=== PATIENT | female | born 1940 | race Caucasian/White ===

== ENCOUNTER 2017-06-18 03:15 | Inpatient (IN) | payer BC, MEDICARE ==
[~2017-06-18] VITALS: Ht 152.4 cm; Wt 51.5 kg
[~2017-06-18 03:15] MED LIST: BETA1TAB10 PO; CALC-77 PO; CITA20TA5 PO; CRAN1TAB6 PO; DILT180C2 PO; HYDR-2762 PO; Hydrocodone/Acetaminophen PO; LEVO50TA PO; MULT-208 PO; OMEP40CA5 PO; POTASSIUM CHLO10 MEQ PO; TRIA1TAB3 PO
[2017-06-18] MEDS ORDERED: IV NORMAL SALINE 1000ML BAG 1,000 ML IV SCH (03:30)
--- NOTE | 2017-06-18 03:30 | PHYS DOC ---
Past Medical History Past Medical History: A-Fib, Asthma, CAD, Gallstones Additional Past Medical Histor: rheumatic heart disease, benign aortic tumor, graves disease Past Surgical History: Cholecystectomy, Hysterectomy, Tonsillectomy Additional Past Surgical Histo: rt & lt lumpectomy, rt bunyon, rt knee surgery Past Surgical History Jared Alcohol Use: None Drug Use: None Social History She is on hospice for heart disease. Adult General Chief Complaint Chief Complaint: MECHANICAL FALL HPI HPI Patient is a 76 year old female who presents with fall. She states she has fallen with her walker now twice. Her left knee "gave out." She does feel a little lightheaded and she did hit her head. She is not on a blood thinner. She lives at assisted living. She does feel slightly dizzy she states. She is on hospice for her heart. 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 She did not contact her hospice nurse however. Review of Systems Review of Systems Constitutional: Denies fever or chills Eyes: Denies change in visual acuity, redness, or eye pain HENT: Denies nasal congestion or sore throat Respiratory: Denies cough or shortness of breath Cardiovascular: No chest pain GI: Denies abdominal pain, nausea, vomiting, bloody stools or diarrhea : Denies dysuria or hematuria Musculoskeletal: Denies back pain or joint pain Integument: Denies rash or skin lesions Neurologic: Denies headache, focal weakness or sensory changes; no LOC; no syncope Current Medications Current Medications Current Medications Medications (Trade) Dose Ordered Sig/Luann Start Time Stop Time Status Last Admin Dose Admin Ceftriaxone Sodium 1 gm/ Sodium Chloride 50 ml @ 100 mls/hr Q24H 06/18/17 05:00 UNV Sodium Chloride 1,000 ml @ 100 mls/hr Q10H 06/18/17 03:30 06/18/17 13:29 06/18/17 04:11 100 MLS/HR Allergies Allergies Allergies Coded Allergies Type Severity Reaction Last Updated Verified Penicillins Allergy Intermediate HIVES 02/17/15 Yes tetracycline Allergy Unknown 06/18/17 Yes Physical Exam Physical Exam Constitutional: Well developed, well nourished, no acute distress, non-toxic appearance. HENT: Normocephalic, bilateral external ears normal, oropharynx moist, no oral exudates, nose normal. Right parietal swelling and contusion. Eyes: PERRLA, EOMI, conjunctiva normal, no discharge. TM clear bilaterally Neck: Normal range of motion, no tenderness, supple, no stridor. Non tender to palpation Cardiovascular:Heart rate regular rhythm, murmur noted Lungs & Thorax: Bilateral breath sounds clear to auscultation Abdomen: Bowel sounds normal, soft, no tenderness, no masses, no pulsatile masses. Skin: Warm, dry, no erythema, no rash. Back: No tenderness, no CVA tenderness. Extremities: No tenderness, no cyanosis, no clubbing, ROM intact, no edema. Full ROM of bilateral knees. Neurologic: Alert and oriented X 3, normal motor function, normal sensory function, no focal deficits noted. Current Patient Data Vital Signs Vital Signs Date Time Temp Pulse Resp B/P (MAP) Pulse Ox O2 Delivery O2 Flow Rate FiO2 06/18/17 03:21 98.5 78 16 97/50 (66) 95 Room Air 98.5 Lab Values Laboratory Tests Test 06/18/17 04:00 06/18/17 04:10 White Blood Count 8.2 x10^3/uL (4.0-11.0) Red Blood Count 3.47 x10^6/uL (3.50-5.40) L Hemoglobin 11.8 g/dL (12.0-15.5) L Hematocrit 34.2 % (36.0-47.0) L Mean Corpuscular Volume 99 fL (79-100) Mean Corpuscular Hemoglobin 34 pg (25-35) Mean Corpuscular Hemoglobin Concent 34 g/dL (31-37) Red Cell Distribution Width 12.3 % (11.5-14.5) Platelet Count 221 x10^3/uL (140-400) Neutrophils (%) (Auto) 75 % (31-73) H Lymphocytes (%) (Auto) 14 % (24-48) L Monocytes (%) (Auto) 7 % (0-9) Eosinophils (%) (Auto) 2 % (0-3) Basophils (%) (Auto) 1 % (0-3) Neutrophils # (Auto) 6.2 x10^3uL (1.8-7.7) Lymphocytes # (Auto) 1.2 x10^3/uL (1.0-4.8) Monocytes # (Auto) 0.6 x10^3/uL (0.0-1.1) Eosinophils # (Auto) 0.2 x10^3/uL (0.0-0.7) Basophils # (Auto) 0.1 x10^3/uL (0.0-0.2) Sodium Level 142 mmol/L (136-145) Potassium Level 2.7 mmol/L (3.5-5.1) *L Chloride Level 100 mmol/L (98-107) Carbon Dioxide Level 28 mmol/L (21-32) Anion Gap 14 (6-14) Blood Urea Nitrogen 52 mg/dL (7-20) H Creatinine 2.6 mg/dL (0.6-1.0) H Estimated GFR (Cockcroft-Gault) 17.9 Glucose Level 113 mg/dL (70-99) H Calcium Level 11.4 mg/dL (8.5-10.1) H Total Bilirubin 0.5 mg/dL (0.2-1.0) Direct Bilirubin 0.1 mg/dL (0.0-0.2) Aspartate Amino Transferase (AST) 27 U/L (15-37) Alanine Aminotransferase (ALT) 15 U/L (14-59) Alkaline Phosphatase 125 U/L (46-116) H Creatine Kinase 153 U/L (26-192) Troponin I Quantitative < 0.017 ng/mL (0.000-0.055) Total Protein 6.4 g/dL (6.4-8.2) Albumin 4.0 g/dL (3.4-5.0) Urine Collection Type U cath Urine Color Yellow Urine Clarity Clear Urine pH 5.5 Urine Specific [place] 1.010 Urine Protein Negative mg/dL (NEG-TRACE) Urine Glucose (UA) Negative mg/dL (NEG) Urine Ketones (Stick) Negative mg/dL (NEG) Urine Blood Negative (NEG) Urine Nitrite Negative (NEG) Urine Bilirubin Negative (NEG) Urine Urobilinogen Dipstick 0.2 mg/dL (0.2 mg/dL) Urine Leukocyte Esterase Small (NEG) Urine RBC 0 /HPF (0-2) Urine WBC 5-10 /HPF (0-4) Urine Squamous Epithelial Cells None /LPF Urine Bacteria Many /HPF (0-FEW) Urine Hyaline Casts Few /HPF Urine Mucus Slight /LPF Laboratory Tests 06/18/17 04:00 Laboratory Tests 06/18/17 04:00 EKG EKG EKG interpreted by myself at pr 3:19 AM. Sinus rhythm rate 75. Left thompson axis. No STEMI; nonspecific ST changes. Radiology/Procedures Radiology/Procedures Chest x-ray interpreted by myself at 0410 AM. No pleural effusions, no infiltrates, no pneumothorax, no obvious bony thorax injury. Impressions: [facility] [address] [place] [address] IMAGING REPORT Signed PATIENT: ATTILA MAY ACCOUNT: [id number] : 1940 LOCATION: ER AGE: 76 SEX: F EXAM STATUS: REG ER ORD. PHYSICIAN: LILIAM VU MD REASON: fall; rt parietal hematoma PROCEDURE: CT HEAD WO CONTRAST CT HEAD INDICATION: pt.fell; right parital hematoma COMPARISON: None Available. TECHNIQUE: 5 mm contiguous axial images were obtained from the skull base to the vertex. Exposure: One or more of the following individualized dose reduction techniques were utilized for this examination: 1. Automated exposure control 2. Adjustment of the mA and/or kV according to patient size 3. Use of iterative reconstruction technique FINDINGS: Mild soft tissue swelling identified in the right parietal scalp region likely scalp hematoma. Mild bilateral periventricular white matter hypodensities likely chronic small vessel ischemic disease. No evidence of acute intracranial hemorrhage. No extra-axial fluid collections. No mass effect or midline shift. Ventricular size is appropriate. Basal cisterns are patent. No fractures identified.Mccormick-white differentiation is preserved.Globes and orbits are within normal limits. Paranasal sinuses and mastoid air cells are clear. IMPRESSION: 1. No acute intracranial findings. 2. Mild soft tissue swelling identified in the right parietal scalp region likely scalp hematoma. Electronically signed by: Ciaran Bazzi MD (06/18/2017 4:25 AM) [facility] DICTATED and SIGNED BY: CIARAN BAZZI MD DATE: 06/18/17421 CC: LILIAM VU MD; MERRY MOSS MD ~ Course & Med Decision Making Course & Med Decision Making Pertinent Labs and Imaging studies reviewed. (See chart for details) Evaluated patient upon arrival. She is alert. She denies any true syncope or loss of consciousness. At 0445 AM: Urine is positive; Rocephin IV started. At 0500 AM: K 2.7; will replace. Spoke with Dr Merry Moss; accepted admission at 0500 am. Obsv to med/surg. I have spoken with the patient and/or caregivers. I have explained the patient' s condition, diagnosis and treatment plan based on the information available to me at this time. I have answered the patient's and/or caregiver's questions and addressed any concerns. The patient and/or caregivers have as good an understanding of the patient's diagnosis, condition and treatment plan as can be expected at this point. The patient has been stabilized within the capability of the emergency department. The patient will be transported for further care and management or will be moved to an observation or inpatient service. I have communicated with the staff or medical practitioner taking over this patient's care. Dragon Disclaimer Dragon Disclaimer This electronic medical record was generated, in whole or in part, using a voice recognition dictation system. Departure Departure Impression: Primary Impression: Fall Additional Impressions: Urinary tract infection Hypokalemia Disposition: ADMITTED INPATIENT Admitting Physician: Merry Moss Condition: STABLE Referrals: MERYR MOSS MD (PCP) Problem Qualifiers Primary Impression: Fall Encounter type: initial encounter Qualified Codes: W19.XXXA - Unspecified fall, initial encounter Additional Impressions: Urinary tract infection Urinary tract infection type: acute cystitis Hematuria presence: without hematuria Qualified Codes: N30.00 - Acute cystitis without hematuria LILIAM VU MD Jun 18, 2017 03:30
[2017-06-18 04:18] LABS: BASO # 0.1 x10^3/uL (0.0-0.2); BASO % 1 % (0-3); EOS % 2 % (0-3); HEMATOCRIT 34.2 % (36.0-47.0); HEMOGLOBIN 11.8 g/dL (12.0-15.5); LYMPH # 1.2 x10^3/uL (1.0-4.8); LYMPH % 14 % (24-48); MEAN CORPUSCULAR HEMOGLOBIN 34 pg (25-35); MEAN CORPUSCULAR HGB CONC 34 g/dL (31-37); MEAN CORPUSCULAR VOLUME 99 fL (79-100); MONO % 7 % (0-9); NEUT % 75 % (31-73); PLATELET COUNT 221 x10^3/uL (140-400); RED BLOOD COUNT 3.47 x10^6/uL (3.50-5.40); RED CELL DISTRIBUTION WIDTH 12.3 % (11.5-14.5); WHITE BLOOD COUNT 8.2 x10^3/uL (4.0-11.0)
[2017-06-18 04:20] LABS: BILIRUBIN,URINE NEGATIVE (NEG); GLUCOSE,URINE NEGATIVE (NEG); NITRITE,URINE NEGATIVE (NEG); PH,URINE 5.5; PROTEIN,URINE NEGATIVE (NEG-TRACE); UROBILINOGEN,URINE 0.2 mg/dL (0.2 mg/dL)
--- NOTE | 2017-06-18 04:28 | RAD ---
CT HEAD INDICATION: pt.fell; right parital hematoma COMPARISON: None Available. TECHNIQUE: 5 mm contiguous axial images were obtained from the skull base to the vertex. Exposure: One or more of the following individualized dose reduction techniques were utilized for this examination: 1. Automated exposure control 2. Adjustment of the mA and/or kV according to patient size 3. Use of iterative reconstruction technique FINDINGS: Mild soft tissue swelling identified in the right parietal scalp region likely scalp hematoma. Mild bilateral periventricular white matter hypodensities likely chronic small vessel ischemic disease. No evidence of acute intracranial hemorrhage. No extra-axial fluid collections. No mass effect or midline shift. Ventricular size is appropriate. Basal cisterns are patent. No fractures identified.Mccormick-white differentiation is preserved.Globes and orbits are within normal limits. Paranasal sinuses and mastoid air cells are clear. IMPRESSION: 1. No acute intracranial findings. 2. Mild soft tissue swelling identified in the right parietal scalp region likely scalp hematoma. Electronically signed by: Ciaran Bazzi MD (06/18/2017 4:25 AM) [place] [id number]
[2017-06-18 04:30] LABS: BACTERIA,URINE MANY /HPF (0-FEW); RBC,URINE 0 /HPF (0-2)
[2017-06-18 04:47] LABS: CALCIUM 11.4 mg/dL (8.5-10.1); CREATININE 2.6 mg/dL (0.6-1.0); DIRECT BILIRUBIN 0.1 mg/dL (0.0-0.2); GFR 17.9; TOTAL BILIRUBIN 0.5 mg/dL (0.2-1.0); TOTAL PROTEIN 6.4 g/dL (6.4-8.2)
[2017-06-18 04:53] LABS: POTASSIUM 2.7 mmol/L (3.5-5.1)
[2017-06-18 04:56] LABS: CKMB MASS 2.8 ng/mL (0.0-3.6)
[2017-06-18] MEDS ORDERED: POTASSIUM CL 40MEQ D5-0.45NACL 1,000 ML IV ONE (05:30)
[2017-06-18 06:40] VITALS: BP 147/75
[2017-06-18 06:41] VITALS: BP 147/75
--- NOTE | 2017-06-18 07:04 | EKG ---
[facility] [address] [place] [address] Test Date: 2017-06-18 Test Time: 03:19:35 Pat Name: ATTILA MAY Department: Room: 4 Gender: F Talent Development Director: : 1940 Requested By: LILIAM VU Order Number: [id number] Reading MD: Seema Givens Measurements Intervals [place] Rate: 75 P: 46 NM: 180 QRS: -15 QRSD: 100 T: 29 QT: 382 QTc: 429 Interpretive Statements SINUS RHYTHM LEFTWARD AXIS NON SPECIFIC T ABNORMALITY Electronically Signed On 06-19-2017 20:30:29 CDT by Seema Givens
--- NOTE | 2017-06-18 07:11 | RAD ---
Portable chest, 06/18/2017: History: Dizziness Comparison is made to a study from 02/14/2015. The heart is within normal limits in size. There is a moderate sized hiatal hernia. There is calcific plaquing and tortuosity of the thoracic aorta. The pulmonary vascularity is normal. No pulmonary infiltrates are seen. There is no evidence of pleural fluid. There is a moderate thoracolumbar scoliosis with associated degenerative change. 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 IMPRESSION: 1. Moderate size hiatal hernia. 2. Aortic atherosclerosis and ectasia. 3. No acute cardiopulmonary abnormality is detected.
--- NOTE | 2017-06-18 08:48 | PDOC ---
Provider Note Provider Note [id number] MERRY MOSS MD Jun 18, 2017 08:48
[2017-06-18] MEDS: LEVOTHYROXINE 50 MCG TABLET PO SCH (09:12)
[2017-06-18] MEDS: CITALOPRAM 20 MG TABLET. PO SCH (09:12)
[2017-06-18] MEDS: PANTOPRAZOLE 40 MG TABLET.DR. PO SCH (09:12)
[2017-06-18] MEDS: HYDROcodon/APAP 7.5/325MG ORAL 15 ML SOLUTION PO PRN ×2 (09:20→18:37)
[2017-06-18] MEDS: POTASSIUM CHLORIDE 30 MEQ in IV DEXTROSE 5 %-0.45 % NACL 1,000 ML IV SCH ×3 (09:30→22:28)
[2017-06-18] MEDS: ONDANSETRON PF 4 MG/2 ML VIAL. IV PRN (09:45)
[2017-06-18 11:00] VITALS: BP 102/63
--- NOTE | 2017-06-18 12:20 | HP ---
ADMIT DATE: 06/18/2017 CHIEF COMPLAINT: Weakness and dehydration. HISTORY OF PRESENT ILLNESS: A 76-year-old white female with chronic medical problems, came in with increasing fatigue, weakness and lethargy. She was found to have a urinary tract infection and also mild hypotension, some prerenal azotemia and hypokalemia, potassium of 2.7. Creatinine was 2.6 and the last creatinine in the record 2 years ago was 1.2. She was given Rocephin and IV fluids and feeling a little better at this time. PAST HISTORY: MEDICATIONS: Listed per the chart. MEDICATIONS: She takes no blood pressure medicines. ALLERGIES: LISTED TO PENICILLIN AND TETRACYCLINE. SOCIAL HISTORY: Lives in assisted living facility, has a daughter who helps to take care of her, nonsmoker, nondrinker. FAMILY HISTORY: Unremarkable. REVIEW OF SYSTEMS: No other known problems. OBJECTIVE: ENT: All within normal limits except mildly dry mucosa. NECK: No carotid bruits, nodes, thyroid enlargement. LUNGS: Clear without tachypnea. CARDIOVASCULAR: Regular rate. Grade 2 systolic murmur across the precordium. ABDOMEN: Soft, benign and nontender. EXTREMITIES: Skin turgor decreased pedal pulses diminished, 2+ clubbing. No joint or skin lesions are noted. NEUROLOGIC: Physiologic and normal for her. Gait not tested. No focal findings. ASSESSMENT: Dehydration, acute renal failure from same and hypokalemia. Urinary tract infection as well. PLAN: Fluids, potassium replacement and Rocephin. MERRY MOSS MD DR: HARLAN/geo JOB#: [id number] / [id number]
[2017-06-18] MEDS ORDERED: PROCHLORPERAZINE 5 MG TABLET. PO PRN (12:45)
[2017-06-18] MEDS: PROCHLORPERAZINE 10 MG/2 ML VIAL. IV PRN ×2 (13:10→18:37)
[2017-06-18 15:00] VITALS: BP 99/61
[2017-06-18 19:00] VITALS: BP 111/72
[2017-06-18 23:00] VITALS: BP 159/72
--- NOTE | 2017-06-18 23:43 | ACF ---
Admission Forms Criteria URINARY COMPLICATIONS (Place 'X' for any and all applicable criteria): Ongoing inpatient care may be needed for Urinary complications with 1 or more of the following: [ ]I. Reduced urine output (eg, despite adequate hydration) [ ]II. Renal failure. (Also use Renal Failure: Common Complications and Conditions as appropriate) [ ]III. Urinary retention requiring drainage or surgery(19)(20)(21)(33)(34) [ ]IV. Postobstructive diuresis requiring close monitoring of urine output and intravenous compensation for excessive fluid losses(35) [X]V. Urinary tract infection requiring inpatient care as indicated by ANY ONE of the following(8)(19)(20): [ ]a) Hemodynamic instability [ ]b) Severe symptoms (eg, high fever, severe pain) [ ]c) Vomiting or dehydration requiring ongoing inpatient care [X]d) IV antibiotic needs that cannot be managed at lower level of care [ ]e) Obstruction of collecting system by stone or tumor Extended stay beyond goal length of stay for primary condition may be needed until ALL of the following are present(3)(4)(5)(8): [ ]a) Renal function (creatinine) at baseline, or daily decreases in creatinine consistent with renal function return [ ]b) Voiding adequately or with urinary catheter or percutaneous suprapubic tube and management regimen in place that is performable at lower level of care. [ ]c) Urine output adequate [ ]d) Fever absent or resolving [ ]e) Infection absent or treatable at next level of care The original [employer] content created by [employer] has been revised. The portions of the content which have been revised are identified through the use of italic text, and [facility] has neither reviewed nor approved the modified material. All other unmodified content is copyright [employer] Please see references footnoted in the original [employer] edition 2015 Admission Criteria Met?: Yes CONSUELO HOLCOMB Jun 18, 2017 23:43
[2017-06-19] MEDS: ONDANSETRON PF 4 MG/2 ML VIAL. IV PRN (00:25)
[2017-06-19] MEDS: PROCHLORPERAZINE 10 MG/2 ML VIAL. IV PRN ×5 (02:56→22:19)
[2017-06-19 03:00] VITALS: BP 141/79
[2017-06-19 07:00] VITALS: BP 154/77
[2017-06-19] MEDS: LEVOTHYROXINE 50 MCG TABLET PO SCH (07:30)
[2017-06-19] MEDS: PANTOPRAZOLE 40 MG TABLET.DR. PO SCH (07:30)
--- NOTE | 2017-06-19 08:40 | PDOC ---
Provider Note Provider Note VSS, NO TEMP, LAB PENDING RE LOW k+- URINE CULT PENDING ALSO- will use perc same as at home for pain MERRY MOSS MD Jun 19, 2017 08:40
[2017-06-19 08:52] LABS: CALCIUM 11.7 mg/dL (8.5-10.1); CREATININE 1.5 mg/dL (0.6-1.0); GFR 33.8
[2017-06-19 08:54] LABS: POTASSIUM 2.7 mmol/L (3.5-5.1)
[2017-06-19] MEDS: CITALOPRAM 20 MG TABLET. PO SCH (09:00)
[2017-06-19] MEDS: POTASSIUM CHLORIDE 30 MEQ in IV DEXTROSE 5 %-0.45 % NACL 1,000 ML IV SCH ×2 (09:08→18:08)
[2017-06-19 10:36] VITALS: BP 121/61
[2017-06-19] MEDS: oxyCODONE/APAP 7.5/325 1 TAB TABLET PO SCH ×2 (13:27→18:09)
[2017-06-19 14:51] VITALS: BP 134/84
[2017-06-19] MEDS: POTASSIUM CHLORIDE 10 MEQ TABLET.ER. PO SCH (18:09)
[2017-06-19 19:00] VITALS: BP 102/76
--- NOTE | 2017-06-19 20:03 | EKG ---
[facility] [address] [place] [address] Test Date: 2017-06-19 Test Time: 20:01:30 Pat Name: ATTILA MAY Department: Room: 4 1 Gender: F Promotions Associate: URIEL : 1940 Requested By: MERRY MOSS Order Number: [id number] Reading MD: Seema Givens Measurements Intervals [place] Rate: 135 P: [place]: QRS: -30 QRSD: 82 T: -34 QT: 308 QTc: 467 Interpretive Statements ATRIAL FIBRILLATION ABNORMAL LEFT AXIS DEVIATION LEFT ANTERIOR FASCICULAR BLOCK ST & T ABNORMALITY, CONSIDER HIGH LATERAL ISCHEMIA INFERIOR ISCHEMIA ABNORMAL ECG Electronically Signed On 06-22-2017 14:56:08 CDT by Seema Givens
[2017-06-19 23:00] VITALS: BP 105/59
[2017-06-20] VITALS (17 sets, daily range): BP systolic 125–171; BP diastolic 60–107
[2017-06-20] MEDS: oxyCODONE/APAP 7.5/325 1 TAB TABLET PO SCH ×4 (00:19→18:00)
[2017-06-20] MEDS: POTASSIUM CHLORIDE 30 MEQ in IV DEXTROSE 5 %-0.45 % NACL 1,000 ML IV SCH ×3 (01:14→23:14)
[2017-06-20] MEDS ORDERED: dilTIAZem IV PUSH 25 MG/5 ML VIAL IVP ONE (04:00)
[2017-06-20] MEDS: LEVOTHYROXINE 50 MCG TABLET PO SCH (08:48)
[2017-06-20] MEDS: CITALOPRAM 20 MG TABLET. PO SCH (08:48)
[2017-06-20] MEDS: POTASSIUM CHLORIDE 10 MEQ TABLET.ER. PO SCH ×3 (08:49→18:38)
[2017-06-20] MEDS: PANTOPRAZOLE 40 MG TABLET.DR. PO SCH (08:49)
--- NOTE | 2017-06-20 09:20 | PDOC ---
Provider Note Provider Note still nausea and devleoped af/rvr as she could not hold dilt down- now better on dilt drip 15mg/hr- renal lab better 06/19, today pending- cont same for now MERRY MOSS MD Jun 20, 2017 09:20
[2017-06-20 11:27] LABS: CALCIUM 10.3 mg/dL (8.5-10.1); CREATININE 1.1 mg/dL (0.6-1.0); GFR 48.2; POTASSIUM 3.2 mmol/L (3.5-5.1)
[2017-06-20] MEDS: PROCHLORPERAZINE 10 MG/2 ML VIAL. IV PRN (22:19)
[2017-06-21] VITALS (11 sets, daily range): BP systolic 134–159; BP diastolic 70–90
[2017-06-21] MEDS: oxyCODONE/APAP 7.5/325 1 TAB TABLET PO SCH ×5 (04:49→23:47)
--- NOTE | 2017-06-21 09:17 | PDOC ---
Provider Note Provider Note af and nausea persists, etiology ?- exam same- K+ better 3.2- will add carafate trial, more lab, cont iv dilt re nausea- MERRY MOSS MD Jun 21, 2017 09:17
[2017-06-21] MEDS: PANTOPRAZOLE 40 MG TABLET.DR. PO SCH (09:19)
[2017-06-21] MEDS: POTASSIUM CHLORIDE 10 MEQ TABLET.ER. PO SCH ×3 (09:19→16:44)
[2017-06-21] MEDS: LEVOTHYROXINE 50 MCG TABLET PO SCH (09:19)
[2017-06-21] MEDS: CITALOPRAM 20 MG TABLET. PO SCH (09:19)
[2017-06-21] MEDS: PROCHLORPERAZINE 10 MG/2 ML VIAL. IV PRN ×2 (09:20→16:53)
[2017-06-21 10:03] LABS: ALBUMIN 3.3 g/dL (3.4-5.0); ALBUMIN/GLOBULIN RATIO 1.1 (1.0-1.7); CALCIUM 9.8 mg/dL (8.5-10.1); GFR 53.8; POTASSIUM 3.7 mmol/L (3.5-5.1); TOTAL BILIRUBIN 0.5 mg/dL (0.2-1.0); TOTAL PROTEIN 6.3 g/dL (6.4-8.2)
[2017-06-21 10:06] LABS: BASO # 0.1 x10^3/uL (0.0-0.2); BASO % 1 % (0-3); EOS % 0 % (0-3); HEMATOCRIT 39.1 % (36.0-47.0); HEMOGLOBIN 13.4 g/dL (12.0-15.5); LYMPH # 2.3 x10^3/uL (1.0-4.8); LYMPH % 14 % (24-48); MEAN CORPUSCULAR HEMOGLOBIN 34 pg (25-35); MEAN CORPUSCULAR HGB CONC 34 g/dL (31-37); MEAN CORPUSCULAR VOLUME 98 fL (79-100); MONO % 8 % (0-9); NEUT % 78 % (31-73); PLATELET COUNT 240 x10^3/uL (140-400); RED BLOOD COUNT 3.97 x10^6/uL (3.50-5.40); RED CELL DISTRIBUTION WIDTH 12.8 % (11.5-14.5); WHITE BLOOD COUNT 16.7 x10^3/uL (4.0-11.0)
[2017-06-21] MEDS: SUCRALFATE 1 GM/10 ML ORAL.SUSP. PEG SCH ×3 (12:21→20:24)
[2017-06-21] MEDS: POTASSIUM CHLORIDE 30 MEQ in IV DEXTROSE 5 %-0.45 % NACL 1,000 ML IV SCH (14:01)
[2017-06-22 03:00] VITALS: BP 97/61
[2017-06-22] MEDS: POTASSIUM CHLORIDE 30 MEQ in IV DEXTROSE 5 %-0.45 % NACL 1,000 ML IV SCH ×2 (03:07→18:07)
[2017-06-22] MEDS: oxyCODONE/APAP 7.5/325 1 TAB TABLET PO SCH ×4 (05:41→23:48)
[2017-06-22] MEDS: PROCHLORPERAZINE 10 MG/2 ML VIAL. IV PRN ×4 (05:41→23:48)
[2017-06-22 07:27] VITALS: BP 123/70
[2017-06-22] MEDS: PANTOPRAZOLE 40 MG TABLET.DR. PO SCH (07:47)
[2017-06-22] MEDS: LEVOTHYROXINE 50 MCG TABLET PO SCH (07:47)
[2017-06-22] MEDS: SUCRALFATE 1 GM/10 ML ORAL.SUSP. PEG SCH ×4 (07:47→20:44)
[2017-06-22] MEDS: CITALOPRAM 20 MG TABLET. PO SCH (10:29)
[2017-06-22] MEDS: POTASSIUM CHLORIDE 10 MEQ TABLET.ER. PO SCH ×3 (10:29→18:10)
[2017-06-22 10:50] VITALS: BP 166/80
--- NOTE | 2017-06-22 14:12 | PDOC ---
SUBJECTIVE Subjective nausea better, appetite slightly better, OBJECTIVE Vital Signs Vital Signs Date Time Temp Pulse Resp B/P (MAP) Pulse Ox O2 Delivery O2 Flow Rate FiO2 06/22/17 13:15 18 96 Nasal Cannula 1.5 06/22/17 12:15 20 96 Nasal Cannula 1.5 06/22/17 10:50 98.8 82 19 166/80 (108) 96 Nasal Cannula 1.5 98.8 06/22/17 07:27 98.6 96 18 123/70 (87) 95 Nasal Cannula 1.5 98.6 06/22/17 05:41 20 06/22/17 03:00 98.1 93 17 97/61 (73) 94 Nasal Cannula 1.5 98.1 06/21/17 23:47 20 Nasal Cannula 2.0 06/21/17 23:18 98.7 95 19 151/74 (99) 96 Nasal Cannula 1.5 98.7 06/21/17 19:45 98.9 95 21 134/81 (98) 96 Nasal Cannula 1.5 98.9 06/21/17 19:30 Nasal Cannula 2.0 06/21/17 16:44 Nasal Cannula 2.0 06/21/17 15:00 98.7 95 19 152/88 (109) 96 Nasal Cannula 2.0 98.7 I & O Intake and Output 06/22/17 06:59 Intake Total 200 ml Output Total 2825 ml Balance -2625 ml Intake Oral 200 ml Output Urine Total 2825 ml # Voids 2 PHYSICAL EXAM Physical Exam lungs fairly clear heart RRR abd soft ext no edema ASSESSMENT/PLAN Assessment/Plan 1- fall with scalp hematoma 2.Dehydration 3-acute renal failure 4. hypokalemia. 5.Urinary tract infection 6. leukocytosis recheck 7. high LFT"s check hep profile and abd US 8. hital hernia 9. cardiomegaly check echo Problems: GEO GARCIA MD Jun 22, 2017 14:12
[2017-06-22 14:31] VITALS: BP 97/61
[2017-06-22 19:39] VITALS: BP 139/84
[2017-06-22 23:07] VITALS: BP 140/87
[2017-06-23 02:56] VITALS: BP 150/84
[2017-06-23 05:51] LABS: CALCIUM 10.6 mg/dL (8.5-10.1); CREATININE 0.9 mg/dL (0.6-1.0); GFR 60.7; POTASSIUM 4.8 mmol/L (3.5-5.1); TOTAL BILIRUBIN 0.6 mg/dL (0.2-1.0)
[2017-06-23] MEDS: PROCHLORPERAZINE 10 MG/2 ML VIAL. IV PRN ×4 (05:58→23:49)
[2017-06-23] MEDS: oxyCODONE/APAP 7.5/325 1 TAB TABLET PO SCH ×4 (06:00→23:49)
[2017-06-23 07:09] LABS: HEMATOCRIT 39.7 % (36.0-47.0); HEMOGLOBIN 13.2 g/dL (12.0-15.5); WHITE BLOOD COUNT 12.5 x10^3/uL (4.0-11.0)
[2017-06-23] MEDS: SUCRALFATE 1 GM/10 ML ORAL.SUSP. PEG SCH ×4 (07:30→21:07)
[2017-06-23 07:51] VITALS: BP 140/65
[2017-06-23] MEDS: POTASSIUM CHLORIDE 10 MEQ TABLET.ER. PO SCH ×3 (08:00→17:34)
[2017-06-23 10:21] VITALS: BP 109/61
[2017-06-23] MEDS: POTASSIUM CHLORIDE 30 MEQ in IV DEXTROSE 5 %-0.45 % NACL 1,000 ML IV SCH ×2 (11:37→21:07)
[2017-06-23] MEDS: CITALOPRAM 20 MG TABLET. PO SCH (11:38)
[2017-06-23] MEDS: PANTOPRAZOLE 40 MG TABLET.DR. PO SCH (11:38)
[2017-06-23] MEDS: LEVOTHYROXINE 50 MCG TABLET PO SCH (11:38)
--- NOTE | 2017-06-23 13:14 | RAD ---
Indication: Elevated LFTs. Technique: Ultrasound of the abdomen was performed. No comparison is available. Findings: Visualized pancreas is unremarkable. Aorta is normal caliber. IVC is patent. Liver is normal in size and echogenicity. Gallbladder is surgically absent. Common bile duct measures 8 mm, can be within normal limits in a patient of this age post cholecystectomy. Kidneys are without hydronephrosis or mass. Spleen is not enlarged. Impression: Normal abdominal ultrasound.
--- NOTE | 2017-06-23 14:00 | PDOC ---
SUBJECTIVE Subjective feels better, eating better OBJECTIVE Vital Signs Vital Signs Date Time Temp Pulse Resp B/P (MAP) Pulse Ox O2 Delivery O2 Flow Rate FiO2 06/23/17 13:36 16 96 Nasal Cannula 1.5 06/23/17 11:38 18 96 Nasal Cannula 1.5 06/23/17 10:21 98.0 94 19 109/61 (77) 96 Nasal Cannula 1.5 98.0 06/23/17 08:00 Nasal Cannula 1.5 06/23/17 07:51 98.6 111 18 140/65 (90) 95 Nasal Cannula 1.5 98.6 06/23/17 02:56 98.2 98 17 150/84 (106) 94 Nasal Cannula 1.5 98.2 06/22/17 23:48 20 Nasal Cannula 2.0 06/22/17 23:07 98.5 103 18 140/87 (104) Nasal Cannula 1.5 98.5 06/22/17 19:45 Nasal Cannula 2.0 06/22/17 19:39 98.5 91 18 139/84 (102) 94 Nasal Cannula 1.5 98.5 06/22/17 18:09 18 94 Nasal Cannula 1.5 06/22/17 14:31 98.4 99 18 97/61 (73) 94 Nasal Cannula 1.5 98.4 I & O Intake and Output 06/23/17 07:00 Intake Total 700 ml Output Total 1875 ml Balance -1175 ml Intake Oral 700 ml Output Urine Total 1875 ml PHYSICAL EXAM Physical Exam no change ASSESSMENT/PLAN Assessment/Plan 1- fall with scalp hematoma 2.Dehydration 3-acute renal failure resolved 4. hypokalemia resolved 5.Urinary tract infection 6. leukocytosis improved 7. high LFT"s , abd US ok, AST/ALT normal now 8. hital hernia 9. cardiomegaly check echo pending 10 . hypercalcemia not sure of cause could be cause of nausea, check PTH and SPE Dr. Ching will resume care in AM Problems: COMMENT Lab Laboratory Tests Test 06/23/17 04:00 White Blood Count 12.5 x10^3/uL (4.0-11.0) Red Blood Count 4.00 x10^6/uL (3.50-5.40) Hemoglobin 13.2 g/dL (12.0-15.5) Hematocrit 39.7 % (36.0-47.0) Mean Corpuscular Volume 99 fL (79-100) Mean Corpuscular Hemoglobin 33 pg (25-35) Mean Corpuscular Hemoglobin Concent 33 g/dL (31-37) Red Cell Distribution Width 13.0 % (11.5-14.5) Platelet Count 197 x10^3/uL (140-400) Sodium Level 139 mmol/L (136-145) Potassium Level 4.8 mmol/L (3.5-5.1) Chloride Level 105 mmol/L (98-107) Carbon Dioxide Level 27 mmol/L (21-32) Anion Gap 7 (6-14) Blood Urea Nitrogen 15 mg/dL (7-20) Creatinine 0.9 mg/dL (0.6-1.0) Estimated GFR (Cockcroft-Gault) 60.7 BUN/Creatinine Ratio 17 (6-20) Glucose Level 111 mg/dL (70-99) Calcium Level 10.6 mg/dL (8.5-10.1) Total Bilirubin 0.6 mg/dL (0.2-1.0) Aspartate Amino Transf (AST/SGOT) 28 U/L (15-37) Alanine Aminotransferase (ALT/SGPT) 45 U/L (14-59) Alkaline Phosphatase 100 U/L (46-116) Total Protein 6.0 g/dL (6.4-8.2) Albumin 3.0 g/dL (3.4-5.0) Albumin/Globulin Ratio 1.0 (1.0-1.7) Amylase Level 53 U/L (25-115) Lipase 72 U/L (73-393) GEO GARCIA MD Jun 23, 2017 14:00
[2017-06-23 14:19] VITALS: BP 115/62
[2017-06-23 14:55] LABS: ALBUMIN 2.9 g/dL (3.4-5.0); CALCIUM 10.1 mg/dL (8.5-10.1); GFR 53.8; POTASSIUM 4.9 mmol/L (3.5-5.1); TOTAL BILIRUBIN 0.6 mg/dL (0.2-1.0); TOTAL PROTEIN 5.9 g/dL (6.4-8.2)
[2017-06-23 19:55] VITALS: BP 117/64
[2017-06-23 22:53] VITALS: BP 145/69
[2017-06-24 02:04] VITALS: BP 105/55
[2017-06-24] MEDS: PROCHLORPERAZINE 10 MG/2 ML VIAL. IV PRN ×3 (05:41→16:59)
[2017-06-24] MEDS: oxyCODONE/APAP 7.5/325 1 TAB TABLET PO SCH ×3 (05:42→18:27)
[2017-06-24 07:00] VITALS: BP 135/68
[2017-06-24] MEDS: CITALOPRAM 20 MG TABLET. PO SCH (08:27)
[2017-06-24] MEDS: LEVOTHYROXINE 50 MCG TABLET PO SCH (08:27)
[2017-06-24] MEDS: POTASSIUM CHLORIDE 10 MEQ TABLET.ER. PO SCH (08:28)
[2017-06-24] MEDS: SUCRALFATE 1 GM/10 ML ORAL.SUSP. PEG SCH ×4 (08:28→20:59)
[2017-06-24] MEDS: PANTOPRAZOLE 40 MG TABLET.DR. PO SCH (08:28)
--- NOTE | 2017-06-24 08:46 | PDOC ---
Provider Note Provider Note LESS NAUSEAA, NO NEW SXS- labs ok, K+ 4.9, Ca++ ok- dc iv meds, po diltiazem now , will need snf MERRY MOSS MD Jun 24, 2017 08:46
[2017-06-24 11:00] VITALS: BP 113/69
[2017-06-24 15:00] VITALS: BP 115/65
--- NOTE | 2017-06-24 16:37 | CARD ---
APPROVED REPORT EXAM: Two-dimensional and M-mode echocardiogram with Doppler and color Doppler. Other Information Quality : Good INDICATION Cardiomegaly 2D DIMENSIONS RVDd2.4 (2.9-3.5cm)Left Atrium(2D)2.5 (1.6-4.0cm) IVSd1.1 (0.7-1.1cm)Aortic Root(2D)3.0 (2.0-3.7cm) LVDd2.9 (3.9-5.9cm)LVOT Diameter1.7 (1.8-2.4cm) PWd1.1 (0.7-1.1cm)LVDs1.6 (2.5-4.0cm) FS (%) 30.0 %SV25.3 ml LVEF(%)60.0 (>50%) Aortic Valve AoV Peak Ashok.197.4cm/sAoV VTI24.2cm AO Peak GR.15.6mmHgLVOT VTI 18.05cm AO Mean GR.8mmHgAVA (VTI)1.80cm2 AI P 1/2 Rudu233ou Mitral Valve MV E Ddbfnkfy05.8cm/sMV DECEL KNNF722in MV A Xoivqorg360.2cm/sE/A Ratio0.6 TDI Lateral E' P. V4.63cm/sMedial E' P. V3.77cm/s E/Lateral E'14.6E/Medial E'18.0 Pulmonary Vein S1 Fkalqqrm18.9cm/sS2 Hilknjaw82.14cm/s D2 Inhnkrhd22.1cm/sPVa [id number] LEFT VENTRICLE The left ventricle is normal size. There is normal left ventricular wall thickness. The left ventricu lar systolic function is normal and the ejection fraction is within normal range. The Ejection Fracti on is 60-65%. There is normal LV segmental wall motion. Transmitral Doppler flow pattern is Grade I-a bnormal relaxation pattern. RIGHT VENTRICLE The right ventricle is normal size. The right ventricular systolic function is normal. ATRIA The left atrium size is normal. The right atrium size is normal. The interatrial septum is intact wit h no evidence for an atrial septal defect or patent foramen ovale as noted on 2-D or Doppler imaging. AORTIC VALVE The aortic valve is calcified with restricted leaflet motion. It is grossly trileaflet. Doppler and C olor Flow revealed mild aortic regurgitation. There is no significant aortic valvular stenosis. MITRAL VALVE The mitral valve is calcified but opens well. There is no evidence of mitral valve prolapse. There is no mitral valve stenosis. Doppler and Color-flow revealed trace mitral regurgitation. TRICUSPID VALVE The tricuspid valve is normal in structure and function. Doppler and Color Flow revealed trace tricus pid regurgitation. There is no tricuspid valve stenosis. PULMONIC VALVE Doppler and Color Flow revealed no pulmonic valvular regurgitation. There is no pulmonic valvular kane nosis. GREAT VESSELS The aortic root is normal in size. The ascending aorta is normal in size. The IVC is normal in size a nd collapses >50% with inspiration. PERICARDIAL EFFUSION There is no evidence of significant pericardial effusion. Critical Notification Critical Value: No <Conclusion> The left ventricular systolic function is normal and the ejection fraction is within normal range. Th e Ejection Fraction is 60-65%. There is normal LV segmental wall motion. Doppler and Color Flow revealed mild aortic regurgitation.
[2017-06-24 17:13] LABS: PTH INTACT 314 pg/mL (15-65)
[2017-06-24 18:10] LABS: HEP A IGM ABDY Negative (Negative)
[2017-06-24 19:45] VITALS: BP 100/59
[2017-06-24 22:51] VITALS: BP 135/69
[2017-06-25] MEDS: oxyCODONE/APAP 7.5/325 1 TAB TABLET PO SCH ×3 (01:28→13:13)
[2017-06-25] MEDS: PROCHLORPERAZINE 10 MG/2 ML VIAL. IV PRN ×2 (01:28→08:16)
[2017-06-25 03:01] VITALS: BP 105/64
[2017-06-25 07:00] VITALS: BP 156/74
[2017-06-25] MEDS: LEVOTHYROXINE 50 MCG TABLET PO SCH (08:10)
[2017-06-25] MEDS: CITALOPRAM 20 MG TABLET. PO SCH (08:10)
[2017-06-25] MEDS: SUCRALFATE 1 GM/10 ML ORAL.SUSP. PEG SCH ×2 (08:15→11:30)
[2017-06-25] MEDS: PANTOPRAZOLE 40 MG TABLET.DR. PO SCH (08:15)
--- NOTE | 2017-06-25 08:54 | DISCH ---
DISCHARGE FINAL DIAGNOSIS Problems Medical Problems: (1) Fall Status: Acute (2) Hypokalemia Status: Acute (3) Urinary tract infection Status: Acute CONDITION ON DISCHARGE: Stable SNF STAY <30 DAYS: Yes POST DISCHARGE ORDERS ACTIVITY ORDERS: Activity as tolerated DIET AFTER DISCHARGE: Regular FOLLOW-UP PHYSICIAN FOLLOW-UP: MERRY Frye MD Jun 25, 2017 08:54
--- NOTE | 2017-06-25 08:56 | PDOC ---
Provider Note Provider Note [id number] MERRY MOSS MD Jun 25, 2017 08:56
--- NOTE | 2017-06-25 09:22 | DS ---
DATE OF DISCHARGE: 06/25/2017 HOSPITAL SUMMARY: A 77-year-old white female admitted with episodic atrial fibrillation, weakness, fatigue. Her potassium was low at 2.7, came up to normal values and remaining laboratory studies were unremarkable. Calcium mildly elevated on admission at 11.4, came down to normal at 10.1. PTH mildly elevated at 314. TSH, lipase and liver function tests, hepatitis studies were all within normal limits. CT of the head was normal and gallbladder sonogram was normal as well. She was given IV fluids and potassium replacement and then had to have IV Cardizem, which she had persistent nausea. The atrial fibrillation resolved and nausea seemed to improve with the use of oral Carafate. She is back in sinus rhythm and able to be followed as an outpatient at this time and she remains a DNR patient. FINAL DIAGNOSES: 1. Recurrent atrial fibrillation and rapid ventricular response. 2. Hypokalemia secondary to vomiting. 3. Persistent nausea, likely secondary to gastritis. OPERATIONS, PROCEDURES, COMPLICATIONS AND CONSULTATIONS: None. DISPOSITION: Continue Carafate and current meds. She remains a DNR patient, comfort care, activity as tolerated. MERRY MOSS MD DR: HARLAN/geo JOB#: [id number] / [id number]
[2017-06-25 11:00] VITALS: BP 113/54
[2017-06-26 12:17] LABS: ALPHA 1 0.3 g/dL (0.0-0.4); ALPHA 2 0.9 g/dL (0.4-1.0); BETA 0.9 g/dL (0.7-1.3); GAMMA 0.3 g/dL (0.4-1.8); M-SPIKE Not Observed g/dL (Not Observed); PROTEIN TOTAL 5.4 g/dL (6.0-8.5)
== END 2017-06-25 13:35 | DRG 683 ==
LOC: ER 03:15 → 5 SOUTH 05:53 → OBSVTOIN 06-19 08:33 → 2 SOUTH 06-20 04:30
PROVIDERS: ADMIT Family Medicine; ATTEND Family Medicine
DX: N17.9 Acute kidney failure, unspecified (principal); N39.0 Urinary tract infection, site not specified; I95.9 Hypotension, unspecified; I48.91 Unspecified atrial fibrillation; E86.0 Dehydration; E83.52 Hypercalcemia; W19.XXXA Unspecified fall, initial encounter; E87.6 Hypokalemia; I09.9 Rheumatic heart disease, unspecified; I25.10 Atherosclerotic heart disease of native coronary artery without angina pectoris; J45.909 Unspecified asthma, uncomplicated; K29.70 Gastritis, unspecified, without bleeding; K44.9 Diaphragmatic hernia without obstruction or gangrene; Z66 Do not resuscitate; Z51.5 Encounter for palliative care; S00.03XA Contusion of scalp, initial encounter; Y93.89 Activity, other specified; Y92.89 Other specified places as the place of occurrence of the external cause; Y99.8 Other external cause status; Z90.49 Acquired absence of other specified parts of digestive tract; Z90.710 Acquired absence of both cervix and uterus; Z88.1 Allergy status to other antibiotic agents; Z88.0 Allergy status to penicillin; Z87.442 Personal history of urinary calculi
CPT/HCPCS: 36415; 70450; 71010; 76700; 80048; 80053; 80074; 80076; 81001; 82150; 82550; 82553; 83690; 83880; 83970; 84165; 84443; 84484; 85025; 85027; 93005; 93306; 96361; 96365; G0378; G0379; J0696; J0780; J2405; J3490; J7030; J7042; 97110; 97530; 97535; 99285-25

== ENCOUNTER 2017-07-31 16:04 | Inpatient (IN) | payer BC ==
[~2017-07-31] VITALS: Ht 152.4 cm; Wt 58.5 kg
[2017-07-31] MEDS ORDERED: IV NORMAL SALINE 1000ML BAG 1,000 ML IV ONE (16:45)
[2017-07-31] MEDS ORDERED: ONDANSETRON PF 4 MG/2 ML VIAL. IV ONE (16:45)
[2017-07-31 16:47] LABS: BASO # 0.1 x10^3/uL (0.0-0.2); BASO % 0 % (0-3); EOS % 0 % (0-3); HEMATOCRIT 44.2 % (36.0-47.0); HEMOGLOBIN 14.7 g/dL (12.0-15.5); LYMPH # 1.1 x10^3/uL (1.0-4.8); LYMPH % 4 % (24-48); MEAN CORPUSCULAR HEMOGLOBIN 32 pg (25-35); MEAN CORPUSCULAR HGB CONC 33 g/dL (31-37); MEAN CORPUSCULAR VOLUME 97 fL (79-100); MONO % 5 % (0-9); NEUT % 91 % (31-73); PLATELET COUNT 279 x10^3/uL (140-400); RED BLOOD COUNT 4.56 x10^6/uL (3.50-5.40); RED CELL DISTRIBUTION WIDTH 13.6 % (11.5-14.5); WHITE BLOOD COUNT 26.5 x10^3/uL (4.0-11.0)
--- NOTE | 2017-07-31 16:56 | RAD ---
EXAM: Chest, single view. HISTORY: Syncope. COMPARISON: 06/18/2017. FINDINGS: A frontal view of the chest is obtained. There is a right infrahilar atelectasis or interstitial infiltrate. There is blunting of the left costophrenic angle likely due to trace pleural fluid or basilar pleural-parenchymal scarring. There is nodular opacity overlying the left upper lobe secondary to overlying artifact. There are healed rib fractures. The heart is normal in size. There are advanced degenerative changes involving both shoulders and there is chronic deformity and dislocation of the left glenohumeral joint and superior subluxation of the right humeral head. IMPRESSION: 1. Suspected right infrahilar atelectasis or interstitial infiltrate. 2. Suspected trace left pleural effusion or basilar pleural parenchymal scarring.
[2017-07-31 17:04] LABS: BILIRUBIN,URINE SMALL (NEG); GLUCOSE,URINE NEGATIVE (NEG); NITRITE,URINE NEGATIVE (NEG); PH,URINE 5.5; PROTEIN,URINE 30 mg/dL (NEG-TRACE); UROBILINOGEN,URINE 0.2 mg/dL (0.2 mg/dL)
--- NOTE | 2017-07-31 17:08 | EKG ---
[facility] [address] [place] [address] Test Date: 2017-07-31 Test Time: 16:38:37 Pat Name: ATTILA MAY Department: Room: Gender: F Yard[place] Caller: : 1940 Requested By: ОЛЬГА JOVEL Order Number: [id number] Reading MD: Marcos Vo Measurements Intervals Parker Rate: 120 P: MD: QRS: -56 QRSD: 94 T: -63 QT: 302 QTc: 431 Interpretive Statements ATRIAL FIB/FLUTTER ABNORMAL LEFT AXIS DEVIATION R-S TRANSITION ZONE IN V LEADS DISPLACED TO THE LEFT CONSIDER LEFT VENTRICULAR HYPERTROPHY QRS(T) CONTOUR ABNORMALITY CANNOT RULE OUT ANTEROLATERAL MYOCARDIAL DAMAGE CONSISTENT WITH INFERIOR INFARCT AGE UNDETERMINED RI6.01 Unconfirmed report Compared to ECG 06/19/2017 20:01 Electronically Signed On 08-09-2017 12:55:13 CDT by Marcos Vo
[2017-07-31 17:18] LABS: BACTERIA,URINE FEW /HPF (0-FEW); SQUAMOUS EPITHELIAL CELL,UR FEW /LPF; WBC,URINE OCC /HPF (0-4)
[2017-07-31] MEDS ORDERED: MORPHINE SULFATE 2 MG/ML DISP.SYRIN. IV ONE (17:30)
[2017-07-31 17:31] LABS: ANISOCYTOSIS SLIGHT; PLT ESTIMATE ADEQUATE (ADEQUATE); TOXIC GRANULATION SLIGHT
[2017-07-31 17:32] LABS: ALBUMIN 3.8 g/dL (3.4-5.0); CALCIUM 11.9 mg/dL (8.5-10.1); CREATININE 3.8 mg/dL (0.6-1.0); GFR 11.5; TOTAL BILIRUBIN 0.8 mg/dL (0.2-1.0); TOTAL PROTEIN 7.5 g/dL (6.4-8.2)
[2017-07-31 17:38] LABS: POTASSIUM 2.2 mmol/L (3.5-5.1)
[2017-07-31] MEDS ORDERED: dilTIAZem IV PUSH 25 MG/5 ML VIAL IVP ONE (18:00)
[2017-07-31] MEDS ORDERED: POTASSIUM CL 40MEQ IN 0.9%NACL 1,000 ML IV ONE (18:00)
[2017-07-31] MEDS ORDERED: POTASSIUM CL 20MEQ D5-0.9%NACL 1,000 ML IV ONE (18:00)
[2017-07-31] MEDS ORDERED: ASPIRIN CHEWABLE 81 MG TABLET. PO ONE (18:00)
[2017-07-31] MEDS ORDERED: VANCOMYCIN 1.25 GM in IV NORMAL SALINE 250ML 250 ML IV ONE (18:00)
[2017-07-31] MEDS: VANCOMYCIN PER PHARMACY MC PRN (19:23)
[2017-07-31 20:22] VITALS: BP 89/38
[2017-07-31 20:23] VITALS: BP 101/69
[2017-07-31] MEDS: ONDANSETRON PF 4 MG/2 ML VIAL. IV PRN (20:34)
[2017-07-31] MEDS ORDERED: ONDA4TAB7 PO (20:47)
[2017-07-31] MEDS ORDERED: LORA0.5T PO ×2 (20:47)
[2017-07-31] MEDS ORDERED: SUCR1TAB35 PO (20:47)
[2017-07-31] MEDS ORDERED: SERT25TA PO (20:47)
[2017-07-31] MEDS ORDERED: HYDR12.58 PO (20:47)
[2017-07-31] MEDS ORDERED: OXYC-327 PO (20:47)
[2017-07-31] MEDS ORDERED: SERT50TA PO (20:47)
[2017-07-31] MEDS ORDERED: TIZA4CAP3 PO (20:50)
[2017-07-31] MEDS ORDERED: FURO20TA3 PO (20:50)
[2017-07-31] MEDS ORDERED: POTASSIUM CHLORIDE 40 MEQ in IV DEXTROSE 5% - 0.9 % NACL 1,000 ML IV SCH (22:00)
[2017-07-31] MEDS ORDERED: fentaNYL PF VIAL 100 MCG/2 ML VIAL IV PRN (22:00)
--- NOTE | 2017-07-31 22:20 | PHYS DOC ---
Past Medical History Past Medical History: A-Fib, Asthma, CAD, Gallstones Additional Past Medical Histor: rheumatic heart disease, benign aortic tumor, graves disease Past Surgical History: Cholecystectomy, Hysterectomy, Tonsillectomy Additional Past Surgical Histo: rt & lt lumpectomy, rt bunyon, rt knee surgery Alcohol Use: None Drug Use: None Adult General Chief Complaint Chief Complaint: MECHANICAL FALL HPI HPI Patient is a 77 year old female with a history significant for hypertension, rheumatic heart disease, atrial fibrillation, stage III kidney disease, presents to the ER today after being on the ground for an unclear amount of time. Patient reports that she thinks she fell down approximately 6 hours ago after feeling dizzy. Patient does not recall the exact events of her falling down to the ground. Per the patient's daughter she thinks that she might of been on the ground since yesterday. But she is not clear exactly why she thinks it was yesterday rather than today. Patient without any other complaints. Patient reports that she has a history significant for rheumatoid arthritis and she has chronic pain. Patient denies any new pain in her joints back. patient denies any recent fevers shakes chills nausea vomiting or diarrhea. Patient denies any chest pain or shortness of breath. Patient denies any dysuria frequency or urgency. Patient denies any change in urinary frequency. Patient denies any cough cold or rhinorrhea. Patient essentially reports that she is her usual state of health. Patient denies any diabetes liver lung problems. Patient has a history significant for heart disease. Patient denies any history of CHF. Patient lives alone but have her daughter come visit her frequently and also has a nurse come and check up on her. Patient reports that she is currently on hospice care secondary to her heart disease. Review of systems Constitutional: Denies fever or chills Eyes: Denies change in visual acuity, redness, or eye pain All other review systems are negative except as documented in the history of present illness portion. Physical exam Constitutional: Cachectic appearing no acute distress, non-toxic appearance. HENT: Normocephalic, atraumatic, bilateral external ears normal, dry mucous membranes., no oral exudates, nose normal. Eyes: conjunctiva normal, no discharge. Neck: Normal range of motion, no tenderness, supple, no stridor. No C-spine T- spine or L-spine tenderness to palpation. Cardiovascular:Heart rate regular rhythm, tachycardic to 110. Lungs & Thorax: Bilateral breath sounds clear to auscultation Abdomen: Bowel sounds normal, soft, no tenderness, no masses, no pulsatile masses. Skin: Warm, dry, Back: No tenderness, Extremities: No tenderness, no cyanosis, Neurologic: Alert and oriented X 3, normal motor function, normal sensory function, no focal deficits noted. Psychologic: Affect normal, judgement normal, mood normal. Pertinent lab values include White count of 26.5. 91 segs 4 lymphs. Bun 112, creatinine 3.8. Anion gap of 16. Elevated ALT and AST. CPK of 1609. Troponin of 0.532. Chest x-ray with sequential right lower lobe infiltrate versus atelectasis. Hypokalemia potassium of 2.2. Assessment and plan This is a 77-year-old female who presents to the ER today secondary to being found on the ground for several hours. Is not clear whether not the patient was on the ground since yesterday evening or earlier today. 1. Rhabdomyolysis 2. Elevated CPK, elevated troponin, demand cardiac ischemia, pneumonia with sepsis. Acute renal failure. Dehydration, uremia, SVT with RVR, hypokalemia, hyponatremia Patient was admitted to the hospital for further evaluation of her conditions. Patient was started on Vanco and Levaquin(patient is allergic to penicillin) for treatment of her sepsis. Patient was given 30 mL/kg of normal saline. Patient be repleted for her potassium with 40 mEq of potassium chloride at 250 mg/h and will be switched over to 20 mEq potassium chloride and D5 normal saline. Patient was started on a Cardizem drip of 5 mg per hour was given a bolus of 5 mg in order to treat her tachycardia. Critical care time of 35 minutes were utilizing a treatment of this patient's SVT with RVR, elevated troponin, hypokalemia. Laboratory Tests Test 07/31/17 16:25 07/31/17 16:56 White Blood Count 26.5 x10^3/uL Red Blood Count 4.56 x10^6/uL Hemoglobin 14.7 g/dL Hematocrit 44.2 % Mean Corpuscular Volume 97 fL Mean Corpuscular Hemoglobin 32 pg Mean Corpuscular Hemoglobin Concent 33 g/dL Red Cell Distribution Width 13.6 % Platelet Count 279 x10^3/uL Neutrophils (%) (Auto) 91 % Lymphocytes (%) (Auto) 4 % Monocytes (%) (Auto) 5 % Eosinophils (%) (Auto) 0 % Basophils (%) (Auto) 0 % Neutrophils # (Auto) 24.0 x10^3uL Lymphocytes # (Auto) 1.1 x10^3/uL Monocytes # (Auto) 1.2 x10^3/uL Eosinophils # (Auto) 0.0 x10^3/uL Basophils # (Auto) 0.1 x10^3/uL Segmented Neutrophils % 89 % Lymphocytes % 2 % Monocytes % 9 % Toxic Granulation Slight Platelet Estimate Adequate Anisocytosis Slight Sodium Level 141 mmol/L Potassium Level 2.2 mmol/L Chloride Level 96 mmol/L Carbon Dioxide Level 29 mmol/L Anion Gap 16 Blood Urea Nitrogen 112 mg/dL Creatinine 3.8 mg/dL Estimated GFR (Cockcroft-Gault) 11.5 BUN/Creatinine Ratio 29 Glucose Level 100 mg/dL Calcium Level 11.9 mg/dL Total Bilirubin 0.8 mg/dL Aspartate Amino Transf (AST/SGOT) 88 U/L Alanine Aminotransferase (ALT/SGPT) 51 U/L Alkaline Phosphatase 169 U/L Creatine Kinase 1609 U/L Troponin I Quantitative 0.532 ng/mL Total Protein 7.5 g/dL Albumin 3.8 g/dL Albumin/Globulin Ratio 1.0 Urine Collection Type U cath Urine Color Maylin Urine Clarity Clear Urine pH 5.5 Urine Specific [place] 1.020 Urine Protein 30 mg/dL Urine Glucose (UA) Negative mg/dL Urine Ketones (Stick) Negative mg/dL Urine Blood Moderate Urine Nitrite Negative Urine Bilirubin Small Urine Urobilinogen Dipstick 0.2 mg/dL Urine Leukocyte Esterase Negative Urine RBC 3-5 /HPF Urine WBC Occ /HPF Urine Squamous Epithelial Cells Few /LPF Urine Amorphous Sediment Present /HPF Urine Bacteria Few /HPF Current Medications Medications (Trade) Dose Ordered Sig/Luann Route PRN Reason Start Time Stop Time Status Last Admin Dose Admin Ondansetron HCl (Zofran) 4 mg 1X ONCE IV 07/31/17 16:45 07/31/17 16:46 DC 07/31/17 16:44 4 MG Sodium Chloride 1,000 ml @ 1,000 mls/hr 1X ONCE IV 07/31/17 16:45 07/31/17 17:44 DC 07/31/17 17:04 1,000 MLS/HR Morphine Sulfate 2 mg 1X ONCE IV 07/31/17 17:30 07/31/17 17:31 DC 07/31/17 17:28 2 MG Potassium Chloride/Sodium Chloride 1,000 ml @ 250 mls/hr 1X ONCE IV 07/31/17 18:00 07/31/17 21:59 DC 07/31/17 18:34 250 MLS/HR Aspirin (Children'S Aspirin) 324 mg 1X ONCE PO 07/31/17 18:00 07/31/17 18:01 DC 07/31/17 18:01 324 MG Vancomycin HCl (Vanco Per Pharmacy) 1 each PRN DAILY PRN MC SEE COMMENTS 07/31/17 18:00 07/31/17 19:23 1 EACH Levofloxacin/ Dextrose 100 ml @ 100 mls/hr 1X ONCE IV 07/31/17 18:00 07/31/17 18:59 DC 07/31/17 18:34 100 MLS/HR Vancomycin HCl 1.25 gm/Sodium Chloride 250 ml @ 166.667 mls/hr 1X ONCE IV 07/31/17 18:00 07/31/17 19:29 DC 07/31/17 18:43 166.667 MLS/HR Potassium Chloride/Dextrose/ Sod Cl 1,000 ml @ 125 mls/hr 1X ONCE IV 07/31/17 18:00 08/01/17 01:59 Cancel Diltiazem HCl 125 mg/Dextrose 125 ml @ 0 mls/hr CONT PRN IV SEE I/O RECORD 07/31/17 18:00 07/31/17 18:29 5 MLS/HR Diltiazem HCl (Cardizem) 5 mg 1X ONCE IVP 07/31/17 18:00 07/31/17 18:05 DC 07/31/17 18:24 5 MG Ondansetron HCl (Zofran) 4 mg PRN Q8HRS PRN IV NAUSEA/VOMITING 07/31/17 18:00 08/01/17 17:59 07/31/17 20:34 4 MG Current Medications Current Medications Current Medications Medications (Trade) Dose Ordered Sig/Luann Start Time Stop Time Status Last Admin Dose Admin Aspirin (Children'S Aspirin) 324 mg 1X ONCE 07/31/17 18:00 07/31/17 18:01 DC 07/31/17 18:01 324 MG Diltiazem HCl (Cardizem) 5 mg 1X ONCE 07/31/17 18:00 07/31/17 18:05 DC 07/31/17 18:24 5 MG Diltiazem HCl 125 mg/Dextrose 125 ml @ 0 mls/hr CONT PRN 07/31/17 18:00 07/31/17 18:29 5 MLS/HR Levofloxacin/ Dextrose 100 ml @ 100 mls/hr 1X ONCE 07/31/17 18:00 07/31/17 18:59 DC 07/31/17 18:34 100 MLS/HR Morphine Sulfate 2 mg 1X ONCE 07/31/17 17:30 07/31/17 17:31 DC 07/31/17 17:28 2 MG Ondansetron HCl (Zofran) 4 mg PRN Q8HRS PRN 07/31/17 18:00 08/01/17 17:59 07/31/17 20:34 4 MG Potassium Chloride/Dextrose/ Sod Cl 1,000 ml @ 125 mls/hr 1X ONCE 07/31/17 18:00 08/01/17 01:59 Cancel Potassium Chloride/Sodium Chloride 1,000 ml @ 250 mls/hr 1X ONCE 07/31/17 18:00 07/31/17 21:59 DC 07/31/17 18:34 250 MLS/HR Sodium Chloride 1,000 ml @ 1,000 mls/hr 1X ONCE 07/31/17 16:45 07/31/17 17:44 DC 07/31/17 17:04 1,000 MLS/HR Vancomycin HCl (Vanco Per Pharmacy) 1 each PRN DAILY PRN 07/31/17 18:00 07/31/17 19:23 1 EACH Vancomycin HCl 1.25 gm/Sodium Chloride 250 ml @ 166.667 mls/hr 1X ONCE 07/31/17 18:00 07/31/17 19:29 DC 07/31/17 18:43 166.667 MLS/HR Allergies Allergies Allergies Coded Allergies Type Severity Reaction Last Updated Verified Penicillins Allergy Intermediate HIVES 02/17/15 Yes tetracycline Allergy Intermediate 06/20/17 Yes Current Patient Data Vital Signs Vital Signs Date Time Temp Pulse Resp B/P (MAP) Pulse Ox O2 Delivery O2 Flow Rate FiO2 07/31/17 18:03 84 122/72 (89) 98 07/31/17 17:28 18 Room Air 07/31/17 16:18 97.6 97.6 Lab Values Laboratory Tests Test 07/31/17 16:25 07/31/17 16:56 White Blood Count 26.5 x10^3/uL (4.0-11.0) H Red Blood Count 4.56 x10^6/uL (3.50-5.40) Hemoglobin 14.7 g/dL (12.0-15.5) Hematocrit 44.2 % (36.0-47.0) Mean Corpuscular Volume 97 fL (79-100) Mean Corpuscular Hemoglobin 32 pg (25-35) Mean Corpuscular Hemoglobin Concent 33 g/dL (31-37) Red Cell Distribution Width 13.6 % (11.5-14.5) Platelet Count 279 x10^3/uL (140-400) Neutrophils (%) (Auto) 91 % (31-73) H Lymphocytes (%) (Auto) 4 % (24-48) L Monocytes (%) (Auto) 5 % (0-9) Eosinophils (%) (Auto) 0 % (0-3) Basophils (%) (Auto) 0 % (0-3) Neutrophils # (Auto) 24.0 x10^3uL (1.8-7.7) H Lymphocytes # (Auto) 1.1 x10^3/uL (1.0-4.8) Monocytes # (Auto) 1.2 x10^3/uL (0.0-1.1) H Eosinophils # (Auto) 0.0 x10^3/uL (0.0-0.7) Basophils # (Auto) 0.1 x10^3/uL (0.0-0.2) Segmented Neutrophils % 89 % (35-66) H Lymphocytes % 2 % (24-48) L Monocytes % 9 % (0-10) Toxic Granulation Slight Platelet Estimate Adequate (ADEQUATE) Anisocytosis Slight Sodium Level 141 mmol/L (136-145) Potassium Level 2.2 mmol/L (3.5-5.1) *L Chloride Level 96 mmol/L (98-107) L Carbon Dioxide Level 29 mmol/L (21-32) Anion Gap 16 (6-14) H Blood Urea Nitrogen 112 mg/dL (7-20) H Creatinine 3.8 mg/dL (0.6-1.0) H Estimated GFR (Cockcroft-Gault) 11.5 BUN/Creatinine Ratio 29 (6-20) H Glucose Level 100 mg/dL (70-99) H Calcium Level 11.9 mg/dL (8.5-10.1) H Total Bilirubin 0.8 mg/dL (0.2-1.0) Aspartate Amino Transferase (AST) 88 U/L (15-37) H Alanine Aminotransferase (ALT) 51 U/L (14-59) Alkaline Phosphatase 169 U/L (46-116) H Creatine Kinase 1609 U/L (26-192) H Troponin I Quantitative 0.532 ng/mL (0.000-0.055) Total Protein 7.5 g/dL (6.4-8.2) Albumin 3.8 g/dL (3.4-5.0) Albumin/Globulin Ratio 1.0 (1.0-1.7) Urine Collection Type U cath Urine Color Maylin Urine Clarity Clear Urine pH 5.5 Urine Specific [place] 1.020 Urine Protein 30 mg/dL (NEG-TRACE) Urine Glucose (UA) Negative mg/dL (NEG) Urine Ketones (Stick) Negative mg/dL (NEG) Urine Blood Moderate (NEG) Urine Nitrite Negative (NEG) Urine Bilirubin Small (NEG) Urine Urobilinogen Dipstick 0.2 mg/dL (0.2 mg/dL) Urine Leukocyte Esterase Negative (NEG) Urine RBC 3-5 /HPF (0-2) Urine WBC Occ /HPF (0-4) Urine Squamous Epithelial Cells Few /LPF Urine Amorphous Sediment Present /HPF Urine Bacteria Few /HPF (0-FEW) Laboratory Tests 07/31/17 16:25 Laboratory Tests 07/31/17 16:25 EKG EKG [] Radiology/Procedures Radiology/Procedures [] Course & Med Decision Making Course & Med Decision Making Pertinent Labs and Imaging studies reviewed. (See chart for details) [] Dragon Disclaimer Dragon Disclaimer This electronic medical record was generated, in whole or in part, using a voice recognition dictation system. Departure Departure Impression: Primary Impression: Elevated troponin Additional Impressions: Dehydration Pneumonia Sepsis Rhabdomyolysis Hypokalemia Acute renal failure Uremia Disposition: ADMITTED INPATIENT Admitting Physician: Lore Reich Condition: GUARDED Referrals: MERRY MOSS MD (PCP) Problem Qualifiers ОЛЬГА JOVEL MD Jul 31, 2017 22:20
[2017-07-31 22:36] VITALS: BP 167/73
[2017-07-31 22:53] VITALS: BP 106/56
[2017-08-01 02:25] VITALS: BP 124/62
[2017-08-01] MEDS: oxyCODONE/APAP 7.5/325 1 TAB TABLET PO SCH ×5 (06:14→23:09)
[2017-08-01 07:00] VITALS: BP 110/55
[2017-08-01 07:37] LABS: CALCIUM 10.9 mg/dL (8.5-10.1); CREATININE 2.3 mg/dL (0.6-1.0); GFR 20.6
[2017-08-01 07:38] LABS: POTASSIUM 2.5 mmol/L (3.5-5.1)
--- NOTE | 2017-08-01 07:54 | EKG ---
[facility] [address] [place] [address] Test Date: 2017-07-31 Test Time: 18:05:29 Pat Name: ATTILA MAY Department: Room: 203 1 Gender: F [place] Drier Operator: : 1940 Requested By: MERRY MOSS Order Number: [id number] Reading MD: Marcos Vo Measurements Intervals Biggers Rate: 109 P: MT: QRS: -59 QRSD: 88 T: -109 QT: 334 QTc: 451 Interpretive Statements ATRIAL FIB/FLUTTER ABNORMAL LEFT AXIS DEVIATION R-S TRANSITION ZONE IN V LEADS DISPLACED TO THE LEFT CONSIDER LEFT VENTRICULAR HYPERTROPHY ST ABNORMALITY, POSSIBLE INFERIOR SUBENDOCARDIAL INJURY RI6.01 Unconfirmed report Electronically Signed On 08-09-2017 12:56:13 CDT by Marcos Vo
[2017-08-01] MEDS: VANCOMYCIN PER PHARMACY MC PRN (09:49)
--- NOTE | 2017-08-01 09:57 | PDOC ---
Provider Note Provider Note [id number] MERRY MOSS MD Aug 01, 2017 09:57
[2017-08-01] MEDS ORDERED: LORazepam 0.5 MG TABLET PO PRN (10:00)
[2017-08-01] MEDS: LORazepam 0.5 MG TABLET PO SCH ×2 (10:00→20:47)
[2017-08-01] MEDS ORDERED: POTASSIUM CL 40MEQ D5-0.45NACL 1,000 ML IV ONE (10:00)
--- NOTE | 2017-08-01 10:06 | HP ---
ADMIT DATE: 07/31/2017 CHIEF COMPLAINT: Fall. HISTORY OF PRESENT ILLNESS: A 77-year-old white female with chronic multiple medical problems and chronic pain, was down at home for an unknown period of time after a fall. No fractures were found, but she was in acute renal failure with severe hypokalemia and rhabdomyolysis. IV fluids and potassium replacement have allowed her laboratory studies to improve and she just has generalized pain at this point. PAST MEDICAL HISTORY: Well documented in the old records. MEDICATIONS: Multiple meds per the chart. ALLERGIES: LISTED TO PENICILLIN AND TETRACYCLINES. SOCIAL HISTORY: Lives alone. She is under hospice care, on chronic opioids. SOCIAL HISTORY: Nonsmoker, nondrinker. FAMILY HISTORY: Unremarkable. REVIEW OF SYSTEMS: Negative. OBJECTIVE: ENT: Dry mucosa, otherwise all unremarkable. NECK: No masses, nodes or bruits. LUNGS: Clear. CARDIOVASCULAR: Irregular rate, consistent with atrial fibrillation, rate is about 90-100. ABDOMEN: Soft, benign and nontender. EXTREMITIES: Skin turgor decreased. No active joint or skin lesions or areas of injury seen. Distal pulses are surprisingly good. NEUROLOGIC: Physiologic and nonfocal. ASSESSMENT: Acute renal failure, hypokalemia, rhabdomyolysis secondary to dehydration from a prolonged fall. PLAN: Continue hydration, potassium replacement, supportive care and she is a DNR. MERRY MOSS MD DR: HARLAN/geo JOB#: [id number] / [id number]
[2017-08-01] MEDS: LEVOTHYROXINE 50 MCG TABLET PO SCH (10:11)
[2017-08-01] MEDS: SERTRALINE 50 MG TABLET. PO SCH (10:12)
[2017-08-01] MEDS: PANTOPRAZOLE 40 MG TABLET.DR. PO SCH (10:12)
[2017-08-01] MEDS: ONDANSETRON ODT 4 MG TAB.RAPDIS. PO SCH ×3 (10:12→22:12)
[2017-08-01 11:00] VITALS: BP 98/54
[2017-08-01] MEDS: SUCRALFATE 1 GM TABLET. PO SCH ×2 (11:30→17:53)
[2017-08-01] MEDS: POTASSIUM CHLORIDE 10 MEQ TABLET.ER. PO SCH ×2 (14:23→17:53)
[2017-08-01] MEDS: ONDANSETRON PF 4 MG/2 ML VIAL. IV PRN (14:24)
[2017-08-01 15:00] VITALS: BP 108/76
--- NOTE | 2017-08-01 16:11 | PDOC2 ---
CONSULT Date of Consult Date of Consult DATE: 08/01/17 TIME: 15:54 Reason for Consult Reason for Consult: Possible syncope Referring Physician Referring Physician: Dr. Ching Identification/Chief Complaint Chief Complaint Syncope and dehydration Problems: History of Present Illness Reason for Visit: This patient is a very pleasant 77-year-old lady that I have known for some time. She has a very extensive medical history with multiple problems including coronary heart disease. She was at home and has been having problems with diarrhea. She went to the bathroom after taking her pills and after having some diarrhea she was feeling dizzy and got up and was able to walk out to the family room where she apparently collapsed. The patient was alone and was on the floor for at least 12 hours before her daughter came to visit her and found her on the floor. The patient was taken to the emergency room which she was seen and evaluated and he was decided to admit her for further care. At the time that I saw her she was alert and responsive but very weak. She does not know if she passed out or not, denies palpitations, denies chest pains, denies dyspnea. Complains of nausea with vomiting and diarrhea for several days. Past Medical History Cardiovascular: CAD, CHF, HTN, Mitral valve stenosis, Aortic stenosis, Valve insufficiency GI: GERD Hepatobiliary: Cholelithiasis Musculoskeletal: Osteoarthritis Endocrine: Hypothyroidism, Osteoporosis Past Surgical History Past Surgical History: Total knee replacement, Hysterectomy Family History Family History: Other Social History ALCOHOL: none Drugs: None Lives: Alone Current Problem List Problem List Problems Medical Problems: (1) Acute renal failure Status: Acute (2) Dehydration Status: Acute (3) Elevated troponin Status: Acute (4) Hypokalemia Status: Acute (5) Pneumonia Status: Acute (6) Rhabdomyolysis Status: Acute (7) Sepsis Status: Acute (8) Uremia Status: Acute Current Medications Current Medications Current Medications Ondansetron HCl (Zofran) 4 mg 1X ONCE IV Last administered on 07/31/17 16:44 ; Start 07/31/17 at 16:45; Stop 07/31/17 at 16:46; Status DC Sodium Chloride 1,000 ml @ 1,000 mls/hr 1X ONCE IV Last administered on 17:04; Start 07/31/17 at 16:45; Stop 07/31/17 at 17:44; Status DC Morphine Sulfate 2 mg 1X ONCE IV Last administered on 07/31/17 17:28; Start 07/31/17 at 17:30; Stop 07/31/17 at 17:31; Status DC Potassium Chloride/Sodium Chloride 1,000 ml @ 250 mls/hr 1X ONCE IV Last administered on 07/31/17 18:34; Start 07/31/17 at 18:00; Stop 07/31/17 at 21:59 ; Status DC Aspirin (Children'S Aspirin) 324 mg 1X ONCE PO Last administered on 07/31/17 18:01; Start 07/31/17 at 18:00; Stop 07/31/17 at 18:01; Status DC Vancomycin HCl (Vanco Per Pharmacy) 1 each PRN DAILY PRN MC SEE COMMENTS Last administered on 08/01/17 09:49; Start 07/31/17 at 18:00 Levofloxacin/ Dextrose 100 ml @ 100 mls/hr 1X ONCE IV Last administered on 18:34; Start 07/31/17 at 18:00; Stop 07/31/17 at 18:59; Status DC Vancomycin HCl 1.25 gm/Sodium Chloride 250 ml @ 166.667 mls/hr 1X ONCE IV Last administered on 07/31/17 18:43; Start 07/31/17 at 18:00; Stop 07/31/17 at 19:29; Status DC Potassium Chloride/Dextrose/ Sod Cl 1,000 ml @ 125 mls/hr 1X ONCE IV ; Start 07/31/17 at 18:00; Stop 08/01/17 at 01:59; Status Cancel Diltiazem HCl 125 mg/Dextrose 125 ml @ 0 mls/hr CONT PRN IV SEE I/O RECORD Last administered on 07/31/17 18:29; Start 07/31/17 at 18:00; Stop 08/01/17 at 09:49; Status DC Diltiazem HCl (Cardizem) 5 mg 1X ONCE IVP Last administered on 07/31/17 18:24 ; Start 07/31/17 at 18:00; Stop 07/31/17 at 18:05; Status DC Ondansetron HCl (Zofran) 4 mg PRN Q8HRS PRN IV NAUSEA/VOMITING Last administered on 08/01/17 14:24; Start 07/31/17 at 18:00; Stop 08/01/17 at 17:59 Potassium Chloride 40 meq/ Dextrose/Sodium Chloride 1,020 ml @ 125 mls/hr Q8H10M IV Last administered on 07/31/17 23:02; Start 07/31/17 at 22:00; Stop 08/01/17 at 06:09; Status DC Vancomycin HCl 1 each 1X ONCE MC ; Start 08/02/17 at 18:00; Stop 08/02/17 at 18 :01 Oxycodone/ Acetaminophen (Percocet 7.5/ 325) 2 tab [id number] PO Last administered on 08/01/17 14:23; Start 08/01/17 at 00:00 Fentanyl Citrate (Fentanyl 2ml Vial) 75 mcg PRN Q3HRS PRN IV SEVERE PAIN Last administered on 07/31/17 23:18; Start 07/31/17 at 22:00 Diltiazem HCl (Cardizem 24hr Cd) 180 mg DAILY PO Last administered on 10:12; Start 08/01/17 at 10:00 Levothyroxine Sodium (Synthroid) 50 mcg DAILYAC PO Last administered on 10:11; Start 08/01/17 at 10:00 Lorazepam (Ativan) 0.25 mg PRN QEVNG PRN PO ANXIETY / AGITATION; Start at 10:00 Lorazepam (Ativan) 0.5 mg BID PO ; Start 08/01/17 at 10:00 Sertraline HCl (Zoloft) 50 mg DAILY PO Last administered on 08/01/17 10:12; Start 08/01/17 at 10:00 Sucralfate (Carafate) 1 gm TIDAC PO ; Start 08/01/17 at 11:30 Pantoprazole Sodium (Protonix) 40 mg DAILYAC PO Last administered on 08/01/17 10:12; Start 08/01/17 at 10:00 Ondansetron HCl (Zofran Odt) 4 mg Q8HRS PO Last administered on 08/01/17 10:12 ; Start 08/01/17 at 10:00 Potassium Chloride (Klor-Con) 10 meq TIDAFTMEAL PO Last administered on 14:23; Start 08/01/17 at 13:00 Potassium Chloride/Dextrose/ Sod Cl 1,000 ml @ 100 mls/hr 1X ONCE IV Last administered on 08/01/17t 10:11; Start 08/01/17 at 10:00; Stop 08/01/17 at 19:59 Active Scripts Active Reported Zanaflex (Tizanidine Hcl) 4 Mg Capsule 1 Cap PO BID Furosemide 20 Mg Tablet 1 Tab PO DAILY Percocet 7.5-325 Mg Tablet (Oxycodone/Acetaminophen) 1 Each Tablet 2 Tab PO [id number] Zofran (Ondansetron Hcl) 4 Mg Tablet 1 Tab PO Q8HRS Carafate (Sucralfate) 1 Gm Tablet 1 Tab PO TIDAC Hydrochlorothiazide Tablet (Hydrochlorothiazide) 12.5 Mg Tablet 1 Tab PO DAILY Lorazepam 0.5 Mg Tablet 0.5 Tab PO PRN QEVNG Lorazepam 0.5 Mg Tablet 1 Tab PO BID Zoloft (Sertraline Hcl) 50 Mg Tablet 1 Tab PO DAILY Zoloft (Sertraline Hcl) 25 Mg Tablet 1 Tab PO DAILY Vision Vitamins (Beta-Carotene(A) W-C & E/Min) 1 Each Tablet 1 Each PO DAILY Calcium + D3 Er Tablet (Calcium Carb & Cit/Vitamin D3) 1 Each Tablet.er 1 Each PO Synthroid (Levothyroxine Sodium) 50 Mcg Tablet 50 Mcg PO DAILYAC Potassium Chloride 10 Meq Capsule.er 10 Meq PO DAILY Omeprazole 40 Mg Capsule.dr 1 Cap PO DAILY Cardizem Cd (Diltiazem Hcl) 180 Mg Cap.er.24h 180 Mg PO DAILY Allergies Allergies: Coded Allergies: Penicillins (Verified Allergy, Intermediate, HIVES, 02/17/15) tetracycline (Verified Allergy, Intermediate, 06/20/17) Physical Exam General: Alert, Oriented X3, Cooperative HEENT: PERRLA, Other (all mucosa dry, neck no JVD.) Lungs: Clear to auscultation Heart: Regular rate, Normal S1, Normal S2, Other (2/6 systolic murmur) Abdomen: Other (I'll sounds increase, mild tenderness.) Extremities: No edema Vitals VITALS Vital Signs Date Time Temp Pulse Resp B/P (MAP) Pulse Ox O2 Delivery O2 Flow Rate FiO2 08/01/17 15:23 16 94 Room Air 08/01/17 11:00 97.6 91 98/54 (69) 97.6 Labs Labs Laboratory Tests Test 07/31/17 16:25 07/31/17 16:56 07/31/17 18:30 07/31/17 20:00 White Blood Count 26.5 x10^3/uL (4.0-11.0) Red Blood Count 4.56 x10^6/uL (3.50-5.40) Hemoglobin 14.7 g/dL (12.0-15.5) Hematocrit 44.2 % (36.0-47.0) Mean Corpuscular Volume 97 fL (79-100) Mean Corpuscular Hemoglobin 32 pg (25-35) Mean Corpuscular Hemoglobin Concent 33 g/dL (31-37) Red Cell Distribution Width 13.6 % (11.5-14.5) Platelet Count 279 x10^3/uL (140-400) Neutrophils (%) (Auto) 91 % (31-73) Lymphocytes (%) (Auto) 4 % (24-48) Monocytes (%) (Auto) 5 % (0-9) Eosinophils (%) (Auto) 0 % (0-3) Basophils (%) (Auto) 0 % (0-3) Neutrophils # (Auto) 24.0 x10^3uL (1.8-7.7) Lymphocytes # (Auto) 1.1 x10^3/uL (1.0-4.8) Monocytes # (Auto) 1.2 x10^3/uL (0.0-1.1) Eosinophils # (Auto) 0.0 x10^3/uL (0.0-0.7) Basophils # (Auto) 0.1 x10^3/uL (0.0-0.2) Segmented Neutrophils % 89 % (35-66) Lymphocytes % 2 % (24-48) Monocytes % 9 % (0-10) Toxic Granulation Slight Platelet Estimate Adequate (ADEQUATE) Anisocytosis Slight Sodium Level 141 mmol/L (136-145) Potassium Level 2.2 mmol/L (3.5-5.1) Chloride Level 96 mmol/L (98-107) Carbon Dioxide Level 29 mmol/L (21-32) Anion Gap 16 (6-14) Blood Urea Nitrogen 112 mg/dL (7-20) Creatinine 3.8 mg/dL (0.6-1.0) Estimated GFR (Cockcroft-Gault) 11.5 BUN/Creatinine Ratio 29 (6-20) Glucose Level 100 mg/dL (70-99) Calcium Level 11.9 mg/dL (8.5-10.1) Total Bilirubin 0.8 mg/dL (0.2-1.0) Aspartate Amino Transf (AST/SGOT) 88 U/L (15-37) Alanine Aminotransferase (ALT/SGPT) 51 U/L (14-59) Alkaline Phosphatase 169 U/L (46-116) Creatine Kinase 1609 U/L (26-192) Troponin I Quantitative 0.532 ng/mL (0.000-0.055) Total Protein 7.5 g/dL (6.4-8.2) Albumin 3.8 g/dL (3.4-5.0) Albumin/Globulin Ratio 1.0 (1.0-1.7) Urine Collection Type U cath Urine Color [place] Urine Clarity Clear Urine pH 5.5 Urine Specific [place] 1.020 Urine Protein 30 mg/dL (NEG-TRACE) Urine Glucose (UA) Negative mg/dL (NEG) Urine Ketones (Stick) Negative mg/dL (NEG) Urine Blood Moderate (NEG) Urine Nitrite Negative (NEG) Urine Bilirubin Small (NEG) Urine Urobilinogen Dipstick 0.2 mg/dL (0.2 mg/dL) Urine Leukocyte Esterase Negative (NEG) Urine RBC 3-5 /HPF (0-2) Urine WBC Occ /HPF (0-4) Urine Squamous Epithelial Cells Few /LPF Urine Amorphous Sediment Present /HPF Urine Bacteria Few /HPF (0-FEW) Lactic Acid Level 1.4 mmol/L (0.4-2.0) 1.5 mmol/L (0.4-2.0) Test 08/01/17 00:15 08/01/17 06:15 Troponin I Quantitative 0.412 ng/mL (0.000-0.055) 0.259 ng/mL (0.000-0.055) Sodium Level 148 mmol/L (136-145) Potassium Level 2.5 mmol/L (3.5-5.1) Chloride Level 114 mmol/L (98-107) Carbon Dioxide Level 23 mmol/L (21-32) Anion Gap 11 (6-14) Blood Urea Nitrogen 88 mg/dL (7-20) Creatinine 2.3 mg/dL (0.6-1.0) Estimated GFR (Cockcroft-Gault) 20.6 Glucose Level 122 mg/dL (70-99) Calcium Level 10.9 mg/dL (8.5-10.1) Laboratory Tests Test 07/31/17 16:25 07/31/17 16:56 07/31/17 18:30 07/31/17 20:00 White Blood Count 26.5 x10^3/uL (4.0-11.0) Red Blood Count 4.56 x10^6/uL (3.50-5.40) Hemoglobin 14.7 g/dL (12.0-15.5) Hematocrit 44.2 % (36.0-47.0) Mean Corpuscular Volume 97 fL (79-100) Mean Corpuscular Hemoglobin 32 pg (25-35) Mean Corpuscular Hemoglobin Concent 33 g/dL (31-37) Red Cell Distribution Width 13.6 % (11.5-14.5) Platelet Count 279 x10^3/uL (140-400) Neutrophils (%) (Auto) 91 % (31-73) Lymphocytes (%) (Auto) 4 % (24-48) Monocytes (%) (Auto) 5 % (0-9) Eosinophils (%) (Auto) 0 % (0-3) Basophils (%) (Auto) 0 % (0-3) Neutrophils # (Auto) 24.0 x10^3uL (1.8-7.7) Lymphocytes # (Auto) 1.1 x10^3/uL (1.0-4.8) Monocytes # (Auto) 1.2 x10^3/uL (0.0-1.1) Eosinophils # (Auto) 0.0 x10^3/uL (0.0-0.7) Basophils # (Auto) 0.1 x10^3/uL (0.0-0.2) Segmented Neutrophils % 89 % (35-66) Lymphocytes % 2 % (24-48) Monocytes % 9 % (0-10) Toxic Granulation Slight Platelet Estimate Adequate (ADEQUATE) Anisocytosis Slight Sodium Level 141 mmol/L (136-145) Potassium Level 2.2 mmol/L (3.5-5.1) Chloride Level 96 mmol/L (98-107) Carbon Dioxide Level 29 mmol/L (21-32) Anion Gap 16 (6-14) Blood Urea Nitrogen 112 mg/dL (7-20) Creatinine 3.8 mg/dL (0.6-1.0) Estimated GFR (Cockcroft-Gault) 11.5 BUN/Creatinine Ratio 29 (6-20) Glucose Level 100 mg/dL (70-99) Calcium Level 11.9 mg/dL (8.5-10.1) Total Bilirubin 0.8 mg/dL (0.2-1.0) Aspartate Amino Transf (AST/SGOT) 88 U/L (15-37) Alanine Aminotransferase (ALT/SGPT) 51 U/L (14-59) Alkaline Phosphatase 169 U/L (46-116) Creatine Kinase 1609 U/L (26-192) Troponin I Quantitative 0.532 ng/mL (0.000-0.055) Total Protein 7.5 g/dL (6.4-8.2) Albumin 3.8 g/dL (3.4-5.0) Albumin/Globulin Ratio 1.0 (1.0-1.7) Urine Collection Type U cath Urine Color [place] Urine Clarity Clear Urine pH 5.5 Urine Specific [place] 1.020 Urine Protein 30 mg/dL (NEG-TRACE) Urine Glucose (UA) Negative mg/dL (NEG) Urine Ketones (Stick) Negative mg/dL (NEG) Urine Blood Moderate (NEG) Urine Nitrite Negative (NEG) Urine Bilirubin Small (NEG) Urine Urobilinogen Dipstick 0.2 mg/dL (0.2 mg/dL) Urine Leukocyte Esterase Negative (NEG) Urine RBC 3-5 /HPF (0-2) Urine WBC Occ /HPF (0-4) Urine Squamous Epithelial Cells Few /LPF Urine Amorphous Sediment Present /HPF Urine Bacteria Few /HPF (0-FEW) Lactic Acid Level 1.4 mmol/L (0.4-2.0) 1.5 mmol/L (0.4-2.0) Test 08/01/17 00:15 08/01/17 06:15 Troponin I Quantitative 0.412 ng/mL (0.000-0.055) 0.259 ng/mL (0.000-0.055) Sodium Level 148 mmol/L (136-145) Potassium Level 2.5 mmol/L (3.5-5.1) Chloride Level 114 mmol/L (98-107) Carbon Dioxide Level 23 mmol/L (21-32) Anion Gap 11 (6-14) Blood Urea Nitrogen 88 mg/dL (7-20) Creatinine 2.3 mg/dL (0.6-1.0) Estimated GFR (Cockcroft-Gault) 20.6 Glucose Level 122 mg/dL (70-99) Calcium Level 10.9 mg/dL (8.5-10.1) Assessment/Plan Assessment/Plan Patient comes in after a syncope and collapse probably secondary to dehydration with hypotension from the nausea, vomiting, diarrhea as well as pain medications and blood pressure medications. The patient was on the floor for an extended period of time and now appears to be in rhabdomyolysis. Rhythm is stable and this does not appear to be a cardiac syncope. I recommend to continue with the IV fluids monitor labs and hemodynamics. Thank you very much for asking me to participate in the care of this patient ALLYSON OROZCO MD Aug 01, 2017 16:11
[2017-08-01] MEDS ORDERED: POTASSIUM CHLORIDE 20 MEQ/15 ML ORAL LIQUID. PEG ONE (17:00)
[2017-08-01 19:10] VITALS: BP 112/57
[2017-08-01] MEDS: POTASSIUM CL 40MEQ D5-0.45NACL 1,000 ML IV SCH (19:28)
[2017-08-01 22:29] VITALS: BP 115/56
[2017-08-02 03:05] VITALS: BP 113/60
[2017-08-02] MEDS: oxyCODONE/APAP 7.5/325 1 TAB TABLET PO SCH ×4 (05:36→23:36)
[2017-08-02] MEDS: LEVOTHYROXINE 50 MCG TABLET PO SCH (05:36)
[2017-08-02] MEDS: ONDANSETRON ODT 4 MG TAB.RAPDIS. PO SCH ×3 (05:36→21:57)
[2017-08-02] MEDS: PANTOPRAZOLE 40 MG TABLET.DR. PO SCH (05:37)
[2017-08-02] MEDS: POTASSIUM CL 40MEQ D5-0.45NACL 1,000 ML IV SCH ×2 (05:42→18:14)
[2017-08-02 07:00] VITALS: BP 108/52
[2017-08-02] MEDS: POTASSIUM CHLORIDE 10 MEQ TABLET.ER. PO SCH ×3 (08:17→18:19)
[2017-08-02] MEDS: SUCRALFATE 1 GM/10 ML ORAL.SUSP. PEG SCH ×3 (08:17→16:43)
[2017-08-02] MEDS: SERTRALINE 50 MG TABLET. PO SCH (08:17)
--- NOTE | 2017-08-02 08:50 | PDOC ---
Provider Note Provider Note vss, better output , labs pending- no temp, rate good- will transfer, pt, reduce fluids , follow K+ MERRY MOSS MD Aug 02, 2017 08:50
[2017-08-02] MEDS: LORazepam 0.5 MG TABLET PO SCH (09:00)
[2017-08-02 10:29] LABS: CALCIUM 11.2 mg/dL (8.5-10.1); CREATININE 1.4 mg/dL (0.6-1.0); GFR 36.5; POTASSIUM 4.2 mmol/L (3.5-5.1)
[2017-08-02 11:00] VITALS: BP 90/39
[2017-08-02 15:00] VITALS: BP 98/46
--- NOTE | 2017-08-02 17:06 | PDOC ---
PROGRESS NOTES Subjective Subjective The patient is very weak. Unable to stand at the bedside Objective Objective Vital Signs Date Time Temp Pulse Resp B/P (MAP) Pulse Ox O2 Delivery O2 Flow Rate FiO2 08/02/17 15:00 97.8 73 16 98/46 (63) 94 Room Air 97.8 Physical Exam Physical Exam No significant changes cardiac exam Assessment Assessment Patient compensated cardiac-albert. Severely deconditioned. Needs PT OT. Problems Medical Problems: (1) Acute renal failure Status: Acute (2) Dehydration Status: Acute (3) Elevated troponin Status: Acute (4) Hypokalemia Status: Acute (5) Pneumonia Status: Acute (6) Rhabdomyolysis Status: Acute (7) Sepsis Status: Acute (8) Uremia Status: Acute Comment Review of Relevant I have reviewed the following items thomas (where applicable) has been applied. Labs Laboratory Tests Test 07/31/17 18:30 07/31/17 20:00 08/01/17 00:15 08/01/17 06:15 Lactic Acid Level 1.4 mmol/L (0.4-2.0) 1.5 mmol/L (0.4-2.0) Troponin I Quantitative 0.412 ng/mL (0.000-0.055) 0.259 ng/mL (0.000-0.055) Sodium Level 148 mmol/L (136-145) Potassium Level 2.5 mmol/L (3.5-5.1) Chloride Level 114 mmol/L (98-107) Carbon Dioxide Level 23 mmol/L (21-32) Anion Gap 11 (6-14) Blood Urea Nitrogen 88 mg/dL (7-20) Creatinine 2.3 mg/dL (0.6-1.0) Estimated GFR (Cockcroft-Gault) 20.6 Glucose Level 122 mg/dL (70-99) Calcium Level 10.9 mg/dL (8.5-10.1) Test 08/02/17 09:50 Sodium Level 147 mmol/L (136-145) Potassium Level 4.2 mmol/L (3.5-5.1) Chloride Level 115 mmol/L (98-107) Carbon Dioxide Level 23 mmol/L (21-32) Anion Gap 9 (6-14) Blood Urea Nitrogen 47 mg/dL (7-20) Creatinine 1.4 mg/dL (0.6-1.0) Estimated GFR (Cockcroft-Gault) 36.5 Glucose Level 145 mg/dL (70-99) Calcium Level 11.2 mg/dL (8.5-10.1) Laboratory Tests Test 08/02/17 09:50 Sodium Level 147 mmol/L (136-145) Potassium Level 4.2 mmol/L (3.5-5.1) Chloride Level 115 mmol/L (98-107) Carbon Dioxide Level 23 mmol/L (21-32) Anion Gap 9 (6-14) Blood Urea Nitrogen 47 mg/dL (7-20) Creatinine 1.4 mg/dL (0.6-1.0) Estimated GFR (Cockcroft-Gault) 36.5 Glucose Level 145 mg/dL (70-99) Calcium Level 11.2 mg/dL (8.5-10.1) Microbiology 07/31/17 Blood Culture - Preliminary, Resulted NO GROWTH AFTER 1 DAY Medications Current Medications Ondansetron HCl (Zofran) 4 mg 1X ONCE IV Last administered on 07/31/17 16:44 ; Start 07/31/17 at 16:45; Stop 07/31/17 at 16:46; Status DC Sodium Chloride 1,000 ml @ 1,000 mls/hr 1X ONCE IV Last administered on 17:04; Start 07/31/17 at 16:45; Stop 07/31/17 at 17:44; Status DC Morphine Sulfate 2 mg 1X ONCE IV Last administered on 07/31/17 17:28; Start 07/31/17 at 17:30; Stop 07/31/17 at 17:31; Status DC Potassium Chloride/Sodium Chloride 1,000 ml @ 250 mls/hr 1X ONCE IV Last administered on 07/31/17 18:34; Start 07/31/17 at 18:00; Stop 07/31/17 at 21:59 ; Status DC Aspirin (Children'S Aspirin) 324 mg 1X ONCE PO Last administered on 07/31/17 18:01; Start 07/31/17 at 18:00; Stop 07/31/17 at 18:01; Status DC Vancomycin HCl (Vanco Per Pharmacy) 1 each PRN DAILY PRN MC SEE COMMENTS Last administered on 08/01/17 09:49; Start 07/31/17 at 18:00; Stop 08/02/17 at 08:44 ; Status DC Levofloxacin/ Dextrose 100 ml @ 100 mls/hr 1X ONCE IV Last administered on 18:34; Start 07/31/17 at 18:00; Stop 07/31/17 at 18:59; Status DC Vancomycin HCl 1.25 gm/Sodium Chloride 250 ml @ 166.667 mls/hr 1X ONCE IV Last administered on 07/31/17 18:43; Start 07/31/17 at 18:00; Stop 07/31/17 at 19:29; Status DC Potassium Chloride/Dextrose/ Sod Cl 1,000 ml @ 125 mls/hr 1X ONCE IV ; Start 07/31/17 at 18:00; Stop 08/01/17 at 01:59; Status Cancel Diltiazem HCl 125 mg/Dextrose 125 ml @ 0 mls/hr CONT PRN IV SEE I/O RECORD Last administered on 07/31/17 18:29; Start 07/31/17 at 18:00; Stop 08/01/17 at 09:49; Status DC Diltiazem HCl (Cardizem) 5 mg 1X ONCE IVP Last administered on 07/31/17 18:24 ; Start 07/31/17 at 18:00; Stop 07/31/17 at 18:05; Status DC Ondansetron HCl (Zofran) 4 mg PRN Q8HRS PRN IV NAUSEA/VOMITING Last administered on 08/01/17 14:24; Start 07/31/17 at 18:00; Stop 08/01/17 at 17:59 ; Status DC Potassium Chloride 40 meq/ Dextrose/Sodium Chloride 1,020 ml @ 125 mls/hr Q8H10M IV Last administered on 07/31/17 23:02; Start 07/31/17 at 22:00; Stop 08/01/17 at 06:09; Status DC Vancomycin HCl 1 each 1X ONCE MC ; Start 08/02/17 at 18:00; Stop 08/02/17 at 18 :00; Status DC Oxycodone/ Acetaminophen (Percocet 7.5/ 325) 2 tab [id number] PO Last administered on 08/02/17 13:42; Start 08/01/17 at 00:00 Fentanyl Citrate (Fentanyl 2ml Vial) 75 mcg PRN Q3HRS PRN IV SEVERE PAIN Last administered on 07/31/17 23:18; Start 07/31/17 at 22:00; Stop 08/02/17 at 08:44 ; Status DC Diltiazem HCl (Cardizem 24hr Cd) 180 mg DAILY PO Last administered on 09:00; Start 08/01/17 at 10:00 Levothyroxine Sodium (Synthroid) 50 mcg DAILYAC PO Last administered on 05:36; Start 08/01/17 at 10:00 Lorazepam (Ativan) 0.25 mg PRN QEVNG PRN PO ANXIETY / AGITATION; Start at 10:00 Lorazepam (Ativan) 0.5 mg BID PO Last administered on 08/01/17 20:47; Start at 10:00 Sertraline HCl (Zoloft) 50 mg DAILY PO Last administered on 08/02/17 08:17; Start 08/01/17 at 10:00 Sucralfate (Carafate) 1 gm TIDAC PO Last administered on 08/01/17 17:53; Start 08/01/17 at 11:30; Stop 08/01/17 at 19:00; Status DC Pantoprazole Sodium (Protonix) 40 mg DAILYAC PO Last administered on 08/02/17 05:37; Start 08/01/17 at 10:00 Ondansetron HCl (Zofran Odt) 4 mg Q8HRS PO Last administered on 08/02/17 13:32 ; Start 08/01/17 at 10:00 Potassium Chloride (Klor-Con) 10 meq TIDAFTMEAL PO Last administered on 13:42; Start 08/01/17 at 13:00 Potassium Chloride/Dextrose/ Sod Cl 1,000 ml @ 100 mls/hr 1X ONCE IV Last administered on 08/01/17 10:11; Start 08/01/17 at 10:00; Stop 08/01/17 at 19:59 ; Status DC Potassium Chloride (KCl Oral Soln) 40 meq 1X ONCE PEG Last administered on 17:54; Start 08/01/17 at 17:00; Stop 08/01/17 at 17:01; Status DC Sucralfate (Carafate) 1 gm TIDAC PEG Last administered on 08/02/17 16:43; Start 08/02/17 at 07:30 Potassium Chloride/Dextrose/ Sod Cl 1,000 ml @ 100 mls/hr Q10H IV Last administered on 08/02/17 05:42; Start 08/01/17 at 19:30 Active Scripts Active Reported Zanaflex (Tizanidine Hcl) 4 Mg Capsule 1 Cap PO BID Furosemide 20 Mg Tablet 1 Tab PO DAILY Percocet 7.5-325 Mg Tablet (Oxycodone/Acetaminophen) 1 Each Tablet 2 Tab PO [id number] Zofran (Ondansetron Hcl) 4 Mg Tablet 1 Tab PO Q8HRS Carafate (Sucralfate) 1 Gm Tablet 1 Tab PO TIDAC Hydrochlorothiazide Tablet (Hydrochlorothiazide) 12.5 Mg Tablet 1 Tab PO DAILY Lorazepam 0.5 Mg Tablet 0.5 Tab PO PRN QEVNG Lorazepam 0.5 Mg Tablet 1 Tab PO BID Zoloft (Sertraline Hcl) 50 Mg Tablet 1 Tab PO DAILY Zoloft (Sertraline Hcl) 25 Mg Tablet 1 Tab PO DAILY Vision Vitamins (Beta-Carotene(A) W-C & E/Min) 1 Each Tablet 1 Each PO DAILY Calcium + D3 Er Tablet (Calcium Carb & Cit/Vitamin D3) 1 Each Tablet.er 1 Each PO Synthroid (Levothyroxine Sodium) 50 Mcg Tablet 50 Mcg PO DAILYAC Potassium Chloride 10 Meq Capsule.er 10 Meq PO DAILY Omeprazole 40 Mg Capsule.dr 1 Cap PO DAILY Cardizem Cd (Diltiazem Hcl) 180 Mg Cap.er.24h 180 Mg PO DAILY Vitals/I & O Vital Sign - Last 24 Hours 08/01/17 08/01/17 08/01/17 08/01/17 19:10 19:15 22:29 23:09 Temp 97.9 97.9 97.9 97.9 Pulse 81 72 Resp 18 16 16 B/P (MAP) 112/57 (75) 115/56 (75) Pulse Ox 97 97 96 O2 Delivery Room Air Room Air Room Air Room Air 08/02/17 08/02/17 08/02/17 08/02/17 03:05 05:36 07:00 08:00 Temp 98.2 98.0 98.2 98.0 Pulse 70 67 Resp 16 16 18 B/P (MAP) 113/60 (77) 108/52 (70) Pulse Ox 96 96 97 O2 Delivery Room Air Room Air Room Air 08/02/17 08/02/17 08/02/17 08/02/17 09:00 11:00 13:42 14:40 Temp 97.9 97.9 Pulse 67 70 Resp 16 20 20 B/P (MAP) 108/52 90/39 (56) Pulse Ox 94 94 94 O2 Delivery Room Air Room Air Room Air 08/02/17 15:00 Temp 97.8 97.8 Pulse 73 Resp 16 B/P (MAP) 98/46 (63) Pulse Ox 94 O2 Delivery Room Air ALLYSON OROZCO MD Aug 02, 2017 17:06
[2017-08-02] MEDS ORDERED: VANCOMYCIN RANDOM LEVEL. MC ONE (18:00)
[2017-08-02] MEDS ORDERED: LORazepam 0.5 MG TABLET PO PRN (18:15)
[2017-08-02 19:10] VITALS: BP 95/51
[2017-08-02 23:10] VITALS: BP 107/47
[2017-08-03 03:10] VITALS: BP 128/60
[2017-08-03] MEDS: POTASSIUM CL 40MEQ D5-0.45NACL 1,000 ML IV SCH (04:20)
[2017-08-03] MEDS: ONDANSETRON ODT 4 MG TAB.RAPDIS. PO SCH ×4 (05:48→22:16)
[2017-08-03] MEDS: oxyCODONE/APAP 7.5/325 1 TAB TABLET PO SCH ×5 (05:55→22:16)
[2017-08-03 07:00] VITALS: BP 124/67
[2017-08-03] MEDS: SUCRALFATE 1 GM/10 ML ORAL.SUSP. PEG SCH ×3 (08:21→18:03)
[2017-08-03] MEDS: LEVOTHYROXINE 50 MCG TABLET PO SCH (08:21)
[2017-08-03] MEDS: PANTOPRAZOLE 40 MG TABLET.DR. PO SCH (08:21)
[2017-08-03] MEDS: SERTRALINE 50 MG TABLET. PO SCH (09:13)
[2017-08-03] MEDS: POTASSIUM CHLORIDE 10 MEQ TABLET.ER. PO SCH ×3 (09:14→18:00)
[2017-08-03 11:00] VITALS: BP 123/72
--- NOTE | 2017-08-03 12:39 | PDOC ---
SUBJECTIVE Subjective not feeling good, nausea about to throw up not able to keep thing down OBJECTIVE Vital Signs Vital Signs Date Time Temp Pulse Resp B/P (MAP) Pulse Ox O2 Delivery O2 Flow Rate FiO2 08/03/17 11:00 98.1 79 18 123/72 (89) 94 Room Air 98.1 08/03/17 09:13 77 124/67 08/03/17 07:00 Room Air 08/03/17 07:00 98.1 77 18 124/67 (86) 95 Room Air 98.1 08/03/17 05:55 16 Room Air 08/03/17 03:10 98.2 69 18 128/60 (82) 98 Room Air 98.2 08/03/17 00:40 16 95 2.0 08/02/17 23:36 95 Room Air 2.0 08/02/17 23:10 97.6 66 15 107/47 (67) 98 Room Air 97.6 08/02/17 19:40 Room Air 08/02/17 19:10 97.6 74 16 95/51 (66) 95 Room Air 97.6 08/02/17 18:14 20 94 Room Air 08/02/17 15:00 97.8 73 16 98/46 (63) 94 Room Air 97.8 08/02/17 13:42 20 94 Room Air PHYSICAL EXAM Physical Exam lungs with ronchi R lung heart RRR abd soft mild diffuse tenderness ext no edema ASSESSMENT/PLAN Assessment/Plan 1- nausea ? hypercalcemia or gastritis, control symptom 2-acute renal failure improving 3- hypercalcemia check serum protein electrophoresis , could not order PTH in pt 4- leukocytosis , start levaquin recheck CXR and urine 5-hypokalemia resolved Problems: GEO GARCIA MD Aug 03, 2017 12:39
[2017-08-03] MEDS ORDERED: POTASSIUM CL 20MEQ D5-0.45NACL 1,000 ML IV ONE (13:00)
[2017-08-03] MEDS: ONDANSETRON PF 4 MG/2 ML VIAL. IV PRN (13:30)
[2017-08-03] MEDS: POTASSIUM CL 20MEQ D5-0.45NACL 1,000 ML IV SCH (14:30)
--- NOTE | 2017-08-03 14:37 | PDOC ---
PROGRESS NOTES Subjective Subjective Patient has been nauseous and throwing up since about 4:00 in the morning. She denies any chest pains. Patient is very weak and unable to stand. Objective Objective Vital Signs Date Time Temp Pulse Resp B/P (MAP) Pulse Ox O2 Delivery O2 Flow Rate FiO2 08/03/17 11:00 98.1 79 18 123/72 (89) 94 Room Air 98.1 08/03/17 00:40 2.0 Physical Exam Physical Exam No significant changes in cardiac exam Assessment Assessment The patient's current problems seem to be more GI in nature rather than cardiac. I agree with the present plan. Problems Medical Problems: (1) Acute renal failure Status: Acute (2) Dehydration Status: Acute (3) Elevated troponin Status: Acute (4) Hypokalemia Status: Acute (5) Pneumonia Status: Acute (6) Rhabdomyolysis Status: Acute (7) Sepsis Status: Acute (8) Uremia Status: Acute Comment Review of Relevant I have reviewed the following items thomas (where applicable) has been applied. Labs Laboratory Tests Test 08/02/17 09:50 Sodium Level 147 mmol/L (136-145) Potassium Level 4.2 mmol/L (3.5-5.1) Chloride Level 115 mmol/L (98-107) Carbon Dioxide Level 23 mmol/L (21-32) Anion Gap 9 (6-14) Blood Urea Nitrogen 47 mg/dL (7-20) Creatinine 1.4 mg/dL (0.6-1.0) Estimated GFR (Cockcroft-Gault) 36.5 Glucose Level 145 mg/dL (70-99) Calcium Level 11.2 mg/dL (8.5-10.1) Microbiology 07/31/17 Blood Culture - Preliminary, Resulted NO GROWTH AFTER 2 DAYS Medications Current Medications Ondansetron HCl (Zofran) 4 mg 1X ONCE IV Last administered on 07/31/17 16:44 ; Start 07/31/17 at 16:45; Stop 07/31/17 at 16:46; Status DC Sodium Chloride 1,000 ml @ 1,000 mls/hr 1X ONCE IV Last administered on 17:04; Start 07/31/17 at 16:45; Stop 07/31/17 at 17:44; Status DC Morphine Sulfate 2 mg 1X ONCE IV Last administered on 07/31/17 17:28; Start 07/31/17 at 17:30; Stop 07/31/17 at 17:31; Status DC Potassium Chloride/Sodium Chloride 1,000 ml @ 250 mls/hr 1X ONCE IV Last administered on 07/31/17 18:34; Start 07/31/17 at 18:00; Stop 07/31/17 at 21:59 ; Status DC Aspirin (Children'S Aspirin) 324 mg 1X ONCE PO Last administered on 07/31/17 18:01; Start 07/31/17 at 18:00; Stop 07/31/17 at 18:01; Status DC Vancomycin HCl (Vanco Per Pharmacy) 1 each PRN DAILY PRN MC SEE COMMENTS Last administered on 08/01/17 09:49; Start 07/31/17 at 18:00; Stop 08/02/17 at 08:44 ; Status DC Levofloxacin/ Dextrose 100 ml @ 100 mls/hr 1X ONCE IV Last administered on 18:34; Start 07/31/17 at 18:00; Stop 07/31/17 at 18:59; Status DC Vancomycin HCl 1.25 gm/Sodium Chloride 250 ml @ 166.667 mls/hr 1X ONCE IV Last administered on 07/31/17 18:43; Start 07/31/17 at 18:00; Stop 07/31/17 at 19:29; Status DC Potassium Chloride/Dextrose/ Sod Cl 1,000 ml @ 125 mls/hr 1X ONCE IV ; Start 07/31/17 at 18:00; Stop 08/01/17 at 01:59; Status Cancel Diltiazem HCl 125 mg/Dextrose 125 ml @ 0 mls/hr CONT PRN IV SEE I/O RECORD Last administered on 07/31/17 18:29; Start 07/31/17 at 18:00; Stop 08/01/17 at 09:49; Status DC Diltiazem HCl (Cardizem) 5 mg 1X ONCE IVP Last administered on 07/31/17 18:24 ; Start 07/31/17 at 18:00; Stop 07/31/17 at 18:05; Status DC Ondansetron HCl (Zofran) 4 mg PRN Q8HRS PRN IV NAUSEA/VOMITING Last administered on 08/01/17 14:24; Start 07/31/17 at 18:00; Stop 08/01/17 at 17:59 ; Status DC Potassium Chloride 40 meq/ Dextrose/Sodium Chloride 1,020 ml @ 125 mls/hr Q8H10M IV Last administered on 07/31/17 23:02; Start 07/31/17 at 22:00; Stop 08/01/17 at 06:09; Status DC Vancomycin HCl 1 each 1X ONCE MC ; Start 08/02/17 at 18:00; Stop 08/02/17 at 18 :00; Status DC Oxycodone/ Acetaminophen (Percocet 7.5/ 325) 2 tab [id number] PO Last administered on 08/03/17 05:55; Start 08/01/17 at 00:00 Fentanyl Citrate (Fentanyl 2ml Vial) 75 mcg PRN Q3HRS PRN IV SEVERE PAIN Last administered on 07/31/17 23:18; Start 07/31/17 at 22:00; Stop 08/02/17 at 08:44 ; Status DC Diltiazem HCl (Cardizem 24hr Cd) 180 mg DAILY PO Last administered on 09:13; Start 08/01/17 at 10:00 Levothyroxine Sodium (Synthroid) 50 mcg DAILYAC PO Last administered on 08:21; Start 08/01/17 at 10:00 Lorazepam (Ativan) 0.25 mg PRN QEVNG PRN PO ANXIETY / AGITATION; Start at 10:00 Lorazepam (Ativan) 0.5 mg BID PO Last administered on 08/01/17 20:47; Start at 10:00; Stop 08/02/17 at 18:12; Status DC Sertraline HCl (Zoloft) 50 mg DAILY PO Last administered on 08/03/17 09:13; Start 08/01/17 at 10:00 Sucralfate (Carafate) 1 gm TIDAC PO Last administered on 08/01/17 17:53; Start 08/01/17 at 11:30; Stop 08/01/17 at 19:00; Status DC Pantoprazole Sodium (Protonix) 40 mg DAILYAC PO Last administered on 08/03/17 08:21; Start 08/01/17 at 10:00 Ondansetron HCl (Zofran Odt) 4 mg Q8HRS PO Last administered on 08/03/17 05:48 ; Start 08/01/17 at 10:00 Potassium Chloride (Klor-Con) 10 meq TIDAFTMEAL PO Last administered on 09:14; Start 08/01/17 at 13:00 Potassium Chloride/Dextrose/ Sod Cl 1,000 ml @ 100 mls/hr 1X ONCE IV Last administered on 08/01/17 10:11; Start 08/01/17 at 10:00; Stop 08/01/17 at 19:59 ; Status DC Potassium Chloride (KCl Oral Soln) 40 meq 1X ONCE PEG Last administered on 17:54; Start 08/01/17 at 17:00; Stop 08/01/17 at 17:01; Status DC Sucralfate (Carafate) 1 gm TIDAC PEG Last administered on 08/03/17 11:10; Start 08/02/17 at 07:30 Potassium Chloride/Dextrose/ Sod Cl 1,000 ml @ 100 mls/hr Q10H IV Last administered on 08/03/17 04:20; Start 08/01/17 at 19:30 Lorazepam (Ativan) 0.5 mg PRN BID PRN PO ANXIETY / AGITATION; Start 08/02/17 at 18:15 Ondansetron HCl (Zofran) 4 mg PRN Q6HRS PRN IV NAUSEA/VOMITING Last administered on 08/03/17 13:30; Start 08/03/17 at 12:45 Potassium Chloride/Dextrose/ Sod Cl 1,000 ml @ 80 mls/hr 1X ONCE IV ; Start at 13:00; Stop 08/04/17 at 01:29 Levofloxacin/ Dextrose 50 ml @ 50 mls/hr Q24H IV Last administered on 13:30; Start 08/03/17 at 13:00 Active Scripts Active Reported Zanaflex (Tizanidine Hcl) 4 Mg Capsule 1 Cap PO BID Furosemide 20 Mg Tablet 1 Tab PO DAILY Percocet 7.5-325 Mg Tablet (Oxycodone/Acetaminophen) 1 Each Tablet 2 Tab PO [id number] Zofran (Ondansetron Hcl) 4 Mg Tablet 1 Tab PO Q8HRS Carafate (Sucralfate) 1 Gm Tablet 1 Tab PO TIDAC Hydrochlorothiazide Tablet (Hydrochlorothiazide) 12.5 Mg Tablet 1 Tab PO DAILY Lorazepam 0.5 Mg Tablet 0.5 Tab PO PRN QEVNG Lorazepam 0.5 Mg Tablet 1 Tab PO BID Zoloft (Sertraline Hcl) 50 Mg Tablet 1 Tab PO DAILY Zoloft (Sertraline Hcl) 25 Mg Tablet 1 Tab PO DAILY Vision Vitamins (Beta-Carotene(A) W-C & E/Min) 1 Each Tablet 1 Each PO DAILY Calcium + D3 Er Tablet (Calcium Carb & Cit/Vitamin D3) 1 Each Tablet.er 1 Each PO Synthroid (Levothyroxine Sodium) 50 Mcg Tablet 50 Mcg PO DAILYAC Potassium Chloride 10 Meq Capsule.er 10 Meq PO DAILY Omeprazole 40 Mg Capsule.dr 1 Cap PO DAILY Cardizem Cd (Diltiazem Hcl) 180 Mg Cap.er.24h 180 Mg PO DAILY Vitals/I & O Vital Sign - Last 24 Hours 08/02/17 08/02/17 08/02/17 08/02/17 15:00 18:14 19:10 19:40 Temp 97.8 97.6 97.8 97.6 Pulse 73 74 Resp 16 20 16 B/P (MAP) 98/46 (63) 95/51 (66) Pulse Ox 94 94 95 O2 Delivery Room Air Room Air Room Air Room Air 08/02/17 08/02/17 08/03/17 08/03/17 23:10 23:36 00:40 03:10 Temp 97.6 98.2 97.6 98.2 Pulse 66 69 Resp 15 16 18 B/P (MAP) 107/47 (67) 128/60 (82) Pulse Ox 98 95 95 98 O2 Delivery Room Air Room Air Room Air O2 Flow Rate 2.0 2.0 08/03/17 08/03/17 08/03/17 08/03/17 05:55 07:00 07:00 09:13 Temp 98.1 98.1 Pulse 77 77 Resp 16 18 B/P (MAP) 124/67 (86) 124/67 Pulse Ox 95 O2 Delivery Room Air Room Air Room Air 08/03/17 11:00 Temp 98.1 98.1 Pulse 79 Resp 18 B/P (MAP) 123/72 (89) Pulse Ox 94 O2 Delivery Room Air ALLYSON OROZCO MD Aug 03, 2017 14:37
[2017-08-03 14:58] VITALS: BP 136/71
[2017-08-03] MEDS: PROCHLORPERAZINE 10 MG/2 ML VIAL. IV PRN ×2 (15:02→19:38)
[2017-08-03] MEDS: HYDROmorphone 2 MG/ML VIAL IVP PRN ×2 (15:03→19:56)
[2017-08-03 19:28] VITALS: BP 122/62
[2017-08-03 19:28] LABS: BILIRUBIN,URINE NEGATIVE (NEG); GLUCOSE,URINE NEGATIVE (NEG); NITRITE,URINE NEGATIVE (NEG); PH,URINE 6.5; PROTEIN,URINE NEGATIVE (NEG-TRACE); UROBILINOGEN,URINE 0.2 mg/dL (0.2 mg/dL)
[2017-08-03 19:49] LABS: BACTERIA,URINE 0 /HPF (0-FEW); RBC,URINE OCC /HPF (0-2); SQUAMOUS EPITHELIAL CELL,UR OCC /LPF; WBC,URINE OCC /HPF (0-4)
[2017-08-03 22:11] VITALS: BP 137/69
[2017-08-04] MEDS: POTASSIUM CL 20MEQ D5-0.45NACL 1,000 ML IV SCH (03:00)
[2017-08-04 03:38] VITALS: BP 132/70
[2017-08-04 06:18] LABS: HEMATOCRIT 28.8 % (36.0-47.0); HEMOGLOBIN 9.9 g/dL (12.0-15.5); RED BLOOD COUNT 2.86 x10^6/uL (3.50-5.40); RED CELL DISTRIBUTION WIDTH 13.5 % (11.5-14.5); WHITE BLOOD COUNT 12.6 x10^3/uL (4.0-11.0)
[2017-08-04 06:47] LABS: ALBUMIN/GLOBULIN RATIO 0.6 (1.0-1.7); CALCIUM 10.8 mg/dL (8.5-10.1); CREATININE 0.9 mg/dL (0.6-1.0); GFR 60.7; POTASSIUM 5.3 mmol/L (3.5-5.1); TOTAL BILIRUBIN 0.4 mg/dL (0.2-1.0); TOTAL PROTEIN 5.1 g/dL (6.4-8.2)
[2017-08-04 07:00] VITALS: BP 139/65
[2017-08-04] MEDS: PANTOPRAZOLE 40 MG TABLET.DR. PO SCH (09:00)
[2017-08-04] MEDS: LEVOTHYROXINE 50 MCG TABLET PO SCH (09:01)
[2017-08-04] MEDS: SUCRALFATE 1 GM/10 ML ORAL.SUSP. PEG SCH ×3 (09:01→16:30)
[2017-08-04] MEDS: SERTRALINE 50 MG TABLET. PO SCH (09:01)
--- NOTE | 2017-08-04 09:04 | RAD ---
AP chest. History: Recent syncope, evaluating for pneumonia. AP view was taken of the chest. There is severe arthritis of the right shoulder was cephalad displacement of the humeral head. 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 Patient is rotated to the right. There is a hazy atelectasis or infiltrate in the left lung base. There is a hiatus hernia. Impression: 1. Hiatus hernia. 2. Hazy left base atelectasis or infiltrate.
[2017-08-04] MEDS: ONDANSETRON PF 4 MG/2 ML VIAL. IV PRN (09:31)
[2017-08-04] MEDS: PROCHLORPERAZINE 10 MG/2 ML VIAL. IV PRN (09:52)
[2017-08-04] MEDS: HYDROmorphone 2 MG/ML VIAL IVP PRN ×2 (09:54→21:29)
[2017-08-04 10:23] VITALS: BP 122/75
--- NOTE | 2017-08-04 10:24 | PDOC ---
SUBJECTIVE Subjective still with nausea, some better, has not noted color of stool OBJECTIVE Vital Signs Vital Signs Date Time Temp Pulse Resp B/P (MAP) Pulse Ox O2 Delivery O2 Flow Rate FiO2 08/04/17 09:54 20 Room Air 08/04/17 09:00 82 08/04/17 07:00 97.9 76 18 139/65 (89) 96 Room Air 97.9 08/04/17 03:38 98.7 80 20 132/70 (90) 95 Room Air 98.7 08/03/17 23:30 16 08/03/17 22:16 16 08/03/17 22:11 98.9 82 20 137/69 (91) 95 Room Air 98.9 08/03/17 20:29 18 Room Air 08/03/17 19:56 16 Room Air 08/03/17 19:28 98.9 88 20 122/62 (82) 95 Room Air 98.9 08/03/17 15:03 Room Air 08/03/17 14:58 98.8 87 18 136/71 (92) 94 Room Air 98.8 08/03/17 11:00 98.1 79 18 123/72 (89) 94 Room Air 98.1 I & O Intake and Output 08/05/17 07:00 Intake Total 50 ml Balance 50 ml Intake Oral 50 ml PHYSICAL EXAM Physical Exam exam not much change ASSESSMENT/PLAN Assessment/Plan 1- acute anemia and nausea , has not noticed color of stool , consult GI 2-acute renal failure improving 3- hypercalcemia check serum protein electrophoresis , could not order PTH in pt 4- leukocytosis , improved 5-K+ up will D/C K+ in IVF , dose of lasix to lower K+ and Ca++ 6-hypothyroid increased Synthroid dose 7- left basilar atelectasis or infiltrate on levaquin Dr Ching will resume care in AM Problems: COMMENT Lab Laboratory Tests Test 08/03/17 13:50 08/03/17 19:00 08/04/17 05:55 Thyroid Stimulating Hormone (TSH) 17.394 uIU/mL (0.358-3.74) Urine Collection Type Unknown Urine Color Yellow Urine Clarity Clear Urine pH 6.5 Urine Specific [place] 1.015 Urine Protein Negative mg/dL (NEG-TRACE) Urine Glucose (UA) Negative mg/dL (NEG) Urine Ketones (Stick) Negative mg/dL (NEG) Urine Blood Negative (NEG) Urine Nitrite Negative (NEG) Urine Bilirubin Negative (NEG) Urine Urobilinogen Dipstick 0.2 mg/dL (0.2 mg/dL) Urine Leukocyte Esterase Negative (NEG) Urine RBC Occ /HPF (0-2) Urine WBC Occ /HPF (0-4) Urine Squamous Epithelial Cells Occ /LPF Urine Bacteria 0 /HPF (0-FEW) Urine Mucus Mod /LPF White Blood Count 12.6 x10^3/uL (4.0-11.0) Red Blood Count 2.86 x10^6/uL (3.50-5.40) Hemoglobin 9.9 g/dL (12.0-15.5) Hematocrit 28.8 % (36.0-47.0) Mean Corpuscular Volume 101 fL (79-100) Mean Corpuscular Hemoglobin 35 pg (25-35) Mean Corpuscular Hemoglobin Concent 34 g/dL (31-37) Red Cell Distribution Width 13.5 % (11.5-14.5) Platelet Count 169 x10^3/uL (140-400) Erythrocyte Sedimentation Rate 88 (0-25) Sodium Level 140 mmol/L (136-145) Potassium Level 5.3 mmol/L (3.5-5.1) Chloride Level 110 mmol/L (98-107) Carbon Dioxide Level 24 mmol/L (21-32) Anion Gap 6 (6-14) Blood Urea Nitrogen 18 mg/dL (7-20) Creatinine 0.9 mg/dL (0.6-1.0) Estimated GFR (Cockcroft-Gault) 60.7 BUN/Creatinine Ratio 20 (6-20) Glucose Level 88 mg/dL (70-99) Calcium Level 10.8 mg/dL (8.5-10.1) Total Bilirubin 0.4 mg/dL (0.2-1.0) Aspartate Amino Transf (AST/SGOT) 20 U/L (15-37) Alanine Aminotransferase (ALT/SGPT) 19 U/L (14-59) Alkaline Phosphatase 91 U/L (46-116) Total Protein 5.1 g/dL (6.4-8.2) Albumin 2.0 g/dL (3.4-5.0) Albumin/Globulin Ratio 0.6 (1.0-1.7) Amylase Level 62 U/L (25-115) Lipase 142 U/L (73-393) GEO GARCIA MD Aug 04, 2017 10:24
[2017-08-04] MEDS ORDERED: FUROSEMIDE 20 MG/2 ML VIAL. IVP ONE (10:45)
--- NOTE | 2017-08-04 12:32 | PDOC2 ---
CONSULT Date of Consult Date of Consult DATE: 08/04/17 TIME: 12:30 Reason for Consult Reason for Consult: Persistent nausea/acute blood loss anemia/hypercalcemia Past Medical History Cardiovascular: CAD, CHF, HTN, Mitral valve stenosis, Aortic stenosis, Valve insufficiency GI: GERD Hepatobiliary: Cholelithiasis Musculoskeletal: Osteoarthritis Endocrine: Hypothyroidism, Osteoporosis Past Surgical History Past Surgical History: Total knee replacement, Hysterectomy Family History Family History: Other Social History ALCOHOL: none Drugs: None Lives: Alone Current Problem List Problem List Problems Medical Problems: (1) Acute renal failure Status: Acute (2) Dehydration Status: Acute (3) Elevated troponin Status: Acute (4) Hypokalemia Status: Acute (5) Pneumonia Status: Acute (6) Rhabdomyolysis Status: Acute (7) Sepsis Status: Acute (8) Uremia Status: Acute Current Medications Current Medications Current Medications Ondansetron HCl (Zofran) 4 mg 1X ONCE IV Last administered on 07/31/17 16:44 ; Start 07/31/17 at 16:45; Stop 07/31/17 at 16:46; Status DC Sodium Chloride 1,000 ml @ 1,000 mls/hr 1X ONCE IV Last administered on 17:04; Start 07/31/17 at 16:45; Stop 07/31/17 at 17:44; Status DC Morphine Sulfate 2 mg 1X ONCE IV Last administered on 07/31/17 17:28; Start 07/31/17 at 17:30; Stop 07/31/17 at 17:31; Status DC Potassium Chloride/Sodium Chloride 1,000 ml @ 250 mls/hr 1X ONCE IV Last administered on 07/31/17 18:34; Start 07/31/17 at 18:00; Stop 07/31/17 at 21:59 ; Status DC Aspirin (Children'S Aspirin) 324 mg 1X ONCE PO Last administered on 07/31/17 18:01; Start 07/31/17 at 18:00; Stop 07/31/17 at 18:01; Status DC Vancomycin HCl (Vanco Per Pharmacy) 1 each PRN DAILY PRN MC SEE COMMENTS Last administered on 08/01/17 09:49; Start 07/31/17 at 18:00; Stop 08/02/17 at 08:44 ; Status DC Levofloxacin/ Dextrose 100 ml @ 100 mls/hr 1X ONCE IV Last administered on 18:34; Start 07/31/17 at 18:00; Stop 07/31/17 at 18:59; Status DC Vancomycin HCl 1.25 gm/Sodium Chloride 250 ml @ 166.667 mls/hr 1X ONCE IV Last administered on 07/31/17 18:43; Start 07/31/17 at 18:00; Stop 07/31/17 at 19:29; Status DC Potassium Chloride/Dextrose/ Sod Cl 1,000 ml @ 125 mls/hr 1X ONCE IV ; Start 07/31/17 at 18:00; Stop 08/01/17 at 01:59; Status Cancel Diltiazem HCl 125 mg/Dextrose 125 ml @ 0 mls/hr CONT PRN IV SEE I/O RECORD Last administered on 07/31/17 18:29; Start 07/31/17 at 18:00; Stop 08/01/17 at 09:49; Status DC Diltiazem HCl (Cardizem) 5 mg 1X ONCE IVP Last administered on 07/31/17 18:24 ; Start 07/31/17 at 18:00; Stop 07/31/17 at 18:05; Status DC Ondansetron HCl (Zofran) 4 mg PRN Q8HRS PRN IV NAUSEA/VOMITING Last administered on 08/01/17 14:24; Start 07/31/17 at 18:00; Stop 08/01/17 at 17:59 ; Status DC Potassium Chloride 40 meq/ Dextrose/Sodium Chloride 1,020 ml @ 125 mls/hr Q8H10M IV Last administered on 07/31/17 23:02; Start 07/31/17 at 22:00; Stop 08/01/17 at 06:09; Status DC Vancomycin HCl 1 each 1X ONCE MC ; Start 08/02/17 at 18:00; Stop 08/02/17 at 18 :00; Status DC Oxycodone/ Acetaminophen (Percocet 7.5/ 325) 2 tab [id number] PO Last administered on 08/03/17 22:16; Start 08/01/17 at 00:00 Fentanyl Citrate (Fentanyl 2ml Vial) 75 mcg PRN Q3HRS PRN IV SEVERE PAIN Last administered on 07/31/17 23:18; Start 07/31/17 at 22:00; Stop 08/02/17 at 08:44 ; Status DC Diltiazem HCl (Cardizem 24hr Cd) 180 mg DAILY PO Last administered on 09:00; Start 08/01/17 at 10:00 Levothyroxine Sodium (Synthroid) 50 mcg DAILYAC PO Last administered on 09:01; Start 08/01/17 at 10:00; Stop 08/04/17 at 10:22; Status DC Lorazepam (Ativan) 0.25 mg PRN QEVNG PRN PO ANXIETY / AGITATION; Start at 10:00 Lorazepam (Ativan) 0.5 mg BID PO Last administered on 08/01/17 20:47; Start at 10:00; Stop 08/02/17 at 18:12; Status DC Sertraline HCl (Zoloft) 50 mg DAILY PO Last administered on 08/04/17 09:01; Start 08/01/17 at 10:00 Sucralfate (Carafate) 1 gm TIDAC PO Last administered on 08/01/17 17:53; Start 08/01/17 at 11:30; Stop 08/01/17 at 19:00; Status DC Pantoprazole Sodium (Protonix) 40 mg DAILYAC PO Last administered on 08/04/17 09:00; Start 08/01/17 at 10:00 Ondansetron HCl (Zofran Odt) 4 mg Q8HRS PO Last administered on 08/03/17 22:16 ; Start 08/01/17 at 10:00 Potassium Chloride (Klor-Con) 10 meq TIDAFTMEAL PO Last administered on 09:14; Start 08/01/17 at 13:00; Stop 08/03/17 at 18:08; Status DC Potassium Chloride/Dextrose/ Sod Cl 1,000 ml @ 100 mls/hr 1X ONCE IV Last administered on 08/01/17 10:11; Start 08/01/17 at 10:00; Stop 08/01/17 at 19:59 ; Status DC Potassium Chloride (KCl Oral Soln) 40 meq 1X ONCE PEG Last administered on 17:54; Start 08/01/17 at 17:00; Stop 08/01/17 at 17:01; Status DC Sucralfate (Carafate) 1 gm TIDAC PEG Last administered on 08/04/17 09:01; Start 08/02/17 at 07:30 Potassium Chloride/Dextrose/ Sod Cl 1,000 ml @ 100 mls/hr Q10H IV Last administered on 08/03/17 04:20; Start 08/01/17 at 19:30; Stop 08/03/17 at 14:41 ; Status DC Lorazepam (Ativan) 0.5 mg PRN BID PRN PO ANXIETY / AGITATION; Start 08/02/17 at 18:15 Ondansetron HCl (Zofran) 4 mg PRN Q6HRS PRN IV NAUSEA/VOMITING Last administered on 08/04/17 09:31; Start 08/03/17 at 12:45 Potassium Chloride/Dextrose/ Sod Cl 1,000 ml @ 80 mls/hr 1X ONCE IV ; Start at 13:00; Stop 08/03/17 at 14:41; Status DC Levofloxacin/ Dextrose 50 ml @ 50 mls/hr Q24H IV Last administered on 13:30; Start 08/03/17 at 13:00 Prochlorperazine Edisylate (Compazine) 5 mg PRN Q4HRS PRN IV NAUSEA/VOMITING Last administered on 08/04/17 09:52; Start 08/03/17 at 14:30 Hydromorphone HCl (Dilaudid) 0.6 mg PRN Q4HRS PRN IVP PAIN Last administered on 08/04/17 09:54; Start 08/03/17 at 14:30 Potassium Chloride/Dextrose/ Sod Cl 1,000 ml @ 80 mls/hr [id number] IV Last administered on 08/04/17 03:00; Start 08/03/17 at 14:30; Stop 08/04/17 at 10:22 ; Status DC Levothyroxine Sodium (Synthroid) 75 mcg DAILYAC PO ; Start 08/05/17 at 07:30 Dextrose/Sodium Chloride 1,000 ml @ 75 mls/hr [id number] IV ; Start 08/04/17 at 10 :30 Furosemide (Lasix) 20 mg 1X ONCE IVP ; Start 08/04/17 at 10:45; Stop 08/04/17 at 10:46; Status DC Active Scripts Active Reported Zanaflex (Tizanidine Hcl) 4 Mg Capsule 1 Cap PO BID Furosemide 20 Mg Tablet 1 Tab PO DAILY Percocet 7.5-325 Mg Tablet (Oxycodone/Acetaminophen) 1 Each Tablet 2 Tab PO [id number] Zofran (Ondansetron Hcl) 4 Mg Tablet 1 Tab PO Q8HRS Carafate (Sucralfate) 1 Gm Tablet 1 Tab PO TIDAC Hydrochlorothiazide Tablet (Hydrochlorothiazide) 12.5 Mg Tablet 1 Tab PO DAILY Lorazepam 0.5 Mg Tablet 0.5 Tab PO PRN QEVNG Lorazepam 0.5 Mg Tablet 1 Tab PO BID Zoloft (Sertraline Hcl) 50 Mg Tablet 1 Tab PO DAILY Zoloft (Sertraline Hcl) 25 Mg Tablet 1 Tab PO DAILY Vision Vitamins (Beta-Carotene(A) W-C & E/Min) 1 Each Tablet 1 Each PO DAILY Calcium + D3 Er Tablet (Calcium Carb & Cit/Vitamin D3) 1 Each Tablet.er 1 Each PO Synthroid (Levothyroxine Sodium) 50 Mcg Tablet 50 Mcg PO DAILYAC Potassium Chloride 10 Meq Capsule.er 10 Meq PO DAILY Omeprazole 40 Mg Capsule.dr 1 Cap PO DAILY Cardizem Cd (Diltiazem Hcl) 180 Mg Cap.er.24h 180 Mg PO DAILY Allergies Allergies: Coded Allergies: Penicillins (Verified Allergy, Intermediate, HIVES, 02/17/15) tetracycline (Verified Allergy, Intermediate, 06/20/17) Vitals VITALS Vital Signs Date Time Temp Pulse Resp B/P (MAP) Pulse Ox O2 Delivery O2 Flow Rate FiO2 08/04/17 10:23 98.4 87 18 122/75 (91) 91 Room Air 98.4 Labs Labs Laboratory Tests Test 08/03/17 13:50 08/03/17 19:00 08/04/17 05:55 Thyroid Stimulating Hormone (TSH) 17.394 uIU/mL (0.358-3.74) Urine Collection Type Unknown Urine Color Yellow Urine Clarity Clear Urine pH 6.5 Urine Specific [place] 1.015 Urine Protein Negative mg/dL (NEG-TRACE) Urine Glucose (UA) Negative mg/dL (NEG) Urine Ketones (Stick) Negative mg/dL (NEG) Urine Blood Negative (NEG) Urine Nitrite Negative (NEG) Urine Bilirubin Negative (NEG) Urine Urobilinogen Dipstick 0.2 mg/dL (0.2 mg/dL) Urine Leukocyte Esterase Negative (NEG) Urine RBC Occ /HPF (0-2) Urine WBC Occ /HPF (0-4) Urine Squamous Epithelial Cells Occ /LPF Urine Bacteria 0 /HPF (0-FEW) Urine Mucus Mod /LPF White Blood Count 12.6 x10^3/uL (4.0-11.0) Red Blood Count 2.86 x10^6/uL (3.50-5.40) Hemoglobin 9.9 g/dL (12.0-15.5) Hematocrit 28.8 % (36.0-47.0) Mean Corpuscular Volume 101 fL (79-100) Mean Corpuscular Hemoglobin 35 pg (25-35) Mean Corpuscular Hemoglobin Concent 34 g/dL (31-37) Red Cell Distribution Width 13.5 % (11.5-14.5) Platelet Count 169 x10^3/uL (140-400) Erythrocyte Sedimentation Rate 88 (0-25) Sodium Level 140 mmol/L (136-145) Potassium Level 5.3 mmol/L (3.5-5.1) Chloride Level 110 mmol/L (98-107) Carbon Dioxide Level 24 mmol/L (21-32) Anion Gap 6 (6-14) Blood Urea Nitrogen 18 mg/dL (7-20) Creatinine 0.9 mg/dL (0.6-1.0) Estimated GFR (Cockcroft-Gault) 60.7 BUN/Creatinine Ratio 20 (6-20) Glucose Level 88 mg/dL (70-99) Calcium Level 10.8 mg/dL (8.5-10.1) Total Bilirubin 0.4 mg/dL (0.2-1.0) Aspartate Amino Transf (AST/SGOT) 20 U/L (15-37) Alanine Aminotransferase (ALT/SGPT) 19 U/L (14-59) Alkaline Phosphatase 91 U/L (46-116) Total Protein 5.1 g/dL (6.4-8.2) Albumin 2.0 g/dL (3.4-5.0) Albumin/Globulin Ratio 0.6 (1.0-1.7) Amylase Level 62 U/L (25-115) Lipase 142 U/L (73-393) Laboratory Tests Test 08/03/17 13:50 08/03/17 19:00 08/04/17 05:55 Thyroid Stimulating Hormone (TSH) 17.394 uIU/mL (0.358-3.74) Urine Collection Type Unknown Urine Color Yellow Urine Clarity Clear Urine pH 6.5 Urine Specific [place] 1.015 Urine Protein Negative mg/dL (NEG-TRACE) Urine Glucose (UA) Negative mg/dL (NEG) Urine Ketones (Stick) Negative mg/dL (NEG) Urine Blood Negative (NEG) Urine Nitrite Negative (NEG) Urine Bilirubin Negative (NEG) Urine Urobilinogen Dipstick 0.2 mg/dL (0.2 mg/dL) Urine Leukocyte Esterase Negative (NEG) Urine RBC Occ /HPF (0-2) Urine WBC Occ /HPF (0-4) Urine Squamous Epithelial Cells Occ /LPF Urine Bacteria 0 /HPF (0-FEW) Urine Mucus Mod /LPF White Blood Count 12.6 x10^3/uL (4.0-11.0) Red Blood Count 2.86 x10^6/uL (3.50-5.40) Hemoglobin 9.9 g/dL (12.0-15.5) Hematocrit 28.8 % (36.0-47.0) Mean Corpuscular Volume 101 fL (79-100) Mean Corpuscular Hemoglobin 35 pg (25-35) Mean Corpuscular Hemoglobin Concent 34 g/dL (31-37) Red Cell Distribution Width 13.5 % (11.5-14.5) Platelet Count 169 x10^3/uL (140-400) Erythrocyte Sedimentation Rate 88 (0-25) Sodium Level 140 mmol/L (136-145) Potassium Level 5.3 mmol/L (3.5-5.1) Chloride Level 110 mmol/L (98-107) Carbon Dioxide Level 24 mmol/L (21-32) Anion Gap 6 (6-14) Blood Urea Nitrogen 18 mg/dL (7-20) Creatinine 0.9 mg/dL (0.6-1.0) Estimated GFR (Cockcroft-Gault) 60.7 BUN/Creatinine Ratio 20 (6-20) Glucose Level 88 mg/dL (70-99) Calcium Level 10.8 mg/dL (8.5-10.1) Total Bilirubin 0.4 mg/dL (0.2-1.0) Aspartate Amino Transf (AST/SGOT) 20 U/L (15-37) Alanine Aminotransferase (ALT/SGPT) 19 U/L (14-59) Alkaline Phosphatase 91 U/L (46-116) Total Protein 5.1 g/dL (6.4-8.2) Albumin 2.0 g/dL (3.4-5.0) Albumin/Globulin Ratio 0.6 (1.0-1.7) Amylase Level 62 U/L (25-115) Lipase 142 U/L (73-393) Assessment/Plan Assessment/Plan Acute blood loss anemia- with resolved ARF/rhabdomyolysis, hypercalcemia is associated with hyperparathyroidism and PUD Plan serial cbcs EGD in am to further assess pending hypercalcemia work-up Full note dictated NASH TEMPLE MD Aug 04, 2017 12:32
[2017-08-04] MEDS: ONDANSETRON ODT 4 MG TAB.RAPDIS. PO SCH ×2 (12:59→21:30)
[2017-08-04] MEDS: oxyCODONE/APAP 7.5/325 1 TAB TABLET PO SCH ×2 (13:00→13:19)
[2017-08-04] MEDS: IV DEXTROSE 5 %-0.45 % NACL 1,000 ML IV SCH (13:32)
[2017-08-04 14:55] VITALS: BP 114/71
--- NOTE | 2017-08-04 17:59 | CONS ---
DATE OF CONSULTATION: 08/04/2017 REASON FOR CONSULTATION: Anemia, persistent nausea and vomiting, hypercalcemia. HISTORY OF PRESENT ILLNESS: A 77-year-old female, whose past medical history is significant for osteoarthrosis, congestive heart failure, coronary artery disease, mitral valve stenosis, aortic stenosis, cholelithiasis, hypothyroidism, was admitted to [facility] after having a fall, being on the floor for over 12 hours with rhabdomyolysis, and acute renal failure, still continued drop in hemoglobin and hematocrit despite no visible bleeding. She has persistent nausea as well as an elevated calcium level, which workup is in progress. No history of peptic ulcer disease, although she has had a previous Jared fundoplication for chronic reflux with continued symptoms. Additional evaluation is requested. PAST MEDICAL HISTORY: Aortic and mitral valve stenosis, hypertension, hyperlipidemia, osteoporosis, anemia, acute renal failure with rhabdomyolysis, resolved. ALLERGIES: PENICILLINS AND TETRACYCLINE. MEDICATIONS: Presently include levothyroxine, lorazepam, Carafate, pantoprazole, diltiazem. SOCIAL HISTORY: She is retired. Does not drink or smoke. FAMILY HISTORY: Noncontributory. REVIEW OF SYSTEMS: Per records. PHYSICAL EXAMINATION: VITAL SIGNS: Temperature is 98.4, pulse 87, respiratory rate 18, blood pressure is 122/75. HEENT: Normocephalic and atraumatic. Pupils and extraocular muscles not tested. Sclerae anicteric. NECK: Supple. LUNGS: Clear. CARDIOVASCULAR: S1, S2 with a 2/6 systolic ejection murmur heard best at the level of the right upper sternal border consistent with . ABDOMEN: Reveals soft abdomen, normal bowel sounds, multiple surgical incisions. EXTREMITIES: Reveals no cyanosis, clubbing or edema. LABORATORY STUDIES: Hemoglobin is 9.9, hematocrit 28.8, white count 12.6, platelet count 169,000, sed rate is 88. Sodium 140, potassium 5.2, chloride 110, carbon dioxide is 24, BUN is 18, creatinine 0.9, glucose is 88, calcium is 10.8, total bilirubin is 0.4, AST of 20, ALT of 19, alkaline phosphatase of 91. Troponin of 0.259. Total protein 5.1, albumin 2.0, TSH is 17.394, lipase is 142, amylase is 62. IMPRESSION: Nausea and vomiting with acute renal failure, which is now resolved as well as hypercalcemia and a drop in hemoglobin and hematocrit, certainly is suggestive of hyperparathyroidism and possible peptic ulcer disease. We will therefore recommend the patient proceed with upper endoscopy ____ further assess. Risks and benefits have been discussed with the patient's family and are willing to proceed at this time. NASH TEMPLE MD DR: [email or web address]/geo JOB#: [id number] / [id number] Dr. Neto Rocha Dr.
[2017-08-04 19:48] VITALS: BP 103/68
[2017-08-04 23:49] VITALS: BP 116/67
[2017-08-05] MEDS: oxyCODONE/APAP 7.5/325 1 TAB TABLET PO SCH ×6 (00:07→23:48)
[2017-08-05] MEDS: IV DEXTROSE 5 %-0.45 % NACL 1,000 ML IV SCH ×2 (00:10→21:23)
[2017-08-05 03:10] VITALS: BP 110/74
[2017-08-05 06:20] LABS: HEMATOCRIT 31.1 % (36.0-47.0); RED BLOOD COUNT 3.09 x10^6/uL (3.50-5.40); RED CELL DISTRIBUTION WIDTH 13.5 % (11.5-14.5)
[2017-08-05 06:45] LABS: ALBUMIN/GLOBULIN RATIO 0.7 (1.0-1.7); CALCIUM 10.7 mg/dL (8.5-10.1); GFR 53.8; TOTAL BILIRUBIN 0.2 mg/dL (0.2-1.0)
[2017-08-05 07:00] VITALS: BP 127/67
[2017-08-05] MEDS: SUCRALFATE 1 GM/10 ML ORAL.SUSP. PEG SCH ×4 (07:30→16:59)
[2017-08-05] MEDS ORDERED: LEVOTHYROXINE 75 MCG TABLET PO SCH (07:30)
--- NOTE | 2017-08-05 08:49 | PDOC ---
Provider Note Provider Note vss, less nausea- egd today, CA++ still high re low alb- will do light chains MERRY Pelaez MD Aug 05, 2017 08:49
[2017-08-05] MEDS: HYDROmorphone 2 MG/ML VIAL IVP PRN (09:41)
[2017-08-05] MEDS: IV NORMAL SALINE 1000ML BAG 1,000 ML IV SCH ×2 (10:57→18:30)
[2017-08-05] MEDS ORDERED: MIDAZOLAM HCL/PF 2 MG/2 ML VIAL. IV PRN (11:00)
[2017-08-05] MEDS ORDERED: LIDOCAINE 1% PF 2 ML VIAL. ID PRN (11:00)
[2017-08-05] MEDS ORDERED: fentaNYL PF VIAL 100 MCG/2 ML VIAL IV PRN ×2 (11:00)
[2017-08-05] MEDS ORDERED: PROPOFOL 20 ML IV ONE (11:28)
[2017-08-05] MEDS ORDERED: LIDOCAINE 2% PF Vial for OR 5 ML VIAL. ONE (11:29)
--- NOTE | 2017-08-05 11:53 | PDOC4 ---
Operative Note Operative Note EGD Meds propofol per anesthesia Pre-op dx n/v/anemia post-op dx hiatal hernia r/o paraesophageal component non-erosive gastritis Plan advance diet UGi series in am to assess hernia NASH TEMPLE MD Aug 05, 2017 11:53
[2017-08-05 12:48] VITALS: BP 118/79
[2017-08-05] MEDS: ONDANSETRON ODT 4 MG TAB.RAPDIS. PO SCH ×3 (12:52→21:07)
[2017-08-05] MEDS: PANTOPRAZOLE 40 MG TABLET.DR. PO SCH (12:53)
[2017-08-05] MEDS: LEVOTHYROXINE 88 MCG TABLET PO SCH (12:53)
[2017-08-05] MEDS: SERTRALINE 50 MG TABLET. PO SCH (12:53)
--- NOTE | 2017-08-05 14:01 | PDOC2 ---
LAMONTE WILSON [employer] 08/05/17 1401: CONSULT Date of Consult Date of Consult DATE: 08/05/17 TIME: 13:41 Reason for Consult Reason for Consult: HH Referring Physician Referring Physician: Dr Jose Identification/Chief Complaint Chief Complaint fall Problems: Source Source: Chart review, Patient History of Present Illness Reason for Visit: Admitted after a fall, was down for an unknown amount of time. Admitted with ARF, rhabdo. She then developed significant n/v. Her daughter reports this has been ongoing for about 6 months, but became significantly worse after admission. She reports minimal po intake, although pt is taking some liquids today ok. She did undergo a repair of a very large HH and loli fundoplication with Dr Smith in 2014. Underwent an EGD that showed a recurrent HH Past Medical History Cardiovascular: CAD, CHF, HTN, Mitral valve stenosis, Aortic stenosis, Valve insufficiency GI: GERD Hepatobiliary: Cholelithiasis Musculoskeletal: Osteoarthritis Endocrine: Hypothyroidism, Osteoporosis Past Surgical History Past Surgical History: Total knee replacement, Hysterectomy Family History Family History: Other Social History ALCOHOL: none Drugs: None Lives: Alone Current Problem List Problem List Problems Medical Problems: (1) Acute renal failure Status: Acute (2) Dehydration Status: Acute (3) Elevated troponin Status: Acute (4) Hypokalemia Status: Acute (5) Pneumonia Status: Acute (6) Rhabdomyolysis Status: Acute (7) Sepsis Status: Acute (8) Uremia Status: Acute Current Medications Current Medications Current Medications Ondansetron HCl (Zofran) 4 mg 1X ONCE IV Last administered on 07/31/17 16:44 ; Start 07/31/17 at 16:45; Stop 07/31/17 at 16:46; Status DC Sodium Chloride 1,000 ml @ 1,000 mls/hr 1X ONCE IV Last administered on 17:04; Start 07/31/17 at 16:45; Stop 07/31/17 at 17:44; Status DC Morphine Sulfate 2 mg 1X ONCE IV Last administered on 07/31/17 17:28; Start 07/31/17 at 17:30; Stop 07/31/17 at 17:31; Status DC Potassium Chloride/Sodium Chloride 1,000 ml @ 250 mls/hr 1X ONCE IV Last administered on 07/31/17 18:34; Start 07/31/17 at 18:00; Stop 07/31/17 at 21:59 ; Status DC Aspirin (Children'S Aspirin) 324 mg 1X ONCE PO Last administered on 07/31/17 18:01; Start 07/31/17 at 18:00; Stop 07/31/17 at 18:01; Status DC Vancomycin HCl (Vanco Per Pharmacy) 1 each PRN DAILY PRN MC SEE COMMENTS Last administered on 08/01/17 09:49; Start 07/31/17 at 18:00; Stop 08/02/17 at 08:44 ; Status DC Levofloxacin/ Dextrose 100 ml @ 100 mls/hr 1X ONCE IV Last administered on 18:34; Start 07/31/17 at 18:00; Stop 07/31/17 at 18:59; Status DC Vancomycin HCl 1.25 gm/Sodium Chloride 250 ml @ 166.667 mls/hr 1X ONCE IV Last administered on 07/31/17 18:43; Start 07/31/17 at 18:00; Stop 07/31/17 at 19:29; Status DC Potassium Chloride/Dextrose/ Sod Cl 1,000 ml @ 125 mls/hr 1X ONCE IV ; Start 07/31/17 at 18:00; Stop 08/01/17 at 01:59; Status Cancel Diltiazem HCl 125 mg/Dextrose 125 ml @ 0 mls/hr CONT PRN IV SEE I/O RECORD Last administered on 07/31/17 18:29; Start 07/31/17 at 18:00; Stop 08/01/17 at 09:49; Status DC Diltiazem HCl (Cardizem) 5 mg 1X ONCE IVP Last administered on 07/31/17 18:24 ; Start 07/31/17 at 18:00; Stop 07/31/17 at 18:05; Status DC Ondansetron HCl (Zofran) 4 mg PRN Q8HRS PRN IV NAUSEA/VOMITING Last administered on 08/01/17 14:24; Start 07/31/17 at 18:00; Stop 08/01/17 at 17:59 ; Status DC Potassium Chloride 40 meq/ Dextrose/Sodium Chloride 1,020 ml @ 125 mls/hr Q8H10M IV Last administered on 07/31/17 23:02; Start 07/31/17 at 22:00; Stop 08/01/17 at 06:09; Status DC Vancomycin HCl 1 each 1X ONCE MC ; Start 08/02/17 at 18:00; Stop 08/02/17 at 18 :00; Status DC Oxycodone/ Acetaminophen (Percocet 7.5/ 325) 2 tab [id number] PO Last administered on 08/05/17 12:00; Start 08/01/17 at 00:00 Fentanyl Citrate (Fentanyl 2ml Vial) 75 mcg PRN Q3HRS PRN IV SEVERE PAIN Last administered on 07/31/17 23:18; Start 07/31/17 at 22:00; Stop 08/02/17 at 08:44 ; Status DC Diltiazem HCl (Cardizem 24hr Cd) 180 mg DAILY PO Last administered on 12:53; Start 08/01/17 at 10:00 Levothyroxine Sodium (Synthroid) 50 mcg DAILYAC PO Last administered on 09:01; Start 08/01/17 at 10:00; Stop 08/04/17 at 10:22; Status DC Lorazepam (Ativan) 0.25 mg PRN QEVNG PRN PO ANXIETY / AGITATION Last administered on 08/04/17 21:30; Start 08/01/17 at 10:00 Lorazepam (Ativan) 0.5 mg BID PO Last administered on 08/01/17 20:47; Start at 10:00; Stop 08/02/17 at 18:12; Status DC Sertraline HCl (Zoloft) 50 mg DAILY PO Last administered on 08/05/17 12:53; Start 08/01/17 at 10:00 Sucralfate (Carafate) 1 gm TIDAC PO Last administered on 08/01/17 17:53; Start 08/01/17 at 11:30; Stop 08/01/17 at 19:00; Status DC Pantoprazole Sodium (Protonix) 40 mg DAILYAC PO Last administered on 08/05/17 12:53; Start 08/01/17 at 10:00 Ondansetron HCl (Zofran Odt) 4 mg Q8HRS PO Last administered on 08/05/17 12:52 ; Start 08/01/17 at 10:00 Potassium Chloride (Klor-Con) 10 meq TIDAFTMEAL PO Last administered on 09:14; Start 08/01/17 at 13:00; Stop 08/03/17 at 18:08; Status DC Potassium Chloride/Dextrose/ Sod Cl 1,000 ml @ 100 mls/hr 1X ONCE IV Last administered on 08/01/17 10:11; Start 08/01/17 at 10:00; Stop 08/01/17 at 19:59 ; Status DC Potassium Chloride (KCl Oral Soln) 40 meq 1X ONCE PEG Last administered on 17:54; Start 08/01/17 at 17:00; Stop 08/01/17 at 17:01; Status DC Sucralfate (Carafate) 1 gm TIDAC PEG Last administered on 08/05/17 11:30; Start 08/02/17 at 07:30 Potassium Chloride/Dextrose/ Sod Cl 1,000 ml @ 100 mls/hr Q10H IV Last administered on 08/03/17 04:20; Start 08/01/17 at 19:30; Stop 08/03/17 at 14:41 ; Status DC Lorazepam (Ativan) 0.5 mg PRN BID PRN PO ANXIETY / AGITATION; Start 08/02/17 at 18:15 Ondansetron HCl (Zofran) 4 mg PRN Q6HRS PRN IV NAUSEA/VOMITING Last administered on 08/04/17 09:31; Start 08/03/17 at 12:45 Potassium Chloride/Dextrose/ Sod Cl 1,000 ml @ 80 mls/hr 1X ONCE IV ; Start at 13:00; Stop 08/03/17 at 14:41; Status DC Levofloxacin/ Dextrose 50 ml @ 50 mls/hr Q24H IV Last administered on 13:20; Start 08/03/17 at 13:00; Stop 08/05/17 at 08:48; Status DC Prochlorperazine Edisylate (Compazine) 5 mg PRN Q4HRS PRN IV NAUSEA/VOMITING Last administered on 08/04/17 09:52; Start 08/03/17 at 14:30 Hydromorphone HCl (Dilaudid) 0.6 mg PRN Q4HRS PRN IVP PAIN Last administered on 08/05/17 09:41; Start 08/03/17 at 14:30 Potassium Chloride/Dextrose/ Sod Cl 1,000 ml @ 80 mls/hr [id number] IV Last administered on 08/04/17 03:00; Start 08/03/17 at 14:30; Stop 08/04/17 at 10:22 ; Status DC Levothyroxine Sodium (Synthroid) 75 mcg DAILYAC PO ; Start 08/05/17 at 07:30; Stop 08/05/17 at 08:48; Status DC Dextrose/Sodium Chloride 1,000 ml @ 75 mls/hr [id number] IV Last administered on 08/05/17 00:10; Start 08/04/17 at 10:30 Furosemide (Lasix) 20 mg 1X ONCE IVP Last administered on 08/04/17 13:32; Start 08/04/17 at 10:45; Stop 08/04/17 at 10:46; Status DC Levothyroxine Sodium (Synthroid) 88 mcg DAILY07 PO Last administered on 12:53; Start 08/05/17 at 09:00 Midazolam HCl (Versed) 2 mg PRN 1X PRN IV PRIOR TO PROCEDURE; Start 08/05/17 at 11:00; Stop 08/06/17 at 10:59 Fentanyl Citrate (Fentanyl 2ml Vial) 25 mcg PRN Q5MIN PRN IV X 2 DOSES FOR PAIN ; Start 08/05/17 at 11:00; Stop 08/06/17 at 10:59 Fentanyl Citrate (Fentanyl 2ml Vial) 50 mcg PRN Q5MIN PRN IV X 2 DOSES FOR PAIN ; Start 08/05/17 at 11:00; Stop 08/06/17 at 10:59 Sodium Chloride 1,000 ml @ 125 mls/hr Q8H IV ; Start 08/05/17 at 10:57; Stop 08/05/17 at 22:56 Lidocaine HCl (Xylocaine-Mpf 1% Vial) 2 ml 1X PRN PRN ID IV START; Start at 11:00; Stop 08/06/17 at 10:59 Propofol 20 ml @ As Directed STK-MED ONCE IV ; Start 08/05/17 at 11:28; Stop at 11:29; Status DC Lidocaine HCl (Lidocaine Pf 2% Vial) 5 ml STK-MED ONCE .ROUTE ; Start 08/05/17 at 11:29; Stop 08/05/17 at 11:30; Status DC Active Scripts Active Reported Zanaflex (Tizanidine Hcl) 4 Mg Capsule 1 Cap PO BID Furosemide 20 Mg Tablet 1 Tab PO DAILY Percocet 7.5-325 Mg Tablet (Oxycodone/Acetaminophen) 1 Each Tablet 2 Tab PO [id number] Zofran (Ondansetron Hcl) 4 Mg Tablet 1 Tab PO Q8HRS Carafate (Sucralfate) 1 Gm Tablet 1 Tab PO TIDAC Hydrochlorothiazide Tablet (Hydrochlorothiazide) 12.5 Mg Tablet 1 Tab PO DAILY Lorazepam 0.5 Mg Tablet 0.5 Tab PO PRN QEVNG Lorazepam 0.5 Mg Tablet 1 Tab PO BID Zoloft (Sertraline Hcl) 50 Mg Tablet 1 Tab PO DAILY Zoloft (Sertraline Hcl) 25 Mg Tablet 1 Tab PO DAILY Vision Vitamins (Beta-Carotene(A) W-C & E/Min) 1 Each Tablet 1 Each PO DAILY Calcium + D3 Er Tablet (Calcium Carb & Cit/Vitamin D3) 1 Each Tablet.er 1 Each PO Synthroid (Levothyroxine Sodium) 50 Mcg Tablet 50 Mcg PO DAILYAC Potassium Chloride 10 Meq Capsule.er 10 Meq PO DAILY Omeprazole 40 Mg Capsule.dr 1 Cap PO DAILY Cardizem Cd (Diltiazem Hcl) 180 Mg Cap.er.24h 180 Mg PO DAILY Allergies Allergies: Coded Allergies: Penicillins (Verified Allergy, Intermediate, HIVES, 08/05/17) tetracycline (Verified Allergy, Intermediate, 08/05/17) ROS General: No: Chills, Other (fevers) PSYCHOLOGICAL ROS: No: Anxiety, Depression Eyes: No Blurry vision, No Double vision HEENT: No: Sore Throat Hematological and Lymphatic: No: Bleeding Problems, Blood Clots Respiratory: No: Cough, Shortness of breath Cardiovascular: No Chest Pain, No Palpitations Gastrointestinal: Yes Other (see hpi) Genitourinary: No Dysuria, No Hematuria Musculoskeletal: Yes Muscular Weakness, No Joint Pain Neurological: No Impaired Coord/balance, No Numbness/Tingling Skin: No Pruritus, No Rash Physical Exam General: Alert, Oriented X3, Cooperative, No acute distress HEENT: PERRLA, Mucous membr. moist/pink Lungs: Clear to auscultation, Normal air movement Heart: Regular rate, Normal S1, Normal S2, No murmurs Abdomen: Soft, Other (mildly tender epigastric) Extremities: No clubbing, No cyanosis Skin: No rashes, No breakdown Neuro: Normal gait, Normal speech Psych/Mental Status: Mental status NL, Mood NL MUSCULOSKELETAL: No deformity, No swelling Vitals VITALS Vital Signs Date Time Temp Pulse Resp B/P (MAP) Pulse Ox O2 Delivery O2 Flow Rate FiO2 08/05/17 13:33 Room Air 08/05/17 12:53 71 118/79 08/05/17 12:48 98.4 18 90 98.4 08/05/17 11:55 2.0 Labs Labs Laboratory Tests Test 08/03/17 13:50 08/03/17 19:00 08/04/17 05:55 08/05/17 05:20 Thyroid Stimulating Hormone (TSH) 17.394 uIU/mL (0.358-3.74) Urine Collection Type Unknown Urine Color Yellow Urine Clarity Clear Urine pH 6.5 Urine Specific [place] 1.015 Urine Protein Negative mg/dL (NEG-TRACE) Urine Glucose (UA) Negative mg/dL (NEG) Urine Ketones (Stick) Negative mg/dL (NEG) Urine Blood Negative (NEG) Urine Nitrite Negative (NEG) Urine Bilirubin Negative (NEG) Urine Urobilinogen Dipstick 0.2 mg/dL (0.2 mg/dL) Urine Leukocyte Esterase Negative (NEG) Urine RBC Occ /HPF (0-2) Urine WBC Occ /HPF (0-4) Urine Squamous Epithelial Cells Occ /LPF Urine Bacteria 0 /HPF (0-FEW) Urine Mucus Mod /LPF White Blood Count 12.6 x10^3/uL (4.0-11.0) 13.0 x10^3/uL (4.0-11.0) Red Blood Count 2.86 x10^6/uL (3.50-5.40) 3.09 x10^6/uL (3.50-5.40) Hemoglobin 9.9 g/dL (12.0-15.5) 10.0 g/dL (12.0-15.5) Hematocrit 28.8 % (36.0-47.0) 31.1 % (36.0-47.0) Mean Corpuscular Volume 101 fL (79-100) 101 fL (79-100) Mean Corpuscular Hemoglobin 35 pg (25-35) 33 pg (25-35) Mean Corpuscular Hemoglobin Concent 34 g/dL (31-37) 32 g/dL (31-37) Red Cell Distribution Width 13.5 % (11.5-14.5) 13.5 % (11.5-14.5) Platelet Count 169 x10^3/uL (140-400) 185 x10^3/uL (140-400) Erythrocyte Sedimentation Rate 88 (0-25) Sodium Level 140 mmol/L (136-145) 138 mmol/L (136-145) Potassium Level 5.3 mmol/L (3.5-5.1) 4.0 mmol/L (3.5-5.1) Chloride Level 110 mmol/L (98-107) 106 mmol/L (98-107) Carbon Dioxide Level 24 mmol/L (21-32) 26 mmol/L (21-32) Anion Gap 6 (6-14) 6 (6-14) Blood Urea Nitrogen 18 mg/dL (7-20) 14 mg/dL (7-20) Creatinine 0.9 mg/dL (0.6-1.0) 1.0 mg/dL (0.6-1.0) Estimated GFR (Cockcroft-Gault) 60.7 53.8 BUN/Creatinine Ratio 20 (6-20) 14 (6-20) Glucose Level 88 mg/dL (70-99) 95 mg/dL (70-99) Calcium Level 10.8 mg/dL (8.5-10.1) 10.7 mg/dL (8.5-10.1) Total Bilirubin 0.4 mg/dL (0.2-1.0) 0.2 mg/dL (0.2-1.0) Aspartate Amino Transf (AST/SGOT) 20 U/L (15-37) 18 U/L (15-37) Alanine Aminotransferase (ALT/SGPT) 19 U/L (14-59) 17 U/L (14-59) Alkaline Phosphatase 91 U/L (46-116) 95 U/L (46-116) Total Protein 5.1 g/dL (6.4-8.2) 5.0 g/dL (6.4-8.2) Albumin 2.0 g/dL (3.4-5.0) 2.0 g/dL (3.4-5.0) Albumin/Globulin Ratio 0.6 (1.0-1.7) 0.7 (1.0-1.7) Amylase Level 62 U/L (25-115) Lipase 142 U/L (73-393) Test 08/05/17 12:45 Glucose (Fingerstick) 81 mg/dL (70-99) Laboratory Tests Test 08/05/17 05:20 08/05/17 12:45 White Blood Count 13.0 x10^3/uL (4.0-11.0) Red Blood Count 3.09 x10^6/uL (3.50-5.40) Hemoglobin 10.0 g/dL (12.0-15.5) Hematocrit 31.1 % (36.0-47.0) Mean Corpuscular Volume 101 fL (79-100) Mean Corpuscular Hemoglobin 33 pg (25-35) Mean Corpuscular Hemoglobin Concent 32 g/dL (31-37) Red Cell Distribution Width 13.5 % (11.5-14.5) Platelet Count 185 x10^3/uL (140-400) Sodium Level 138 mmol/L (136-145) Potassium Level 4.0 mmol/L (3.5-5.1) Chloride Level 106 mmol/L (98-107) Carbon Dioxide Level 26 mmol/L (21-32) Anion Gap 6 (6-14) Blood Urea Nitrogen 14 mg/dL (7-20) Creatinine 1.0 mg/dL (0.6-1.0) Estimated GFR (Cockcroft-Gault) 53.8 BUN/Creatinine Ratio 14 (6-20) Glucose Level 95 mg/dL (70-99) Calcium Level 10.7 mg/dL (8.5-10.1) Total Bilirubin 0.2 mg/dL (0.2-1.0) Aspartate Amino Transf (AST/SGOT) 18 U/L (15-37) Alanine Aminotransferase (ALT/SGPT) 17 U/L (14-59) Alkaline Phosphatase 95 U/L (46-116) Total Protein 5.0 g/dL (6.4-8.2) Albumin 2.0 g/dL (3.4-5.0) Albumin/Globulin Ratio 0.7 (1.0-1.7) Glucose (Fingerstick) 81 mg/dL (70-99) Assessment/Plan Assessment/Plan fall, AFR, rhabdo Recurrent HH with n/v Upper GI in AM may need [facility] eval if requiring revision NASH SMITH MD 08/05/17 1942: CONSULT Allergies Allergies: Coded Allergies: Penicillins (Verified Allergy, Intermediate, HIVES, 08/05/17) tetracycline (Verified Allergy, Intermediate, 08/05/17) Assessment/Plan Assessment/Plan Reviewed with Ms Wilson, upper GI ordered; pt had prior repair of large paraesophageal hernia, if large recurrence needing surgery would likely need to go to [facility], revision may require chest approach, and would need to be prepared for possibility. LAMONTE WILSON APRN Aug 05, 2017 14:01 NASH SMITH MD Aug 05, 2017 19:42
[2017-08-05 15:00] VITALS: BP 106/62
--- NOTE | 2017-08-05 16:55 | PDOC ---
PROGRESS NOTES Subjective Subjective Patient had GI evaluation today with endoscopy. Found to have the high lateral hernia and an erosive gastritis. Objective Objective Vital Signs Date Time Temp Pulse Resp B/P (MAP) Pulse Ox O2 Delivery O2 Flow Rate FiO2 08/05/17 15:00 97.7 84 17 106/62 (77) 90 Room Air 97.7 08/05/17 11:55 2.0 Intake and Output 08/06/17 07:00 Intake Total 400 ml Output Total 400 ml Balance 0 ml IV Total 400 ml Output Urine Total 400 ml Physical Exam Physical Exam No changes in cardiac exam Assessment Assessment The patient tolerated the GI procedure well. The patient and the daughter are in the room now we discussed the situation and the daughter wanted the patient to be evaluated by the surgeons. The patient had previous surgery by Dr. Beasley therefore we will ask him to see the patient. I agree with the upper GI tomorrow. Problems Medical Problems: (1) Acute renal failure Status: Acute (2) Dehydration Status: Acute (3) Elevated troponin Status: Acute (4) Hypokalemia Status: Acute (5) Pneumonia Status: Acute (6) Rhabdomyolysis Status: Acute (7) Sepsis Status: Acute (8) Uremia Status: Acute Comment Review of Relevant I have reviewed the following items thomas (where applicable) has been applied. Labs Laboratory Tests Test 08/03/17 19:00 08/04/17 05:55 08/05/17 05:20 08/05/17 12:45 Urine Collection Type Unknown Urine Color Yellow Urine Clarity Clear Urine pH 6.5 Urine Specific [place] 1.015 Urine Protein Negative mg/dL (NEG-TRACE) Urine Glucose (UA) Negative mg/dL (NEG) Urine Ketones (Stick) Negative mg/dL (NEG) Urine Blood Negative (NEG) Urine Nitrite Negative (NEG) Urine Bilirubin Negative (NEG) Urine Urobilinogen Dipstick 0.2 mg/dL (0.2 mg/dL) Urine Leukocyte Esterase Negative (NEG) Urine RBC Occ /HPF (0-2) Urine WBC Occ /HPF (0-4) Urine Squamous Epithelial Cells Occ /LPF Urine Bacteria 0 /HPF (0-FEW) Urine Mucus Mod /LPF White Blood Count 12.6 x10^3/uL (4.0-11.0) 13.0 x10^3/uL (4.0-11.0) Red Blood Count 2.86 x10^6/uL (3.50-5.40) 3.09 x10^6/uL (3.50-5.40) Hemoglobin 9.9 g/dL (12.0-15.5) 10.0 g/dL (12.0-15.5) Hematocrit 28.8 % (36.0-47.0) 31.1 % (36.0-47.0) Mean Corpuscular Volume 101 fL (79-100) 101 fL (79-100) Mean Corpuscular Hemoglobin 35 pg (25-35) 33 pg (25-35) Mean Corpuscular Hemoglobin Concent 34 g/dL (31-37) 32 g/dL (31-37) Red Cell Distribution Width 13.5 % (11.5-14.5) 13.5 % (11.5-14.5) Platelet Count 169 x10^3/uL (140-400) 185 x10^3/uL (140-400) Erythrocyte Sedimentation Rate 88 (0-25) Sodium Level 140 mmol/L (136-145) 138 mmol/L (136-145) Potassium Level 5.3 mmol/L (3.5-5.1) 4.0 mmol/L (3.5-5.1) Chloride Level 110 mmol/L (98-107) 106 mmol/L (98-107) Carbon Dioxide Level 24 mmol/L (21-32) 26 mmol/L (21-32) Anion Gap 6 (6-14) 6 (6-14) Blood Urea Nitrogen 18 mg/dL (7-20) 14 mg/dL (7-20) Creatinine 0.9 mg/dL (0.6-1.0) 1.0 mg/dL (0.6-1.0) Estimated GFR (Cockcroft-Gault) 60.7 53.8 BUN/Creatinine Ratio 20 (6-20) 14 (6-20) Glucose Level 88 mg/dL (70-99) 95 mg/dL (70-99) Calcium Level 10.8 mg/dL (8.5-10.1) 10.7 mg/dL (8.5-10.1) Total Bilirubin 0.4 mg/dL (0.2-1.0) 0.2 mg/dL (0.2-1.0) Aspartate Amino Transf (AST/SGOT) 20 U/L (15-37) 18 U/L (15-37) Alanine Aminotransferase (ALT/SGPT) 19 U/L (14-59) 17 U/L (14-59) Alkaline Phosphatase 91 U/L (46-116) 95 U/L (46-116) Total Protein 5.1 g/dL (6.4-8.2) 5.0 g/dL (6.4-8.2) Albumin 2.0 g/dL (3.4-5.0) 2.0 g/dL (3.4-5.0) Albumin/Globulin Ratio 0.6 (1.0-1.7) 0.7 (1.0-1.7) Amylase Level 62 U/L (25-115) Lipase 142 U/L (73-393) Glucose (Fingerstick) 81 mg/dL (70-99) Laboratory Tests Test 08/05/17 05:20 08/05/17 12:45 White Blood Count 13.0 x10^3/uL (4.0-11.0) Red Blood Count 3.09 x10^6/uL (3.50-5.40) Hemoglobin 10.0 g/dL (12.0-15.5) Hematocrit 31.1 % (36.0-47.0) Mean Corpuscular Volume 101 fL (79-100) Mean Corpuscular Hemoglobin 33 pg (25-35) Mean Corpuscular Hemoglobin Concent 32 g/dL (31-37) Red Cell Distribution Width 13.5 % (11.5-14.5) Platelet Count 185 x10^3/uL (140-400) Sodium Level 138 mmol/L (136-145) Potassium Level 4.0 mmol/L (3.5-5.1) Chloride Level 106 mmol/L (98-107) Carbon Dioxide Level 26 mmol/L (21-32) Anion Gap 6 (6-14) Blood Urea Nitrogen 14 mg/dL (7-20) Creatinine 1.0 mg/dL (0.6-1.0) Estimated GFR (Cockcroft-Gault) 53.8 BUN/Creatinine Ratio 14 (6-20) Glucose Level 95 mg/dL (70-99) Calcium Level 10.7 mg/dL (8.5-10.1) Total Bilirubin 0.2 mg/dL (0.2-1.0) Aspartate Amino Transf (AST/SGOT) 18 U/L (15-37) Alanine Aminotransferase (ALT/SGPT) 17 U/L (14-59) Alkaline Phosphatase 95 U/L (46-116) Total Protein 5.0 g/dL (6.4-8.2) Albumin 2.0 g/dL (3.4-5.0) Albumin/Globulin Ratio 0.7 (1.0-1.7) Glucose (Fingerstick) 81 mg/dL (70-99) Microbiology 07/31/17 Blood Culture - Preliminary, Resulted NO GROWTH AFTER 4 DAYS Medications Current Medications Ondansetron HCl (Zofran) 4 mg 1X ONCE IV Last administered on 07/31/17 16:44 ; Start 07/31/17 at 16:45; Stop 07/31/17 at 16:46; Status DC Sodium Chloride 1,000 ml @ 1,000 mls/hr 1X ONCE IV Last administered on 17:04; Start 07/31/17 at 16:45; Stop 07/31/17 at 17:44; Status DC Morphine Sulfate 2 mg 1X ONCE IV Last administered on 07/31/17 17:28; Start 07/31/17 at 17:30; Stop 07/31/17 at 17:31; Status DC Potassium Chloride/Sodium Chloride 1,000 ml @ 250 mls/hr 1X ONCE IV Last administered on 07/31/17 18:34; Start 07/31/17 at 18:00; Stop 07/31/17 at 21:59 ; Status DC Aspirin (Children'S Aspirin) 324 mg 1X ONCE PO Last administered on 07/31/17 18:01; Start 07/31/17 at 18:00; Stop 07/31/17 at 18:01; Status DC Vancomycin HCl (Vanco Per Pharmacy) 1 each PRN DAILY PRN MC SEE COMMENTS Last administered on 08/01/17 09:49; Start 07/31/17 at 18:00; Stop 08/02/17 at 08:44 ; Status DC Levofloxacin/ Dextrose 100 ml @ 100 mls/hr 1X ONCE IV Last administered on 18:34; Start 07/31/17 at 18:00; Stop 07/31/17 at 18:59; Status DC Vancomycin HCl 1.25 gm/Sodium Chloride 250 ml @ 166.667 mls/hr 1X ONCE IV Last administered on 07/31/17 18:43; Start 07/31/17 at 18:00; Stop 07/31/17 at 19:29; Status DC Potassium Chloride/Dextrose/ Sod Cl 1,000 ml @ 125 mls/hr 1X ONCE IV ; Start 07/31/17 at 18:00; Stop 08/01/17 at 01:59; Status Cancel Diltiazem HCl 125 mg/Dextrose 125 ml @ 0 mls/hr CONT PRN IV SEE I/O RECORD Last administered on 07/31/17 18:29; Start 07/31/17 at 18:00; Stop 08/01/17 at 09:49; Status DC Diltiazem HCl (Cardizem) 5 mg 1X ONCE IVP Last administered on 07/31/17 18:24 ; Start 07/31/17 at 18:00; Stop 07/31/17 at 18:05; Status DC Ondansetron HCl (Zofran) 4 mg PRN Q8HRS PRN IV NAUSEA/VOMITING Last administered on 08/01/17 14:24; Start 07/31/17 at 18:00; Stop 08/01/17 at 17:59 ; Status DC Potassium Chloride 40 meq/ Dextrose/Sodium Chloride 1,020 ml @ 125 mls/hr Q8H10M IV Last administered on 07/31/17 23:02; Start 07/31/17 at 22:00; Stop 08/01/17 at 06:09; Status DC Vancomycin HCl 1 each 1X ONCE MC ; Start 08/02/17 at 18:00; Stop 08/02/17 at 18 :00; Status DC Oxycodone/ Acetaminophen (Percocet 7.5/ 325) 2 tab [id number] PO Last administered on 08/05/17 12:00; Start 08/01/17 at 00:00 Fentanyl Citrate (Fentanyl 2ml Vial) 75 mcg PRN Q3HRS PRN IV SEVERE PAIN Last administered on 07/31/17 23:18; Start 07/31/17 at 22:00; Stop 08/02/17 at 08:44 ; Status DC Diltiazem HCl (Cardizem 24hr Cd) 180 mg DAILY PO Last administered on 12:53; Start 08/01/17 at 10:00 Levothyroxine Sodium (Synthroid) 50 mcg DAILYAC PO Last administered on 09:01; Start 08/01/17 at 10:00; Stop 08/04/17 at 10:22; Status DC Lorazepam (Ativan) 0.25 mg PRN QEVNG PRN PO ANXIETY / AGITATION Last administered on 08/04/17 21:30; Start 08/01/17 at 10:00 Lorazepam (Ativan) 0.5 mg BID PO Last administered on 08/01/17 20:47; Start at 10:00; Stop 08/02/17 at 18:12; Status DC Sertraline HCl (Zoloft) 50 mg DAILY PO Last administered on 08/05/17 12:53; Start 08/01/17 at 10:00 Sucralfate (Carafate) 1 gm TIDAC PO Last administered on 08/01/17 17:53; Start 08/01/17 at 11:30; Stop 08/01/17 at 19:00; Status DC Pantoprazole Sodium (Protonix) 40 mg DAILYAC PO Last administered on 08/05/17 12:53; Start 08/01/17 at 10:00 Ondansetron HCl (Zofran Odt) 4 mg Q8HRS PO Last administered on 08/05/17 12:52 ; Start 08/01/17 at 10:00 Potassium Chloride (Klor-Con) 10 meq TIDAFTMEAL PO Last administered on 09:14; Start 08/01/17 at 13:00; Stop 08/03/17 at 18:08; Status DC Potassium Chloride/Dextrose/ Sod Cl 1,000 ml @ 100 mls/hr 1X ONCE IV Last administered on 08/01/17 10:11; Start 08/01/17 at 10:00; Stop 08/01/17 at 19:59 ; Status DC Potassium Chloride (KCl Oral Soln) 40 meq 1X ONCE PEG Last administered on 17:54; Start 08/01/17 at 17:00; Stop 08/01/17 at 17:01; Status DC Sucralfate (Carafate) 1 gm TIDAC PEG Last administered on 08/05/17 11:30; Start 08/02/17 at 07:30 Potassium Chloride/Dextrose/ Sod Cl 1,000 ml @ 100 mls/hr Q10H IV Last administered on 08/03/17 04:20; Start 08/01/17 at 19:30; Stop 08/03/17 at 14:41 ; Status DC Lorazepam (Ativan) 0.5 mg PRN BID PRN PO ANXIETY / AGITATION; Start 08/02/17 at 18:15 Ondansetron HCl (Zofran) 4 mg PRN Q6HRS PRN IV NAUSEA/VOMITING Last administered on 08/04/17 09:31; Start 08/03/17 at 12:45 Potassium Chloride/Dextrose/ Sod Cl 1,000 ml @ 80 mls/hr 1X ONCE IV ; Start at 13:00; Stop 08/03/17 at 14:41; Status DC Levofloxacin/ Dextrose 50 ml @ 50 mls/hr Q24H IV Last administered on 13:20; Start 08/03/17 at 13:00; Stop 08/05/17 at 08:48; Status DC Prochlorperazine Edisylate (Compazine) 5 mg PRN Q4HRS PRN IV NAUSEA/VOMITING Last administered on 08/04/17 09:52; Start 08/03/17 at 14:30 Hydromorphone HCl (Dilaudid) 0.6 mg PRN Q4HRS PRN IVP PAIN Last administered on 08/05/17 09:41; Start 08/03/17 at 14:30 Potassium Chloride/Dextrose/ Sod Cl 1,000 ml @ 80 mls/hr [id number] IV Last administered on 08/04/17 03:00; Start 08/03/17 at 14:30; Stop 08/04/17 at 10:22 ; Status DC Levothyroxine Sodium (Synthroid) 75 mcg DAILYAC PO ; Start 08/05/17 at 07:30; Stop 08/05/17 at 08:48; Status DC Dextrose/Sodium Chloride 1,000 ml @ 75 mls/hr [id number] IV Last administered on 08/05/17 00:10; Start 08/04/17 at 10:30 Furosemide (Lasix) 20 mg 1X ONCE IVP Last administered on 08/04/17 13:32; Start 08/04/17 at 10:45; Stop 08/04/17 at 10:46; Status DC Levothyroxine Sodium (Synthroid) 88 mcg DAILY07 PO Last administered on 12:53; Start 08/05/17 at 09:00 Midazolam HCl (Versed) 2 mg PRN 1X PRN IV PRIOR TO PROCEDURE; Start 08/05/17 at 11:00; Stop 08/06/17 at 10:59 Fentanyl Citrate (Fentanyl 2ml Vial) 25 mcg PRN Q5MIN PRN IV X 2 DOSES FOR PAIN ; Start 08/05/17 at 11:00; Stop 08/06/17 at 10:59 Fentanyl Citrate (Fentanyl 2ml Vial) 50 mcg PRN Q5MIN PRN IV X 2 DOSES FOR PAIN ; Start 08/05/17 at 11:00; Stop 08/06/17 at 10:59 Sodium Chloride 1,000 ml @ 125 mls/hr Q8H IV ; Start 08/05/17 at 10:57; Stop 08/05/17 at 22:56 Lidocaine HCl (Xylocaine-Mpf 1% Vial) 2 ml 1X PRN PRN ID IV START; Start at 11:00; Stop 08/06/17 at 10:59 Propofol 20 ml @ As Directed STK-MED ONCE IV ; Start 08/05/17 at 11:28; Stop at 11:29; Status DC Lidocaine HCl (Lidocaine Pf 2% Vial) 5 ml STK-MED ONCE .ROUTE ; Start 08/05/17 at 11:29; Stop 08/05/17 at 11:30; Status DC Active Scripts Active Reported Zanaflex (Tizanidine Hcl) 4 Mg Capsule 1 Cap PO BID Furosemide 20 Mg Tablet 1 Tab PO DAILY Percocet 7.5-325 Mg Tablet (Oxycodone/Acetaminophen) 1 Each Tablet 2 Tab PO [id number] Zofran (Ondansetron Hcl) 4 Mg Tablet 1 Tab PO Q8HRS Carafate (Sucralfate) 1 Gm Tablet 1 Tab PO TIDAC Hydrochlorothiazide Tablet (Hydrochlorothiazide) 12.5 Mg Tablet 1 Tab PO DAILY Lorazepam 0.5 Mg Tablet 0.5 Tab PO PRN QEVNG Lorazepam 0.5 Mg Tablet 1 Tab PO BID Zoloft (Sertraline Hcl) 50 Mg Tablet 1 Tab PO DAILY Zoloft (Sertraline Hcl) 25 Mg Tablet 1 Tab PO DAILY Vision Vitamins (Beta-Carotene(A) W-C & E/Min) 1 Each Tablet 1 Each PO DAILY Calcium + D3 Er Tablet (Calcium Carb & Cit/Vitamin D3) 1 Each Tablet.er 1 Each PO Synthroid (Levothyroxine Sodium) 50 Mcg Tablet 50 Mcg PO DAILYAC Potassium Chloride 10 Meq Capsule.er 10 Meq PO DAILY Omeprazole 40 Mg Capsule.dr 1 Cap PO DAILY Cardizem Cd (Diltiazem Hcl) 180 Mg Cap.er.24h 180 Mg PO DAILY Vitals/I & O Vital Sign - Last 24 Hours 08/04/17 08/04/17 08/04/17 08/05/17 19:48 20:00 23:49 03:10 Temp 98.1 98.4 98.3 98.1 98.4 98.3 Pulse 95 87 85 Resp 16 16 16 B/P (MAP) 103/68 (80) 116/67 (83) 110/74 (86) Pulse Ox 92 93 93 O2 Delivery Room Air Room Air Room Air Room Air 08/05/17 08/05/17 08/05/17 08/05/17 07:00 08:00 08:00 09:41 Temp 97.7 97.7 Pulse 80 Resp 16 B/P (MAP) 127/67 (87) Pulse Ox 95 O2 Delivery Room Air Room Air Room Air 08/05/17 08/05/17 08/05/17 08/05/17 10:50 10:56 11:55 12:00 Temp 98.1 98.1 98.1 98.1 Pulse 72 72 Resp 18 20 B/P (MAP) 118/68 Pulse Ox 94 98 O2 Delivery Room Air Room Air Room Air O2 Flow Rate 2.0 2.0 08/05/17 08/05/17 08/05/17 08/05/17 12:05 12:11 12:19 12:48 Temp 98.1 98.1 98.1 98.4 98.1 98.1 98.1 98.4 Pulse 70 78 76 71 Resp 20 20 20 18 B/P (MAP) 117/65 126/71 132/74 118/79 (92) Pulse Ox 92 93 94 90 O2 Delivery Room Air Room Air Room Air Room Air 08/05/17 08/05/17 08/05/17 12:53 13:33 15:00 Temp 97.7 97.7 Pulse 71 84 Resp 17 B/P (MAP) 118/79 106/62 (77) Pulse Ox 90 O2 Delivery Room Air Room Air Intake and Output 08/05/17 08/05/17 08/06/17 15:00 23:00 07:00 Intake Total 400 ml Output Total 400 ml Balance 0 ml ALLYSON OROZCO MD Aug 05, 2017 16:55
[2017-08-05 19:40] VITALS: BP 108/63
[2017-08-05 22:26] VITALS: BP 118/67
[2017-08-06 02:30] VITALS: BP 114/56
[2017-08-06] MEDS: HYDROmorphone 2 MG/ML VIAL IVP PRN (07:49)
[2017-08-06] MEDS ORDERED: SIMETHICONE/SOD BICARB/CITRIC ACID PACKET. PO ONE (08:00)
[2017-08-06] MEDS ORDERED: BARIUM SULFATE 60% 355 ML SUSP PO ONE (08:00)
[2017-08-06] MEDS ORDERED: BARIUM SULFATE 340 GM SUSPENSION. PO ONE (08:00)
--- NOTE | 2017-08-06 08:56 | PDOC ---
Provider Note Provider Note vss,labs ok,s/p upper gi- discussed ? of surgery and she is unbdecided- same tx MERRY MOSS MD Aug 06, 2017 08:56
--- NOTE | 2017-08-06 09:09 | RAD ---
Upper GI, 08/06/2017: History: Nausea and vomiting, hiatal hernia The study was performed utilizing thin liquid barium. 3.4 minutes of fluoroscopy time was utilized. 19 static and dynamic fluoroscopic sequences were recorded. There is no obstruction to flow of the liquid barium through the cervical esophagus. The thoracic esophagus is mildly dilated with decreased peristaltic activity. There is a moderate-sized hiatal hernia. The GE junction is widely patent. There are filling defects within the hernia and the stomach compatible with retained food debris. No gastric mass or ulceration is evident. The duodenal bulb and visualized loops of proximal small bowel show no abnormality. IMPRESSION: 1. Moderate sized hiatal hernia. 2. Presbyesophagus. 3. Small amount of retained food debris in the stomach and the hiatal hernia.
[2017-08-06] MEDS: SUCRALFATE 1 GM/10 ML ORAL.SUSP. PEG SCH ×3 (09:40→17:42)
[2017-08-06] MEDS: PANTOPRAZOLE 40 MG TABLET.DR. PO SCH (09:43)
[2017-08-06] MEDS: SERTRALINE 50 MG TABLET. PO SCH (09:43)
[2017-08-06] MEDS: LEVOTHYROXINE 88 MCG TABLET PO SCH (09:43)
[2017-08-06] MEDS: oxyCODONE/APAP 7.5/325 1 TAB TABLET PO SCH ×3 (09:44→20:19)
[2017-08-06] MEDS: ONDANSETRON ODT 4 MG TAB.RAPDIS. PO SCH ×3 (09:44→20:19)
[2017-08-06 11:00] VITALS: BP 107/61
[2017-08-06 13:21] LABS: KAPPA LAMBDA RATIO 0.76 (0.26-1.65)
[2017-08-06 15:00] VITALS: BP 91/57
--- NOTE | 2017-08-06 15:30 | PDOC ---
Subjective: Subjective: Doing better today. Tolerating PO w/o pain or n/v. Objective: Objective: Reviewed surgery note - if need for surgery, would need to be performed at . Vital Signs: Vital Signs Date Time Temp Pulse Resp B/P (MAP) Pulse Ox O2 Delivery O2 Flow Rate FiO2 08/06/17 15:00 97.4 71 19 91/57 (68) 95 Room Air 97.4 08/05/17 22:55 2.0 Imaging: UGI IMPRESSION: 1. Moderate sized hiatal hernia. 2. Presbyesophagus. 3. Small amount of retained food debris in the stomach and the hiatal hernia. EGD hiatal hernia r/o paraesophageal component non-erosive gastritis PE: GEN: NAD LUNGS: clear HEART: RRR ABD: S/ND/NT NEURO/PSYCH: A & O 3 A/P: Hiatal hernia -h/o repair, recurrent -n/v resolved, tolerating PO -UGI as above -- Improved. MINOR LEVIN Aug 06, 2017 15:30 NASH TEMPLE MD Aug 06, 2017 15:40
--- NOTE | 2017-08-06 17:59 | PDOC ---
PROGRESS NOTES Subjective Subjective Patient feels better today. She actually was able to have some food. Objective Objective Vital Signs Date Time Temp Pulse Resp B/P (MAP) Pulse Ox O2 Delivery O2 Flow Rate FiO2 08/06/17 15:49 Room Air 08/06/17 15:00 97.4 71 19 91/57 (68) 95 97.4 08/05/17 22:55 2.0 Intake and Output 08/07/17 07:00 Output Total 700 ml Balance -700 ml Output Urine Total 700 ml Physical Exam Physical Exam No significant changes in cardiac exam Assessment Assessment And appears to be improving. I agree with present plan. Home to [facility] facility soon. Problems Medical Problems: (1) Acute renal failure Status: Acute (2) Dehydration Status: Acute (3) Elevated troponin Status: Acute (4) Hypokalemia Status: Acute (5) Pneumonia Status: Acute (6) Rhabdomyolysis Status: Acute (7) Sepsis Status: Acute (8) Uremia Status: Acute Comment Review of Relevant I have reviewed the following items thomas (where applicable) has been applied. Labs Laboratory Tests Test 08/05/17 05:20 08/05/17 12:45 White Blood Count 13.0 x10^3/uL (4.0-11.0) Red Blood Count 3.09 x10^6/uL (3.50-5.40) Hemoglobin 10.0 g/dL (12.0-15.5) Hematocrit 31.1 % (36.0-47.0) Mean Corpuscular Volume 101 fL (79-100) Mean Corpuscular Hemoglobin 33 pg (25-35) Mean Corpuscular Hemoglobin Concent 32 g/dL (31-37) Red Cell Distribution Width 13.5 % (11.5-14.5) Platelet Count 185 x10^3/uL (140-400) Sodium Level 138 mmol/L (136-145) Potassium Level 4.0 mmol/L (3.5-5.1) Chloride Level 106 mmol/L (98-107) Carbon Dioxide Level 26 mmol/L (21-32) Anion Gap 6 (6-14) Blood Urea Nitrogen 14 mg/dL (7-20) Creatinine 1.0 mg/dL (0.6-1.0) Estimated GFR (Cockcroft-Gault) 53.8 BUN/Creatinine Ratio 14 (6-20) Glucose Level 95 mg/dL (70-99) Calcium Level 10.7 mg/dL (8.5-10.1) Total Bilirubin 0.2 mg/dL (0.2-1.0) Aspartate Amino Transf (AST/SGOT) 18 U/L (15-37) Alanine Aminotransferase (ALT/SGPT) 17 U/L (14-59) Alkaline Phosphatase 95 U/L (46-116) Total Protein 5.0 g/dL (6.4-8.2) Albumin 2.0 g/dL (3.4-5.0) Albumin/Globulin Ratio 0.7 (1.0-1.7) Immunoglobulin Scarbro/Lambda Ratio 0.76 (0.26-1.65) Free Scarbro Light Chains 14.9 mg/L (3.3-19.4) Free Lambda Light Chains 19.6 mg/L (5.7-26.3) Glucose (Fingerstick) 81 mg/dL (70-99) Microbiology 07/31/17 Blood Culture - Final, Complete NO GROWTH AFTER 5 DAYS Medications Current Medications Ondansetron HCl (Zofran) 4 mg 1X ONCE IV Last administered on 07/31/17 16:44 ; Start 07/31/17 at 16:45; Stop 07/31/17 at 16:46; Status DC Sodium Chloride 1,000 ml @ 1,000 mls/hr 1X ONCE IV Last administered on 17:04; Start 07/31/17 at 16:45; Stop 07/31/17 at 17:44; Status DC Morphine Sulfate 2 mg 1X ONCE IV Last administered on 07/31/17 17:28; Start 07/31/17 at 17:30; Stop 07/31/17 at 17:31; Status DC Potassium Chloride/Sodium Chloride 1,000 ml @ 250 mls/hr 1X ONCE IV Last administered on 07/31/17 18:34; Start 07/31/17 at 18:00; Stop 07/31/17 at 21:59 ; Status DC Aspirin (Children'S Aspirin) 324 mg 1X ONCE PO Last administered on 07/31/17 18:01; Start 07/31/17 at 18:00; Stop 07/31/17 at 18:01; Status DC Vancomycin HCl (Vanco Per Pharmacy) 1 each PRN DAILY PRN MC SEE COMMENTS Last administered on 08/01/17 09:49; Start 07/31/17 at 18:00; Stop 08/02/17 at 08:44 ; Status DC Levofloxacin/ Dextrose 100 ml @ 100 mls/hr 1X ONCE IV Last administered on 18:34; Start 07/31/17 at 18:00; Stop 07/31/17 at 18:59; Status DC Vancomycin HCl 1.25 gm/Sodium Chloride 250 ml @ 166.667 mls/hr 1X ONCE IV Last administered on 07/31/17 18:43; Start 07/31/17 at 18:00; Stop 07/31/17 at 19:29; Status DC Potassium Chloride/Dextrose/ Sod Cl 1,000 ml @ 125 mls/hr 1X ONCE IV ; Start 07/31/17 at 18:00; Stop 08/01/17 at 01:59; Status Cancel Diltiazem HCl 125 mg/Dextrose 125 ml @ 0 mls/hr CONT PRN IV SEE I/O RECORD Last administered on 07/31/17 18:29; Start 07/31/17 at 18:00; Stop 08/01/17 at 09:49; Status DC Diltiazem HCl (Cardizem) 5 mg 1X ONCE IVP Last administered on 07/31/17 18:24 ; Start 07/31/17 at 18:00; Stop 07/31/17 at 18:05; Status DC Ondansetron HCl (Zofran) 4 mg PRN Q8HRS PRN IV NAUSEA/VOMITING Last administered on 08/01/17 14:24; Start 07/31/17 at 18:00; Stop 08/01/17 at 17:59 ; Status DC Potassium Chloride 40 meq/ Dextrose/Sodium Chloride 1,020 ml @ 125 mls/hr Q8H10M IV Last administered on 07/31/17 23:02; Start 07/31/17 at 22:00; Stop 08/01/17 at 06:09; Status DC Vancomycin HCl 1 each 1X ONCE MC ; Start 08/02/17 at 18:00; Stop 08/02/17 at 18 :00; Status DC Oxycodone/ Acetaminophen (Percocet 7.5/ 325) 2 tab [id number] PO Last administered on 08/06/17 14:42; Start 08/01/17 at 00:00 Fentanyl Citrate (Fentanyl 2ml Vial) 75 mcg PRN Q3HRS PRN IV SEVERE PAIN Last administered on 07/31/17 23:18; Start 07/31/17 at 22:00; Stop 08/02/17 at 08:44 ; Status DC Diltiazem HCl (Cardizem 24hr Cd) 180 mg DAILY PO Last administered on 09:43; Start 08/01/17 at 10:00 Levothyroxine Sodium (Synthroid) 50 mcg DAILYAC PO Last administered on 09:01; Start 08/01/17 at 10:00; Stop 08/04/17 at 10:22; Status DC Lorazepam (Ativan) 0.25 mg PRN QEVNG PRN PO ANXIETY / AGITATION Last administered on 08/04/17 21:30; Start 08/01/17 at 10:00 Lorazepam (Ativan) 0.5 mg BID PO Last administered on 08/01/17 20:47; Start at 10:00; Stop 08/02/17 at 18:12; Status DC Sertraline HCl (Zoloft) 50 mg DAILY PO Last administered on 08/06/17 09:43; Start 08/01/17 at 10:00 Sucralfate (Carafate) 1 gm TIDAC PO Last administered on 08/01/17 17:53; Start 08/01/17 at 11:30; Stop 08/01/17 at 19:00; Status DC Pantoprazole Sodium (Protonix) 40 mg DAILYAC PO Last administered on 08/06/17 09:43; Start 08/01/17 at 10:00 Ondansetron HCl (Zofran Odt) 4 mg Q8HRS PO Last administered on 08/06/17 14:42 ; Start 08/01/17 at 10:00 Potassium Chloride (Klor-Con) 10 meq TIDAFTMEAL PO Last administered on 09:14; Start 08/01/17 at 13:00; Stop 08/03/17 at 18:08; Status DC Potassium Chloride/Dextrose/ Sod Cl 1,000 ml @ 100 mls/hr 1X ONCE IV Last administered on 08/01/17 10:11; Start 08/01/17 at 10:00; Stop 08/01/17 at 19:59 ; Status DC Potassium Chloride (KCl Oral Soln) 40 meq 1X ONCE PEG Last administered on 17:54; Start 08/01/17 at 17:00; Stop 08/01/17 at 17:01; Status DC Sucralfate (Carafate) 1 gm TIDAC PEG Last administered on 08/06/17 17:42; Start 08/02/17 at 07:30 Potassium Chloride/Dextrose/ Sod Cl 1,000 ml @ 100 mls/hr Q10H IV Last administered on 08/03/17 04:20; Start 08/01/17 at 19:30; Stop 08/03/17 at 14:41 ; Status DC Lorazepam (Ativan) 0.5 mg PRN BID PRN PO ANXIETY / AGITATION; Start 08/02/17 at 18:15 Ondansetron HCl (Zofran) 4 mg PRN Q6HRS PRN IV NAUSEA/VOMITING Last administered on 08/04/17 09:31; Start 08/03/17 at 12:45 Potassium Chloride/Dextrose/ Sod Cl 1,000 ml @ 80 mls/hr 1X ONCE IV ; Start at 13:00; Stop 08/03/17 at 14:41; Status DC Levofloxacin/ Dextrose 50 ml @ 50 mls/hr Q24H IV Last administered on 13:20; Start 08/03/17 at 13:00; Stop 08/05/17 at 08:48; Status DC Prochlorperazine Edisylate (Compazine) 5 mg PRN Q4HRS PRN IV NAUSEA/VOMITING Last administered on 08/04/17 09:52; Start 08/03/17 at 14:30 Hydromorphone HCl (Dilaudid) 0.6 mg PRN Q4HRS PRN IVP PAIN Last administered on 08/06/17 07:49; Start 08/03/17 at 14:30 Potassium Chloride/Dextrose/ Sod Cl 1,000 ml @ 80 mls/hr [id number] IV Last administered on 08/04/17 03:00; Start 08/03/17 at 14:30; Stop 08/04/17 at 10:22 ; Status DC Levothyroxine Sodium (Synthroid) 75 mcg DAILYAC PO ; Start 08/05/17 at 07:30; Stop 08/05/17 at 08:48; Status DC Dextrose/Sodium Chloride 1,000 ml @ 50 mls/hr Q20H IV Last administered on 21:23; Start 08/04/17 at 10:30 Furosemide (Lasix) 20 mg 1X ONCE IVP Last administered on 08/04/17 13:32; Start 08/04/17 at 10:45; Stop 08/04/17 at 10:46; Status DC Levothyroxine Sodium (Synthroid) 88 mcg DAILY07 PO Last administered on 09:43; Start 08/05/17 at 09:00 Midazolam HCl (Versed) 2 mg PRN 1X PRN IV PRIOR TO PROCEDURE; Start 08/05/17 at 11:00; Stop 08/06/17 at 10:59; Status DC Fentanyl Citrate (Fentanyl 2ml Vial) 25 mcg PRN Q5MIN PRN IV X 2 DOSES FOR PAIN ; Start 08/05/17 at 11:00; Stop 08/06/17 at 10:59; Status DC Fentanyl Citrate (Fentanyl 2ml Vial) 50 mcg PRN Q5MIN PRN IV X 2 DOSES FOR PAIN ; Start 08/05/17 at 11:00; Stop 08/06/17 at 10:59; Status DC Sodium Chloride 1,000 ml @ 125 mls/hr Q8H IV ; Start 08/05/17 at 10:57; Stop 08/05/17 at 22:56; Status DC Lidocaine HCl (Xylocaine-Mpf 1% Vial) 2 ml 1X PRN PRN ID IV START; Start at 11:00; Stop 08/06/17 at 10:59; Status DC Propofol 20 ml @ As Directed STK-MED ONCE IV ; Start 08/05/17 at 11:28; Stop at 11:29; Status DC Lidocaine HCl (Lidocaine Pf 2% Vial) 5 ml STK-MED ONCE .ROUTE ; Start 08/05/17 at 11:29; Stop 08/05/17 at 11:30; Status DC Barium Sulfate (Liquid E-Z Paque) 355 ml 1X ONCE PO Last administered on t 08:33; Start 08/06/17 at 08:00; Stop 08/06/17 at 08:01; Status DC Barium Sulfate (E-Z-Hd) 340 gm 1X ONCE PO ; Start 08/06/17 at 08:00; Stop 08/06 at 08:01; Status DC Simethicone/ Sodium Bicarb/ Citric Ac (E-Z-Gas) 1 packet 1X ONCE PO ; Start at 08:00; Stop 08/06/17 at 08:01; Status DC Active Scripts Active Reported Zanaflex (Tizanidine Hcl) 4 Mg Capsule 1 Cap PO BID Furosemide 20 Mg Tablet 1 Tab PO DAILY Percocet 7.5-325 Mg Tablet (Oxycodone/Acetaminophen) 1 Each Tablet 2 Tab PO [id number] Zofran (Ondansetron Hcl) 4 Mg Tablet 1 Tab PO Q8HRS Carafate (Sucralfate) 1 Gm Tablet 1 Tab PO TIDAC Hydrochlorothiazide Tablet (Hydrochlorothiazide) 12.5 Mg Tablet 1 Tab PO DAILY Lorazepam 0.5 Mg Tablet 0.5 Tab PO PRN QEVNG Lorazepam 0.5 Mg Tablet 1 Tab PO BID Zoloft (Sertraline Hcl) 50 Mg Tablet 1 Tab PO DAILY Zoloft (Sertraline Hcl) 25 Mg Tablet 1 Tab PO DAILY Vision Vitamins (Beta-Carotene(A) W-C & E/Min) 1 Each Tablet 1 Each PO DAILY Calcium + D3 Er Tablet (Calcium Carb & Cit/Vitamin D3) 1 Each Tablet.er 1 Each PO Synthroid (Levothyroxine Sodium) 50 Mcg Tablet 50 Mcg PO DAILYAC Potassium Chloride 10 Meq Capsule.er 10 Meq PO DAILY Omeprazole 40 Mg Capsule.dr 1 Cap PO DAILY Cardizem Cd (Diltiazem Hcl) 180 Mg Cap.er.24h 180 Mg PO DAILY Vitals/I & O Vital Sign - Last 24 Hours 08/05/17 08/05/17 08/05/17 08/05/17 18:29 19:40 20:00 22:26 Temp 98.3 98.8 98.3 98.8 Pulse 76 75 Resp 16 16 B/P (MAP) 108/63 (78) 118/67 (84) Pulse Ox 92 93 O2 Delivery Room Air Room Air Room Air Room Air O2 Flow Rate 2.0 08/05/17 08/06/17 08/06/17 08/06/17 22:55 02:30 07:49 08:00 Temp 98.3 98.3 Pulse 60 Resp 16 B/P (MAP) 114/56 (75) Pulse Ox 92 O2 Delivery Nasal Cannula Room Air Room Air Room Air O2 Flow Rate 2.0 08/06/17 08/06/17 08/06/17 08/06/17 09:43 09:44 11:00 14:42 Temp 97.8 97.8 Pulse 60 73 Resp 17 B/P (MAP) 114/56 107/61 (76) Pulse Ox 93 O2 Delivery Room Air Room Air Room Air 08/06/17 08/06/17 15:00 15:49 Temp 97.4 97.4 Pulse 71 Resp 19 B/P (MAP) 91/57 (68) Pulse Ox 95 O2 Delivery Room Air Room Air Intake and Output 08/06/17 08/06/17 08/07/17 15:00 23:00 07:00 Output Total 700 ml Balance -700 ml Nutrition Consultation Dietary Evaluation: Recommendations by RD: Increase Calorie Intake, Protein supplementation Comments: Cardiac diet - d/c renal, dehydration resolved boost plus tid Expected Outcomes/Goals: to meet > 75% est nutr needs Malnutrition Findings: Body Fat Depletion (Non Severe: Mild Depletion Weight Status: Overweight ALLYSON OROZCO MD Aug 06, 2017 17:59
[2017-08-06 19:22] VITALS: BP 106/55
[2017-08-06] MEDS: IV DEXTROSE 5 %-0.45 % NACL 1,000 ML IV SCH ×2 (20:20→23:45)
[2017-08-06 23:11] VITALS: BP 102/64
[2017-08-07] MEDS: oxyCODONE/APAP 7.5/325 1 TAB TABLET PO SCH ×3 (00:42→09:11)
[2017-08-07 03:13] VITALS: BP 122/69
[2017-08-07] MEDS: LEVOTHYROXINE 88 MCG TABLET PO SCH (06:07)
[2017-08-07] MEDS: ONDANSETRON ODT 4 MG TAB.RAPDIS. PO SCH ×2 (06:18→15:12)
[2017-08-07 07:50] VITALS: BP 117/94
--- NOTE | 2017-08-07 08:58 | PDOC ---
Provider Note Provider Note feels better, eating, no new sxs- will need rehab, dc iv fluid MERRY MOSS MD Aug 07, 2017 08:58
[2017-08-07] MEDS: SUCRALFATE 1 GM/10 ML ORAL.SUSP. PEG SCH ×2 (09:11→11:30)
[2017-08-07] MEDS: PANTOPRAZOLE 40 MG TABLET.DR. PO SCH (09:11)
[2017-08-07] MEDS: SERTRALINE 50 MG TABLET. PO SCH (09:11)
--- NOTE | 2017-08-07 10:47 | PDOC ---
Subjective: Subjective: Still tolerating PO w/o n/v or abd pain. Says planning to go to rehab. Objective: Objective: Per RN - no GI concerns, possible DC to rehab today. Vital Signs: Vital Signs Date Time Temp Pulse Resp B/P (MAP) Pulse Ox O2 Delivery O2 Flow Rate FiO2 08/07/17 10:11 18 93 Room Air 08/07/17 09:11 77 117/94 08/07/17 07:50 98.3 98.3 08/06/17 20:19 2.0 PE: GEN: NAD LUNGS: clear HEART: RR ABD: S/ND/NT NEURO/PSYCH: A & O 3 A/P: Hiatal hernia -h/o repair, recurrent -n/v resolved, tolerating PO -s/p EGD, UGI w/o obstruction -- Improved, DC per primary. MINOR LEVIN Aug 07, 2017 10:47
[2017-08-07 11:06] VITALS: BP 108/70
[2017-08-07 15:34] LABS: ALPHA 1 0.4 g/dL (0.0-0.4); ALPHA 2 0.7 g/dL (0.4-1.0); BETA 0.6 g/dL (0.7-1.3); GAMMA 0.2 g/dL (0.4-1.8); M-SPIKE Not Observed g/dL (Not Observed); PROTEIN TOTAL 4.5 g/dL (6.0-8.5)
--- NOTE | 2017-08-07 16:53 | DS ---
DATE OF DISCHARGE: 08/07/2017 HOSPITAL SUMMARY: The patient had a fall and was down for an unknown period of time at home and was in acute renal failure when she came in with a BUN of 112 and creatinine of 3.8. She has rapidly returned to normal with hydration and potassium levels, which were low at 2.2, came up to normal within 3 days with oral and parenteral therapy. Persistent vomiting led to an EGD, which was unremarkable except for hiatal hernia, and an upper GI showed the hiatal hernia without obstruction or any other anatomic lesions. Her oral intake improved slowly, but she was able to eat and drink before discharge and surgical consultation was obtained, but it was felt that no intervention for the hiatal hernia was necessary or appropriate at this time. FINAL DIAGNOSES: 1. Acute renal failure secondary to severe dehydration. 2. Rhabdomyolysis secondary to prolonged dehydration and fall. 3. Hypokalemia, resolved. 4. Nausea and vomiting secondary to hiatal hernia. OPERATIONS AND PROCEDURES: EGD. COMPLICATIONS: None. CONSULTATIONS: Dr. Romaine Romo and Dr. Gunnar Beasley. DISPOSITION: All home meds remain the same including her usual opioid dosage and Carafate. Comfort care measures, DNR patient and to have Physical Therapy to assist in recovery of her strength to lower her fall risk before she goes home. MERRY MOSS MD DR: HARLAN/nts JOB#: [id number] / [id number]
== END 2017-08-07 16:04 | DRG 391 ==
LOC: ER 16:04 → 2 NORTH 18:03
PROVIDERS: ADMIT Family Medicine; ATTEND Family Medicine
PROC: 0DJ08ZZ Inspection of Upper Intestinal Tract, Via Natural or Artificial Opening Endoscopic (ICD-10-PCS; principal; 2017-08-05 11:00)
DX: K44.9 Diaphragmatic hernia without obstruction or gangrene (principal); N17.0 Acute kidney failure with tubular necrosis; E86.0 Dehydration; M62.82 Rhabdomyolysis; D62 Acute posthemorrhagic anemia; I11.0 Hypertensive heart disease with heart failure; I50.9 Heart failure, unspecified; I48.91 Unspecified atrial fibrillation; K22.8 Other specified diseases of esophagus; J98.11 Atelectasis; I08.0 Rheumatic disorders of both mitral and aortic valves; W18.30XA Fall on same level, unspecified, initial encounter; E03.9 Hypothyroidism, unspecified; E87.6 Hypokalemia; E21.3 Hyperparathyroidism, unspecified; M19.90 Unspecified osteoarthritis, unspecified site; E78.5 Hyperlipidemia, unspecified; Z66 Do not resuscitate; G89.29 Other chronic pain; I09.9 Rheumatic heart disease, unspecified; I25.10 Atherosclerotic heart disease of native coronary artery without angina pectoris; K29.60 Other gastritis without bleeding; K21.9 Gastro-esophageal reflux disease without esophagitis; Z96.659 Presence of unspecified artificial knee joint; M81.0 Age-related osteoporosis without current pathological fracture; Z60.2 Problems related to living alone; Z51.5 Encounter for palliative care; Z79.891 Long term (current) use of opiate analgesic; Z87.11 Personal history of peptic ulcer disease; Z90.710 Acquired absence of both cervix and uterus; Z88.1 Allergy status to other antibiotic agents; Z88.0 Allergy status to penicillin; Y93.89 Activity, other specified; Y92.89 Other specified places as the place of occurrence of the external cause; Y99.8 Other external cause status; N18.3 Chronic kidney disease, stage 3 (moderate)
CPT/HCPCS: 36415; 71010; 74240; 80048; 80053; 81001; 82150; 82550; 82962; 83520; 83605; 83690; 84165; 84443; 84484; 85007; 85025; 85027; 85651; 87040; 93005; 96361; 96365; 96368; 96375; 99285; J0780; J1170; J1956; J2270; J2405; J2704; J3010; J3370; J3480; J3490; J7030; J7042; J7050; Q0162; 97530; 97535; J2001

== ENCOUNTER → 2017-11-10 | Outpatient (CLI) | payer BC ==
[2017-11-10 06:55] LABS: ALBUMIN 3.2 g/dL (3.4-5.0); ALBUMIN/GLOBULIN RATIO 1.1 (1.0-1.7); ALK PHOS 129 U/L (46-116); ANION GAP 8 (6-14); AST (SGOT) 15 U/L (15-37); BLOOD UREA NITROGEN 32 mg/dL (7-20); BUN/CREATININE RATIO 32 (6-20); CALCIUM 10.4 mg/dL (8.5-10.1); CARBON DIOXIDE 28 mmol/L (21-32); CHLORIDE 105 mmol/L (98-107); GFR 53.8; GLUCOSE 94 mg/dL (70-99); POTASSIUM 3.7 mmol/L (3.5-5.1); SODIUM 141 mmol/L (136-145); TOTAL BILIRUBIN 0.3 mg/dL (0.2-1.0); TOTAL PROTEIN 6.1 g/dL (6.4-8.2)
[2017-11-10 06:56] LABS: ALT (SGPT) < 6 U/L (14-59)
== END | disposition home or self-care (01) ==
LOC: SPEC 06:11
DX: M62.82 Rhabdomyolysis (principal)
CPT/HCPCS: 36415; 80053

== ENCOUNTER → 2017-11-22 | Outpatient (CLI) | payer BC ==
[2017-11-22 14:05] LABS: BILIRUBIN,URINE NEGATIVE (NEG); CLARITY,URINE CLEAR; COLOR,URINE YELLOW; GLUCOSE,URINE NEGATIVE (NEG); NITRITE,URINE NEGATIVE (NEG); PH,URINE 5.5; PROTEIN,URINE NEGATIVE (NEG-TRACE); UROBILINOGEN,URINE 0.2 mg/dL (0.2 mg/dL)
[2017-11-22 14:41] LABS: BACTERIA,URINE MANY /HPF (0-FEW); RBC,URINE 0 /HPF (0-2); SQUAMOUS EPITHELIAL CELL,UR OCC /LPF
== END | disposition home or self-care (01) ==
LOC: SPEC 13:41
DX: N39.0 Urinary tract infection, site not specified (principal)
CPT/HCPCS: 81001; 87086; 87186

== ENCOUNTER → 2017-12-20 | Outpatient (CLI) | payer BC ==
[2017-12-20 07:06] LABS: ADD MAN DIFF? NO
[2017-12-20 07:34] LABS: BASO # 0.1 x10^3/uL (0.0-0.2); BASO % 1 % (0-3); EOS # 0.3 x10^3/uL (0.0-0.7); EOS % 5 % (0-3); HEMATOCRIT 33.7 % (36.0-47.0); HEMOGLOBIN 11.3 g/dL (12.0-15.5); LYMPH # 2.5 x10^3/uL (1.0-4.8); LYMPH % 46 % (24-48); MEAN CORPUSCULAR HEMOGLOBIN 33 pg (25-35); MEAN CORPUSCULAR HGB CONC 34 g/dL (31-37); MEAN CORPUSCULAR VOLUME 97 fL (79-100); MONO # 0.5 x10^3/uL (0.0-1.1); MONO % 9 % (0-9); NEUT % 39 % (31-73); PLATELET COUNT 283 x10^3/uL (140-400); RED BLOOD COUNT 3.46 x10^6/uL (3.50-5.40); RED CELL DISTRIBUTION WIDTH 14.6 % (11.5-14.5); WHITE BLOOD COUNT 5.3 x10^3/uL (4.0-11.0)
[2017-12-20 07:37] LABS: ALBUMIN 3.3 g/dL (3.4-5.0); ALK PHOS 146 U/L (46-116); ALT (SGPT) 11 U/L (14-59); ANION GAP 7 (6-14); AST (SGOT) 18 U/L (15-37); BLOOD UREA NITROGEN 31 mg/dL (7-20); BUN/CREATININE RATIO 28 (6-20); CARBON DIOXIDE 32 mmol/L (21-32); CHLORIDE 105 mmol/L (98-107); CREATININE 1.1 mg/dL (0.6-1.0); GFR 48.2; GLUCOSE 95 mg/dL (70-99); POTASSIUM 4.3 mmol/L (3.5-5.1); SODIUM 144 mmol/L (136-145); TOTAL BILIRUBIN 0.2 mg/dL (0.2-1.0); TOTAL PROTEIN 6.6 g/dL (6.4-8.2)
[2017-12-20 07:48] LABS: THYROID STIM HORMONE (TSH) 1.218 uIU/mL (0.358-3.74)
== END | disposition home or self-care (01) ==
LOC: SPEC 07:03
DX: E03.9 Hypothyroidism, unspecified (principal)
CPT/HCPCS: 36415; 80053; 84443; 85025

== ENCOUNTER → 2018-02-21 | Outpatient (CLI) | payer BC ==
[2018-02-21 10:50] LABS: BILIRUBIN,URINE NEGATIVE (NEG); CLARITY,URINE CLEAR; GLUCOSE,URINE NEGATIVE (NEG); NITRITE,URINE NEGATIVE (NEG); PH,URINE 6.5; PROTEIN,URINE NEGATIVE (NEG-TRACE); UROBILINOGEN,URINE 0.2 mg/dL (0.2 mg/dL)
[2018-02-21 11:06] LABS: BACTERIA,URINE FEW /HPF (0-FEW); COLOR,URINE STRAW; RBC,URINE RARE /HPF (0-2); SQUAMOUS EPITHELIAL CELL,UR OCC /LPF; WBC,URINE OCC /HPF (0-4)
== END | disposition home or self-care (01) ==
LOC: SPEC 09:51
DX: N39.8 Other specified disorders of urinary system (principal)
CPT/HCPCS: 81001

== ENCOUNTER 2018-06-13 09:19 | Inpatient (IN) | payer BC ==
[~2018-06-13] VITALS: Ht 152.4 cm; Wt 64.7 kg
[~2018-06-13 09:19] MED LIST changes: -CITA20TA5 PO; +CITA20TA6 PO; +FURO20TA3 PO; +HYDR12.58 PO; +LORA0.5T PO; +ONDA4TAB7 PO; +OXYC-327 PO; +POTA10TA12 PO; -POTASSIUM CHLO10 MEQ PO; +SERT25TA PO; +SERT50TA PO; +SUCR1TAB35 PO; +TIZA4CAP3 PO
[2018-06-13] MEDS ORDERED: IPRATRPIUM/ALBUTEROL 0.5/2.5MG 3 ML NEBU. NEB ONE (09:30)
[2018-06-13] MEDS ORDERED: methylPREDNISolone SOD SUCC PF 125 MG/2 ML VIAL. IV ONE (09:30)
--- NOTE | 2018-06-13 09:41 | EKG ---
[facility] [address] [place] [address] Test Date: 2018-06-13 Test Time: 09:31:44 Pat Name: ATTILA MAY Department: Room: Gender: F Mental Health Coordinator: : 1940 Requested By: CHACORTA JEAN BAPTISTE Order Number: [id number] Reading MD: Measurements Intervals [place] Rate: 93 P: 146 WV: 168 QRS: -153 QRSD: 82 T: -178 QT: 366 QTc: 458 Interpretive Statements SINUS RHYTHM ABNORMAL RIGHT SUPERIOR AXIS DEVIATION R-S TRANSITION ZONE IN V LEADS DISPLACED TO THE LEFT T ABNORMALITY IN HIGH LATERAL LEADS INFERIOR LEADS ABNORMAL ECG RI6.01 No previous ECG available for comparison
[2018-06-13 09:49] LABS: BASE EXCESS ABG 1 mmol/L (-3-3); HCO3 ABG 26 mmol/L (21-28); PCO2 ABG 41 mmHg (35-46); PO2 ABG 54 mmHg (65-108); SAT O2 ABG 87 % (92-99)
[2018-06-13 10:00] LABS: BASO # 0.2 x10^3/uL (0.0-0.2); BASO % 2 % (0-3); EOS # 0.2 x10^3/uL (0.0-0.7); EOS % 2 % (0-3); HEMATOCRIT 25.1 % (36.0-47.0); HEMOGLOBIN 7.7 g/dL (12.0-15.5); LYMPH # 1.8 x10^3/uL (1.0-4.8); LYMPH % 17 % (24-48); MEAN CORPUSCULAR HEMOGLOBIN 22 pg (25-35); MEAN CORPUSCULAR HGB CONC 31 g/dL (31-37); MEAN CORPUSCULAR VOLUME 71 fL (79-100); MONO # 0.7 x10^3/uL (0.0-1.1); MONO % 7 % (0-9); NEUT # 7.6 x10^3uL (1.8-7.7); NEUT % 72 % (31-73); PLATELET COUNT 287 x10^3/uL (140-400); RED BLOOD COUNT 3.51 x10^6/uL (3.50-5.40); RED CELL DISTRIBUTION WIDTH 17.1 % (11.5-14.5); WHITE BLOOD COUNT 10.5 x10^3/uL (4.0-11.0)
[2018-06-13 10:05] LABS: CALCIUM 10.6 mg/dL (8.5-10.1); CREATININE 1.5 mg/dL (0.6-1.0); GFR 33.7; POTASSIUM 3.4 mmol/L (3.5-5.1)
--- NOTE | 2018-06-13 10:06 | RAD ---
EXAM: CHEST 1 VIEW History: Shortness of breath COMPARISON: 08/03/2017 TECHNIQUE: Single portable radiograph of the chest FINDINGS: Mild cardiomegaly is unchanged. Mild hyperinflated lungs likely changes of COPD. Mild blunting of the left costophrenic angle likely pleural thickening or trace pleural effusion is similar to prior exam. Old left rib fractures. There is displaced left humerus with the some ostial lysis of the left humerus head similar to prior exam. IMPRESSION: Mild blunting of the left CP angle could be traced of pleural effusion or pleural thickening similar to prior exam. Electronically signed by: Ciaran Bazzi MD (06/13/2018 10:03 AM) [id number]
[2018-06-13 10:18] LABS: ALBUMIN 3.2 g/dL (3.4-5.0); ALBUMIN/GLOBULIN RATIO 1.1 (1.0-1.7); MAGNESIUM 1.2 mg/dL (1.8-2.4); TOTAL BILIRUBIN 0.3 mg/dL (0.2-1.0)
[2018-06-13 10:39] LABS: D-DIMER 4.1 ug/mlFEU (0.00-0.50)
[2018-06-13 10:49] LABS: BILIRUBIN,URINE NEGATIVE (NEG); CLARITY,URINE CLEAR; COLOR,URINE YELLOW; NITRITE,URINE NEGATIVE (NEG); PROTEIN,URINE NEGATIVE (NEG-TRACE); UROBILINOGEN,URINE 0.2 mg/dL (0.2 mg/dL)
[2018-06-13 10:53] LABS: BACTERIA,URINE MANY /HPF (0-FEW); HYALINE CASTS, URINE FEW /HPF; SQUAMOUS EPITHELIAL CELL,UR MOD /LPF
[2018-06-13] MEDS ORDERED: MAGNESIUM SULFATE 2GM 50 ML IV ONE ×2 (11:00→17:45)
--- NOTE | 2018-06-13 11:37 | PHYS DOC ---
Past Medical History Past Medical History: A-Fib, Anxiety, Asthma, CAD, Depression, Gallstones, GERD , Hypertension, Hypothyroid Additional Past Medical Histor: rheumatic heart disease, benign aortic tumor, graves disease, CHRONIC PAIN Past Surgical History: Cholecystectomy, Hysterectomy, Tonsillectomy Additional Past Surgical Histo: rt & lt lumpectomy, rt bunyon, rt knee surgery Alcohol Use: None Drug Use: None Adult General Chief Complaint Chief Complaint: SHORTNESS OF BREATH HPI HPI Patient is a 77 year old [female patient resident of [facility] who brought in by EMS because of shortness of breath. Patient complaining of sudden onset of dry cough with shortness of breath since this morning with substernal aching chest pain during episodes of cough. longterm report states she had O2 sat of low 60s and was started on 3 L of oxygen. EMS reported patient had O2 sat of 88% on 3 L of oxygen. Patient had O2 sat of 91% at arrival to ER with 6 L of oxygen. Patient did not history of hypoxia or COPD on oxygen. Patient is wheelchair-bound because of chronic left leg pain new changed recently. Review of Systems Review of Systems Constitutional: Denies fever or chills [] Eyes: Denies change in visual acuity, redness, or eye pain [] HENT: Denies nasal congestion or sore throat [] Respiratory: Reports cough and shortness of breath Cardiovascular: No additional information not addressed in HPI [] GI: Denies abdominal pain, nausea, vomiting, bloody stools or diarrhea [] : Denies dysuria or hematuria [] Musculoskeletal: Denies back pain, reports joint pain [] Integument: Denies rash or skin lesions [] Neurologic: Denies headache, focal weakness or sensory changes [] Endocrine: Denies polyuria or polydipsia [] All other systems were reviewed and found to be within normal limits, except as documented in this note. Current Medications Current Medications Current Medications Medications (Trade) Dose Ordered Sig/Luann Start Time Stop Time Status Last Admin Dose Admin Albuterol/ Ipratropium (Duoneb) 3 ml 1X ONCE 06/13/18 09:30 06/13/18 09:38 DC 06/13/18 09:55 3 ML Magnesium Sulfate 50 ml @ 25 mls/hr 1X ONCE 06/13/18 11:00 06/13/18 12:59 Methylprednisolone Sodium Succinate (SOLU-Medrol 125MG VIAL) 125 mg 1X ONCE 06/13/18 09:30 06/13/18 09:38 DC 06/13/18 09:55 125 MG Allergies Allergies Allergies Coded Allergies Type Severity Reaction Last Updated Verified Penicillins Allergy Intermediate HIVES 08/05/17 Yes tetracycline Allergy Intermediate 08/05/17 Yes Physical Exam Physical Exam Constitutional: Well developed, well nourished, distress, non-toxic appearance. [] HENT: Normocephalic, atraumatic, oropharynx moist, no oral exudates, nose normal. [] Eyes: PERRLA, EOMI, conjunctiva normal, no discharge. [] Neck: Normal range of motion, no tenderness, supple, no stridor. [] Cardiovascular:Heart rate regular rhythm, no murmur [] Lungs & Thorax: Mild respiratory distress with intercostal retraction and rhonchi Abdomen: Bowel sounds normal, soft, no tenderness, no masses, no pulsatile masses. [] Skin: Warm, dry, no erythema, no rash. [] Back: No tenderness, no CVA tenderness. [] Extremities: No tenderness, no cyanosis, no clubbing, ROM intact, no edema and of motion of left shoulder with deformity matching with dislocation as a chronic problem, left knee with limited range of motion secondary to knee pain. [] Neurologic: Alert and oriented X 3, normal motor function, normal sensory function, no focal deficits noted. [] Psychologic: Affect normal, judgement normal, mood normal. [] Current Patient Data Vital Signs Vital Signs Date Time Temp Pulse Resp B/P (MAP) Pulse Ox O2 Delivery O2 Flow Rate FiO2 06/13/18 11:05 90 110/65 (80) 98 NonRebreather Mask 15.0 06/13/18 09:30 98.3 22 98.3 Lab Values Laboratory Tests Test 06/13/18 09:30 06/13/18 09:35 06/13/18 10:40 O2 Saturation 87 % (92-99) L Arterial Blood pH 7.41 (7.35-7.45) Arterial Blood pCO2 at Patient Temp 41 mmHg (35-46) Arterial Blood pO2 at Patient Temp 54 mmHg (65-108) L Arterial Blood HCO3 26 mmol/L (21-28) Arterial Blood Base Excess 1 mmol/L (-3-3) FiO2 44% White Blood Count 10.5 x10^3/uL (4.0-11.0) Red Blood Count 3.51 x10^6/uL (3.50-5.40) Hemoglobin 7.7 g/dL (12.0-15.5) L Hematocrit 25.1 % (36.0-47.0) L Mean Corpuscular Volume 71 fL (79-100) L Mean Corpuscular Hemoglobin 22 pg (25-35) L Mean Corpuscular Hemoglobin Concent 31 g/dL (31-37) Red Cell Distribution Width 17.1 % (11.5-14.5) H Platelet Count 287 x10^3/uL (140-400) Neutrophils (%) (Auto) 72 % (31-73) Lymphocytes (%) (Auto) 17 % (24-48) L Monocytes (%) (Auto) 7 % (0-9) Eosinophils (%) (Auto) 2 % (0-3) Basophils (%) (Auto) 2 % (0-3) Neutrophils # (Auto) 7.6 x10^3uL (1.8-7.7) Lymphocytes # (Auto) 1.8 x10^3/uL (1.0-4.8) Monocytes # (Auto) 0.7 x10^3/uL (0.0-1.1) Eosinophils # (Auto) 0.2 x10^3/uL (0.0-0.7) Basophils # (Auto) 0.2 x10^3/uL (0.0-0.2) Platelet Estimate Pending Prothrombin Time 14.0 SEC (11.7-14.0) Prothrombin Time INR 1.1 (0.8-1.1) D-Dimer (Yesenia) 4.10 ug/mlFEU (0.00-0.50) H Sodium Level 142 mmol/L (136-145) Potassium Level 3.4 mmol/L (3.5-5.1) L Chloride Level 106 mmol/L (98-107) Carbon Dioxide Level 27 mmol/L (21-32) Anion Gap 9 (6-14) Blood Urea Nitrogen 29 mg/dL (7-20) H Creatinine 1.5 mg/dL (0.6-1.0) H Estimated GFR (Cockcroft-Gault) 33.7 BUN/Creatinine Ratio 19 (6-20) Glucose Level 94 mg/dL (70-99) Lactic Acid Level 1.1 mmol/L (0.4-2.0) Calcium Level 10.6 mg/dL (8.5-10.1) H Magnesium Level 1.2 mg/dL (1.8-2.4) L Total Bilirubin 0.3 mg/dL (0.2-1.0) Aspartate Amino Transferase (AST) 27 U/L (15-37) Alanine Aminotransferase (ALT) 14 U/L (14-59) Alkaline Phosphatase 137 U/L (46-116) H Creatine Kinase 328 U/L (26-192) H Creatine Kinase MB (Mass) 8.2 ng/mL (0.0-3.6) H Creatine Kinase MB Relative Index 2.5 % (0-4) Troponin I Quantitative 0.099 ng/mL (0.000-0.055) VN-Ytb-C-Type Natriuretic Peptide 267 pg/mL (0-449) Total Protein 6.0 g/dL (6.4-8.2) L Albumin 3.2 g/dL (3.4-5.0) L Albumin/Globulin Ratio 1.1 (1.0-1.7) Urine Collection Type U cath Urine Color Yellow Urine Clarity Clear Urine pH 5.0 Urine Specific [place] 1.020 Urine Protein Negative mg/dL (NEG-TRACE) Urine Glucose (UA) Negative mg/dL (NEG) Urine Ketones (Stick) Negative mg/dL (NEG) Urine Blood Negative (NEG) Urine Nitrite Negative (NEG) Urine Bilirubin Negative (NEG) Urine Urobilinogen Dipstick 0.2 mg/dL (0.2 mg/dL) Urine Leukocyte Esterase Small (NEG) Urine RBC 1-2 /HPF (0-2) Urine WBC 5-10 /HPF (0-4) Urine Squamous Epithelial Cells Mod /LPF Urine Bacteria Many /HPF (0-FEW) Urine Hyaline Casts Few /HPF Urine Mucus Mod /LPF Laboratory Tests 06/13/18 09:35 Laboratory Tests 06/13/18 09:35 EKG EKG EKG interpreted by me. EKG at 0931 showed sinus rhythm at rate of 93, right superior axis deviation, poor R-wave progress in anteroseptal leads, no acute ST and T-wave abnormalities.[] Radiology/Procedures Radiology/Procedures [][facility] [address] [place] [address] IMAGING REPORT Signed PATIENT: ATTILA MAY ACCOUNT: [id number] : 1940 LOCATION: ER AGE: 77 SEX: F EXAM STATUS: PRE ER ORD. PHYSICIAN: CHACORTA JEAN BAPTISTE MD REASON: SOB PROCEDURE: PORTABLE CHEST 1V EXAM: CHEST 1 VIEW History: Shortness of breath COMPARISON: 08/03/2017 TECHNIQUE: Single portable radiograph of the chest FINDINGS: Mild cardiomegaly is unchanged. Mild hyperinflated lungs likely changes of COPD. Mild blunting of the left costophrenic angle likely pleural thickening or trace pleural effusion is similar to prior exam. Old left rib fractures. There is displaced left humerus with the some ostial lysis of the left humerus head similar to prior exam. IMPRESSION: Mild blunting of the left CP angle could be traced of pleural effusion or pleural thickening similar to prior exam. Electronically signed by: Ciaran Bazzi MD (06/13/2018 10:03 AM) [facility] DICTATED and SIGNED BY: CIARAN BAZZI MD DATE: 06/13/18 1000 Course & Med Decision Making Course & Med Decision Making Pertinent Labs and Imaging studies reviewed. (See chart for details) Evaluation of patient in ER showed 77-year-old female patient with sudden onset of shortness of breath and chest pain and dry cough since this morning with hypoxia as low as 60s. Patient started on nonrebreather after obtaining ABG with PO2 of 54% with improvement of her condition. Labs showed elevation of d- dimer at 4 and hemoglobin of 7.7 that decreased from previous labs in December 2017. VQ scan was requested because of renal insufficiency with pending results. Patient was not started on anticoagulation medication because of history of GI bleeding and anemia with not confirming PE. Patient had magnesium of 1.2 and IV by this and was started. Patient had mild elevation of cardiac enzymes and repeat cardiac enzyme was requested. Dr. Godfrey informed at 1100 and agreed with plan of care and admission of the patient. Dr. Charmaine mcknight on -call special certificate dictator was consulted at 1103 and agreed with not starting anticoagulation and plan of care. Patient informed about test results and needs for admission. Plan to start BiPAP instead of nonrebreather in ER. Patient had mild UTI and Rocephin was given. Lactic acid was 1.1. Dragon Disclaimer Dragon Disclaimer This electronic medical record was generated, in whole or in part, using a voice recognition dictation system. Departure Departure Impression: Primary Impression: Acute respiratory distress Additional Impressions: Anemia Hypomagnesemia UTI (urinary tract infection) Elevation of cardiac enzymes Renal insufficiency Hypoxemia Hypercalcemia Hypokalemia Elevated liver function tests Elevated d-dimer Chronic dislocation of left shoulder Disposition: ADMITTED INPATIENT (at 1101) Admitting Physician: Liset Godfrey (accepted admission at 11 00) Condition: GUARDED Referrals: MELODY HOLT MD (PCP) Critical Care Time Critical care time was [70] minutes exclusive of procedures. Problem Qualifiers CHACORTA JEAN BAPTISTE MD Jun 13, 2018 11:37
[2018-06-13 12:40] LABS: ANISOCYTOSIS SLIGHT; HYPOCHROMIA MOD; MICROCYTOSIS MOD; PLT ESTIMATE ADEQUATE (ADEQUATE); POLYCHROMASIA SLIGHT
[2018-06-13] MEDS ORDERED: LORazepam 0.5 MG TABLET PO PRN (13:00)
[2018-06-13] MEDS: SERTRALINE 50 MG TABLET. PO SCH (13:00)
[2018-06-13 13:10] VITALS: BP 112/63
--- NOTE | 2018-06-13 14:35 | RAD ---
NUCLEAR MEDICINE PERFUSION SCAN History: Shortness of air since 5:00 AM. Elevated d-dimer. Comparison: AP chest, same day. Technique: Patient is on 15 L of O2 via rebreather mask. Patient would not tolerate ventilation imaging. Perfusion imaging performed after intravenous administration of 6.2 mCi Technetium 99m MAA. Multiple projection planar images of the lungs were obtained. Findings: Ventilation imaging is not performed. Perfusion images demonstrate a large mostly photopenic defect in the right upper lobe. No correlate is seen on chest radiograph. There is decreased perfusion in the left lower lobe. Some of this may be due to the patient's pleural effusion. IMPRESSION: Pulmonary perfusion is abnormal. Clinical significance is uncertain as patient is unable to tolerate ventilation imaging. Pulmonary perfusion to the right upper lobe is significantly decreased and pulmonary embolus cannot be excluded. Electronically signed by: Wagner Watson MD (06/13/2018 2:31 PM) [id number]
[2018-06-13] MEDS: hydroCHLOROthiazide 12.5 MG CAPSULE PO SCH (14:40)
[2018-06-13] MEDS: ONDANSETRON ODT 4 MG TAB.RAPDIS. PO SCH ×2 (14:41→22:07)
[2018-06-13] MEDS: oxyCODONE/APAP 7.5/325 1 TAB TABLET PO SCH ×3 (14:41→23:26)
[2018-06-13] MEDS: LEVOTHYROXINE 50 MCG TABLET PO SCH (14:41)
[2018-06-13] MEDS: MULTIVITAMIN I-VITE TABLET. PO SCH (14:41)
[2018-06-13] MEDS: PANTOPRAZOLE 40 MG TABLET.DR. PO SCH (14:42)
[2018-06-13] MEDS: POTASSIUM CHLORIDE 10 MEQ TABLET.ER. PO SCH (14:42)
[2018-06-13 15:00] VITALS: BP 168/111
[2018-06-13] MEDS ORDERED: HEPARIN for IV BOLUS 10,000 UNIT/10 ML VIAL. IV PRN ×2 (15:00)
[2018-06-13] MEDS ORDERED: HEPARIN for IV BOLUS 10,000 UNIT/10 ML VIAL. IV ONE (15:00)
--- NOTE | 2018-06-13 15:51 | CONS ---
DATE OF CONSULTATION: ATTENDING PHYSICIAN: Dr. Godfrey. REASON FOR CONSULTATION: Pulmonary embolism, hypoxic respiratory failure. HISTORY OF PRESENT ILLNESS: The patient is a 77-year-old female who has no significant history of tobacco use. She has history of some rheumatic heart disease with mild aortic regurgitation and has been followed by Dr. Jose. The patient also has history of myxoma. She was brought into the hospital with increased shortness of breath since this morning. She is normally not on home oxygen. At the [facility] care facility, she was placed on 12 liters of oxygen due to severity of her hypoxia. The daughter also said that she has been having lower extremity edema as well. I have reviewed the chest x-ray on admission in the ER and it showed left lower lobe pleural effusion, which is small. Overall, vascularity appears to be within normal limits. Her D-dimer was elevated and as a result, VQ scan was ordered as the clinical suspicion for pulmonary embolism was high. The patient's arterial blood gases showed a pH of 7.41, pCO2 of 41 and a pO2 of 54 on 44% FiO2. Her systolic blood pressure has been 112. She just got back from V/Q scan, and I have discussed with the radiologist. She could not do the ventilation part. The perfusion images showed a perfusion defect in the right upper lobe, which is large. There was also decreased perfusion in the left lower lobe, which may correspond to the pleural effusion; however, the finding in the right upper chest is suggestive of pulmonary embolism as the chest x-ray does not reveal any significant parenchymal abnormalities in the right chest. She is currently on a nonrebreather mask. PAST MEDICAL HISTORY: Significant for history of atrial fibrillation, history of anxiety, asthma, CAD, depression, GERD, hypertension, hypothyroidism, history of rheumatic heart disease, history of AI, history of myxoma, history of chronic pain. PAST SURGICAL HISTORY: Cholecystectomy, hysterectomy, tonsillectomy, right knee surgery and bunionectomy. ALLERGIES: PENICILLIN, TETRACYCLINE. MEDICATIONS: Reviewed as listed in the MRAD. REVIEW OF SYSTEMS: Twelve-point system obtained. Pertinent positives discussed in my history of present illness, otherwise noncontributory. All systems that were negative were reviewed as well. SOCIAL HISTORY: Nonsmoker. PHYSICAL EXAMINATION: VITAL SIGNS: Reviewed, pulse ox 93% on 15 liters nonrebreather mask. Afebrile. Blood pressure is stable. HEENT: Sclerae nonicteric. NECK: Supple. LUNGS: With diminished breath sounds. CARDIOVASCULAR: Regular rate. ABDOMEN: Soft. EXTREMITIES: With bilateral pitting edema in the ankles and feet. LABORATORY DATA: Reviewed. BUN is 29 and a creatinine of 1.5. Troponin 0.099. Albumin 3.2. INR 1.1. D-dimer 4.1. White cell count 10.5, hemoglobin 7.7. IMPRESSION: 1. Acute hypoxic respiratory failure secondary to highly suspected acute pulmonary embolism. This is a patient who had sudden onset of hypoxia requiring 15 liters of nonrebreather mask. She is hemodynamically stable. Her D-dimer was elevated, and her VQ scan showing large perfusion defect in the right upper lobe with no abnormality seen on the right chest on the chest x-ray. Ventilation study could not be performed. However, the nuclear image study findings and clinical suspicion fits with pulmonary embolism. 2. History of rheumatic heart disease. 3. Lower extremity edema, especially feet edema. We will rule out deep venous thrombosis. 4. No significant history of tobacco use. 5. Small left pleural effusion, which does not need any intervention. RECOMMENDATIONS: 1. Discussed with the patient's daughter in detail, discussed with the radiologist as well. At this time, I would fully heparinize the patient for acute pulmonary embolism. 2. Obtain venous Dopplers of lower extremities. 3. The patient is anemic, and her hemoglobin will be closely followed up. It could be dilutional anemia. However, if anemia becomes an issue while on anticoagulation, then an IVC filter can be considered provided she has evidence of DVT. 4. Blood pressure is stable and I have discussed with daughter that if she does become hypotensive, I would avoid TPA due to high risk of bleeding at her age. 5. P.r.n. bronchodilators. 6. We will gradually wean FIO2. 7. Discussed with RN and RT. Critical care time 39 minutes. We will follow along with you. IVAN HARRY MD DR: JANUSZ/geo JOB#: [id number] / [id number] DIXON
[2018-06-13] MEDS: HEPARIN 25,000UTS/500ML PREMIX 500 ML IV PRN (16:45)
--- NOTE | 2018-06-13 17:18 | PDOC1 ---
History and Physical Date of Admission Date of Admission 06/13/18 Identification/Chief Complaint Chief Complaint sob Source Source: Chart review, Patient History of Present Illness History of Present Illness HPI Patient is a 77 year old [female patient resident of [facility] who brought in by EMS because of shortness of breath today from where she stays since frequent falls and lived alone. \Pt was seen by dr. Cornejo in [place], but not office, so dr. Cornejo group want hospitalist take over. pt said she woke up with sob, mild cough, nausea, weakness, some substernal chest pain worse with deep breath. She was found desat to low 60s and started on NC 3L. see in 248, need nonbreather and on heparin drip for PE. has h/o DVT, AFIB, NOT ON AC. EMS reported patient had O2 sat of 88% on 3 L of oxygen. Patient had O2 sat of 91% at arrival to ER with 6 L of oxygen. Patient did not history of hypoxia or COPD on oxygen. Patient is wheelchair-bound because of chronic left leg pain new changed recently. VQ scan IMPRESSION: Pulmonary perfusion is abnormal. Clinical significance is uncertain as patient is unable to tolerate ventilation imaging. Pulmonary perfusion to the right upper lobe is significantly decreased and pulmonary embolus cannot be excluded. Past Medical History Cardiovascular: CAD, CHF, HTN, Mitral valve stenosis, Aortic stenosis, Valve insufficiency GI: GERD Hepatobiliary: Cholelithiasis Endocrine: Hypothyroidism, Osteoporosis Past Surgical History Past Surgical History: Total knee replacement, Hysterectomy Family History Family History: Other Social History Smoke: No ALCOHOL: none Drugs: None Current Problem List Problem List Problems Medical Problems: (1) Acute respiratory distress Status: Acute (2) Chronic dislocation of left shoulder Status: Acute (3) Elevated d-dimer Status: Acute (4) Elevated liver function tests Status: Acute (5) Elevation of cardiac enzymes Status: Acute (6) Hypercalcemia Status: Acute (7) Hypokalemia Status: Acute (8) Hypomagnesemia Status: Acute (9) Hypoxemia Status: Acute (10) Renal insufficiency Status: Acute Current Medications Current Medications Current Medications Medications (Trade) Dose Ordered Sig/Luann Start Time Stop Time Status Last Admin Dose Admin Albuterol/ Ipratropium (Duoneb) 3 ml 1X ONCE 06/13/18 09:30 06/13/18 09:38 DC 06/13/18 09:55 3 ML Ceftriaxone Sodium 1 gm/ Dextrose 50 ml @ 100 mls/hr 1X STAT 06/13/18 11:08 06/13/18 11:13 DC Ceftriaxone Sodium 50 ml @ 100 mls/hr 1X ONCE 06/13/18 11:15 06/13/18 11:44 DC 06/13/18 11:50 100 MLS/HR Diltiazem HCl (Cardizem 24hr Cd) 180 mg DAILY 06/13/18 13:00 06/13/18 14:42 180 MG Heparin Sodium (Porcine) (Heparin Sodium) 850 unit PRN Q6HRS PRN 06/13/18 15:00 Heparin Sodium/ Dextrose 500 ml @ 0 mls/hr CONT PRN 06/13/18 15:00 06/13/18 16:45 0 MLS/HR Hydrochlorothiazide (Microzide) 12.5 mg DAILY 06/13/18 13:00 06/13/18 14:40 12.5 MG Levothyroxine Sodium (Synthroid) 50 mcg DAILYAC 06/13/18 13:00 06/13/18 14:41 50 MCG Lorazepam (Ativan) 0.5 mg BID 06/13/18 21:00 Magnesium Sulfate 50 ml @ 25 mls/hr 1X ONCE 06/13/18 11:00 06/13/18 12:59 DC 06/13/18 14:44 25 MLS/HR Methylprednisolone Sodium Succinate (SOLU-Medrol 125MG VIAL) 125 mg 1X ONCE 06/13/18 09:30 06/13/18 09:38 DC 06/13/18 09:55 125 MG Multivitamins/ Minerals (I-Bowen) 1 tab DAILY 06/13/18 13:00 06/13/18 14:41 1 TAB Ondansetron HCl (Zofran Odt) 4 mg Q8HRS 06/13/18 14:00 06/13/18 14:41 4 MG Oxycodone/ Acetaminophen (Percocet 7.5/ 325) 2 tab [id number] 06/13/18 13:00 06/13/18 14:41 2 TAB Pantoprazole Sodium (Protonix) 40 mg DAILYAC 06/13/18 13:00 06/13/18 14:42 40 MG Potassium Chloride (Klor-Con) 10 meq DAILY 8/10/18 13:00 06/13/18 14:42 10 MEQ Sertraline HCl (Zoloft) 25 mg DAILY 06/14/18 09:00 UNV Sucralfate (Carafate) 1 gm TIDAC 06/13/18 16:30 Tizanidine HCl (Zanaflex) 4 mg BID 06/13/18 21:00 Allergies Allergies Allergies Coded Allergies Type Severity Reaction Last Updated Verified Penicillins Allergy Intermediate HIVES 08/05/17 Yes tetracycline Allergy Intermediate 08/05/17 Yes ROS Review of System CONSTITUTIONAL: No fever or chills EYES: No recent changes SKIN: No rash or itching CARDIOVASCULAR: No chest pain, syncope, palpitations, or edema RESPIRATORY: No SOB or cough GASTROINTESTINAL: No nausea, vomiting or abdominal pain NEUROLOGICAL: No headaches or weakness ENDOCRINE: No cold or heat intolerance GENITOURINARY: No urgency or frequency of urination MUSCULOSKELETAL: No back pain or joint pain LYMPHATICS: No enlarged lymph nodes PSYCHIATRIC: No anxiety or depression Physical Exam Physical Exam GEN.: No apparent distress. Alert and oriented. on non breather. HEENT: Head is normocephalic, atraumatic NECK: Supple. LUNGS: Clear to auscultation. rt side bs slightly lower than left side. HEART: RRR, S1, S2 present. Peripheral pulses intact ABDOMEN: Soft, nontender. Positive bowel sounds. EXTREMITIES: Without any cyanosis. no edema. NEUROLOGIC: Normal speech, normal tone PSYCHIATRIC: Normal affect, normal mood. SKIN: No ulcerations Vitals Vitals Vital Signs Date Time Temp Pulse Resp B/P (MAP) Pulse Ox O2 Delivery O2 Flow Rate FiO2 06/13/18 16:31 NonRebreather Mask 15.0 06/13/18 15:57 100 06/13/18 15:00 97.7 112 20 168/111 (130) 97.7 Labs Labs Laboratory Tests Test 06/13/18 09:30 06/13/18 09:35 06/13/18 10:40 06/13/18 15:00 O2 Saturation 87 % (92-99) Arterial Blood pH 7.41 (7.35-7.45) Arterial Blood pCO2 at Patient Temp 41 mmHg (35-46) Arterial Blood pO2 at Patient Temp 54 mmHg (65-108) Arterial Blood HCO3 26 mmol/L (21-28) Arterial Blood Base Excess 1 mmol/L (-3-3) FiO2 44% White Blood Count 10.5 x10^3/uL (4.0-11.0) Red Blood Count 3.51 x10^6/uL (3.50-5.40) Hemoglobin 7.7 g/dL (12.0-15.5) Hematocrit 25.1 % (36.0-47.0) Mean Corpuscular Volume 71 fL (79-100) Mean Corpuscular Hemoglobin 22 pg (25-35) Mean Corpuscular Hemoglobin Concent 31 g/dL (31-37) Red Cell Distribution Width 17.1 % (11.5-14.5) Platelet Count 287 x10^3/uL (140-400) Neutrophils (%) (Auto) 72 % (31-73) Lymphocytes (%) (Auto) 17 % (24-48) Monocytes (%) (Auto) 7 % (0-9) Eosinophils (%) (Auto) 2 % (0-3) Basophils (%) (Auto) 2 % (0-3) Neutrophils # (Auto) 7.6 x10^3uL (1.8-7.7) Lymphocytes # (Auto) 1.8 x10^3/uL (1.0-4.8) Monocytes # (Auto) 0.7 x10^3/uL (0.0-1.1) Eosinophils # (Auto) 0.2 x10^3/uL (0.0-0.7) Basophils # (Auto) 0.2 x10^3/uL (0.0-0.2) Platelet Estimate Adequate (ADEQUATE) Large Platelets Occ Polychromasia Slight Hypochromasia Mod Anisocytosis Slight Microcytosis Mod Prothrombin Time 14.0 SEC (11.7-14.0) Prothromb Time International Ratio 1.1 (0.8-1.1) D-Dimer ([place]) 4.10 ug/mlFEU (0.00-0.50) Sodium Level 142 mmol/L (136-145) Potassium Level 3.4 mmol/L (3.5-5.1) Chloride Level 106 mmol/L (98-107) Carbon Dioxide Level 27 mmol/L (21-32) Anion Gap 9 (6-14) Blood Urea Nitrogen 29 mg/dL (7-20) Creatinine 1.5 mg/dL (0.6-1.0) Estimated GFR (Cockcroft-Gault) 33.7 BUN/Creatinine Ratio 19 (6-20) Glucose Level 94 mg/dL (70-99) Lactic Acid Level 1.1 mmol/L (0.4-2.0) Calcium Level 10.6 mg/dL (8.5-10.1) Magnesium Level 1.2 mg/dL (1.8-2.4) Total Bilirubin 0.3 mg/dL (0.2-1.0) Aspartate Amino Transf (AST/SGOT) 27 U/L (15-37) Alanine Aminotransferase (ALT/SGPT) 14 U/L (14-59) Alkaline Phosphatase 137 U/L (46-116) Creatine Kinase 328 U/L (26-192) Creatine Kinase MB (Mass) 8.2 ng/mL (0.0-3.6) Creatine Kinase MB Relative Index 2.5 % (0-4) Troponin I Quantitative 0.099 ng/mL (0.000-0.055) 0.320 ng/mL (0.000-0.055) TU-Eyo-Q-Type Natriuretic Peptide 267 pg/mL (0-449) Total Protein 6.0 g/dL (6.4-8.2) Albumin 3.2 g/dL (3.4-5.0) Albumin/Globulin Ratio 1.1 (1.0-1.7) Urine Collection Type U cath Urine Color Yellow Urine Clarity Clear Urine pH 5.0 Urine Specific [place] 1.020 Urine Protein Negative mg/dL (NEG-TRACE) Urine Glucose (UA) Negative mg/dL (NEG) Urine Ketones (Stick) Negative mg/dL (NEG) Urine Blood Negative (NEG) Urine Nitrite Negative (NEG) Urine Bilirubin Negative (NEG) Urine Urobilinogen Dipstick 0.2 mg/dL (0.2 mg/dL) Urine Leukocyte Esterase Small (NEG) Urine RBC 1-2 /HPF (0-2) Urine WBC 5-10 /HPF (0-4) Urine Squamous Epithelial Cells Mod /LPF Urine Bacteria Many /HPF (0-FEW) Urine Hyaline Casts Few /HPF Urine Mucus Mod /LPF Laboratory Tests Test 06/13/18 09:30 06/13/18 09:35 06/13/18 10:40 06/13/18 15:00 O2 Saturation 87 % (92-99) Arterial Blood pH 7.41 (7.35-7.45) Arterial Blood pCO2 at Patient Temp 41 mmHg (35-46) Arterial Blood pO2 at Patient Temp 54 mmHg (65-108) Arterial Blood HCO3 26 mmol/L (21-28) Arterial Blood Base Excess 1 mmol/L (-3-3) FiO2 44% White Blood Count 10.5 x10^3/uL (4.0-11.0) Red Blood Count 3.51 x10^6/uL (3.50-5.40) Hemoglobin 7.7 g/dL (12.0-15.5) Hematocrit 25.1 % (36.0-47.0) Mean Corpuscular Volume 71 fL (79-100) Mean Corpuscular Hemoglobin 22 pg (25-35) Mean Corpuscular Hemoglobin Concent 31 g/dL (31-37) Red Cell Distribution Width 17.1 % (11.5-14.5) Platelet Count 287 x10^3/uL (140-400) Neutrophils (%) (Auto) 72 % (31-73) Lymphocytes (%) (Auto) 17 % (24-48) Monocytes (%) (Auto) 7 % (0-9) Eosinophils (%) (Auto) 2 % (0-3) Basophils (%) (Auto) 2 % (0-3) Neutrophils # (Auto) 7.6 x10^3uL (1.8-7.7) Lymphocytes # (Auto) 1.8 x10^3/uL (1.0-4.8) Monocytes # (Auto) 0.7 x10^3/uL (0.0-1.1) Eosinophils # (Auto) 0.2 x10^3/uL (0.0-0.7) Basophils # (Auto) 0.2 x10^3/uL (0.0-0.2) Platelet Estimate Adequate (ADEQUATE) Large Platelets Occ Polychromasia Slight Hypochromasia Mod Anisocytosis Slight Microcytosis Mod Prothrombin Time 14.0 SEC (11.7-14.0) Prothromb Time International Ratio 1.1 (0.8-1.1) D-Dimer ([place]) 4.10 ug/mlFEU (0.00-0.50) Sodium Level 142 mmol/L (136-145) Potassium Level 3.4 mmol/L (3.5-5.1) Chloride Level 106 mmol/L (98-107) Carbon Dioxide Level 27 mmol/L (21-32) Anion Gap 9 (6-14) Blood Urea Nitrogen 29 mg/dL (7-20) Creatinine 1.5 mg/dL (0.6-1.0) Estimated GFR (Cockcroft-Gault) 33.7 BUN/Creatinine Ratio 19 (6-20) Glucose Level 94 mg/dL (70-99) Lactic Acid Level 1.1 mmol/L (0.4-2.0) Calcium Level 10.6 mg/dL (8.5-10.1) Magnesium Level 1.2 mg/dL (1.8-2.4) Total Bilirubin 0.3 mg/dL (0.2-1.0) Aspartate Amino Transf (AST/SGOT) 27 U/L (15-37) Alanine Aminotransferase (ALT/SGPT) 14 U/L (14-59) Alkaline Phosphatase 137 U/L (46-116) Creatine Kinase 328 U/L (26-192) Creatine Kinase MB (Mass) 8.2 ng/mL (0.0-3.6) Creatine Kinase MB Relative Index 2.5 % (0-4) Troponin I Quantitative 0.099 ng/mL (0.000-0.055) 0.320 ng/mL (0.000-0.055) NM-Dfj-E-Type Natriuretic Peptide 267 pg/mL (0-449) Total Protein 6.0 g/dL (6.4-8.2) Albumin 3.2 g/dL (3.4-5.0) Albumin/Globulin Ratio 1.1 (1.0-1.7) Urine Collection Type U cath Urine Color Yellow Urine Clarity Clear Urine pH 5.0 Urine Specific [place] 1.020 Urine Protein Negative mg/dL (NEG-TRACE) Urine Glucose (UA) Negative mg/dL (NEG) Urine Ketones (Stick) Negative mg/dL (NEG) Urine Blood Negative (NEG) Urine Nitrite Negative (NEG) Urine Bilirubin Negative (NEG) Urine Urobilinogen Dipstick 0.2 mg/dL (0.2 mg/dL) Urine Leukocyte Esterase Small (NEG) Urine RBC 1-2 /HPF (0-2) Urine WBC 5-10 /HPF (0-4) Urine Squamous Epithelial Cells Mod /LPF Urine Bacteria Many /HPF (0-FEW) Urine Hyaline Casts Few /HPF Urine Mucus Mod /LPF VTE Prophylaxis Ordered VTE Prophylaxis Devices: Yes VTE Pharmacological Prophylaxi: No Assessment/Plan Assessment/Plan acute hypoxic resp failure with PE likely Pafib no AC h/o DVT h/o CAD wo PCI GERD HTN HYpothyroidism depression anxiety denies asthma or copd rheumatic heart dz benign aortic tumor graves dz chronic pain anemia Hypomagnesemia possible UTI (urinary tract infection) Elevation of cardiac enzymes Renal insufficiency CKD3 Hypercalcemia Hypokalemia Elevated liver function tests Elevated d-dimer Chronic dislocation of left shoulder SNF resident plan: fu with pulm on heparin drip check bl leg dvt, echo cont home meds check KUB since mild abd pain on non breather for now PTOT RAHAT OLIVEIRA MD Jun 13, 2018 17:18
[2018-06-13] MEDS ORDERED: hydrALAZINE 20 MG/ML VIAL. IVP PRN (17:30)
[2018-06-13] MEDS ORDERED: DOCUSATE SODIUM 100 MG CAPSULE. PO PRN (17:30)
[2018-06-13] MEDS ORDERED: ACETAMINOPHEN 325 MG TABLET. PO PRN (17:30)
[2018-06-13] MEDS ORDERED: traMADol 50 MG TABLET PO PRN (17:30)
[2018-06-13] MEDS ORDERED: ONDANSETRON PF 4 MG/2 ML VIAL. IV PRN (17:30)
[2018-06-13] MEDS ORDERED: MORPHINE SULFATE 2 MG/ML DISP.SYRIN. IV PRN (17:30)
[2018-06-13] MEDS: SUCRALFATE 1 GM TABLET. PO SCH (17:59)
--- NOTE | 2018-06-13 18:10 | RAD ---
Bilateral lower extremity venous duplex study 06/13/2018 Clinical History: Bilateral leg swelling. Pulmonary emboli. Technique: Using a combination of real time ultrasound imaging and color-flow and pulse Doppler imaging techniques along with graded compression and augmentation, duplex evaluation of the deep venous system of the both lower extremities was performed. Multiple images were obtained. Findings: Echogenic thrombus is seen extending from the right posterior tibial veins and popliteal vein throughout the right superficial femoral vein to the right common femoral vein. Echogenic thrombus is seen involving the left posterior tibial veins extending to involve the left popliteal and distal left superficial femoral vein. The proximal left superficial femoral vein and common femoral vein are patent. IMPRESSION: Fairly extensive bilateral DVT is seen, right greater than left. Electronically signed by: Davey De Paz MD (06/13/2018 6:06 PM) [facility]
[2018-06-13 19:05] VITALS: BP 128/70
[2018-06-13] MEDS: tiZANidine 4 MG TABLET. PO SCH (22:07)
[2018-06-13] MEDS: LORazepam 0.5 MG TABLET PO SCH (22:08)
[2018-06-13 23:36] VITALS: BP 112/68
[2018-06-14 03:20] VITALS: BP 123/75
[2018-06-14 05:54] LABS: CALCIUM 9.9 mg/dL (8.5-10.1); CREATININE 1.1 mg/dL (0.6-1.0); GFR 48.2; POTASSIUM 3.6 mmol/L (3.5-5.1)
[2018-06-14 06:14] LABS: BASO % 0 % (0-3); EOS % 0 % (0-3); HEMATOCRIT 23.7 % (36.0-47.0); HEMOGLOBIN 7.3 g/dL (12.0-15.5); LYMPH # 0.9 x10^3/uL (1.0-4.8); LYMPH % 13 % (24-48); MEAN CORPUSCULAR HEMOGLOBIN 22 pg (25-35); MEAN CORPUSCULAR HGB CONC 31 g/dL (31-37); MEAN CORPUSCULAR VOLUME 72 fL (79-100); MONO # 0.4 x10^3/uL (0.0-1.1); MONO % 6 % (0-9); NEUT # 5.3 x10^3uL (1.8-7.7); NEUT % 81 % (31-73); PLATELET COUNT 287 x10^3/uL (140-400); RED BLOOD COUNT 3.28 x10^6/uL (3.50-5.40); RED CELL DISTRIBUTION WIDTH 17.1 % (11.5-14.5); WHITE BLOOD COUNT 6.6 x10^3/uL (4.0-11.0)
[2018-06-14] MEDS: ONDANSETRON ODT 4 MG TAB.RAPDIS. PO SCH ×3 (06:27→21:25)
[2018-06-14] MEDS: oxyCODONE/APAP 7.5/325 1 TAB TABLET PO SCH ×3 (06:30→18:21)
[2018-06-14 07:00] VITALS: BP 129/67
--- NOTE | 2018-06-14 07:18 | PDOC ---
PULMONARY PROGRESS NOTES Subjective on nrb mask, on hep gtt, refusing bipap, no cp, sob better, no cough Vitals Vital Signs Date Time Temp Pulse Resp B/P (MAP) Pulse Ox O2 Delivery O2 Flow Rate FiO2 06/14/18 03:20 97.9 73 16 123/75 (91) 96 NonRebreather Mask 97.9 06/13/18 23:36 15.0 ROS: No Nausea General: Alert HEENT: Other (nc at perrl) Lungs: Wheezing Cardiovascular: S1, S2 Abdomen: Soft, Non-tender Neuro Exam: Alert Extremities: Other (edema) Skin: Warm Labs Laboratory Tests Test 06/13/18 09:30 06/13/18 09:35 06/13/18 10:40 06/13/18 15:00 O2 Saturation 87 % (92-99) Arterial Blood pH 7.41 (7.35-7.45) Arterial Blood pCO2 at Patient Temp 41 mmHg (35-46) Arterial Blood pO2 at Patient Temp 54 mmHg (65-108) Arterial Blood HCO3 26 mmol/L (21-28) Arterial Blood Base Excess 1 mmol/L (-3-3) FiO2 44% White Blood Count 10.5 x10^3/uL (4.0-11.0) Red Blood Count 3.51 x10^6/uL (3.50-5.40) Hemoglobin 7.7 g/dL (12.0-15.5) Hematocrit 25.1 % (36.0-47.0) Mean Corpuscular Volume 71 fL (79-100) Mean Corpuscular Hemoglobin 22 pg (25-35) Mean Corpuscular Hemoglobin Concent 31 g/dL (31-37) Red Cell Distribution Width 17.1 % (11.5-14.5) Platelet Count 287 x10^3/uL (140-400) Neutrophils (%) (Auto) 72 % (31-73) Lymphocytes (%) (Auto) 17 % (24-48) Monocytes (%) (Auto) 7 % (0-9) Eosinophils (%) (Auto) 2 % (0-3) Basophils (%) (Auto) 2 % (0-3) Neutrophils # (Auto) 7.6 x10^3uL (1.8-7.7) Lymphocytes # (Auto) 1.8 x10^3/uL (1.0-4.8) Monocytes # (Auto) 0.7 x10^3/uL (0.0-1.1) Eosinophils # (Auto) 0.2 x10^3/uL (0.0-0.7) Basophils # (Auto) 0.2 x10^3/uL (0.0-0.2) Platelet Estimate Adequate (ADEQUATE) Large Platelets Occ Polychromasia Slight Hypochromasia Mod Anisocytosis Slight Microcytosis Mod Prothrombin Time 14.0 SEC (11.7-14.0) Prothromb Time International Ratio 1.1 (0.8-1.1) D-Dimer ([place]) 4.10 ug/mlFEU (0.00-0.50) Sodium Level 142 mmol/L (136-145) Potassium Level 3.4 mmol/L (3.5-5.1) Chloride Level 106 mmol/L (98-107) Carbon Dioxide Level 27 mmol/L (21-32) Anion Gap 9 (6-14) Blood Urea Nitrogen 29 mg/dL (7-20) Creatinine 1.5 mg/dL (0.6-1.0) Estimated GFR (Cockcroft-Gault) 33.7 BUN/Creatinine Ratio 19 (6-20) Glucose Level 94 mg/dL (70-99) Lactic Acid Level 1.1 mmol/L (0.4-2.0) Calcium Level 10.6 mg/dL (8.5-10.1) Magnesium Level 1.2 mg/dL (1.8-2.4) Total Bilirubin 0.3 mg/dL (0.2-1.0) Aspartate Amino Transf (AST/SGOT) 27 U/L (15-37) Alanine Aminotransferase (ALT/SGPT) 14 U/L (14-59) Alkaline Phosphatase 137 U/L (46-116) Creatine Kinase 328 U/L (26-192) Creatine Kinase MB (Mass) 8.2 ng/mL (0.0-3.6) Creatine Kinase MB Relative Index 2.5 % (0-4) Troponin I Quantitative 0.099 ng/mL (0.000-0.055) 0.320 ng/mL (0.000-0.055) OW-Jky-A-Type Natriuretic Peptide 267 pg/mL (0-449) Total Protein 6.0 g/dL (6.4-8.2) Albumin 3.2 g/dL (3.4-5.0) Albumin/Globulin Ratio 1.1 (1.0-1.7) Urine Collection Type U cath Urine Color Yellow Urine Clarity Clear Urine pH 5.0 Urine Specific [place] 1.020 Urine Protein Negative mg/dL (NEG-TRACE) Urine Glucose (UA) Negative mg/dL (NEG) Urine Ketones (Stick) Negative mg/dL (NEG) Urine Blood Negative (NEG) Urine Nitrite Negative (NEG) Urine Bilirubin Negative (NEG) Urine Urobilinogen Dipstick 0.2 mg/dL (0.2 mg/dL) Urine Leukocyte Esterase Small (NEG) Urine RBC 1-2 /HPF (0-2) Urine WBC 5-10 /HPF (0-4) Urine Squamous Epithelial Cells Mod /LPF Urine Bacteria Many /HPF (0-FEW) Urine Hyaline Casts Few /HPF Urine Mucus Mod /LPF Test 06/13/18 16:52 06/13/18 20:45 06/14/18 04:00 Troponin I Quantitative 0.359 ng/mL (0.000-0.055) Heparin Anti-Xa Act, Unfractionated > 1.10 IU/mL (0.30-0.70) 0.92 IU/mL (0.30-0.70) White Blood Count 6.6 x10^3/uL (4.0-11.0) Red Blood Count 3.28 x10^6/uL (3.50-5.40) Hemoglobin 7.3 g/dL (12.0-15.5) Hematocrit 23.7 % (36.0-47.0) Mean Corpuscular Volume 72 fL (79-100) Mean Corpuscular Hemoglobin 22 pg (25-35) Mean Corpuscular Hemoglobin Concent 31 g/dL (31-37) Red Cell Distribution Width 17.1 % (11.5-14.5) Platelet Count 287 x10^3/uL (140-400) Neutrophils (%) (Auto) 81 % (31-73) Lymphocytes (%) (Auto) 13 % (24-48) Monocytes (%) (Auto) 6 % (0-9) Eosinophils (%) (Auto) 0 % (0-3) Basophils (%) (Auto) 0 % (0-3) Neutrophils # (Auto) 5.3 x10^3uL (1.8-7.7) Lymphocytes # (Auto) 0.9 x10^3/uL (1.0-4.8) Monocytes # (Auto) 0.4 x10^3/uL (0.0-1.1) Eosinophils # (Auto) 0.0 x10^3/uL (0.0-0.7) Basophils # (Auto) 0.0 x10^3/uL (0.0-0.2) Sodium Level 142 mmol/L (136-145) Potassium Level 3.6 mmol/L (3.5-5.1) Chloride Level 106 mmol/L (98-107) Carbon Dioxide Level 29 mmol/L (21-32) Anion Gap 7 (6-14) Blood Urea Nitrogen 25 mg/dL (7-20) Creatinine 1.1 mg/dL (0.6-1.0) Estimated GFR (Cockcroft-Gault) 48.2 Glucose Level 146 mg/dL (70-99) Calcium Level 9.9 mg/dL (8.5-10.1) Iron Level 19 ug/dL (50-170) Total Iron Binding Capacity 376 ug/dL (250-450) Iron Saturation 5 % (15-34) Ferritin 39 ng/mL (8-252) Laboratory Tests Test 06/13/18 09:30 06/13/18 09:35 06/13/18 10:40 06/13/18 15:00 O2 Saturation 87 % (92-99) Arterial Blood pH 7.41 (7.35-7.45) Arterial Blood pCO2 at Patient Temp 41 mmHg (35-46) Arterial Blood pO2 at Patient Temp 54 mmHg (65-108) Arterial Blood HCO3 26 mmol/L (21-28) Arterial Blood Base Excess 1 mmol/L (-3-3) FiO2 44% White Blood Count 10.5 x10^3/uL (4.0-11.0) Red Blood Count 3.51 x10^6/uL (3.50-5.40) Hemoglobin 7.7 g/dL (12.0-15.5) Hematocrit 25.1 % (36.0-47.0) Mean Corpuscular Volume 71 fL (79-100) Mean Corpuscular Hemoglobin 22 pg (25-35) Mean Corpuscular Hemoglobin Concent 31 g/dL (31-37) Red Cell Distribution Width 17.1 % (11.5-14.5) Platelet Count 287 x10^3/uL (140-400) Neutrophils (%) (Auto) 72 % (31-73) Lymphocytes (%) (Auto) 17 % (24-48) Monocytes (%) (Auto) 7 % (0-9) Eosinophils (%) (Auto) 2 % (0-3) Basophils (%) (Auto) 2 % (0-3) Neutrophils # (Auto) 7.6 x10^3uL (1.8-7.7) Lymphocytes # (Auto) 1.8 x10^3/uL (1.0-4.8) Monocytes # (Auto) 0.7 x10^3/uL (0.0-1.1) Eosinophils # (Auto) 0.2 x10^3/uL (0.0-0.7) Basophils # (Auto) 0.2 x10^3/uL (0.0-0.2) Platelet Estimate Adequate (ADEQUATE) Large Platelets Occ Polychromasia Slight Hypochromasia Mod Anisocytosis Slight Microcytosis Mod Prothrombin Time 14.0 SEC (11.7-14.0) Prothromb Time International Ratio 1.1 (0.8-1.1) D-Dimer ([place]) 4.10 ug/mlFEU (0.00-0.50) Sodium Level 142 mmol/L (136-145) Potassium Level 3.4 mmol/L (3.5-5.1) Chloride Level 106 mmol/L (98-107) Carbon Dioxide Level 27 mmol/L (21-32) Anion Gap 9 (6-14) Blood Urea Nitrogen 29 mg/dL (7-20) Creatinine 1.5 mg/dL (0.6-1.0) Estimated GFR (Cockcroft-Gault) 33.7 BUN/Creatinine Ratio 19 (6-20) Glucose Level 94 mg/dL (70-99) Lactic Acid Level 1.1 mmol/L (0.4-2.0) Calcium Level 10.6 mg/dL (8.5-10.1) Magnesium Level 1.2 mg/dL (1.8-2.4) Total Bilirubin 0.3 mg/dL (0.2-1.0) Aspartate Amino Transf (AST/SGOT) 27 U/L (15-37) Alanine Aminotransferase (ALT/SGPT) 14 U/L (14-59) Alkaline Phosphatase 137 U/L (46-116) Creatine Kinase 328 U/L (26-192) Creatine Kinase MB (Mass) 8.2 ng/mL (0.0-3.6) Creatine Kinase MB Relative Index 2.5 % (0-4) Troponin I Quantitative 0.099 ng/mL (0.000-0.055) 0.320 ng/mL (0.000-0.055) XI-Fvd-W-Type Natriuretic Peptide 267 pg/mL (0-449) Total Protein 6.0 g/dL (6.4-8.2) Albumin 3.2 g/dL (3.4-5.0) Albumin/Globulin Ratio 1.1 (1.0-1.7) Urine Collection Type U cath Urine Color Yellow Urine Clarity Clear Urine pH 5.0 Urine Specific [place] 1.020 Urine Protein Negative mg/dL (NEG-TRACE) Urine Glucose (UA) Negative mg/dL (NEG) Urine Ketones (Stick) Negative mg/dL (NEG) Urine Blood Negative (NEG) Urine Nitrite Negative (NEG) Urine Bilirubin Negative (NEG) Urine Urobilinogen Dipstick 0.2 mg/dL (0.2 mg/dL) Urine Leukocyte Esterase Small (NEG) Urine RBC 1-2 /HPF (0-2) Urine WBC 5-10 /HPF (0-4) Urine Squamous Epithelial Cells Mod /LPF Urine Bacteria Many /HPF (0-FEW) Urine Hyaline Casts Few /HPF Urine Mucus Mod /LPF Test 06/13/18 16:52 06/13/18 20:45 06/14/18 04:00 Troponin I Quantitative 0.359 ng/mL (0.000-0.055) Heparin Anti-Xa Act, Unfractionated > 1.10 IU/mL (0.30-0.70) 0.92 IU/mL (0.30-0.70) White Blood Count 6.6 x10^3/uL (4.0-11.0) Red Blood Count 3.28 x10^6/uL (3.50-5.40) Hemoglobin 7.3 g/dL (12.0-15.5) Hematocrit 23.7 % (36.0-47.0) Mean Corpuscular Volume 72 fL (79-100) Mean Corpuscular Hemoglobin 22 pg (25-35) Mean Corpuscular Hemoglobin Concent 31 g/dL (31-37) Red Cell Distribution Width 17.1 % (11.5-14.5) Platelet Count 287 x10^3/uL (140-400) Neutrophils (%) (Auto) 81 % (31-73) Lymphocytes (%) (Auto) 13 % (24-48) Monocytes (%) (Auto) 6 % (0-9) Eosinophils (%) (Auto) 0 % (0-3) Basophils (%) (Auto) 0 % (0-3) Neutrophils # (Auto) 5.3 x10^3uL (1.8-7.7) Lymphocytes # (Auto) 0.9 x10^3/uL (1.0-4.8) Monocytes # (Auto) 0.4 x10^3/uL (0.0-1.1) Eosinophils # (Auto) 0.0 x10^3/uL (0.0-0.7) Basophils # (Auto) 0.0 x10^3/uL (0.0-0.2) Sodium Level 142 mmol/L (136-145) Potassium Level 3.6 mmol/L (3.5-5.1) Chloride Level 106 mmol/L (98-107) Carbon Dioxide Level 29 mmol/L (21-32) Anion Gap 7 (6-14) Blood Urea Nitrogen 25 mg/dL (7-20) Creatinine 1.1 mg/dL (0.6-1.0) Estimated GFR (Cockcroft-Gault) 48.2 Glucose Level 146 mg/dL (70-99) Calcium Level 9.9 mg/dL (8.5-10.1) Iron Level 19 ug/dL (50-170) Total Iron Binding Capacity 376 ug/dL (250-450) Iron Saturation 5 % (15-34) Ferritin 39 ng/mL (8-252) Medications Active Scripts Medications Dose Route/Sig Max Daily Dose Days Date Category Zanaflex (Tizanidine Hcl) 4 Mg Capsule 1 Cap PO BID 07/31/17 Reported Furosemide 20 Mg Tablet 1 Tab PO DAILY 07/31/17 Reported Percocet 7.5-325 Mg Tablet (Oxycodone/Acetaminophen) 1 Each Tablet 2 Tab PO [id number] 07/31/17 Reported Zofran (Ondansetron Hcl) 4 Mg Tablet 1 Tab PO Q8HRS 07/31/17 Reported Carafate (Sucralfate) 1 Gm Tablet 1 Tab PO TIDAC 07/31/17 Reported Hydrochlorothiazide Tablet (Hydrochlorothiazide) 12.5 Mg Tablet 1 Tab PO DAILY 07/31/17 Reported Lorazepam 0.5 Mg Tablet 0.5 Tab PO PRN QEVNG 07/31/17 Reported Lorazepam 0.5 Mg Tablet 1 Tab PO BID 07/31/17 Reported Zoloft (Sertraline Hcl) 50 Mg Tablet 1 Tab PO DAILY 07/31/17 Reported Zoloft (Sertraline Hcl) 25 Mg Tablet 1 Tab PO DAILY 07/31/17 Reported Vision Vitamins (Beta-Carotene(A) W-C & E/Min) 1 Each Tablet 1 Each PO DAILY 02/15/15 Reported Calcium + D3 Er Tablet (Calcium Carb & Cit/Vitamin D3) 1 Each Tablet.er 1 Each PO 02/15/15 Reported Synthroid (Levothyroxine Sodium) 50 Mcg Tablet 50 Mcg PO DAILYAC 02/15/15 Reported Potassium Chloride 10 Meq Capsule.er 10 Meq PO DAILY 02/15/15 Reported Omeprazole 40 Mg Capsule.dr 1 Cap PO DAILY 02/15/15 Reported Cardizem Cd (Diltiazem Hcl) 180 Mg Cap.er.24h 180 Mg PO DAILY 02/15/15 Reported Impression . IMPRESSION: 1. Acute hypoxic respiratory failure secondary to highly acute pulmonary embolism/DVT. 2. History of rheumatic heart disease. 3. Lower extremity edema, +deep venous thrombosis. 4. No significant history of tobacco use. 5. Small left pleural effusion, which does not need any intervention. 6. wheezing, acute bronchospasm Plan . RECOMMENDATIONS: 1. 02 titration, fully heparinize the patient for acute pulmonary embolism. monitor for bleeding 2. venous Dopplers of lower extremities + dvt 3. The patient is anemic, and her hemoglobin will be closely followed up. It could be dilutional anemia. However, if anemia becomes an issue while on anticoagulation, then an IVC filter can be considered provided she has evidence of DVT. 4. Blood pressure is stable if she does become hypotensive, avoid TPA due to high risk of bleeding at her age. 5. start bronchodilators qid. 6. protonix for stress ulcer prophylaxis 7. Discussed with RN and PT. BREANNA NICOLE MD Jun 14, 2018 07:18
--- NOTE | 2018-06-14 08:00 | RAD ---
Acute abdomen series with chest, 3 views, 06/13/2018: HISTORY: Chest and abdominal pain Gas is present in large and small bowel in a nonspecific pattern. No free air is seen in the abdomen. There is no evidence organomegaly. Surgical clips are present in the upper abdomen. Coarse gluteal calcifications are present. Aortoiliac calcific plaquing is present. There is a moderate thoracolumbar scoliosis with multilevel degenerative change. The heart size and pulmonary vascularity are normal. There is calcific plaquing and tortuosity of the thoracic aorta. A retrocardiac density medially in the left lower chest is unchanged and is probably due to a combination of the tortuous aorta and a known hiatal hernia. Slight blunting of left lateral costophrenic angle is unchanged since earlier in the day. There is minimal right perihilar atelectasis. IMPRESSION: No acute abdominal abnormality is detected. Electronically signed by: Donavan Rachel MD (06/14/2018 7:56 AM) [facility]
[2018-06-14] MEDS: IPRATRPIUM/ALBUTEROL 0.5/2.5MG 3 ML NEBU. NEB SCH ×4 (08:22→19:43)
[2018-06-14] MEDS ORDERED: SERTRALINE 25 MG TABLET. PO SCH (09:00)
[2018-06-14] MEDS: POTASSIUM CHLORIDE 10 MEQ TABLET.ER. PO SCH (09:01)
[2018-06-14] MEDS: SUCRALFATE 1 GM TABLET. PO SCH ×3 (09:01→17:13)
[2018-06-14] MEDS: PANTOPRAZOLE 40 MG TABLET.DR. PO SCH (09:01)
[2018-06-14] MEDS: hydroCHLOROthiazide 12.5 MG CAPSULE PO SCH (09:01)
[2018-06-14] MEDS: MULTIVITAMIN I-VITE TABLET. PO SCH (09:01)
[2018-06-14] MEDS: LEVOTHYROXINE 50 MCG TABLET PO SCH (09:01)
[2018-06-14] MEDS: tiZANidine 4 MG TABLET. PO SCH ×2 (09:02→21:25)
[2018-06-14] MEDS: LORazepam 0.5 MG TABLET PO SCH ×2 (09:02→21:25)
[2018-06-14] MEDS: ANTI-COAG MONITOR BY PHARMACY. MC PRN (09:14)
[2018-06-14 11:00] VITALS: BP 96/54
[2018-06-14] MEDS: SERTRALINE 50 MG TABLET. PO SCH (11:48)
[2018-06-14] MEDS: IRON SUCROSE COMPLEX 200 MG in IV NORMAL SALINE 100ML 100 ML IV SCH (11:57)
--- NOTE | 2018-06-14 14:23 | PDOC ---
PROGRESS NOTES Chief Complaint Chief Complaint acute hypoxic resp failure with PE likely BL DVT Pafib no AC h/o DVT h/o CAD wo PCI GERD HTN HYpothyroidism depression anxiety denies asthma or copd rheumatic heart dz benign aortic tumor graves dz chronic pain anemia, iron deficient Hypomagnesemia possible UTI (urinary tract infection) Elevation of cardiac enzymes Renal insufficiency CKD3 Hypercalcemia Hypokalemia Elevated liver function tests Elevated d-dimer Chronic dislocation of left shoulder SNF resident plan: fu with pulm on heparin drip check bl leg dvt +, echo pending cont home meds check KUB since mild abd pain, neg KUB on non breather for now, duoneb added add iron iv daily x5ds ceftriaxone for now PTOT History of Present Illness History of Present Illness ROS: no fever, chills, chest pain likely PE still on non breather, 12l bl dvt Vitals Vitals Vital Signs Date Time Temp Pulse Resp B/P (MAP) Pulse Ox O2 Delivery O2 Flow Rate FiO2 06/14/18 12:48 94 NonRebreather Mask 15.0 06/14/18 11:00 98.3 69 16 96/54 (68) 98.3 Physical Exam General: Alert, Oriented X3, Cooperative Heart: Regular rate, Normal S1, Normal S2 Lungs: Wheezing Abdomen: Normal bowel sounds, Soft Extremities: No clubbing, No cyanosis Skin: No rashes Labs LABS Laboratory Tests Test 06/13/18 15:00 06/13/18 16:52 06/13/18 20:45 06/14/18 04:00 Troponin I Quantitative 0.320 ng/mL (0.000-0.055) 0.359 ng/mL (0.000-0.055) Heparin Anti-Xa Act, Unfractionated > 1.10 IU/mL (0.30-0.70) 0.92 IU/mL (0.30-0.70) White Blood Count 6.6 x10^3/uL (4.0-11.0) Red Blood Count 3.28 x10^6/uL (3.50-5.40) Hemoglobin 7.3 g/dL (12.0-15.5) Hematocrit 23.7 % (36.0-47.0) Mean Corpuscular Volume 72 fL (79-100) Mean Corpuscular Hemoglobin 22 pg (25-35) Mean Corpuscular Hemoglobin Concent 31 g/dL (31-37) Red Cell Distribution Width 17.1 % (11.5-14.5) Platelet Count 287 x10^3/uL (140-400) Neutrophils (%) (Auto) 81 % (31-73) Lymphocytes (%) (Auto) 13 % (24-48) Monocytes (%) (Auto) 6 % (0-9) Eosinophils (%) (Auto) 0 % (0-3) Basophils (%) (Auto) 0 % (0-3) Neutrophils # (Auto) 5.3 x10^3uL (1.8-7.7) Lymphocytes # (Auto) 0.9 x10^3/uL (1.0-4.8) Monocytes # (Auto) 0.4 x10^3/uL (0.0-1.1) Eosinophils # (Auto) 0.0 x10^3/uL (0.0-0.7) Basophils # (Auto) 0.0 x10^3/uL (0.0-0.2) Sodium Level 142 mmol/L (136-145) Potassium Level 3.6 mmol/L (3.5-5.1) Chloride Level 106 mmol/L (98-107) Carbon Dioxide Level 29 mmol/L (21-32) Anion Gap 7 (6-14) Blood Urea Nitrogen 25 mg/dL (7-20) Creatinine 1.1 mg/dL (0.6-1.0) Estimated GFR (Cockcroft-Gault) 48.2 Glucose Level 146 mg/dL (70-99) Calcium Level 9.9 mg/dL (8.5-10.1) Iron Level 19 ug/dL (50-170) Total Iron Binding Capacity 376 ug/dL (250-450) Iron Saturation 5 % (15-34) Ferritin 39 ng/mL (8-252) Test 06/14/18 12:25 Heparin Anti-Xa Act, Unfractionated 0.85 IU/mL (0.30-0.70) Assessment and Plan Assessmemt and Plan Problems Medical Problems: (1) Acute respiratory distress Status: Acute (2) Chronic dislocation of left shoulder Status: Acute (3) Elevated d-dimer Status: Acute (4) Elevated liver function tests Status: Acute (5) Elevation of cardiac enzymes Status: Acute (6) Hypercalcemia Status: Acute (7) Hypokalemia Status: Acute (8) Hypomagnesemia Status: Acute (9) Hypoxemia Status: Acute (10) Renal insufficiency Status: Acute Comment Review of Relevant I have reviewed the following items thomas (where applicable) has been applied. Labs Laboratory Tests Test 06/13/18 09:30 06/13/18 09:35 06/13/18 10:40 06/13/18 15:00 O2 Saturation 87 % (92-99) Arterial Blood pH 7.41 (7.35-7.45) Arterial Blood pCO2 at Patient Temp 41 mmHg (35-46) Arterial Blood pO2 at Patient Temp 54 mmHg (65-108) Arterial Blood HCO3 26 mmol/L (21-28) Arterial Blood Base Excess 1 mmol/L (-3-3) FiO2 44% White Blood Count 10.5 x10^3/uL (4.0-11.0) Red Blood Count 3.51 x10^6/uL (3.50-5.40) Hemoglobin 7.7 g/dL (12.0-15.5) Hematocrit 25.1 % (36.0-47.0) Mean Corpuscular Volume 71 fL (79-100) Mean Corpuscular Hemoglobin 22 pg (25-35) Mean Corpuscular Hemoglobin Concent 31 g/dL (31-37) Red Cell Distribution Width 17.1 % (11.5-14.5) Platelet Count 287 x10^3/uL (140-400) Neutrophils (%) (Auto) 72 % (31-73) Lymphocytes (%) (Auto) 17 % (24-48) Monocytes (%) (Auto) 7 % (0-9) Eosinophils (%) (Auto) 2 % (0-3) Basophils (%) (Auto) 2 % (0-3) Neutrophils # (Auto) 7.6 x10^3uL (1.8-7.7) Lymphocytes # (Auto) 1.8 x10^3/uL (1.0-4.8) Monocytes # (Auto) 0.7 x10^3/uL (0.0-1.1) Eosinophils # (Auto) 0.2 x10^3/uL (0.0-0.7) Basophils # (Auto) 0.2 x10^3/uL (0.0-0.2) Platelet Estimate Adequate (ADEQUATE) Large Platelets Occ Polychromasia Slight Hypochromasia Mod Anisocytosis Slight Microcytosis Mod Prothrombin Time 14.0 SEC (11.7-14.0) Prothromb Time International Ratio 1.1 (0.8-1.1) D-Dimer ([place]) 4.10 ug/mlFEU (0.00-0.50) Sodium Level 142 mmol/L (136-145) Potassium Level 3.4 mmol/L (3.5-5.1) Chloride Level 106 mmol/L (98-107) Carbon Dioxide Level 27 mmol/L (21-32) Anion Gap 9 (6-14) Blood Urea Nitrogen 29 mg/dL (7-20) Creatinine 1.5 mg/dL (0.6-1.0) Estimated GFR (Cockcroft-Gault) 33.7 BUN/Creatinine Ratio 19 (6-20) Glucose Level 94 mg/dL (70-99) Lactic Acid Level 1.1 mmol/L (0.4-2.0) Calcium Level 10.6 mg/dL (8.5-10.1) Magnesium Level 1.2 mg/dL (1.8-2.4) Total Bilirubin 0.3 mg/dL (0.2-1.0) Aspartate Amino Transf (AST/SGOT) 27 U/L (15-37) Alanine Aminotransferase (ALT/SGPT) 14 U/L (14-59) Alkaline Phosphatase 137 U/L (46-116) Creatine Kinase 328 U/L (26-192) Creatine Kinase MB (Mass) 8.2 ng/mL (0.0-3.6) Creatine Kinase MB Relative Index 2.5 % (0-4) Troponin I Quantitative 0.099 ng/mL (0.000-0.055) 0.320 ng/mL (0.000-0.055) ZC-Vkk-E-Type Natriuretic Peptide 267 pg/mL (0-449) Total Protein 6.0 g/dL (6.4-8.2) Albumin 3.2 g/dL (3.4-5.0) Albumin/Globulin Ratio 1.1 (1.0-1.7) Urine Collection Type U cath Urine Color Yellow Urine Clarity Clear Urine pH 5.0 Urine Specific [place] 1.020 Urine Protein Negative mg/dL (NEG-TRACE) Urine Glucose (UA) Negative mg/dL (NEG) Urine Ketones (Stick) Negative mg/dL (NEG) Urine Blood Negative (NEG) Urine Nitrite Negative (NEG) Urine Bilirubin Negative (NEG) Urine Urobilinogen Dipstick 0.2 mg/dL (0.2 mg/dL) Urine Leukocyte Esterase Small (NEG) Urine RBC 1-2 /HPF (0-2) Urine WBC 5-10 /HPF (0-4) Urine Squamous Epithelial Cells Mod /LPF Urine Bacteria Many /HPF (0-FEW) Urine Hyaline Casts Few /HPF Urine Mucus Mod /LPF Test 06/13/18 16:52 06/13/18 20:45 06/14/18 04:00 06/14/18 12:25 Troponin I Quantitative 0.359 ng/mL (0.000-0.055) Heparin Anti-Xa Act, Unfractionated > 1.10 IU/mL (0.30-0.70) 0.92 IU/mL (0.30-0.70) 0.85 IU/mL (0.30-0.70) White Blood Count 6.6 x10^3/uL (4.0-11.0) Red Blood Count 3.28 x10^6/uL (3.50-5.40) Hemoglobin 7.3 g/dL (12.0-15.5) Hematocrit 23.7 % (36.0-47.0) Mean Corpuscular Volume 72 fL (79-100) Mean Corpuscular Hemoglobin 22 pg (25-35) Mean Corpuscular Hemoglobin Concent 31 g/dL (31-37) Red Cell Distribution Width 17.1 % (11.5-14.5) Platelet Count 287 x10^3/uL (140-400) Neutrophils (%) (Auto) 81 % (31-73) Lymphocytes (%) (Auto) 13 % (24-48) Monocytes (%) (Auto) 6 % (0-9) Eosinophils (%) (Auto) 0 % (0-3) Basophils (%) (Auto) 0 % (0-3) Neutrophils # (Auto) 5.3 x10^3uL (1.8-7.7) Lymphocytes # (Auto) 0.9 x10^3/uL (1.0-4.8) Monocytes # (Auto) 0.4 x10^3/uL (0.0-1.1) Eosinophils # (Auto) 0.0 x10^3/uL (0.0-0.7) Basophils # (Auto) 0.0 x10^3/uL (0.0-0.2) Sodium Level 142 mmol/L (136-145) Potassium Level 3.6 mmol/L (3.5-5.1) Chloride Level 106 mmol/L (98-107) Carbon Dioxide Level 29 mmol/L (21-32) Anion Gap 7 (6-14) Blood Urea Nitrogen 25 mg/dL (7-20) Creatinine 1.1 mg/dL (0.6-1.0) Estimated GFR (Cockcroft-Gault) 48.2 Glucose Level 146 mg/dL (70-99) Calcium Level 9.9 mg/dL (8.5-10.1) Iron Level 19 ug/dL (50-170) Total Iron Binding Capacity 376 ug/dL (250-450) Iron Saturation 5 % (15-34) Ferritin 39 ng/mL (8-252) Laboratory Tests Test 06/13/18 15:00 06/13/18 16:52 06/13/18 20:45 06/14/18 04:00 Troponin I Quantitative 0.320 ng/mL (0.000-0.055) 0.359 ng/mL (0.000-0.055) Heparin Anti-Xa Act, Unfractionated > 1.10 IU/mL (0.30-0.70) 0.92 IU/mL (0.30-0.70) White Blood Count 6.6 x10^3/uL (4.0-11.0) Red Blood Count 3.28 x10^6/uL (3.50-5.40) Hemoglobin 7.3 g/dL (12.0-15.5) Hematocrit 23.7 % (36.0-47.0) Mean Corpuscular Volume 72 fL (79-100) Mean Corpuscular Hemoglobin 22 pg (25-35) Mean Corpuscular Hemoglobin Concent 31 g/dL (31-37) Red Cell Distribution Width 17.1 % (11.5-14.5) Platelet Count 287 x10^3/uL (140-400) Neutrophils (%) (Auto) 81 % (31-73) Lymphocytes (%) (Auto) 13 % (24-48) Monocytes (%) (Auto) 6 % (0-9) Eosinophils (%) (Auto) 0 % (0-3) Basophils (%) (Auto) 0 % (0-3) Neutrophils # (Auto) 5.3 x10^3uL (1.8-7.7) Lymphocytes # (Auto) 0.9 x10^3/uL (1.0-4.8) Monocytes # (Auto) 0.4 x10^3/uL (0.0-1.1) Eosinophils # (Auto) 0.0 x10^3/uL (0.0-0.7) Basophils # (Auto) 0.0 x10^3/uL (0.0-0.2) Sodium Level 142 mmol/L (136-145) Potassium Level 3.6 mmol/L (3.5-5.1) Chloride Level 106 mmol/L (98-107) Carbon Dioxide Level 29 mmol/L (21-32) Anion Gap 7 (6-14) Blood Urea Nitrogen 25 mg/dL (7-20) Creatinine 1.1 mg/dL (0.6-1.0) Estimated GFR (Cockcroft-Gault) 48.2 Glucose Level 146 mg/dL (70-99) Calcium Level 9.9 mg/dL (8.5-10.1) Iron Level 19 ug/dL (50-170) Total Iron Binding Capacity 376 ug/dL (250-450) Iron Saturation 5 % (15-34) Ferritin 39 ng/mL (8-252) Test 06/14/18 12:25 Heparin Anti-Xa Act, Unfractionated 0.85 IU/mL (0.30-0.70) Microbiology 06/13/18 Blood Culture - Preliminary, Resulted NO GROWTH AFTER 1 DAY Medications Current Medications Albuterol/ Ipratropium (Duoneb) 3 ml 1X ONCE NEB Last administered on at 09:55; Start 06/13/18 at 09:30; Stop 06/13/18 at 09:38; Status DC Methylprednisolone Sodium Succinate (SOLU-Medrol 125MG VIAL) 125 mg 1X ONCE IV Last administered on 06/13/18at 09:55; Start 06/13/18 at 09:30; Stop 06/13/18 at 09:38; Status DC Magnesium Sulfate 50 ml @ 25 mls/hr 1X ONCE IV Last administered on 06/13/18at 14:44; Start 06/13/18 at 11:00; Stop 06/13/18 at 12:59; Status DC Ceftriaxone Sodium 1 gm/ Dextrose 50 ml @ 100 mls/hr 1X STAT IV ; Start at 11:08; Stop 06/13/18 at 11:13; Status DC Ceftriaxone Sodium 50 ml @ 100 mls/hr 1X ONCE IV Last administered on at 11:50; Start 06/13/18 at 11:15; Stop 06/13/18 at 11:44; Status DC Lorazepam (Ativan) 0.25 mg PRN QEVNG PRN PO ANXIETY / AGITATION; Start at 13:00 Lorazepam (Ativan) 0.5 mg BID PO Last administered on 06/14/18at 09:02; Start at 21:00 Oxycodone/ Acetaminophen (Percocet 7.5/ 325) 2 tab [id number] PO Last administered on 06/14/18at 11:48; Start 06/13/18 at 13:00 Potassium Chloride (Klor-Con) 10 meq DAILY PO Last administered on 06/14/18at 09 :01; Start 06/13/18 at 13:00 Sertraline HCl (Zoloft) 50 mg DAILY PO Last administered on 06/14/18at 11:48; Start 06/13/18 at 13:00 Multivitamins/ Minerals (I-Bowen) 1 tab DAILY PO Last administered on 06/14/18at 09:01; Start 06/13/18 at 13:00 Diltiazem HCl (Cardizem 24hr Cd) 180 mg DAILY PO Last administered on 09:01; Start 06/13/18 at 13:00 Hydrochlorothiazide (Microzide) 12.5 mg DAILY PO Last administered on 09:01; Start 06/13/18 at 13:00 Levothyroxine Sodium (Synthroid) 50 mcg DAILYAC PO Last administered on 09:01; Start 06/13/18 at 13:00 Pantoprazole Sodium (Protonix) 40 mg DAILYAC PO Last administered on 06/14/18at 09:01; Start 06/13/18 at 13:00 Ondansetron HCl (Zofran Odt) 4 mg Q8HRS PO Last administered on 06/14/18at 14:02 ; Start 06/13/18 at 14:00 Sertraline HCl (Zoloft) 25 mg DAILY PO ; Start 06/14/18 at 09:00; Status UNV Sucralfate (Carafate) 1 gm TIDAC PO Last administered on 06/14/18at 11:47; Start 06/13/18 at 16:30 Tizanidine HCl (Zanaflex) 4 mg BID PO Last administered on 06/14/18at 09:02; Start 06/13/18 at 21:00 Heparin Sodium (Porcine) (Heparin Sodium) 4,700 unit 1X ONCE IV Last administered on 06/13/18at 15:00; Start 06/13/18 at 15:00; Stop 06/13/18 at 15:01 ; Status DC Heparin Sodium/ Dextrose 500 ml @ 0 mls/hr CONT PRN IV SEE I/O RECORD Last administered on 06/13/18at 16:45; Start 06/13/18 at 15:00 Heparin Sodium (Porcine) (Heparin Sodium) 1,750 unit PRN Q6HRS PRN IV FOR UFH LEVEL LESS THAN 0.2; Start 06/13/18 at 15:00 Heparin Sodium (Porcine) (Heparin Sodium) 850 unit PRN Q6HRS PRN IV FOR UFH LEVEL 0.2 - 0.29; Start 06/13/18 at 15:00 Ceftriaxone Sodium 1 gm/ Dextrose 50 ml @ 100 mls/hr DAILY IV ; Start 06/14/18 at 09:00; Status UNV Acetaminophen (Tylenol) 650 mg PRN Q6HRS PRN PO FEVER; Start 06/13/18 at 17:30 Ondansetron HCl (Zofran) 4 mg PRN Q6HRS PRN IV NAUSEA/VOMITING 1ST CHOICE; Start 06/13/18 at 17:30 Morphine Sulfate (Morphine Sulfate) 2 mg PRN Q2HR PRN IV MODERATE TO SEVERE PAIN; Start 06/13/18 at 17:30 Tramadol HCl (Ultram) 50 mg PRN Q6HRS PRN PO MILD TO MODERATE PAIN; Start 06/13 at 17:30 Hydralazine HCl (Apresoline Inj) 10 mg PRN Q4HRS PRN IVP ELEVATED BP, SEE COMMENTS; Start 06/13/18 at 17:30 Docusate Sodium (Colace) 100 mg PRN DAILY PRN PO CONSTIPATION; Start 06/13/18 at 17:30 Magnesium Sulfate 50 ml @ 25 mls/hr 1X ONCE IV Last administered on 06/13/18at 18:35; Start 06/13/18 at 17:45; Stop 06/13/18 at 19:44; Status DC Ceftriaxone Sodium (Rocephin) 1 gm Q24H IVP ; Start 06/14/18 at 17:30 Info (Anti-Coagulation Monitoring By Pharmacy) 1 each PRN DAILY PRN MC SEE COMMENTS Last administered on 06/14/18at 09:14; Start 06/13/18 at 17:30 Albuterol/ Ipratropium (Duoneb) 3 ml RTQID NEB Last administered on 06/14/18at 11:45; Start 06/14/18 at 08:00 Lactobacillus Rhamnosus (Culturelle) 1 cap BID PO ; Start 06/14/18 at 21:00 Iron Sucrose 200 mg/Sodium Chloride 110 ml @ 55 mls/hr DAILY IV Last administered on 06/14/18at 11:57; Start 06/14/18 at 11:30 Active Scripts Active Reported Zanaflex (Tizanidine Hcl) 4 Mg Capsule 1 Cap PO BID Furosemide 20 Mg Tablet 1 Tab PO DAILY Percocet 7.5-325 Mg Tablet (Oxycodone/Acetaminophen) 1 Each Tablet 2 Tab PO [id number] Zofran (Ondansetron Hcl) 4 Mg Tablet 1 Tab PO Q8HRS Carafate (Sucralfate) 1 Gm Tablet 1 Tab PO TIDAC Hydrochlorothiazide Tablet (Hydrochlorothiazide) 12.5 Mg Tablet 1 Tab PO DAILY Lorazepam 0.5 Mg Tablet 0.5 Tab PO PRN QEVNG Lorazepam 0.5 Mg Tablet 1 Tab PO BID Zoloft (Sertraline Hcl) 50 Mg Tablet 1 Tab PO DAILY Zoloft (Sertraline Hcl) 25 Mg Tablet 1 Tab PO DAILY Vision Vitamins (Beta-Carotene(A) W-C & E/Min) 1 Each Tablet 1 Each PO DAILY Calcium + D3 Er Tablet (Calcium Carb & Cit/Vitamin D3) 1 Each Tablet.er 1 Each PO Synthroid (Levothyroxine Sodium) 50 Mcg Tablet 50 Mcg PO DAILYAC Potassium Chloride 10 Meq Capsule.er 10 Meq PO DAILY Omeprazole 40 Mg Capsule.dr 1 Cap PO DAILY Cardizem Cd (Diltiazem Hcl) 180 Mg Cap.er.24h 180 Mg PO DAILY Vitals/I & O Vital Sign - Last 24 Hours 06/13/18 06/13/18 06/13/18 06/13/18 14:41 14:42 15:00 15:32 Temp 97.7 97.7 Pulse 84 112 Resp 20 B/P (MAP) 130/60 168/111 (130) Pulse Ox 95 O2 Delivery NonRebreather Mask NonRebreather Mask Bi-pap O2 Flow Rate 15.0 15.0 15.0 06/13/18 06/13/18 06/13/18 06/13/18 15:57 19:05 20:02 23:26 Temp 98.1 98.1 Pulse 91 Resp 17 B/P (MAP) 128/70 (89) Pulse Ox 100 94 O2 Delivery BiPAP/CPAP Nasal Cannula Non-Rebreather NonRebreather Mask O2 Flow Rate 10.0 15.0 06/13/18 06/14/18 06/14/18 06/14/18 23:36 03:20 07:00 07:30 Temp 98.0 97.9 98.1 98.0 97.9 98.1 Pulse 83 73 71 Resp 16 16 16 B/P (MAP) 112/68 (83) 123/75 (91) 129/67 (87) Pulse Ox 97 96 93 O2 Delivery NonRebreather Mask NonRebreather Mask NonRebreather Mask Non- Rebreather O2 Flow Rate 15.0 15.0 06/14/18 06/14/18 06/14/18 06/14/18 08:25 09:01 11:00 11:45 Temp 98.3 98.3 Pulse 73 69 Resp 16 B/P (MAP) 123/75 96/54 (68) Pulse Ox 94 97 94 O2 Delivery NonRebreather Mask NonRebreather Mask NonRebreather Mask O2 Flow Rate 15.0 15.0 06/14/18 06/14/18 11:48 12:48 Pulse Ox 94 94 O2 Delivery NonRebreather Mask NonRebreather Mask O2 Flow Rate 15.0 15.0 Intake and Output 06/13/18 06/13/18 06/14/18 15:00 23:00 07:00 Intake Total 50 ml 300 ml 100 ml Output Total 500 ml Balance 50 ml 300 ml -400 ml RAHAT OLIVEIRA MD Jun 14, 2018 14:22
[2018-06-14 15:00] VITALS: BP 108/51
[2018-06-14] MEDS: cefTRIAXone IV Push 1 GM VIAL. IVP SCH (17:13)
[2018-06-14 19:10] VITALS: BP 97/55
[2018-06-14] MEDS: LACTOBACILLUS RHAMNOSUS GG 1 CAPSULE. PO SCH (21:25)
[2018-06-14 23:15] VITALS: BP 100/53
[2018-06-15] VITALS (7 sets, daily range): BP systolic 85–134; BP diastolic 42–67
[2018-06-15] MEDS: oxyCODONE/APAP 7.5/325 1 TAB TABLET PO SCH ×5 (00:42→23:24)
[2018-06-15 03:55] LABS: BASO % 1 % (0-3); EOS # 0.1 x10^3/uL (0.0-0.7); EOS % 1 % (0-3); HEMATOCRIT 21.9 % (36.0-47.0); LYMPH # 1.7 x10^3/uL (1.0-4.8); LYMPH % 18 % (24-48); MEAN CORPUSCULAR HEMOGLOBIN 22 pg (25-35); MEAN CORPUSCULAR HGB CONC 31 g/dL (31-37); MEAN CORPUSCULAR VOLUME 72 fL (79-100); MONO # 0.7 x10^3/uL (0.0-1.1); MONO % 8 % (0-9); NEUT % 73 % (31-73); PLATELET COUNT 293 x10^3/uL (140-400); RED BLOOD COUNT 3.05 x10^6/uL (3.50-5.40); RED CELL DISTRIBUTION WIDTH 17.6 % (11.5-14.5); WHITE BLOOD COUNT 9.6 x10^3/uL (4.0-11.0)
[2018-06-15 04:19] LABS: CALCIUM 10.3 mg/dL (8.5-10.1); CREATININE 1.1 mg/dL (0.6-1.0); GFR 48.2; POTASSIUM 3.6 mmol/L (3.5-5.1)
[2018-06-15] MEDS: HEPARIN 25,000UTS/500ML PREMIX 500 ML IV PRN (04:33)
[2018-06-15 04:50] LABS: HEMOGLOBIN 6.7 g/dL (12.0-15.5)
[2018-06-15] MEDS: LEVOTHYROXINE 50 MCG TABLET PO SCH (06:58)
[2018-06-15] MEDS: ONDANSETRON ODT 4 MG TAB.RAPDIS. PO SCH ×3 (07:03→22:02)
[2018-06-15] MEDS: IPRATRPIUM/ALBUTEROL 0.5/2.5MG 3 ML NEBU. NEB SCH ×4 (07:13→18:29)
--- NOTE | 2018-06-15 08:13 | PDOC ---
PULMONARY PROGRESS NOTES Subjective on 02 8 lpm, on hep gtt, slight cp, sob better, no cough Vitals Vital Signs Date Time Temp Pulse Resp B/P (MAP) Pulse Ox O2 Delivery O2 Flow Rate FiO2 06/15/18 07:49 98.2 65 12 134/63 (86) 97 NonRebreather Mask 10.0 98.2 ROS: No Nausea General: Alert HEENT: Other (nc at perrl) Lungs: Crackles Cardiovascular: S1, S2 Abdomen: Soft, Non-tender Neuro Exam: Alert Extremities: Other (edema) Skin: Warm Labs Laboratory Tests Test 06/13/18 09:30 06/13/18 09:35 06/13/18 10:40 06/13/18 15:00 O2 Saturation 87 % (92-99) Arterial Blood pH 7.41 (7.35-7.45) Arterial Blood pCO2 at Patient Temp 41 mmHg (35-46) Arterial Blood pO2 at Patient Temp 54 mmHg (65-108) Arterial Blood HCO3 26 mmol/L (21-28) Arterial Blood Base Excess 1 mmol/L (-3-3) FiO2 44% White Blood Count 10.5 x10^3/uL (4.0-11.0) Red Blood Count 3.51 x10^6/uL (3.50-5.40) Hemoglobin 7.7 g/dL (12.0-15.5) Hematocrit 25.1 % (36.0-47.0) Mean Corpuscular Volume 71 fL (79-100) Mean Corpuscular Hemoglobin 22 pg (25-35) Mean Corpuscular Hemoglobin Concent 31 g/dL (31-37) Red Cell Distribution Width 17.1 % (11.5-14.5) Platelet Count 287 x10^3/uL (140-400) Neutrophils (%) (Auto) 72 % (31-73) Lymphocytes (%) (Auto) 17 % (24-48) Monocytes (%) (Auto) 7 % (0-9) Eosinophils (%) (Auto) 2 % (0-3) Basophils (%) (Auto) 2 % (0-3) Neutrophils # (Auto) 7.6 x10^3uL (1.8-7.7) Lymphocytes # (Auto) 1.8 x10^3/uL (1.0-4.8) Monocytes # (Auto) 0.7 x10^3/uL (0.0-1.1) Eosinophils # (Auto) 0.2 x10^3/uL (0.0-0.7) Basophils # (Auto) 0.2 x10^3/uL (0.0-0.2) Platelet Estimate Adequate (ADEQUATE) Large Platelets Occ Polychromasia Slight Hypochromasia Mod Anisocytosis Slight Microcytosis Mod Prothrombin Time 14.0 SEC (11.7-14.0) Prothromb Time International Ratio 1.1 (0.8-1.1) D-Dimer ([place]) 4.10 ug/mlFEU (0.00-0.50) Sodium Level 142 mmol/L (136-145) Potassium Level 3.4 mmol/L (3.5-5.1) Chloride Level 106 mmol/L (98-107) Carbon Dioxide Level 27 mmol/L (21-32) Anion Gap 9 (6-14) Blood Urea Nitrogen 29 mg/dL (7-20) Creatinine 1.5 mg/dL (0.6-1.0) Estimated GFR (Cockcroft-Gault) 33.7 BUN/Creatinine Ratio 19 (6-20) Glucose Level 94 mg/dL (70-99) Lactic Acid Level 1.1 mmol/L (0.4-2.0) Calcium Level 10.6 mg/dL (8.5-10.1) Magnesium Level 1.2 mg/dL (1.8-2.4) Total Bilirubin 0.3 mg/dL (0.2-1.0) Aspartate Amino Transf (AST/SGOT) 27 U/L (15-37) Alanine Aminotransferase (ALT/SGPT) 14 U/L (14-59) Alkaline Phosphatase 137 U/L (46-116) Creatine Kinase 328 U/L (26-192) Creatine Kinase MB (Mass) 8.2 ng/mL (0.0-3.6) Creatine Kinase MB Relative Index 2.5 % (0-4) Troponin I Quantitative 0.099 ng/mL (0.000-0.055) 0.320 ng/mL (0.000-0.055) RV-Jql-K-Type Natriuretic Peptide 267 pg/mL (0-449) Total Protein 6.0 g/dL (6.4-8.2) Albumin 3.2 g/dL (3.4-5.0) Albumin/Globulin Ratio 1.1 (1.0-1.7) Urine Collection Type U cath Urine Color Yellow Urine Clarity Clear Urine pH 5.0 Urine Specific [place] 1.020 Urine Protein Negative mg/dL (NEG-TRACE) Urine Glucose (UA) Negative mg/dL (NEG) Urine Ketones (Stick) Negative mg/dL (NEG) Urine Blood Negative (NEG) Urine Nitrite Negative (NEG) Urine Bilirubin Negative (NEG) Urine Urobilinogen Dipstick 0.2 mg/dL (0.2 mg/dL) Urine Leukocyte Esterase Small (NEG) Urine RBC 1-2 /HPF (0-2) Urine WBC 5-10 /HPF (0-4) Urine Squamous Epithelial Cells Mod /LPF Urine Bacteria Many /HPF (0-FEW) Urine Hyaline Casts Few /HPF Urine Mucus Mod /LPF Test 06/13/18 16:52 06/13/18 20:45 06/14/18 04:00 06/14/18 12:25 Troponin I Quantitative 0.359 ng/mL (0.000-0.055) Heparin Anti-Xa Act, Unfractionated > 1.10 IU/mL (0.30-0.70) 0.92 IU/mL (0.30-0.70) 0.85 IU/mL (0.30-0.70) White Blood Count 6.6 x10^3/uL (4.0-11.0) Red Blood Count 3.28 x10^6/uL (3.50-5.40) Hemoglobin 7.3 g/dL (12.0-15.5) Hematocrit 23.7 % (36.0-47.0) Mean Corpuscular Volume 72 fL (79-100) Mean Corpuscular Hemoglobin 22 pg (25-35) Mean Corpuscular Hemoglobin Concent 31 g/dL (31-37) Red Cell Distribution Width 17.1 % (11.5-14.5) Platelet Count 287 x10^3/uL (140-400) Neutrophils (%) (Auto) 81 % (31-73) Lymphocytes (%) (Auto) 13 % (24-48) Monocytes (%) (Auto) 6 % (0-9) Eosinophils (%) (Auto) 0 % (0-3) Basophils (%) (Auto) 0 % (0-3) Neutrophils # (Auto) 5.3 x10^3uL (1.8-7.7) Lymphocytes # (Auto) 0.9 x10^3/uL (1.0-4.8) Monocytes # (Auto) 0.4 x10^3/uL (0.0-1.1) Eosinophils # (Auto) 0.0 x10^3/uL (0.0-0.7) Basophils # (Auto) 0.0 x10^3/uL (0.0-0.2) Sodium Level 142 mmol/L (136-145) Potassium Level 3.6 mmol/L (3.5-5.1) Chloride Level 106 mmol/L (98-107) Carbon Dioxide Level 29 mmol/L (21-32) Anion Gap 7 (6-14) Blood Urea Nitrogen 25 mg/dL (7-20) Creatinine 1.1 mg/dL (0.6-1.0) Estimated GFR (Cockcroft-Gault) 48.2 Glucose Level 146 mg/dL (70-99) Calcium Level 9.9 mg/dL (8.5-10.1) Iron Level 19 ug/dL (50-170) Total Iron Binding Capacity 376 ug/dL (250-450) Iron Saturation 5 % (15-34) Ferritin 39 ng/mL (8-252) Test 06/14/18 19:30 06/15/18 03:40 Heparin Anti-Xa Act, Unfractionated 0.58 IU/mL (0.30-0.70) 0.41 IU/mL (0.30-0.70) White Blood Count 9.6 x10^3/uL (4.0-11.0) Red Blood Count 3.05 x10^6/uL (3.50-5.40) Hemoglobin 6.7 g/dL (12.0-15.5) Hematocrit 21.9 % (36.0-47.0) Mean Corpuscular Volume 72 fL (79-100) Mean Corpuscular Hemoglobin 22 pg (25-35) Mean Corpuscular Hemoglobin Concent 31 g/dL (31-37) Red Cell Distribution Width 17.6 % (11.5-14.5) Platelet Count 293 x10^3/uL (140-400) Neutrophils (%) (Auto) 73 % (31-73) Lymphocytes (%) (Auto) 18 % (24-48) Monocytes (%) (Auto) 8 % (0-9) Eosinophils (%) (Auto) 1 % (0-3) Basophils (%) (Auto) 1 % (0-3) Neutrophils # (Auto) 7.0 x10^3uL (1.8-7.7) Lymphocytes # (Auto) 1.7 x10^3/uL (1.0-4.8) Monocytes # (Auto) 0.7 x10^3/uL (0.0-1.1) Eosinophils # (Auto) 0.1 x10^3/uL (0.0-0.7) Basophils # (Auto) 0.0 x10^3/uL (0.0-0.2) Sodium Level 143 mmol/L (136-145) Potassium Level 3.6 mmol/L (3.5-5.1) Chloride Level 107 mmol/L (98-107) Carbon Dioxide Level 31 mmol/L (21-32) Anion Gap 5 (6-14) Blood Urea Nitrogen 24 mg/dL (7-20) Creatinine 1.1 mg/dL (0.6-1.0) Estimated GFR (Cockcroft-Gault) 48.2 Glucose Level 109 mg/dL (70-99) Calcium Level 10.3 mg/dL (8.5-10.1) Laboratory Tests Test 06/14/18 12:25 06/14/18 19:30 06/15/18 03:40 Heparin Anti-Xa Act, Unfractionated 0.85 IU/mL (0.30-0.70) 0.58 IU/mL (0.30-0.70) 0.41 IU/mL (0.30-0.70) White Blood Count 9.6 x10^3/uL (4.0-11.0) Red Blood Count 3.05 x10^6/uL (3.50-5.40) Hemoglobin 6.7 g/dL (12.0-15.5) Hematocrit 21.9 % (36.0-47.0) Mean Corpuscular Volume 72 fL (79-100) Mean Corpuscular Hemoglobin 22 pg (25-35) Mean Corpuscular Hemoglobin Concent 31 g/dL (31-37) Red Cell Distribution Width 17.6 % (11.5-14.5) Platelet Count 293 x10^3/uL (140-400) Neutrophils (%) (Auto) 73 % (31-73) Lymphocytes (%) (Auto) 18 % (24-48) Monocytes (%) (Auto) 8 % (0-9) Eosinophils (%) (Auto) 1 % (0-3) Basophils (%) (Auto) 1 % (0-3) Neutrophils # (Auto) 7.0 x10^3uL (1.8-7.7) Lymphocytes # (Auto) 1.7 x10^3/uL (1.0-4.8) Monocytes # (Auto) 0.7 x10^3/uL (0.0-1.1) Eosinophils # (Auto) 0.1 x10^3/uL (0.0-0.7) Basophils # (Auto) 0.0 x10^3/uL (0.0-0.2) Sodium Level 143 mmol/L (136-145) Potassium Level 3.6 mmol/L (3.5-5.1) Chloride Level 107 mmol/L (98-107) Carbon Dioxide Level 31 mmol/L (21-32) Anion Gap 5 (6-14) Blood Urea Nitrogen 24 mg/dL (7-20) Creatinine 1.1 mg/dL (0.6-1.0) Estimated GFR (Cockcroft-Gault) 48.2 Glucose Level 109 mg/dL (70-99) Calcium Level 10.3 mg/dL (8.5-10.1) Medications Active Scripts Medications Dose Route/Sig Max Daily Dose Days Date Category Zanaflex (Tizanidine Hcl) 4 Mg Capsule 1 Cap PO BID 07/31/17 Reported Furosemide 20 Mg Tablet 1 Tab PO DAILY 07/31/17 Reported Percocet 7.5-325 Mg Tablet (Oxycodone/Acetaminophen) 1 Each Tablet 2 Tab PO [id number] 07/31/17 Reported Zofran (Ondansetron Hcl) 4 Mg Tablet 1 Tab PO Q8HRS 07/31/17 Reported Carafate (Sucralfate) 1 Gm Tablet 1 Tab PO TIDAC 07/31/17 Reported Hydrochlorothiazide Tablet (Hydrochlorothiazide) 12.5 Mg Tablet 1 Tab PO DAILY 07/31/17 Reported Lorazepam 0.5 Mg Tablet 0.5 Tab PO PRN QEVNG 07/31/17 Reported Lorazepam 0.5 Mg Tablet 1 Tab PO BID 07/31/17 Reported Zoloft (Sertraline Hcl) 50 Mg Tablet 1 Tab PO DAILY 07/31/17 Reported Zoloft (Sertraline Hcl) 25 Mg Tablet 1 Tab PO DAILY 07/31/17 Reported Vision Vitamins (Beta-Carotene(A) W-C & E/Min) 1 Each Tablet 1 Each PO DAILY 02/15/15 Reported Calcium + D3 Er Tablet (Calcium Carb & Cit/Vitamin D3) 1 Each Tablet.er 1 Each PO 02/15/15 Reported Synthroid (Levothyroxine Sodium) 50 Mcg Tablet 50 Mcg PO DAILYAC 02/15/15 Reported Potassium Chloride 10 Meq Capsule.er 10 Meq PO DAILY 02/15/15 Reported Omeprazole 40 Mg Capsule.dr 1 Cap PO DAILY 02/15/15 Reported Cardizem Cd (Diltiazem Hcl) 180 Mg Cap.er.24h 180 Mg PO DAILY 02/15/15 Reported Impression . IMPRESSION: 1. Acute hypoxic respiratory failure secondary to acute pulmonary embolism/DVT. 2. History of rheumatic heart disease. 3. Lower extremity edema, +deep venous thrombosis. 4. No significant history of tobacco use. 5. Small left pleural effusion, which does not need any intervention. 6. wheezing, acute bronchospasm, resolved Plan . RECOMMENDATIONS: 1. 02 titration, fully heparinize the patient for acute pulmonary embolism. monitor for bleeding 2. venous Dopplers of lower extremities + dvt, activity as tolerated 3. The patient is anemic, and her hemoglobin will be closely followed up. It could be dilutional anemia. However, if anemia becomes an issue while on anticoagulation, then an IVC filter can be considered provided she has evidence of DVT. 4. Blood pressure is stable if she does become hypotensive, avoid TPA due to high risk of bleeding at her age. 5. cont bronchodilators qid. 6. protonix for stress ulcer prophylaxis 7. Discussed with RT and Pt, RN. BREANNA NICOLE MD Jun 15, 2018 08:13
[2018-06-15] MEDS: PANTOPRAZOLE 40 MG TABLET.DR. PO SCH (08:18)
[2018-06-15] MEDS: tiZANidine 4 MG TABLET. PO SCH ×2 (08:18→22:02)
[2018-06-15] MEDS: SERTRALINE 50 MG TABLET. PO SCH (08:19)
[2018-06-15] MEDS: MULTIVITAMIN I-VITE TABLET. PO SCH (08:19)
[2018-06-15] MEDS: SUCRALFATE 1 GM TABLET. PO SCH ×3 (08:19→18:06)
[2018-06-15] MEDS: POTASSIUM CHLORIDE 10 MEQ TABLET.ER. PO SCH (08:19)
[2018-06-15] MEDS: LACTOBACILLUS RHAMNOSUS GG 1 CAPSULE. PO SCH ×2 (08:20→22:01)
[2018-06-15] MEDS: LORazepam 0.5 MG TABLET PO SCH ×2 (08:20→22:01)
[2018-06-15] MEDS: hydroCHLOROthiazide 12.5 MG CAPSULE PO SCH (08:20)
[2018-06-15] MEDS: IRON SUCROSE COMPLEX 200 MG in IV NORMAL SALINE 100ML 100 ML IV SCH (09:33)
--- NOTE | 2018-06-15 13:48 | CARD ---
MR#: [id number] Date of Study: 06/15/2018 Ordering Physician: RAHAT OLIVEIRA, Referring Physician: RAHAT OLIVEIRA, Tech: Lolita Hudson RDCS APPROVED REPORT EXAM: Two-dimensional and M-mode echocardiogram with Doppler and color Doppler. Other Information Quality : Good INDICATION Pulmonary Embolism 2D DIMENSIONS RVDd3.6 (2.9-3.5cm)Left Atrium(2D)3.3 (1.6-4.0cm) IVSd0.9 (0.7-1.1cm)Aortic Root(2D)2.3 (2.0-3.7cm) LVDd3.4 (3.9-5.9cm)LVOT Diameter2.0 (1.8-2.4cm) PWd0.9 (0.7-1.1cm)LVDs1.8 (2.5-4.0cm) FS (%) 30.0 %SV38.3 ml LVEF(%)60.0 (>50%) M-Mode DIMENSIONS Aortic Cusp Exc1.10 (1.5-2.0cm) Aortic Valve AoV Peak Ashok.193.9cm/sAoV VTI33.5cm AO Peak GR.15.0mmHgLVOT VTI 16.57cm AO Mean GR.8mmHgAVA (VTI)1.60cm2 AI P 1/2 [id number] Mitral Valve MV E Qptwjrmu54.6cm/sMV DECEL [id number] MV A Bbpggzyu26.3cm/sE/A Ratio0.8 TDI Lateral E' P. V4.12cm/sMedial E' P. V3.86cm/s E/Lateral E'16.7E/Medial E'17.8 Tricuspid Valve TR P. Axedpllz520lp/sRAP [id number] TR Peak Gr.53dmZnSFNI45hvKr LEFT VENTRICLE The left ventricle is normal size. There is normal left ventricular wall thickness. The left ventricu lar systolic function is normal and the ejection fraction is within normal range. The Ejection Fracti on is 55-60%. There is normal LV segmental wall motion. Transmitral Doppler flow pattern is Grade I-a bnormal relaxation pattern. RIGHT VENTRICLE The right ventricle is mildly dilated. Systolic function is mildly reduced. ATRIA The left atrium size is normal. The right atrium is moderately dilated. The interatrial septum is int act with no evidence for an atrial septal defect or patent foramen ovale as noted on 2-D or Doppler i maging. AORTIC VALVE The aortic valve is calcified and displays decreased opening. Doppler and Color Flow revealed mild ao rtic regurgitation. Calculated aortic valve area is 1.6 cm2 with maximum pressure gradient of 15 mmHg and mean pressure gradient of 8 mmHg. Doppler and color-flow analysis revealed mild aortic stenosis. MITRAL VALVE The mitral valve is calcified but opens well. There is no evidence of mitral valve prolapse. There is no mitral valve stenosis. Doppler and Color-flow revealed trace mitral regurgitation. TRICUSPID VALVE The tricuspid valve is normal in structure and function. Doppler and Color Flow revealed moderate tri cuspid regurgitation. The PA pressure was estimated at > 80 mmHg. There is no tricuspid valve stenosi s. PULMONIC VALVE The pulmonic valve is not well visualized. Doppler and Color Flow revealed no pulmonic valvular regur gitation. There is no pulmonic valvular stenosis. GREAT VESSELS The aortic root is normal in size. The ascending aorta is normal in size. The IVC is dilated and johan apses >50% with inspiration. PERICARDIAL EFFUSION There is no evidence of significant pericardial effusion. Critical Notification Critical Value: No <Conclusion> The left ventricle is normal size. The left ventricular systolic function is normal and the ejection fraction is within normal range. The Ejection Fraction is 55-60%. The right ventricle is mildly dilated. Systolic function is mildly reduced. The right atrium is moderately dilated. Calculated aortic valve area is 1.6 cm2 with maximum pressure gradient of 15 mmHg and mean pressure g radient of 8 mmHg. Doppler and color-flow analysis revealed mild aortic stenosis. Doppler and Color Flow revealed mild aortic regurgitation. Doppler and Color-flow revealed trace mitral regurgitation. Doppler and Color Flow revealed moderate tricuspid regurgitation. The PA pressure was estimated at > 80 mmHg. Signed by : Marcos Vo MD Electronically Approved : 06/15/2018 13:46:42
--- NOTE | 2018-06-15 14:12 | PDOC ---
PROGRESS NOTES Chief Complaint Chief Complaint acute hypoxic resp failure with PE likely BL DVT Pafib no AC h/o DVT h/o CAD wo PCI GERD HTN HYpothyroidism depression anxiety denies asthma or copd rheumatic heart dz benign aortic tumor graves dz chronic pain anemia, iron deficient, 1uprbc Hypomagnesemia possible UTI (urinary tract infection) Elevation of cardiac enzymes Renal insufficiency CKD3 Hypercalcemia Hypokalemia Elevated liver function tests Elevated d-dimer Chronic dislocation of left shoulder SNF resident plan: fu with pulm on heparin drip, NEED To fu with pulm to see change to PO AC check bl leg dvt +, echo pending cont home meds check KUB since mild abd pain, neg KUB on non breather for now, duoneb added add iron iv daily x5ds ceftriaxone for now PTOT 1U prbc TOday History of Present Illness History of Present Illness ROS: no fever, chills, chest pain likely PE on non breather, 12l better to NC 6L ON 06/15 bl dvt Vitals Vitals Vital Signs Date Time Temp Pulse Resp B/P (MAP) Pulse Ox O2 Delivery O2 Flow Rate FiO2 06/15/18 13:00 97.8 58 16 98/51 (67) Nasal Cannula 8.0 97.8 06/15/18 12:20 92 Physical Exam General: Alert, Oriented X3, Cooperative Heart: Regular rate, Normal S1, Normal S2 Lungs: Crackles Abdomen: Normal bowel sounds, Soft Extremities: No clubbing, No cyanosis Skin: No rashes Labs LABS Laboratory Tests Test 06/14/18 19:30 06/15/18 03:40 Heparin Anti-Xa Act, Unfractionated 0.58 IU/mL (0.30-0.70) 0.41 IU/mL (0.30-0.70) White Blood Count 9.6 x10^3/uL (4.0-11.0) Red Blood Count 3.05 x10^6/uL (3.50-5.40) Hemoglobin 6.7 g/dL (12.0-15.5) Hematocrit 21.9 % (36.0-47.0) Mean Corpuscular Volume 72 fL (79-100) Mean Corpuscular Hemoglobin 22 pg (25-35) Mean Corpuscular Hemoglobin Concent 31 g/dL (31-37) Red Cell Distribution Width 17.6 % (11.5-14.5) Platelet Count 293 x10^3/uL (140-400) Neutrophils (%) (Auto) 73 % (31-73) Lymphocytes (%) (Auto) 18 % (24-48) Monocytes (%) (Auto) 8 % (0-9) Eosinophils (%) (Auto) 1 % (0-3) Basophils (%) (Auto) 1 % (0-3) Neutrophils # (Auto) 7.0 x10^3uL (1.8-7.7) Lymphocytes # (Auto) 1.7 x10^3/uL (1.0-4.8) Monocytes # (Auto) 0.7 x10^3/uL (0.0-1.1) Eosinophils # (Auto) 0.1 x10^3/uL (0.0-0.7) Basophils # (Auto) 0.0 x10^3/uL (0.0-0.2) Sodium Level 143 mmol/L (136-145) Potassium Level 3.6 mmol/L (3.5-5.1) Chloride Level 107 mmol/L (98-107) Carbon Dioxide Level 31 mmol/L (21-32) Anion Gap 5 (6-14) Blood Urea Nitrogen 24 mg/dL (7-20) Creatinine 1.1 mg/dL (0.6-1.0) Estimated GFR (Cockcroft-Gault) 48.2 Glucose Level 109 mg/dL (70-99) Calcium Level 10.3 mg/dL (8.5-10.1) Assessment and Plan Assessmemt and Plan Problems Medical Problems: (1) Acute respiratory distress Status: Acute (2) Chronic dislocation of left shoulder Status: Acute (3) Elevated d-dimer Status: Acute (4) Elevated liver function tests Status: Acute (5) Elevation of cardiac enzymes Status: Acute (6) Hypercalcemia Status: Acute (7) Hypokalemia Status: Acute (8) Hypomagnesemia Status: Acute (9) Hypoxemia Status: Acute (10) Renal insufficiency Status: Acute Comment Review of Relevant I have reviewed the following items thomas (where applicable) has been applied. Labs Laboratory Tests Test 06/13/18 15:00 06/13/18 16:52 06/13/18 20:45 06/14/18 04:00 Troponin I Quantitative 0.320 ng/mL (0.000-0.055) 0.359 ng/mL (0.000-0.055) Heparin Anti-Xa Act, Unfractionated > 1.10 IU/mL (0.30-0.70) 0.92 IU/mL (0.30-0.70) White Blood Count 6.6 x10^3/uL (4.0-11.0) Red Blood Count 3.28 x10^6/uL (3.50-5.40) Hemoglobin 7.3 g/dL (12.0-15.5) Hematocrit 23.7 % (36.0-47.0) Mean Corpuscular Volume 72 fL (79-100) Mean Corpuscular Hemoglobin 22 pg (25-35) Mean Corpuscular Hemoglobin Concent 31 g/dL (31-37) Red Cell Distribution Width 17.1 % (11.5-14.5) Platelet Count 287 x10^3/uL (140-400) Neutrophils (%) (Auto) 81 % (31-73) Lymphocytes (%) (Auto) 13 % (24-48) Monocytes (%) (Auto) 6 % (0-9) Eosinophils (%) (Auto) 0 % (0-3) Basophils (%) (Auto) 0 % (0-3) Neutrophils # (Auto) 5.3 x10^3uL (1.8-7.7) Lymphocytes # (Auto) 0.9 x10^3/uL (1.0-4.8) Monocytes # (Auto) 0.4 x10^3/uL (0.0-1.1) Eosinophils # (Auto) 0.0 x10^3/uL (0.0-0.7) Basophils # (Auto) 0.0 x10^3/uL (0.0-0.2) Sodium Level 142 mmol/L (136-145) Potassium Level 3.6 mmol/L (3.5-5.1) Chloride Level 106 mmol/L (98-107) Carbon Dioxide Level 29 mmol/L (21-32) Anion Gap 7 (6-14) Blood Urea Nitrogen 25 mg/dL (7-20) Creatinine 1.1 mg/dL (0.6-1.0) Estimated GFR (Cockcroft-Gault) 48.2 Glucose Level 146 mg/dL (70-99) Calcium Level 9.9 mg/dL (8.5-10.1) Iron Level 19 ug/dL (50-170) Total Iron Binding Capacity 376 ug/dL (250-450) Iron Saturation 5 % (15-34) Ferritin 39 ng/mL (8-252) Test 06/14/18 12:25 06/14/18 19:30 06/15/18 03:40 Heparin Anti-Xa Act, Unfractionated 0.85 IU/mL (0.30-0.70) 0.58 IU/mL (0.30-0.70) 0.41 IU/mL (0.30-0.70) White Blood Count 9.6 x10^3/uL (4.0-11.0) Red Blood Count 3.05 x10^6/uL (3.50-5.40) Hemoglobin 6.7 g/dL (12.0-15.5) Hematocrit 21.9 % (36.0-47.0) Mean Corpuscular Volume 72 fL (79-100) Mean Corpuscular Hemoglobin 22 pg (25-35) Mean Corpuscular Hemoglobin Concent 31 g/dL (31-37) Red Cell Distribution Width 17.6 % (11.5-14.5) Platelet Count 293 x10^3/uL (140-400) Neutrophils (%) (Auto) 73 % (31-73) Lymphocytes (%) (Auto) 18 % (24-48) Monocytes (%) (Auto) 8 % (0-9) Eosinophils (%) (Auto) 1 % (0-3) Basophils (%) (Auto) 1 % (0-3) Neutrophils # (Auto) 7.0 x10^3uL (1.8-7.7) Lymphocytes # (Auto) 1.7 x10^3/uL (1.0-4.8) Monocytes # (Auto) 0.7 x10^3/uL (0.0-1.1) Eosinophils # (Auto) 0.1 x10^3/uL (0.0-0.7) Basophils # (Auto) 0.0 x10^3/uL (0.0-0.2) Sodium Level 143 mmol/L (136-145) Potassium Level 3.6 mmol/L (3.5-5.1) Chloride Level 107 mmol/L (98-107) Carbon Dioxide Level 31 mmol/L (21-32) Anion Gap 5 (6-14) Blood Urea Nitrogen 24 mg/dL (7-20) Creatinine 1.1 mg/dL (0.6-1.0) Estimated GFR (Cockcroft-Gault) 48.2 Glucose Level 109 mg/dL (70-99) Calcium Level 10.3 mg/dL (8.5-10.1) Laboratory Tests Test 06/14/18 19:30 06/15/18 03:40 Heparin Anti-Xa Act, Unfractionated 0.58 IU/mL (0.30-0.70) 0.41 IU/mL (0.30-0.70) White Blood Count 9.6 x10^3/uL (4.0-11.0) Red Blood Count 3.05 x10^6/uL (3.50-5.40) Hemoglobin 6.7 g/dL (12.0-15.5) Hematocrit 21.9 % (36.0-47.0) Mean Corpuscular Volume 72 fL (79-100) Mean Corpuscular Hemoglobin 22 pg (25-35) Mean Corpuscular Hemoglobin Concent 31 g/dL (31-37) Red Cell Distribution Width 17.6 % (11.5-14.5) Platelet Count 293 x10^3/uL (140-400) Neutrophils (%) (Auto) 73 % (31-73) Lymphocytes (%) (Auto) 18 % (24-48) Monocytes (%) (Auto) 8 % (0-9) Eosinophils (%) (Auto) 1 % (0-3) Basophils (%) (Auto) 1 % (0-3) Neutrophils # (Auto) 7.0 x10^3uL (1.8-7.7) Lymphocytes # (Auto) 1.7 x10^3/uL (1.0-4.8) Monocytes # (Auto) 0.7 x10^3/uL (0.0-1.1) Eosinophils # (Auto) 0.1 x10^3/uL (0.0-0.7) Basophils # (Auto) 0.0 x10^3/uL (0.0-0.2) Sodium Level 143 mmol/L (136-145) Potassium Level 3.6 mmol/L (3.5-5.1) Chloride Level 107 mmol/L (98-107) Carbon Dioxide Level 31 mmol/L (21-32) Anion Gap 5 (6-14) Blood Urea Nitrogen 24 mg/dL (7-20) Creatinine 1.1 mg/dL (0.6-1.0) Estimated GFR (Cockcroft-Gault) 48.2 Glucose Level 109 mg/dL (70-99) Calcium Level 10.3 mg/dL (8.5-10.1) Microbiology 06/13/18 Blood Culture - Preliminary, Resulted NO GROWTH AFTER 2 DAYS 06/13/18 Urine Culture - Preliminary, Resulted 06/13/18 Urine Culture Result 1 (XI) - Preliminary, Resulted Medications Current Medications Albuterol/ Ipratropium (Duoneb) 3 ml 1X ONCE NEB Last administered on at 09:55; Start 06/13/18 at 09:30; Stop 06/13/18 at 09:38; Status DC Methylprednisolone Sodium Succinate (SOLU-Medrol 125MG VIAL) 125 mg 1X ONCE IV Last administered on 06/13/18at 09:55; Start 06/13/18 at 09:30; Stop 06/13/18 at 09:38; Status DC Magnesium Sulfate 50 ml @ 25 mls/hr 1X ONCE IV Last administered on 06/13/18at 14:44; Start 06/13/18 at 11:00; Stop 06/13/18 at 12:59; Status DC Ceftriaxone Sodium 1 gm/ Dextrose 50 ml @ 100 mls/hr 1X STAT IV ; Start at 11:08; Stop 06/13/18 at 11:13; Status DC Ceftriaxone Sodium 50 ml @ 100 mls/hr 1X ONCE IV Last administered on at 11:50; Start 06/13/18 at 11:15; Stop 06/13/18 at 11:44; Status DC Lorazepam (Ativan) 0.25 mg PRN QEVNG PRN PO ANXIETY / AGITATION; Start at 13:00 Lorazepam (Ativan) 0.5 mg BID PO Last administered on 06/15/18at 08:20; Start at 21:00 Oxycodone/ Acetaminophen (Percocet 7.5/ 325) 2 tab [id number] PO Last administered on 06/15/18 11:21; Start 06/13/18 at 13:00 Potassium Chloride (Klor-Con) 10 meq DAILY PO Last administered on 06/15/18 08 :19; Start 06/13/18 at 13:00 Sertraline HCl (Zoloft) 50 mg DAILY PO Last administered on 06/15/18 08:19; Start 06/13/18 at 13:00 Multivitamins/ Minerals (I-Bowen) 1 tab DAILY PO Last administered on 06/15/18 08:19; Start 06/13/18 at 13:00 Diltiazem HCl (Cardizem 24hr Cd) 180 mg DAILY PO Last administered on 08:18; Start 06/13/18 at 13:00 Hydrochlorothiazide (Microzide) 12.5 mg DAILY PO Last administered on 08:20; Start 06/13/18 at 13:00 Levothyroxine Sodium (Synthroid) 50 mcg DAILYAC PO Last administered on at 06:58; Start 06/13/18 at 13:00 Pantoprazole Sodium (Protonix) 40 mg DAILYAC PO Last administered on 06/15/18 08:18; Start 06/13/18 at 13:00 Ondansetron HCl (Zofran Odt) 4 mg Q8HRS PO Last administered on 06/15/18at 07:03 ; Start 06/13/18 at 14:00 Sertraline HCl (Zoloft) 25 mg DAILY PO ; Start 06/14/18 at 09:00; Status UNV Sucralfate (Carafate) 1 gm TIDAC PO Last administered on 06/15/18 11:21; Start 06/13/18 at 16:30 Tizanidine HCl (Zanaflex) 4 mg BID PO Last administered on 06/15/18 08:18; Start 06/13/18 at 21:00 Heparin Sodium (Porcine) (Heparin Sodium) 4,700 unit 1X ONCE IV Last administered on 06/13/18at 15:00; Start 06/13/18 at 15:00; Stop 06/13/18 at 15:01 ; Status DC Heparin Sodium/ Dextrose 500 ml @ 0 mls/hr CONT PRN IV SEE I/O RECORD Last administered on 06/15/18at 04:33; Start 06/13/18 at 15:00 Heparin Sodium (Porcine) (Heparin Sodium) 1,750 unit PRN Q6HRS PRN IV FOR UFH LEVEL LESS THAN 0.2; Start 06/13/18 at 15:00 Heparin Sodium (Porcine) (Heparin Sodium) 850 unit PRN Q6HRS PRN IV FOR UFH LEVEL 0.2 - 0.29; Start 06/13/18 at 15:00 Ceftriaxone Sodium 1 gm/ Dextrose 50 ml @ 100 mls/hr DAILY IV ; Start 06/14/18 at 09:00; Status UNV Acetaminophen (Tylenol) 650 mg PRN Q6HRS PRN PO FEVER; Start 06/13/18 at 17:30 Ondansetron HCl (Zofran) 4 mg PRN Q6HRS PRN IV NAUSEA/VOMITING 1ST CHOICE; Start 06/13/18 at 17:30 Morphine Sulfate (Morphine Sulfate) 2 mg PRN Q2HR PRN IV MODERATE TO SEVERE PAIN; Start 06/13/18 at 17:30 Tramadol HCl (Ultram) 50 mg PRN Q6HRS PRN PO MILD TO MODERATE PAIN; Start 06/13 at 17:30 Hydralazine HCl (Apresoline Inj) 10 mg PRN Q4HRS PRN IVP ELEVATED BP, SEE COMMENTS; Start 06/13/18 at 17:30 Docusate Sodium (Colace) 100 mg PRN DAILY PRN PO CONSTIPATION; Start 06/13/18 at 17:30 Magnesium Sulfate 50 ml @ 25 mls/hr 1X ONCE IV Last administered on 06/13/18at 18:35; Start 06/13/18 at 17:45; Stop 06/13/18 at 19:44; Status DC Ceftriaxone Sodium (Rocephin) 1 gm Q24H IVP Last administered on 06/14/18at 17: 13; Start 06/14/18 at 17:30 Info (Anti-Coagulation Monitoring By Pharmacy) 1 each PRN DAILY PRN MC SEE COMMENTS Last administered on 06/14/18at 09:14; Start 06/13/18 at 17:30 Albuterol/ Ipratropium (Duoneb) 3 ml RTQID NEB Last administered on 06/15/18at 12:05; Start 06/14/18 at 08:00 Lactobacillus Rhamnosus (Culturelle) 1 cap BID PO Last administered on at 08:20; Start 06/14/18 at 21:00 Iron Sucrose 200 mg/Sodium Chloride 110 ml @ 55 mls/hr DAILY IV Last administered on 06/15/18at 09:33; Start 06/14/18 at 11:30; Stop 06/17/18 at 13:00 Active Scripts Active Reported Zanaflex (Tizanidine Hcl) 4 Mg Capsule 1 Cap PO BID Furosemide 20 Mg Tablet 1 Tab PO DAILY Percocet 7.5-325 Mg Tablet (Oxycodone/Acetaminophen) 1 Each Tablet 2 Tab PO [id number] Zofran (Ondansetron Hcl) 4 Mg Tablet 1 Tab PO Q8HRS Carafate (Sucralfate) 1 Gm Tablet 1 Tab PO TIDAC Hydrochlorothiazide Tablet (Hydrochlorothiazide) 12.5 Mg Tablet 1 Tab PO DAILY Lorazepam 0.5 Mg Tablet 0.5 Tab PO PRN QEVNG Lorazepam 0.5 Mg Tablet 1 Tab PO BID Zoloft (Sertraline Hcl) 50 Mg Tablet 1 Tab PO DAILY Zoloft (Sertraline Hcl) 25 Mg Tablet 1 Tab PO DAILY Vision Vitamins (Beta-Carotene(A) W-C & E/Min) 1 Each Tablet 1 Each PO DAILY Calcium + D3 Er Tablet (Calcium Carb & Cit/Vitamin D3) 1 Each Tablet.er 1 Each PO Synthroid (Levothyroxine Sodium) 50 Mcg Tablet 50 Mcg PO DAILYAC Potassium Chloride 10 Meq Capsule.er 10 Meq PO DAILY Omeprazole 40 Mg Capsule.dr 1 Cap PO DAILY Cardizem Cd (Diltiazem Hcl) 180 Mg Cap.er.24h 180 Mg PO DAILY Vitals/I & O Vital Sign - Last 24 Hours 06/14/18 06/14/18 06/14/18 06/14/18 15:00 15:36 18:21 19:10 Temp 97.9 98.7 97.9 98.7 Pulse 73 71 Resp 16 17 B/P (MAP) 108/51 (70) 97/55 (69) Pulse Ox 97 92 92 93 O2 Delivery NonRebreather Mask NonRebreather Mask NonRebreather Mask O2 Flow Rate 15.0 12.0 06/14/18 06/14/18 06/14/18 06/15/18 19:29 19:57 23:15 00:42 Temp 98.0 98.0 Pulse 65 Resp 14 B/P (MAP) 100/53 (69) Pulse Ox 91 97 O2 Delivery NonRebreather Mask Non-Rebreather NonRebreather Mask NonRebreather Mask O2 Flow Rate 15.0 12.0 06/15/18 06/15/18 06/15/18 06/15/18 03:52 06:58 07:13 07:40 Temp 97.7 97.7 Pulse 64 Resp 18 B/P (MAP) 119/63 (81) Pulse Ox 100 100 O2 Delivery NonRebreather Mask NonRebreather Mask NonRebreather Mask Non- Rebreather O2 Flow Rate 15.0 10.0 06/15/18 06/15/18 06/15/18 06/15/18 07:49 08:18 11:00 11:21 Temp 98.2 97.8 98.2 97.8 Pulse 65 65 64 Resp 12 12 B/P (MAP) 134/63 (86) 134/63 97/55 (69) Pulse Ox 97 91 97 O2 Delivery NonRebreather Mask Nasal Cannula O2 Flow Rate 10.0 9.0 10.0 06/15/18 06/15/18 06/15/18 12:06 12:20 13:00 Temp 97.8 97.8 Pulse 58 Resp 16 B/P (MAP) 98/51 (67) Pulse Ox 92 92 O2 Delivery Nasal Cannula Nasal Cannula Nasal Cannula O2 Flow Rate 8.0 8.0 8.0 Intake and Output 06/14/18 06/14/18 06/15/18 15:00 23:00 07:00 Intake Total 100 ml 372.8 ml Output Total 500 ml 0 ml Balance -400 ml 372.8 ml RAHAT OLIVEIRA MD Jun 15, 2018 14:12
[2018-06-15] MEDS: ANTI-COAG MONITOR BY PHARMACY. MC PRN (15:40)
[2018-06-15] MEDS ORDERED: MAGNESIUM HYDROXIDE 2,400 MG/30 ML ORAL.SUSP. PO PRN (16:15)
[2018-06-15] MEDS: cefTRIAXone IV Push 1 GM VIAL. IVP SCH (18:06)
[2018-06-15 19:40] LABS: HEMATOCRIT 27.8 % (36.0-47.0); HEMOGLOBIN 8.8 g/dL (12.0-15.5); RED BLOOD COUNT 3.68 x10^6/uL (3.50-5.40); RED CELL DISTRIBUTION WIDTH 18.5 % (11.5-14.5); WHITE BLOOD COUNT 10.4 x10^3/uL (4.0-11.0)
[2018-06-15] MEDS: SENNOSIDES/DOCUSATE 8.6/50MG TABLET. PO SCH (22:01)
[2018-06-15] MEDS: DOCUSATE SODIUM 100 MG CAPSULE. PO SCH (22:02)
[2018-06-16 02:50] VITALS: BP 89/41
[2018-06-16 05:12] LABS: BASO # 0.1 x10^3/uL (0.0-0.2); BASO % 1 % (0-3); EOS # 0.2 x10^3/uL (0.0-0.7); EOS % 2 % (0-3); HEMATOCRIT 25.1 % (36.0-47.0); HEMOGLOBIN 8.3 g/dL (12.0-15.5); LYMPH # 1.7 x10^3/uL (1.0-4.8); LYMPH % 20 % (24-48); MEAN CORPUSCULAR HEMOGLOBIN 26 pg (25-35); MEAN CORPUSCULAR HGB CONC 33 g/dL (31-37); MEAN CORPUSCULAR VOLUME 77 fL (79-100); MONO # 0.7 x10^3/uL (0.0-1.1); MONO % 8 % (0-9); NEUT # 6.1 x10^3uL (1.8-7.7); NEUT % 70 % (31-73); PLATELET COUNT 273 x10^3/uL (140-400); RED BLOOD COUNT 3.26 x10^6/uL (3.50-5.40); RED CELL DISTRIBUTION WIDTH 18.1 % (11.5-14.5); WHITE BLOOD COUNT 8.7 x10^3/uL (4.0-11.0)
[2018-06-16 05:31] LABS: CALCIUM 10.4 mg/dL (8.5-10.1); GFR 53.8; POTASSIUM 3.6 mmol/L (3.5-5.1)
[2018-06-16] MEDS: ONDANSETRON ODT 4 MG TAB.RAPDIS. PO SCH ×3 (06:04→21:44)
[2018-06-16] MEDS: oxyCODONE/APAP 7.5/325 1 TAB TABLET PO SCH ×3 (06:05→17:31)
[2018-06-16 06:12] LABS: % BANDS 1 % (0-9); % EOS 1 % (0-5); % LYMPHS 16 % (24-48); % MONOS 6 % (0-10); % SEGS 76 % (35-66); PLT ESTIMATE ADEQUATE (ADEQUATE)
[2018-06-16 06:13] LABS: ANISOCYTOSIS SLIGHT
[2018-06-16 07:00] VITALS: BP 111/44
[2018-06-16] MEDS: IPRATRPIUM/ALBUTEROL 0.5/2.5MG 3 ML NEBU. NEB SCH ×4 (07:42→20:10)
[2018-06-16] MEDS: PANTOPRAZOLE 40 MG TABLET.DR. PO SCH (08:30)
[2018-06-16] MEDS: DOCUSATE SODIUM 100 MG CAPSULE. PO SCH ×2 (08:30→21:43)
[2018-06-16] MEDS: MULTIVITAMIN I-VITE TABLET. PO SCH (08:30)
[2018-06-16] MEDS: LORazepam 0.5 MG TABLET PO SCH ×2 (08:30→21:43)
[2018-06-16] MEDS: LACTOBACILLUS RHAMNOSUS GG 1 CAPSULE. PO SCH ×2 (08:30→21:42)
[2018-06-16] MEDS: SENNOSIDES/DOCUSATE 8.6/50MG TABLET. PO SCH ×2 (08:30→21:42)
[2018-06-16] MEDS: tiZANidine 4 MG TABLET. PO SCH ×2 (08:30→21:43)
[2018-06-16] MEDS: hydroCHLOROthiazide 12.5 MG CAPSULE PO SCH (08:30)
[2018-06-16] MEDS: SERTRALINE 50 MG TABLET. PO SCH (08:30)
[2018-06-16] MEDS: LEVOTHYROXINE 50 MCG TABLET PO SCH (08:30)
[2018-06-16] MEDS: SUCRALFATE 1 GM TABLET. PO SCH ×3 (08:30→16:38)
[2018-06-16] MEDS: POTASSIUM CHLORIDE 10 MEQ TABLET.ER. PO SCH (08:38)
[2018-06-16] MEDS: IRON SUCROSE COMPLEX 200 MG in IV NORMAL SALINE 100ML 100 ML IV SCH (09:30)
[2018-06-16 11:00] VITALS: BP 121/60
[2018-06-16] MEDS ORDERED: SODIUM CHLORIDE 0.65% NASAL SPRAY 45ML BOTTLE. NS PRN (11:15)
--- NOTE | 2018-06-16 12:10 | PDOC ---
PROGRESS NOTES Chief Complaint Chief Complaint acute hypoxic resp failure with PE likely BL DVT Pafib no AC h/o DVT h/o CAD wo PCI GERD HTN HYpothyroidism depression anxiety denies asthma or copd rheumatic heart dz benign aortic tumor graves dz chronic pain anemia, iron deficient, 1uprbc Hypomagnesemia possible UTI (urinary tract infection) Elevation of cardiac enzymes Renal insufficiency CKD3 Hypercalcemia Hypokalemia Elevated liver function tests Elevated d-dimer Chronic dislocation of left shoulder SNF resident plan: fu with pulm on heparin drip, NEED To fu with pulm to see change to PO AC check bl leg dvt +, echo pending cont home meds check KUB since mild abd pain, neg KUB on non breather for now, duoneb added add iron iv daily x5ds ceftriaxone for now PTOT 1U prbc TOday History of Present Illness History of Present Illness Pt seen and examined Pt was resting in bed NAD EM RN Vitals Vitals Vital Signs Date Time Temp Pulse Resp B/P (MAP) Pulse Ox O2 Delivery O2 Flow Rate FiO2 06/16/18 11:45 92 Nasal Cannula 7.0 06/16/18 08:30 61 111/44 06/16/18 07:00 98.8 16 98.8 Physical Exam General: Alert, Oriented X3, Cooperative Heart: Regular rate, Normal S1, Normal S2 Lungs: Crackles Abdomen: Normal bowel sounds, Soft Extremities: No clubbing, No cyanosis Skin: No rashes Labs LABS Laboratory Tests Test 06/15/18 19:30 06/16/18 04:30 White Blood Count 10.4 x10^3/uL (4.0-11.0) 8.7 x10^3/uL (4.0-11.0) Red Blood Count 3.68 x10^6/uL (3.50-5.40) 3.26 x10^6/uL (3.50-5.40) Hemoglobin 8.8 g/dL (12.0-15.5) 8.3 g/dL (12.0-15.5) Hematocrit 27.8 % (36.0-47.0) 25.1 % (36.0-47.0) Mean Corpuscular Volume 75 fL (79-100) 77 fL (79-100) Mean Corpuscular Hemoglobin 24 pg (25-35) 26 pg (25-35) Mean Corpuscular Hemoglobin Concent 32 g/dL (31-37) 33 g/dL (31-37) Red Cell Distribution Width 18.5 % (11.5-14.5) 18.1 % (11.5-14.5) Platelet Count 284 x10^3/uL (140-400) 273 x10^3/uL (140-400) Neutrophils (%) (Auto) 70 % (31-73) Lymphocytes (%) (Auto) 20 % (24-48) Monocytes (%) (Auto) 8 % (0-9) Eosinophils (%) (Auto) 2 % (0-3) Basophils (%) (Auto) 1 % (0-3) Neutrophils # (Auto) 6.1 x10^3uL (1.8-7.7) Lymphocytes # (Auto) 1.7 x10^3/uL (1.0-4.8) Monocytes # (Auto) 0.7 x10^3/uL (0.0-1.1) Eosinophils # (Auto) 0.2 x10^3/uL (0.0-0.7) Basophils # (Auto) 0.1 x10^3/uL (0.0-0.2) Segmented Neutrophils % 76 % (35-66) Band Neutrophils % 1 % (0-9) Lymphocytes % 16 % (24-48) Monocytes % 6 % (0-10) Eosinophils % 1 % (0-5) Platelet Estimate Adequate (ADEQUATE) Anisocytosis Slight Heparin Anti-Xa Act, Unfractionated 0.18 IU/mL (0.30-0.70) Sodium Level 140 mmol/L (136-145) Potassium Level 3.6 mmol/L (3.5-5.1) Chloride Level 106 mmol/L (98-107) Carbon Dioxide Level 29 mmol/L (21-32) Anion Gap 5 (6-14) Blood Urea Nitrogen 19 mg/dL (7-20) Creatinine 1.0 mg/dL (0.6-1.0) Estimated GFR (Cockcroft-Gault) 53.8 Glucose Level 100 mg/dL (70-99) Calcium Level 10.4 mg/dL (8.5-10.1) Review of Systems Review of Systems Pt denies N/V Complains of SOB Assessment and Plan Assessmemt and Plan acute hypoxic resp failure with PE likely BL DVT Pafib no AC h/o DVT h/o CAD wo PCI GERD HTN HYpothyroidism depression anxiety denies asthma or copd rheumatic heart dz benign aortic tumor graves dz chronic pain anemia, iron deficient, 1uprbc Hypomagnesemia possible UTI (urinary tract infection) Elevation of cardiac enzymes Renal insufficiency CKD3 Hypercalcemia Hypokalemia Elevated liver function tests Elevated d-dimer Chronic dislocation of left shoulder SNF resident plan: IV Heparin IV Fe Home meds Labs fu with pulm PT/OT Comment Review of Relevant I have reviewed the following items thomas (where applicable) has been applied. Labs Laboratory Tests Test 06/14/18 12:25 06/14/18 19:30 06/15/18 03:40 06/15/18 19:30 Heparin Anti-Xa Act, Unfractionated 0.85 IU/mL (0.30-0.70) 0.58 IU/mL (0.30-0.70) 0.41 IU/mL (0.30-0.70) White Blood Count 9.6 x10^3/uL (4.0-11.0) 10.4 x10^3/uL (4.0-11.0) Red Blood Count 3.05 x10^6/uL (3.50-5.40) 3.68 x10^6/uL (3.50-5.40) Hemoglobin 6.7 g/dL (12.0-15.5) 8.8 g/dL (12.0-15.5) Hematocrit 21.9 % (36.0-47.0) 27.8 % (36.0-47.0) Mean Corpuscular Volume 72 fL (79-100) 75 fL (79-100) Mean Corpuscular Hemoglobin 22 pg (25-35) 24 pg (25-35) Mean Corpuscular Hemoglobin Concent 31 g/dL (31-37) 32 g/dL (31-37) Red Cell Distribution Width 17.6 % (11.5-14.5) 18.5 % (11.5-14.5) Platelet Count 293 x10^3/uL (140-400) 284 x10^3/uL (140-400) Neutrophils (%) (Auto) 73 % (31-73) Lymphocytes (%) (Auto) 18 % (24-48) Monocytes (%) (Auto) 8 % (0-9) Eosinophils (%) (Auto) 1 % (0-3) Basophils (%) (Auto) 1 % (0-3) Neutrophils # (Auto) 7.0 x10^3uL (1.8-7.7) Lymphocytes # (Auto) 1.7 x10^3/uL (1.0-4.8) Monocytes # (Auto) 0.7 x10^3/uL (0.0-1.1) Eosinophils # (Auto) 0.1 x10^3/uL (0.0-0.7) Basophils # (Auto) 0.0 x10^3/uL (0.0-0.2) Sodium Level 143 mmol/L (136-145) Potassium Level 3.6 mmol/L (3.5-5.1) Chloride Level 107 mmol/L (98-107) Carbon Dioxide Level 31 mmol/L (21-32) Anion Gap 5 (6-14) Blood Urea Nitrogen 24 mg/dL (7-20) Creatinine 1.1 mg/dL (0.6-1.0) Estimated GFR (Cockcroft-Gault) 48.2 Glucose Level 109 mg/dL (70-99) Calcium Level 10.3 mg/dL (8.5-10.1) Test 06/16/18 04:30 White Blood Count 8.7 x10^3/uL (4.0-11.0) Red Blood Count 3.26 x10^6/uL (3.50-5.40) Hemoglobin 8.3 g/dL (12.0-15.5) Hematocrit 25.1 % (36.0-47.0) Mean Corpuscular Volume 77 fL (79-100) Mean Corpuscular Hemoglobin 26 pg (25-35) Mean Corpuscular Hemoglobin Concent 33 g/dL (31-37) Red Cell Distribution Width 18.1 % (11.5-14.5) Platelet Count 273 x10^3/uL (140-400) Neutrophils (%) (Auto) 70 % (31-73) Lymphocytes (%) (Auto) 20 % (24-48) Monocytes (%) (Auto) 8 % (0-9) Eosinophils (%) (Auto) 2 % (0-3) Basophils (%) (Auto) 1 % (0-3) Neutrophils # (Auto) 6.1 x10^3uL (1.8-7.7) Lymphocytes # (Auto) 1.7 x10^3/uL (1.0-4.8) Monocytes # (Auto) 0.7 x10^3/uL (0.0-1.1) Eosinophils # (Auto) 0.2 x10^3/uL (0.0-0.7) Basophils # (Auto) 0.1 x10^3/uL (0.0-0.2) Segmented Neutrophils % 76 % (35-66) Band Neutrophils % 1 % (0-9) Lymphocytes % 16 % (24-48) Monocytes % 6 % (0-10) Eosinophils % 1 % (0-5) Platelet Estimate Adequate (ADEQUATE) Anisocytosis Slight Heparin Anti-Xa Act, Unfractionated 0.18 IU/mL (0.30-0.70) Sodium Level 140 mmol/L (136-145) Potassium Level 3.6 mmol/L (3.5-5.1) Chloride Level 106 mmol/L (98-107) Carbon Dioxide Level 29 mmol/L (21-32) Anion Gap 5 (6-14) Blood Urea Nitrogen 19 mg/dL (7-20) Creatinine 1.0 mg/dL (0.6-1.0) Estimated GFR (Cockcroft-Gault) 53.8 Glucose Level 100 mg/dL (70-99) Calcium Level 10.4 mg/dL (8.5-10.1) Laboratory Tests Test 06/15/18 19:30 06/16/18 04:30 White Blood Count 10.4 x10^3/uL (4.0-11.0) 8.7 x10^3/uL (4.0-11.0) Red Blood Count 3.68 x10^6/uL (3.50-5.40) 3.26 x10^6/uL (3.50-5.40) Hemoglobin 8.8 g/dL (12.0-15.5) 8.3 g/dL (12.0-15.5) Hematocrit 27.8 % (36.0-47.0) 25.1 % (36.0-47.0) Mean Corpuscular Volume 75 fL (79-100) 77 fL (79-100) Mean Corpuscular Hemoglobin 24 pg (25-35) 26 pg (25-35) Mean Corpuscular Hemoglobin Concent 32 g/dL (31-37) 33 g/dL (31-37) Red Cell Distribution Width 18.5 % (11.5-14.5) 18.1 % (11.5-14.5) Platelet Count 284 x10^3/uL (140-400) 273 x10^3/uL (140-400) Neutrophils (%) (Auto) 70 % (31-73) Lymphocytes (%) (Auto) 20 % (24-48) Monocytes (%) (Auto) 8 % (0-9) Eosinophils (%) (Auto) 2 % (0-3) Basophils (%) (Auto) 1 % (0-3) Neutrophils # (Auto) 6.1 x10^3uL (1.8-7.7) Lymphocytes # (Auto) 1.7 x10^3/uL (1.0-4.8) Monocytes # (Auto) 0.7 x10^3/uL (0.0-1.1) Eosinophils # (Auto) 0.2 x10^3/uL (0.0-0.7) Basophils # (Auto) 0.1 x10^3/uL (0.0-0.2) Segmented Neutrophils % 76 % (35-66) Band Neutrophils % 1 % (0-9) Lymphocytes % 16 % (24-48) Monocytes % 6 % (0-10) Eosinophils % 1 % (0-5) Platelet Estimate Adequate (ADEQUATE) Anisocytosis Slight Heparin Anti-Xa Act, Unfractionated 0.18 IU/mL (0.30-0.70) Sodium Level 140 mmol/L (136-145) Potassium Level 3.6 mmol/L (3.5-5.1) Chloride Level 106 mmol/L (98-107) Carbon Dioxide Level 29 mmol/L (21-32) Anion Gap 5 (6-14) Blood Urea Nitrogen 19 mg/dL (7-20) Creatinine 1.0 mg/dL (0.6-1.0) Estimated GFR (Cockcroft-Gault) 53.8 Glucose Level 100 mg/dL (70-99) Calcium Level 10.4 mg/dL (8.5-10.1) Microbiology 06/13/18 Blood Culture - Preliminary, Resulted NO GROWTH AFTER 3 DAYS 06/13/18 Urine Culture - Preliminary, Resulted 06/13/18 Urine Culture Result 1 (XI) - Preliminary, Resulted Medications Current Medications Albuterol/ Ipratropium (Duoneb) 3 ml 1X ONCE NEB Last administered on at 09:55; Start 06/13/18 at 09:30; Stop 06/13/18 at 09:38; Status DC Methylprednisolone Sodium Succinate (SOLU-Medrol 125MG VIAL) 125 mg 1X ONCE IV Last administered on 06/13/18at 09:55; Start 06/13/18 at 09:30; Stop 06/13/18 at 09:38; Status DC Magnesium Sulfate 50 ml @ 25 mls/hr 1X ONCE IV Last administered on 06/13/18at 14:44; Start 06/13/18 at 11:00; Stop 06/13/18 at 12:59; Status DC Ceftriaxone Sodium 1 gm/ Dextrose 50 ml @ 100 mls/hr 1X STAT IV ; Start at 11:08; Stop 06/13/18 at 11:13; Status DC Ceftriaxone Sodium 50 ml @ 100 mls/hr 1X ONCE IV Last administered on at 11:50; Start 06/13/18 at 11:15; Stop 06/13/18 at 11:44; Status DC Lorazepam (Ativan) 0.25 mg PRN QEVNG PRN PO ANXIETY / AGITATION; Start at 13:00 Lorazepam (Ativan) 0.5 mg BID PO Last administered on 06/16/18at 08:30; Start at 21:00 Oxycodone/ Acetaminophen (Percocet 7.5/ 325) 2 tab [id number] PO Last administered on 06/16/18at 11:21; Start 06/13/18 at 13:00 Potassium Chloride (Klor-Con) 10 meq DAILY PO Last administered on 06/16/18at 08 :38; Start 06/13/18 at 13:00 Sertraline HCl (Zoloft) 50 mg DAILY PO Last administered on 06/16/18at 08:30; Start 06/13/18 at 13:00 Multivitamins/ Minerals (I-Bowen) 1 tab DAILY PO Last administered on 06/16/18 08:30; Start 06/13/18 at 13:00 Diltiazem HCl (Cardizem 24hr Cd) 180 mg DAILY PO Last administered on 08:30; Start 06/13/18 at 13:00 Hydrochlorothiazide (Microzide) 12.5 mg DAILY PO Last administered on 08:30; Start 06/13/18 at 13:00 Levothyroxine Sodium (Synthroid) 50 mcg DAILYAC PO Last administered on 08:30; Start 06/13/18 at 13:00 Pantoprazole Sodium (Protonix) 40 mg DAILYAC PO Last administered on 06/16/18 08:30; Start 06/13/18 at 13:00 Ondansetron HCl (Zofran Odt) 4 mg Q8HRS PO Last administered on 06/16/18 06:04 ; Start 06/13/18 at 14:00 Sertraline HCl (Zoloft) 25 mg DAILY PO ; Start 06/14/18 at 09:00; Status UNV Sucralfate (Carafate) 1 gm TIDAC PO Last administered on 06/16/18 11:21; Start 06/13/18 at 16:30 Tizanidine HCl (Zanaflex) 4 mg BID PO Last administered on 06/16/18 08:30; Start 06/13/18 at 21:00 Heparin Sodium (Porcine) (Heparin Sodium) 4,700 unit 1X ONCE IV Last administered on 06/13/18at 15:00; Start 06/13/18 at 15:00; Stop 06/13/18 at 15:01 ; Status DC Heparin Sodium/ Dextrose 500 ml @ 0 mls/hr CONT PRN IV SEE I/O RECORD Last administered on 06/15/18 04:33; Start 06/13/18 at 15:00 Heparin Sodium (Porcine) (Heparin Sodium) 1,750 unit PRN Q6HRS PRN IV FOR UFH LEVEL LESS THAN 0.2 Last administered on 06/16/18 06:06; Start 06/13/18 at 15: 00 Heparin Sodium (Porcine) (Heparin Sodium) 850 unit PRN Q6HRS PRN IV FOR UFH LEVEL 0.2 - 0.29; Start 06/13/18 at 15:00 Ceftriaxone Sodium 1 gm/ Dextrose 50 ml @ 100 mls/hr DAILY IV ; Start 06/14/18 at 09:00; Status UNV Acetaminophen (Tylenol) 650 mg PRN Q6HRS PRN PO FEVER; Start 06/13/18 at 17:30 Ondansetron HCl (Zofran) 4 mg PRN Q6HRS PRN IV NAUSEA/VOMITING 1ST CHOICE; Start 06/13/18 at 17:30 Morphine Sulfate (Morphine Sulfate) 2 mg PRN Q2HR PRN IV MODERATE TO SEVERE PAIN; Start 06/13/18 at 17:30 Tramadol HCl (Ultram) 50 mg PRN Q6HRS PRN PO MILD TO MODERATE PAIN; Start 06/13 at 17:30 Hydralazine HCl (Apresoline Inj) 10 mg PRN Q4HRS PRN IVP ELEVATED BP, SEE COMMENTS; Start 06/13/18 at 17:30 Docusate Sodium (Colace) 100 mg PRN DAILY PRN PO CONSTIPATION; Start 06/13/18 at 17:30 Magnesium Sulfate 50 ml @ 25 mls/hr 1X ONCE IV Last administered on 06/13/18at 18:35; Start 06/13/18 at 17:45; Stop 06/13/18 at 19:44; Status DC Ceftriaxone Sodium (Rocephin) 1 gm Q24H IVP Last administered on 06/15/18at 18: 06; Start 06/14/18 at 17:30 Info (Anti-Coagulation Monitoring By Pharmacy) 1 each PRN DAILY PRN MC SEE COMMENTS Last administered on 06/15/18at 15:40; Start 06/13/18 at 17:30 Albuterol/ Ipratropium (Duoneb) 3 ml RTQID NEB Last administered on 06/16/18at 11:43; Start 06/14/18 at 08:00 Lactobacillus Rhamnosus (Culturelle) 1 cap BID PO Last administered on at 08:30; Start 06/14/18 at 21:00 Iron Sucrose 200 mg/Sodium Chloride 110 ml @ 55 mls/hr DAILY IV Last administered on 06/16/18at 09:30; Start 06/14/18 at 11:30; Stop 06/17/18 at 13:00 Senna/Docusate Sodium (Senna Plus) 1 tab BID PO Last administered on 06/16/18at 08:30; Start 06/15/18 at 21:00 Docusate Sodium (Colace) 100 mg BID PO Last administered on 06/16/18at 08:30; Start 06/15/18 at 21:00 Magnesium Hydroxide (Milk Of Magnesia) 2,400 mg PRN Q12HR PRN PO CONSTIPATION; Start 06/15/18 at 16:15 Sodium Chloride (Saline Mist Nasal) 1 kimberly PRN Q1HR PRN NS NASAL CONGESTION; Start 06/16/18 at 11:15 Active Scripts Active Reported Zanaflex (Tizanidine Hcl) 4 Mg Capsule 1 Cap PO BID Furosemide 20 Mg Tablet 1 Tab PO DAILY Percocet 7.5-325 Mg Tablet (Oxycodone/Acetaminophen) 1 Each Tablet 2 Tab PO [id number] Zofran (Ondansetron Hcl) 4 Mg Tablet 1 Tab PO Q8HRS Carafate (Sucralfate) 1 Gm Tablet 1 Tab PO TIDAC Hydrochlorothiazide Tablet (Hydrochlorothiazide) 12.5 Mg Tablet 1 Tab PO DAILY Lorazepam 0.5 Mg Tablet 0.5 Tab PO PRN QEVNG Lorazepam 0.5 Mg Tablet 1 Tab PO BID Zoloft (Sertraline Hcl) 50 Mg Tablet 1 Tab PO DAILY Zoloft (Sertraline Hcl) 25 Mg Tablet 1 Tab PO DAILY Vision Vitamins (Beta-Carotene(A) W-C & E/Min) 1 Each Tablet 1 Each PO DAILY Calcium + D3 Er Tablet (Calcium Carb & Cit/Vitamin D3) 1 Each Tablet.er 1 Each PO Synthroid (Levothyroxine Sodium) 50 Mcg Tablet 50 Mcg PO DAILYAC Potassium Chloride 10 Meq Capsule.er 10 Meq PO DAILY Omeprazole 40 Mg Capsule.dr 1 Cap PO DAILY Cardizem Cd (Diltiazem Hcl) 180 Mg Cap.er.24h 180 Mg PO DAILY Vitals/I & O Vital Sign - Last 24 Hours 06/15/18 06/15/18 06/15/18 06/15/18 12:06 12:20 13:00 15:15 Temp 97.8 97.8 97.8 97.8 Pulse 58 56 Resp 16 18 B/P (MAP) 98/51 (67) 119/67 (84) Pulse Ox 92 92 88 O2 Delivery Nasal Cannula Nasal Cannula O2 Flow Rate 8.0 8.0 8.0 06/15/18 06/15/18 06/15/18 06/15/18 15:39 18:06 18:30 19:30 Temp 97.5 97.5 Pulse 67 Resp 18 22 B/P (MAP) 93/46 (62) Pulse Ox 93 93 93 87 O2 Delivery Nasal Cannula Nasal Cannula Nasal Cannula O2 Flow Rate 8.0 8.0 8.0 8.0 06/15/18 06/15/18 06/15/18 06/16/18 19:40 23:05 23:24 00:24 Temp 98.0 98.0 Pulse 61 Resp 22 20 20 B/P (MAP) 85/42 (56) Pulse Ox 90 O2 Delivery Nasal Cannula Nasal Cannula Nasal Cannula Nasal Cannula O2 Flow Rate 13.0 12.0 13.0 13.0 06/16/18 06/16/18 06/16/18 06/16/18 02:50 06:05 07:00 07:46 Temp 98.3 98.8 98.3 98.8 Pulse 59 61 Resp 22 20 16 B/P (MAP) 89/41 (57) 111/44 (66) Pulse Ox 91 97 91 87 O2 Delivery NonRebreather Mask Nasal Cannula Nasal Cannula Nasal Cannula O2 Flow Rate 15.0 15.0 5.0 06/16/18 06/16/18 06/16/18 08:00 08:30 11:45 Pulse 61 B/P (MAP) 111/44 Pulse Ox 92 O2 Delivery Nasal Cannula Nasal Cannula O2 Flow Rate 6.0 7.0 Intake and Output 06/15/18 06/15/18 06/16/18 15:00 23:00 07:00 Intake Total 390 ml 200 ml Output Total 900 ml 200 ml Balance -900 ml 190 ml 200 ml PATY BYRNES III DO Jun 16, 2018 12:10
--- NOTE | 2018-06-16 14:04 | PDOC ---
PULMONARY PROGRESS NOTES Subjective oxygen requirement improved Vitals Vital Signs Date Time Temp Pulse Resp B/P (MAP) Pulse Ox O2 Delivery O2 Flow Rate FiO2 06/16/18 11:45 92 Nasal Cannula 7.0 06/16/18 11:00 97.9 65 18 121/60 (80) 97.9 ROS: No Nausea, No Chest Pain General: Alert, No acute distress HEENT: Other (nc at perrl) Lungs: Clear Cardiovascular: S1, S2 Abdomen: Soft, Non-tender Neuro Exam: Alert Extremities: Other (edema) Skin: Warm Labs Laboratory Tests Test 06/14/18 19:30 06/15/18 03:40 06/15/18 19:30 06/16/18 04:30 Heparin Anti-Xa Act, Unfractionated 0.58 IU/mL (0.30-0.70) 0.41 IU/mL (0.30-0.70) 0.18 IU/mL (0.30-0.70) White Blood Count 9.6 x10^3/uL (4.0-11.0) 10.4 x10^3/uL (4.0-11.0) 8.7 x10^3/uL (4.0-11.0) Red Blood Count 3.05 x10^6/uL (3.50-5.40) 3.68 x10^6/uL (3.50-5.40) 3.26 x10^6/uL (3.50-5.40) Hemoglobin 6.7 g/dL (12.0-15.5) 8.8 g/dL (12.0-15.5) 8.3 g/dL (12.0-15.5) Hematocrit 21.9 % (36.0-47.0) 27.8 % (36.0-47.0) 25.1 % (36.0-47.0) Mean Corpuscular Volume 72 fL (79-100) 75 fL (79-100) 77 fL (79-100) Mean Corpuscular Hemoglobin 22 pg (25-35) 24 pg (25-35) 26 pg (25-35) Mean Corpuscular Hemoglobin Concent 31 g/dL (31-37) 32 g/dL (31-37) 33 g/dL (31-37) Red Cell Distribution Width 17.6 % (11.5-14.5) 18.5 % (11.5-14.5) 18.1 % (11.5-14.5) Platelet Count 293 x10^3/uL (140-400) 284 x10^3/uL (140-400) 273 x10^3/uL (140-400) Neutrophils (%) (Auto) 73 % (31-73) 70 % (31-73) Lymphocytes (%) (Auto) 18 % (24-48) 20 % (24-48) Monocytes (%) (Auto) 8 % (0-9) 8 % (0-9) Eosinophils (%) (Auto) 1 % (0-3) 2 % (0-3) Basophils (%) (Auto) 1 % (0-3) 1 % (0-3) Neutrophils # (Auto) 7.0 x10^3uL (1.8-7.7) 6.1 x10^3uL (1.8-7.7) Lymphocytes # (Auto) 1.7 x10^3/uL (1.0-4.8) 1.7 x10^3/uL (1.0-4.8) Monocytes # (Auto) 0.7 x10^3/uL (0.0-1.1) 0.7 x10^3/uL (0.0-1.1) Eosinophils # (Auto) 0.1 x10^3/uL (0.0-0.7) 0.2 x10^3/uL (0.0-0.7) Basophils # (Auto) 0.0 x10^3/uL (0.0-0.2) 0.1 x10^3/uL (0.0-0.2) Sodium Level 143 mmol/L (136-145) 140 mmol/L (136-145) Potassium Level 3.6 mmol/L (3.5-5.1) 3.6 mmol/L (3.5-5.1) Chloride Level 107 mmol/L (98-107) 106 mmol/L (98-107) Carbon Dioxide Level 31 mmol/L (21-32) 29 mmol/L (21-32) Anion Gap 5 (6-14) 5 (6-14) Blood Urea Nitrogen 24 mg/dL (7-20) 19 mg/dL (7-20) Creatinine 1.1 mg/dL (0.6-1.0) 1.0 mg/dL (0.6-1.0) Estimated GFR (Cockcroft-Gault) 48.2 53.8 Glucose Level 109 mg/dL (70-99) 100 mg/dL (70-99) Calcium Level 10.3 mg/dL (8.5-10.1) 10.4 mg/dL (8.5-10.1) Segmented Neutrophils % 76 % (35-66) Band Neutrophils % 1 % (0-9) Lymphocytes % 16 % (24-48) Monocytes % 6 % (0-10) Eosinophils % 1 % (0-5) Platelet Estimate Adequate (ADEQUATE) Anisocytosis Slight Test 06/16/18 11:50 Heparin Anti-Xa Act, Unfractionated 0.66 IU/mL (0.30-0.70) Laboratory Tests Test 06/15/18 19:30 06/16/18 04:30 06/16/18 11:50 White Blood Count 10.4 x10^3/uL (4.0-11.0) 8.7 x10^3/uL (4.0-11.0) Red Blood Count 3.68 x10^6/uL (3.50-5.40) 3.26 x10^6/uL (3.50-5.40) Hemoglobin 8.8 g/dL (12.0-15.5) 8.3 g/dL (12.0-15.5) Hematocrit 27.8 % (36.0-47.0) 25.1 % (36.0-47.0) Mean Corpuscular Volume 75 fL (79-100) 77 fL (79-100) Mean Corpuscular Hemoglobin 24 pg (25-35) 26 pg (25-35) Mean Corpuscular Hemoglobin Concent 32 g/dL (31-37) 33 g/dL (31-37) Red Cell Distribution Width 18.5 % (11.5-14.5) 18.1 % (11.5-14.5) Platelet Count 284 x10^3/uL (140-400) 273 x10^3/uL (140-400) Neutrophils (%) (Auto) 70 % (31-73) Lymphocytes (%) (Auto) 20 % (24-48) Monocytes (%) (Auto) 8 % (0-9) Eosinophils (%) (Auto) 2 % (0-3) Basophils (%) (Auto) 1 % (0-3) Neutrophils # (Auto) 6.1 x10^3uL (1.8-7.7) Lymphocytes # (Auto) 1.7 x10^3/uL (1.0-4.8) Monocytes # (Auto) 0.7 x10^3/uL (0.0-1.1) Eosinophils # (Auto) 0.2 x10^3/uL (0.0-0.7) Basophils # (Auto) 0.1 x10^3/uL (0.0-0.2) Segmented Neutrophils % 76 % (35-66) Band Neutrophils % 1 % (0-9) Lymphocytes % 16 % (24-48) Monocytes % 6 % (0-10) Eosinophils % 1 % (0-5) Platelet Estimate Adequate (ADEQUATE) Anisocytosis Slight Heparin Anti-Xa Act, Unfractionated 0.18 IU/mL (0.30-0.70) 0.66 IU/mL (0.30-0.70) Sodium Level 140 mmol/L (136-145) Potassium Level 3.6 mmol/L (3.5-5.1) Chloride Level 106 mmol/L (98-107) Carbon Dioxide Level 29 mmol/L (21-32) Anion Gap 5 (6-14) Blood Urea Nitrogen 19 mg/dL (7-20) Creatinine 1.0 mg/dL (0.6-1.0) Estimated GFR (Cockcroft-Gault) 53.8 Glucose Level 100 mg/dL (70-99) Calcium Level 10.4 mg/dL (8.5-10.1) Medications Active Scripts Medications Dose Route/Sig Max Daily Dose Days Date Category Zanaflex (Tizanidine Hcl) 4 Mg Capsule 1 Cap PO BID 07/31/17 Reported Furosemide 20 Mg Tablet 1 Tab PO DAILY 07/31/17 Reported Percocet 7.5-325 Mg Tablet (Oxycodone/Acetaminophen) 1 Each Tablet 2 Tab PO [id number] 07/31/17 Reported Zofran (Ondansetron Hcl) 4 Mg Tablet 1 Tab PO Q8HRS 07/31/17 Reported Carafate (Sucralfate) 1 Gm Tablet 1 Tab PO TIDAC 07/31/17 Reported Hydrochlorothiazide Tablet (Hydrochlorothiazide) 12.5 Mg Tablet 1 Tab PO DAILY 07/31/17 Reported Lorazepam 0.5 Mg Tablet 0.5 Tab PO PRN QEVNG 07/31/17 Reported Lorazepam 0.5 Mg Tablet 1 Tab PO BID 07/31/17 Reported Zoloft (Sertraline Hcl) 50 Mg Tablet 1 Tab PO DAILY 07/31/17 Reported Zoloft (Sertraline Hcl) 25 Mg Tablet 1 Tab PO DAILY 07/31/17 Reported Vision Vitamins (Beta-Carotene(A) W-C & E/Min) 1 Each Tablet 1 Each PO DAILY 02/15/15 Reported Calcium + D3 Er Tablet (Calcium Carb & Cit/Vitamin D3) 1 Each Tablet.er 1 Each PO 02/15/15 Reported Synthroid (Levothyroxine Sodium) 50 Mcg Tablet 50 Mcg PO DAILYAC 02/15/15 Reported Potassium Chloride 10 Meq Capsule.er 10 Meq PO DAILY 02/15/15 Reported Omeprazole 40 Mg Capsule.dr 1 Cap PO DAILY 02/15/15 Reported Cardizem Cd (Diltiazem Hcl) 180 Mg Cap.er.24h 180 Mg PO DAILY 02/15/15 Reported Impression . IMPRESSION: 1. Acute hypoxic respiratory failure secondary to acute pulmonary embolism/DVT. 2. History of rheumatic heart disease. 3. Lower extremity edema, +deep venous thrombosis. 4. No significant history of tobacco use. 5. Small left pleural effusion, which does not need any intervention. 6. wheezing, acute bronchospasm, resolved Plan . 1. On heparin protocol . start Eliquis 2. venous Dopplers of lower extremities + dvt, activity as tolerated 3. The patient is anemic, Monitor for now.However, if anemia becomes an issue while on anticoagulation, then an IVC filter can be considered provided she has evidence of DVT. 4. Oxygen via canula 5. cont bronchodilators qid. 6. protonix for stress ulcer prophylaxis 7. Discussed with CASTRO. IVAN HARRY MD Jun 16, 2018 14:04
[2018-06-16] MEDS: APIXABAN 5 MG TABLET. PO SCH ×2 (14:17→22:31)
[2018-06-16 15:00] VITALS: BP 125/62
[2018-06-16] MEDS: ANTI-COAG MONITOR BY PHARMACY. MC PRN (15:24)
[2018-06-16] MEDS: cefTRIAXone IV Push 1 GM VIAL. IVP SCH (16:38)
[2018-06-16 19:30] VITALS: BP 119/66
--- NOTE | 2018-06-16 19:42 | PDOC2 ---
CONSULT Date of Consult Date of Consult DATE: 06/16/18 TIME: 19:33 Reason for Consult Reason for Consult: Dyspnea Referring Physician Referring Physician: Dr. Gongora Identification/Chief Complaint Chief Complaint Dyspnea History of Present Illness Reason for Visit: This patient is a 77-year-old lady with a known history of COPD, pulmonary hypertension and valvular heart disease with mild aortic stenosis and mild mitral insufficiency. She has been at this institution several times and has been at [facility] because of her situation and being unable to take care of herself. She has been a high fall risk patient that has had falls in the past including injuring her shoulder. The patient came in with dyspnea and was found to have possible DVT as well as pulmonary embolisms and mild elevation of the troponin. The pulmonary service has been following the patient and the patient has been anticoagulated. The patient denies any chest pains or angina and is very weak. Past Medical History Cardiovascular: CAD, CHF, HTN, Mitral valve stenosis, Aortic stenosis, Valve insufficiency GI: GERD Hepatobiliary: Cholelithiasis Musculoskeletal: Osteoarthritis Endocrine: Hypothyroidism, Osteoporosis Past Surgical History Past Surgical History: Total knee replacement, Hysterectomy Family History Family History: Other Social History No ALCOHOL: none Drugs: None Lives: Alone Current Problem List Problem List Problems Medical Problems: (1) Acute respiratory distress Status: Acute (2) Chronic dislocation of left shoulder Status: Acute (3) Elevated d-dimer Status: Acute (4) Elevated liver function tests Status: Acute (5) Elevation of cardiac enzymes Status: Acute (6) Hypercalcemia Status: Acute (7) Hypokalemia Status: Acute (8) Hypomagnesemia Status: Acute (9) Hypoxemia Status: Acute (10) Renal insufficiency Status: Acute Current Medications Current Medications Current Medications Albuterol/ Ipratropium (Duoneb) 3 ml 1X ONCE NEB Last administered on at 09:55; Start 06/13/18 at 09:30; Stop 06/13/18 at 09:38; Status DC Methylprednisolone Sodium Succinate (SOLU-Medrol 125MG VIAL) 125 mg 1X ONCE IV Last administered on 06/13/18at 09:55; Start 06/13/18 at 09:30; Stop 06/13/18 at 09:38; Status DC Magnesium Sulfate 50 ml @ 25 mls/hr 1X ONCE IV Last administered on 06/13/18at 14:44; Start 06/13/18 at 11:00; Stop 06/13/18 at 12:59; Status DC Ceftriaxone Sodium 1 gm/ Dextrose 50 ml @ 100 mls/hr 1X STAT IV ; Start at 11:08; Stop 06/13/18 at 11:13; Status DC Ceftriaxone Sodium 50 ml @ 100 mls/hr 1X ONCE IV Last administered on at 11:50; Start 06/13/18 at 11:15; Stop 06/13/18 at 11:44; Status DC Lorazepam (Ativan) 0.25 mg PRN QEVNG PRN PO ANXIETY / AGITATION; Start at 13:00 Lorazepam (Ativan) 0.5 mg BID PO Last administered on 06/16/18 08:30; Start at 21:00 Oxycodone/ Acetaminophen (Percocet 7.5/ 325) 2 tab [id number] PO Last administered on 06/16/18 17:31; Start 06/13/18 at 13:00 Potassium Chloride (Klor-Con) 10 meq DAILY PO Last administered on 06/16/18 08 :38; Start 06/13/18 at 13:00 Sertraline HCl (Zoloft) 50 mg DAILY PO Last administered on 06/16/18 08:30; Start 06/13/18 at 13:00 Multivitamins/ Minerals (I-Bowen) 1 tab DAILY PO Last administered on 06/16/18 08:30; Start 06/13/18 at 13:00 Diltiazem HCl (Cardizem 24hr Cd) 180 mg DAILY PO Last administered on 08:30; Start 06/13/18 at 13:00 Hydrochlorothiazide (Microzide) 12.5 mg DAILY PO Last administered on 08:30; Start 06/13/18 at 13:00 Levothyroxine Sodium (Synthroid) 50 mcg DAILYAC PO Last administered on 08:30; Start 06/13/18 at 13:00 Pantoprazole Sodium (Protonix) 40 mg DAILYAC PO Last administered on 06/16/18 08:30; Start 06/13/18 at 13:00 Ondansetron HCl (Zofran Odt) 4 mg Q8HRS PO Last administered on 06/16/18at 14:15 ; Start 06/13/18 at 14:00 Sertraline HCl (Zoloft) 25 mg DAILY PO ; Start 06/14/18 at 09:00; Status UNV Sucralfate (Carafate) 1 gm TIDAC PO Last administered on 06/16/18at 16:38; Start 06/13/18 at 16:30 Tizanidine HCl (Zanaflex) 4 mg BID PO Last administered on 06/16/18at 08:30; Start 06/13/18 at 21:00 Heparin Sodium (Porcine) (Heparin Sodium) 4,700 unit 1X ONCE IV Last administered on 06/13/18at 15:00; Start 06/13/18 at 15:00; Stop 06/13/18 at 15:01 ; Status DC Heparin Sodium/ Dextrose 500 ml @ 0 mls/hr CONT PRN IV SEE I/O RECORD Last administered on 06/15/18at 04:33; Start 06/13/18 at 15:00; Stop 06/16/18 at 14:07 ; Status DC Heparin Sodium (Porcine) (Heparin Sodium) 1,750 unit PRN Q6HRS PRN IV FOR UFH LEVEL LESS THAN 0.2 Last administered on 06/16/18at 06:06; Start 06/13/18 at 15: 00; Stop 06/16/18 at 14:07; Status DC Heparin Sodium (Porcine) (Heparin Sodium) 850 unit PRN Q6HRS PRN IV FOR UFH LEVEL 0.2 - 0.29; Start 06/13/18 at 15:00; Stop 06/16/18 at 14:08; Status DC Ceftriaxone Sodium 1 gm/ Dextrose 50 ml @ 100 mls/hr DAILY IV ; Start 06/14/18 at 09:00; Status UNV Acetaminophen (Tylenol) 650 mg PRN Q6HRS PRN PO FEVER; Start 06/13/18 at 17:30 Ondansetron HCl (Zofran) 4 mg PRN Q6HRS PRN IV NAUSEA/VOMITING 1ST CHOICE; Start 06/13/18 at 17:30 Morphine Sulfate (Morphine Sulfate) 2 mg PRN Q2HR PRN IV MODERATE TO SEVERE PAIN; Start 06/13/18 at 17:30 Tramadol HCl (Ultram) 50 mg PRN Q6HRS PRN PO MILD TO MODERATE PAIN; Start 06/13 at 17:30 Hydralazine HCl (Apresoline Inj) 10 mg PRN Q4HRS PRN IVP ELEVATED BP, SEE COMMENTS; Start 06/13/18 at 17:30 Docusate Sodium (Colace) 100 mg PRN DAILY PRN PO CONSTIPATION; Start 06/13/18 at 17:30 Magnesium Sulfate 50 ml @ 25 mls/hr 1X ONCE IV Last administered on 06/13/18at 18:35; Start 06/13/18 at 17:45; Stop 06/13/18 at 19:44; Status DC Ceftriaxone Sodium (Rocephin) 1 gm Q24H IVP Last administered on 06/16/18 16: 38; Start 06/14/18 at 17:30 Info (Anti-Coagulation Monitoring By Pharmacy) 1 each PRN DAILY PRN MC SEE COMMENTS Last administered on 06/16/18 15:24; Start 06/13/18 at 17:30 Albuterol/ Ipratropium (Duoneb) 3 ml RTQID NEB Last administered on 06/16/18 16:31; Start 06/14/18 at 08:00 Lactobacillus Rhamnosus (Culturelle) 1 cap BID PO Last administered on 08:30; Start 06/14/18 at 21:00 Iron Sucrose 200 mg/Sodium Chloride 110 ml @ 55 mls/hr DAILY IV Last administered on 06/16/18 09:30; Start 06/14/18 at 11:30; Stop 06/17/18 at 13:00 Senna/Docusate Sodium (Senna Plus) 1 tab BID PO Last administered on 06/16/18at 08:30; Start 06/15/18 at 21:00 Docusate Sodium (Colace) 100 mg BID PO Last administered on 06/16/18 08:30; Start 06/15/18 at 21:00 Magnesium Hydroxide (Milk Of Magnesia) 2,400 mg PRN Q12HR PRN PO CONSTIPATION; Start 06/15/18 at 16:15 Sodium Chloride (Saline Mist Nasal) 1 kimberly PRN Q1HR PRN NS NASAL CONGESTION; Start 06/16/18 at 11:15 Apixaban (Eliquis) 10 mg BID PO Last administered on 06/16/18at 14:17; Start at 14:30; Stop 06/22/18 at 21:01 Apixaban (Eliquis) 5 mg BID PO ; Start 06/23/18 at 09:00 Active Scripts Active Reported Zanaflex (Tizanidine Hcl) 4 Mg Capsule 1 Cap PO BID Furosemide 20 Mg Tablet 1 Tab PO DAILY Percocet 7.5-325 Mg Tablet (Oxycodone/Acetaminophen) 1 Each Tablet 2 Tab PO [id number] Zofran (Ondansetron Hcl) 4 Mg Tablet 1 Tab PO Q8HRS Carafate (Sucralfate) 1 Gm Tablet 1 Tab PO TIDAC Hydrochlorothiazide Tablet (Hydrochlorothiazide) 12.5 Mg Tablet 1 Tab PO DAILY Lorazepam 0.5 Mg Tablet 0.5 Tab PO PRN QEVNG Lorazepam 0.5 Mg Tablet 1 Tab PO BID Zoloft (Sertraline Hcl) 50 Mg Tablet 1 Tab PO DAILY Zoloft (Sertraline Hcl) 25 Mg Tablet 1 Tab PO DAILY Vision Vitamins (Beta-Carotene(A) W-C & E/Min) 1 Each Tablet 1 Each PO DAILY Calcium + D3 Er Tablet (Calcium Carb & Cit/Vitamin D3) 1 Each Tablet.er 1 Each PO Synthroid (Levothyroxine Sodium) 50 Mcg Tablet 50 Mcg PO DAILYAC Potassium Chloride 10 Meq Capsule.er 10 Meq PO DAILY Omeprazole 40 Mg Capsule.dr 1 Cap PO DAILY Cardizem Cd (Diltiazem Hcl) 180 Mg Cap.er.24h 180 Mg PO DAILY Allergies Allergies: Coded Allergies: Penicillins (Verified Allergy, Intermediate, HIVES, 08/05/17) tetracycline (Verified Allergy, Intermediate, 08/05/17) Physical Exam General: Alert, Oriented X3, Cooperative HEENT: Atraumatic, PERRLA Lungs: Other (breast sounds are decreased but no wheezing, no Rales) Heart: Other (regular rate, S1, S2 there is a 2/6 systolic murmur present) Abdomen: Normal bowel sounds, Soft Extremities: Other (1+ edema) Vitals VITALS Vital Signs Date Time Temp Pulse Resp B/P (MAP) Pulse Ox O2 Delivery O2 Flow Rate FiO2 06/16/18 18:31 18 92 Nasal Cannula 6.0 06/16/18 15:00 98.0 62 125/62 (83) 98.0 Labs Labs Laboratory Tests Test 06/15/18 03:40 06/15/18 19:30 06/16/18 04:30 06/16/18 11:50 White Blood Count 9.6 x10^3/uL (4.0-11.0) 10.4 x10^3/uL (4.0-11.0) 8.7 x10^3/uL (4.0-11.0) Red Blood Count 3.05 x10^6/uL (3.50-5.40) 3.68 x10^6/uL (3.50-5.40) 3.26 x10^6/uL (3.50-5.40) Hemoglobin 6.7 g/dL (12.0-15.5) 8.8 g/dL (12.0-15.5) 8.3 g/dL (12.0-15.5) Hematocrit 21.9 % (36.0-47.0) 27.8 % (36.0-47.0) 25.1 % (36.0-47.0) Mean Corpuscular Volume 72 fL (79-100) 75 fL (79-100) 77 fL (79-100) Mean Corpuscular Hemoglobin 22 pg (25-35) 24 pg (25-35) 26 pg (25-35) Mean Corpuscular Hemoglobin Concent 31 g/dL (31-37) 32 g/dL (31-37) 33 g/dL (31-37) Red Cell Distribution Width 17.6 % (11.5-14.5) 18.5 % (11.5-14.5) 18.1 % (11.5-14.5) Platelet Count 293 x10^3/uL (140-400) 284 x10^3/uL (140-400) 273 x10^3/uL (140-400) Neutrophils (%) (Auto) 73 % (31-73) 70 % (31-73) Lymphocytes (%) (Auto) 18 % (24-48) 20 % (24-48) Monocytes (%) (Auto) 8 % (0-9) 8 % (0-9) Eosinophils (%) (Auto) 1 % (0-3) 2 % (0-3) Basophils (%) (Auto) 1 % (0-3) 1 % (0-3) Neutrophils # (Auto) 7.0 x10^3uL (1.8-7.7) 6.1 x10^3uL (1.8-7.7) Lymphocytes # (Auto) 1.7 x10^3/uL (1.0-4.8) 1.7 x10^3/uL (1.0-4.8) Monocytes # (Auto) 0.7 x10^3/uL (0.0-1.1) 0.7 x10^3/uL (0.0-1.1) Eosinophils # (Auto) 0.1 x10^3/uL (0.0-0.7) 0.2 x10^3/uL (0.0-0.7) Basophils # (Auto) 0.0 x10^3/uL (0.0-0.2) 0.1 x10^3/uL (0.0-0.2) Heparin Anti-Xa Act, Unfractionated 0.41 IU/mL (0.30-0.70) 0.18 IU/mL (0.30-0.70) 0.66 IU/mL (0.30-0.70) Sodium Level 143 mmol/L (136-145) 140 mmol/L (136-145) Potassium Level 3.6 mmol/L (3.5-5.1) 3.6 mmol/L (3.5-5.1) Chloride Level 107 mmol/L (98-107) 106 mmol/L (98-107) Carbon Dioxide Level 31 mmol/L (21-32) 29 mmol/L (21-32) Anion Gap 5 (6-14) 5 (6-14) Blood Urea Nitrogen 24 mg/dL (7-20) 19 mg/dL (7-20) Creatinine 1.1 mg/dL (0.6-1.0) 1.0 mg/dL (0.6-1.0) Estimated GFR (Cockcroft-Gault) 48.2 53.8 Glucose Level 109 mg/dL (70-99) 100 mg/dL (70-99) Calcium Level 10.3 mg/dL (8.5-10.1) 10.4 mg/dL (8.5-10.1) Segmented Neutrophils % 76 % (35-66) Band Neutrophils % 1 % (0-9) Lymphocytes % 16 % (24-48) Monocytes % 6 % (0-10) Eosinophils % 1 % (0-5) Platelet Estimate Adequate (ADEQUATE) Anisocytosis Slight Test 06/16/18 18:00 Heparin Anti-Xa Act, Unfractionated > 1.10 IU/mL (0.30-0.70) Laboratory Tests Test 06/16/18 04:30 06/16/18 11:50 06/16/18 18:00 White Blood Count 8.7 x10^3/uL (4.0-11.0) Red Blood Count 3.26 x10^6/uL (3.50-5.40) Hemoglobin 8.3 g/dL (12.0-15.5) Hematocrit 25.1 % (36.0-47.0) Mean Corpuscular Volume 77 fL (79-100) Mean Corpuscular Hemoglobin 26 pg (25-35) Mean Corpuscular Hemoglobin Concent 33 g/dL (31-37) Red Cell Distribution Width 18.1 % (11.5-14.5) Platelet Count 273 x10^3/uL (140-400) Neutrophils (%) (Auto) 70 % (31-73) Lymphocytes (%) (Auto) 20 % (24-48) Monocytes (%) (Auto) 8 % (0-9) Eosinophils (%) (Auto) 2 % (0-3) Basophils (%) (Auto) 1 % (0-3) Neutrophils # (Auto) 6.1 x10^3uL (1.8-7.7) Lymphocytes # (Auto) 1.7 x10^3/uL (1.0-4.8) Monocytes # (Auto) 0.7 x10^3/uL (0.0-1.1) Eosinophils # (Auto) 0.2 x10^3/uL (0.0-0.7) Basophils # (Auto) 0.1 x10^3/uL (0.0-0.2) Segmented Neutrophils % 76 % (35-66) Band Neutrophils % 1 % (0-9) Lymphocytes % 16 % (24-48) Monocytes % 6 % (0-10) Eosinophils % 1 % (0-5) Platelet Estimate Adequate (ADEQUATE) Anisocytosis Slight Heparin Anti-Xa Act, Unfractionated 0.18 IU/mL (0.30-0.70) 0.66 IU/mL (0.30-0.70) > 1.10 IU/mL (0.30-0.70) Sodium Level 140 mmol/L (136-145) Potassium Level 3.6 mmol/L (3.5-5.1) Chloride Level 106 mmol/L (98-107) Carbon Dioxide Level 29 mmol/L (21-32) Anion Gap 5 (6-14) Blood Urea Nitrogen 19 mg/dL (7-20) Creatinine 1.0 mg/dL (0.6-1.0) Estimated GFR (Cockcroft-Gault) 53.8 Glucose Level 100 mg/dL (70-99) Calcium Level 10.4 mg/dL (8.5-10.1) Assessment/Plan Assessment/Plan This patient comes in with dyspnea and respiratory failure secondary to DVTs and pulmonary embolisms. I agree with present plan and to me the mild elevation of the troponin is due to the hypoxia that the patient had. I agree with the anticoagulation but I'm still concerned with the patient having a high risk for falls. We will follow the patient with you. Thank you very much for asking me to participate in the care of this patient. ALLYSON OROZCO MD Jun 16, 2018 19:42
[2018-06-16 22:50] VITALS: BP 100/57
[2018-06-17 02:40] VITALS: BP 127/58
[2018-06-17] MEDS: oxyCODONE/APAP 7.5/325 1 TAB TABLET PO SCH ×2 (02:57)
[2018-06-17] MEDS: PANTOPRAZOLE 40 MG TABLET.DR. PO SCH (06:46)
[2018-06-17] MEDS: SUCRALFATE 1 GM TABLET. PO SCH ×2 (06:46→11:47)
[2018-06-17] MEDS: ONDANSETRON ODT 4 MG TAB.RAPDIS. PO SCH ×2 (06:46→14:33)
[2018-06-17] MEDS: LEVOTHYROXINE 50 MCG TABLET PO SCH (06:46)
[2018-06-17 07:00] VITALS: BP 135/70
[2018-06-17] MEDS: IPRATRPIUM/ALBUTEROL 0.5/2.5MG 3 ML NEBU. NEB SCH ×2 (07:33→11:12)
[2018-06-17 07:45] LABS: BASO # 0.1 x10^3/uL (0.0-0.2); BASO % 2 % (0-3); EOS # 0.3 x10^3/uL (0.0-0.7); EOS % 3 % (0-3); HEMATOCRIT 30.3 % (36.0-47.0); HEMOGLOBIN 10.3 g/dL (12.0-15.5); LYMPH # 1.9 x10^3/uL (1.0-4.8); LYMPH % 23 % (24-48); MEAN CORPUSCULAR HEMOGLOBIN 27 pg (25-35); MEAN CORPUSCULAR HGB CONC 34 g/dL (31-37); MEAN CORPUSCULAR VOLUME 79 fL (79-100); MONO # 0.6 x10^3/uL (0.0-1.1); MONO % 7 % (0-9); NEUT # 5.4 x10^3uL (1.8-7.7); NEUT % 65 % (31-73); PLATELET COUNT 339 x10^3/uL (140-400); RED BLOOD COUNT 3.86 x10^6/uL (3.50-5.40); RED CELL DISTRIBUTION WIDTH 18.7 % (11.5-14.5); WHITE BLOOD COUNT 8.2 x10^3/uL (4.0-11.0)
[2018-06-17 08:01] LABS: CALCIUM 10.9 mg/dL (8.5-10.1); CREATININE 0.9 mg/dL (0.6-1.0); GFR 60.7; POTASSIUM 3.4 mmol/L (3.5-5.1)
[2018-06-17] MEDS: LORazepam 0.5 MG TABLET PO SCH (09:00)
[2018-06-17] MEDS: LACTOBACILLUS RHAMNOSUS GG 1 CAPSULE. PO SCH (09:04)
[2018-06-17] MEDS: tiZANidine 4 MG TABLET. PO SCH (09:04)
[2018-06-17] MEDS: hydroCHLOROthiazide 12.5 MG CAPSULE PO SCH (09:04)
[2018-06-17] MEDS: MULTIVITAMIN I-VITE TABLET. PO SCH (09:04)
[2018-06-17] MEDS: POTASSIUM CHLORIDE 10 MEQ TABLET.ER. PO SCH (09:04)
[2018-06-17] MEDS: DOCUSATE SODIUM 100 MG CAPSULE. PO SCH (09:05)
[2018-06-17] MEDS: SENNOSIDES/DOCUSATE 8.6/50MG TABLET. PO SCH (09:05)
[2018-06-17] MEDS: SERTRALINE 50 MG TABLET. PO SCH (09:05)
[2018-06-17] MEDS: IRON SUCROSE COMPLEX 200 MG in IV NORMAL SALINE 100ML 100 ML IV SCH (09:05)
[2018-06-17] MEDS: APIXABAN 5 MG TABLET. PO SCH (10:55)
[2018-06-17 11:00] VITALS: BP 141/72
[2018-06-17] MEDS ORDERED: oxyCODONE/APAP 7.5/325 1 TAB TABLET PO SCH (12:00)
--- NOTE | 2018-06-17 12:30 | PDOC ---
PROGRESS NOTES Chief Complaint Chief Complaint acute hypoxic resp failure with PE likely BL DVT Pafib no AC h/o DVT h/o CAD wo PCI GERD HTN HYpothyroidism depression anxiety denies asthma or copd rheumatic heart dz benign aortic tumor graves dz chronic pain anemia, iron deficient, 1uprbc Hypomagnesemia possible UTI (urinary tract infection) Elevation of cardiac enzymes Renal insufficiency CKD3 Hypercalcemia Hypokalemia Elevated liver function tests Elevated d-dimer Chronic dislocation of left shoulder SNF resident History of Present Illness History of Present Illness Pt seen and examined Pt was awake and alert, speech was stronger today discussed treatment plan with Pt DW RN Vitals Vitals Vital Signs Date Time Temp Pulse Resp B/P (MAP) Pulse Ox O2 Delivery O2 Flow Rate FiO2 06/17/18 11:47 22 94 Nasal Cannula 5.0 06/17/18 11:00 98.1 71 141/72 (95) 98.1 Physical Exam General: Alert, Oriented X3, Cooperative Heart: Other (regular rate, S1, S2 there is a 2/6 systolic murmur present) Lungs: Clear Abdomen: Normal bowel sounds, Soft Extremities: Other (1+ edema) Skin: No rashes, Other (venous mobley on lower lip) Labs LABS Laboratory Tests Test 06/16/18 18:00 06/17/18 06:58 Heparin Anti-Xa Act, Unfractionated > 1.10 IU/mL (0.30-0.70) White Blood Count 8.2 x10^3/uL (4.0-11.0) Red Blood Count 3.86 x10^6/uL (3.50-5.40) Hemoglobin 10.3 g/dL (12.0-15.5) Hematocrit 30.3 % (36.0-47.0) Mean Corpuscular Volume 79 fL (79-100) Mean Corpuscular Hemoglobin 27 pg (25-35) Mean Corpuscular Hemoglobin Concent 34 g/dL (31-37) Red Cell Distribution Width 18.7 % (11.5-14.5) Platelet Count 339 x10^3/uL (140-400) Neutrophils (%) (Auto) 65 % (31-73) Lymphocytes (%) (Auto) 23 % (24-48) Monocytes (%) (Auto) 7 % (0-9) Eosinophils (%) (Auto) 3 % (0-3) Basophils (%) (Auto) 2 % (0-3) Neutrophils # (Auto) 5.4 x10^3uL (1.8-7.7) Lymphocytes # (Auto) 1.9 x10^3/uL (1.0-4.8) Monocytes # (Auto) 0.6 x10^3/uL (0.0-1.1) Eosinophils # (Auto) 0.3 x10^3/uL (0.0-0.7) Basophils # (Auto) 0.1 x10^3/uL (0.0-0.2) Sodium Level 140 mmol/L (136-145) Potassium Level 3.4 mmol/L (3.5-5.1) Chloride Level 102 mmol/L (98-107) Carbon Dioxide Level 29 mmol/L (21-32) Anion Gap 9 (6-14) Blood Urea Nitrogen 13 mg/dL (7-20) Creatinine 0.9 mg/dL (0.6-1.0) Estimated GFR (Cockcroft-Gault) 60.7 Glucose Level 81 mg/dL (70-99) Calcium Level 10.9 mg/dL (8.5-10.1) Review of Systems Review of Systems Complains of weakness and fatigue denies N/V Assessment and Plan Assessmemt and Plan acute hypoxic resp failure with PE likely BL DVT Pafib no AC h/o DVT h/o CAD wo PCI GERD HTN HYpothyroidism depression anxiety denies asthma or copd rheumatic heart dz benign aortic tumor graves dz chronic pain anemia, iron deficient, 1uprbc Hypomagnesemia possible UTI (urinary tract infection) Elevation of cardiac enzymes Renal insufficiency CKD3 Hypercalcemia Hypokalemia Elevated liver function tests Elevated d-dimer Chronic dislocation of left shoulder SNF resident plan: Make switch to eliquis IV Fe PT/OT Mg repletion Abx probable DC to LTC Comment Review of Relevant I have reviewed the following items thomas (where applicable) has been applied. Labs Laboratory Tests Test 06/15/18 19:30 06/16/18 04:30 06/16/18 11:50 06/16/18 18:00 White Blood Count 10.4 x10^3/uL (4.0-11.0) 8.7 x10^3/uL (4.0-11.0) Red Blood Count 3.68 x10^6/uL (3.50-5.40) 3.26 x10^6/uL (3.50-5.40) Hemoglobin 8.8 g/dL (12.0-15.5) 8.3 g/dL (12.0-15.5) Hematocrit 27.8 % (36.0-47.0) 25.1 % (36.0-47.0) Mean Corpuscular Volume 75 fL (79-100) 77 fL (79-100) Mean Corpuscular Hemoglobin 24 pg (25-35) 26 pg (25-35) Mean Corpuscular Hemoglobin Concent 32 g/dL (31-37) 33 g/dL (31-37) Red Cell Distribution Width 18.5 % (11.5-14.5) 18.1 % (11.5-14.5) Platelet Count 284 x10^3/uL (140-400) 273 x10^3/uL (140-400) Neutrophils (%) (Auto) 70 % (31-73) Lymphocytes (%) (Auto) 20 % (24-48) Monocytes (%) (Auto) 8 % (0-9) Eosinophils (%) (Auto) 2 % (0-3) Basophils (%) (Auto) 1 % (0-3) Neutrophils # (Auto) 6.1 x10^3uL (1.8-7.7) Lymphocytes # (Auto) 1.7 x10^3/uL (1.0-4.8) Monocytes # (Auto) 0.7 x10^3/uL (0.0-1.1) Eosinophils # (Auto) 0.2 x10^3/uL (0.0-0.7) Basophils # (Auto) 0.1 x10^3/uL (0.0-0.2) Segmented Neutrophils % 76 % (35-66) Band Neutrophils % 1 % (0-9) Lymphocytes % 16 % (24-48) Monocytes % 6 % (0-10) Eosinophils % 1 % (0-5) Platelet Estimate Adequate (ADEQUATE) Anisocytosis Slight Heparin Anti-Xa Act, Unfractionated 0.18 IU/mL (0.30-0.70) 0.66 IU/mL (0.30-0.70) > 1.10 IU/mL (0.30-0.70) Sodium Level 140 mmol/L (136-145) Potassium Level 3.6 mmol/L (3.5-5.1) Chloride Level 106 mmol/L (98-107) Carbon Dioxide Level 29 mmol/L (21-32) Anion Gap 5 (6-14) Blood Urea Nitrogen 19 mg/dL (7-20) Creatinine 1.0 mg/dL (0.6-1.0) Estimated GFR (Cockcroft-Gault) 53.8 Glucose Level 100 mg/dL (70-99) Calcium Level 10.4 mg/dL (8.5-10.1) Test 06/17/18 06:58 White Blood Count 8.2 x10^3/uL (4.0-11.0) Red Blood Count 3.86 x10^6/uL (3.50-5.40) Hemoglobin 10.3 g/dL (12.0-15.5) Hematocrit 30.3 % (36.0-47.0) Mean Corpuscular Volume 79 fL (79-100) Mean Corpuscular Hemoglobin 27 pg (25-35) Mean Corpuscular Hemoglobin Concent 34 g/dL (31-37) Red Cell Distribution Width 18.7 % (11.5-14.5) Platelet Count 339 x10^3/uL (140-400) Neutrophils (%) (Auto) 65 % (31-73) Lymphocytes (%) (Auto) 23 % (24-48) Monocytes (%) (Auto) 7 % (0-9) Eosinophils (%) (Auto) 3 % (0-3) Basophils (%) (Auto) 2 % (0-3) Neutrophils # (Auto) 5.4 x10^3uL (1.8-7.7) Lymphocytes # (Auto) 1.9 x10^3/uL (1.0-4.8) Monocytes # (Auto) 0.6 x10^3/uL (0.0-1.1) Eosinophils # (Auto) 0.3 x10^3/uL (0.0-0.7) Basophils # (Auto) 0.1 x10^3/uL (0.0-0.2) Sodium Level 140 mmol/L (136-145) Potassium Level 3.4 mmol/L (3.5-5.1) Chloride Level 102 mmol/L (98-107) Carbon Dioxide Level 29 mmol/L (21-32) Anion Gap 9 (6-14) Blood Urea Nitrogen 13 mg/dL (7-20) Creatinine 0.9 mg/dL (0.6-1.0) Estimated GFR (Cockcroft-Gault) 60.7 Glucose Level 81 mg/dL (70-99) Calcium Level 10.9 mg/dL (8.5-10.1) Laboratory Tests Test 06/16/18 18:00 06/17/18 06:58 Heparin Anti-Xa Act, Unfractionated > 1.10 IU/mL (0.30-0.70) White Blood Count 8.2 x10^3/uL (4.0-11.0) Red Blood Count 3.86 x10^6/uL (3.50-5.40) Hemoglobin 10.3 g/dL (12.0-15.5) Hematocrit 30.3 % (36.0-47.0) Mean Corpuscular Volume 79 fL (79-100) Mean Corpuscular Hemoglobin 27 pg (25-35) Mean Corpuscular Hemoglobin Concent 34 g/dL (31-37) Red Cell Distribution Width 18.7 % (11.5-14.5) Platelet Count 339 x10^3/uL (140-400) Neutrophils (%) (Auto) 65 % (31-73) Lymphocytes (%) (Auto) 23 % (24-48) Monocytes (%) (Auto) 7 % (0-9) Eosinophils (%) (Auto) 3 % (0-3) Basophils (%) (Auto) 2 % (0-3) Neutrophils # (Auto) 5.4 x10^3uL (1.8-7.7) Lymphocytes # (Auto) 1.9 x10^3/uL (1.0-4.8) Monocytes # (Auto) 0.6 x10^3/uL (0.0-1.1) Eosinophils # (Auto) 0.3 x10^3/uL (0.0-0.7) Basophils # (Auto) 0.1 x10^3/uL (0.0-0.2) Sodium Level 140 mmol/L (136-145) Potassium Level 3.4 mmol/L (3.5-5.1) Chloride Level 102 mmol/L (98-107) Carbon Dioxide Level 29 mmol/L (21-32) Anion Gap 9 (6-14) Blood Urea Nitrogen 13 mg/dL (7-20) Creatinine 0.9 mg/dL (0.6-1.0) Estimated GFR (Cockcroft-Gault) 60.7 Glucose Level 81 mg/dL (70-99) Calcium Level 10.9 mg/dL (8.5-10.1) Microbiology 06/13/18 Blood Culture - Preliminary, Resulted NO GROWTH AFTER 4 DAYS 06/13/18 Urine Culture - Final, Complete 06/13/18 Urine Culture Result 1 (XI) - Final, Complete 06/13/18 Antimicrobic Susceptibility - Final, Complete Medications Current Medications Albuterol/ Ipratropium (Duoneb) 3 ml 1X ONCE NEB Last administered on at 09:55; Start 06/13/18 at 09:30; Stop 06/13/18 at 09:38; Status DC Methylprednisolone Sodium Succinate (SOLU-Medrol 125MG VIAL) 125 mg 1X ONCE IV Last administered on 06/13/18at 09:55; Start 06/13/18 at 09:30; Stop 06/13/18 at 09:38; Status DC Magnesium Sulfate 50 ml @ 25 mls/hr 1X ONCE IV Last administered on 06/13/18at 14:44; Start 06/13/18 at 11:00; Stop 06/13/18 at 12:59; Status DC Ceftriaxone Sodium 1 gm/ Dextrose 50 ml @ 100 mls/hr 1X STAT IV ; Start at 11:08; Stop 06/13/18 at 11:13; Status DC Ceftriaxone Sodium 50 ml @ 100 mls/hr 1X ONCE IV Last administered on at 11:50; Start 06/13/18 at 11:15; Stop 06/13/18 at 11:44; Status DC Lorazepam (Ativan) 0.25 mg PRN QEVNG PRN PO ANXIETY / AGITATION; Start at 13:00 Lorazepam (Ativan) 0.5 mg BID PO Last administered on 06/16/18at 21:43; Start at 21:00 Oxycodone/ Acetaminophen (Percocet 7.5/ 325) 2 tab [id number] PO Last administered on 06/17/18 02:57; Start 06/13/18 at 13:00; Stop 06/17/18 at 09:38 ; Status DC Potassium Chloride (Klor-Con) 10 meq DAILY PO Last administered on 06/17/18 09 :04; Start 06/13/18 at 13:00 Sertraline HCl (Zoloft) 50 mg DAILY PO Last administered on 06/17/18 09:05; Start 06/13/18 at 13:00 Multivitamins/ Minerals (I-Bowen) 1 tab DAILY PO Last administered on 06/17/18 09:04; Start 06/13/18 at 13:00 Diltiazem HCl (Cardizem 24hr Cd) 180 mg DAILY PO Last administered on 09:04; Start 06/13/18 at 13:00 Hydrochlorothiazide (Microzide) 12.5 mg DAILY PO Last administered on 09:04; Start 06/13/18 at 13:00 Levothyroxine Sodium (Synthroid) 50 mcg DAILYAC PO Last administered on 06:46; Start 06/13/18 at 13:00 Pantoprazole Sodium (Protonix) 40 mg DAILYAC PO Last administered on 06/17/18 06:46; Start 06/13/18 at 13:00 Ondansetron HCl (Zofran Odt) 4 mg Q8HRS PO Last administered on 06/17/18at 06:46 ; Start 06/13/18 at 14:00 Sertraline HCl (Zoloft) 25 mg DAILY PO ; Start 06/14/18 at 09:00; Status UNV Sucralfate (Carafate) 1 gm TIDAC PO Last administered on 06/17/18at 11:47; Start 06/13/18 at 16:30 Tizanidine HCl (Zanaflex) 4 mg BID PO Last administered on 06/17/18 09:04; Start 06/13/18 at 21:00 Heparin Sodium (Porcine) (Heparin Sodium) 4,700 unit 1X ONCE IV Last administered on 06/13/18at 15:00; Start 06/13/18 at 15:00; Stop 06/13/18 at 15:01 ; Status DC Heparin Sodium/ Dextrose 500 ml @ 0 mls/hr CONT PRN IV SEE I/O RECORD Last administered on 06/15/18at 04:33; Start 06/13/18 at 15:00; Stop 06/16/18 at 14:07 ; Status DC Heparin Sodium (Porcine) (Heparin Sodium) 1,750 unit PRN Q6HRS PRN IV FOR UFH LEVEL LESS THAN 0.2 Last administered on 06/16/18at 06:06; Start 06/13/18 at 15: 00; Stop 06/16/18 at 14:07; Status DC Heparin Sodium (Porcine) (Heparin Sodium) 850 unit PRN Q6HRS PRN IV FOR UFH LEVEL 0.2 - 0.29; Start 06/13/18 at 15:00; Stop 06/16/18 at 14:08; Status DC Ceftriaxone Sodium 1 gm/ Dextrose 50 ml @ 100 mls/hr DAILY IV ; Start 06/14/18 at 09:00; Status UNV Acetaminophen (Tylenol) 650 mg PRN Q6HRS PRN PO FEVER; Start 06/13/18 at 17:30 Ondansetron HCl (Zofran) 4 mg PRN Q6HRS PRN IV NAUSEA/VOMITING 1ST CHOICE; Start 06/13/18 at 17:30 Morphine Sulfate (Morphine Sulfate) 2 mg PRN Q2HR PRN IV MODERATE TO SEVERE PAIN; Start 06/13/18 at 17:30 Tramadol HCl (Ultram) 50 mg PRN Q6HRS PRN PO MILD TO MODERATE PAIN; Start 06/13 at 17:30 Hydralazine HCl (Apresoline Inj) 10 mg PRN Q4HRS PRN IVP ELEVATED BP, SEE COMMENTS; Start 06/13/18 at 17:30 Docusate Sodium (Colace) 100 mg PRN DAILY PRN PO CONSTIPATION; Start 06/13/18 at 17:30 Magnesium Sulfate 50 ml @ 25 mls/hr 1X ONCE IV Last administered on 06/13/18at 18:35; Start 06/13/18 at 17:45; Stop 06/13/18 at 19:44; Status DC Ceftriaxone Sodium (Rocephin) 1 gm Q24H IVP Last administered on 06/16/18at 16: 38; Start 06/14/18 at 17:30 Info (Anti-Coagulation Monitoring By Pharmacy) 1 each PRN DAILY PRN MC SEE COMMENTS Last administered on 06/16/18at 15:24; Start 06/13/18 at 17:30 Albuterol/ Ipratropium (Duoneb) 3 ml RTQID NEB Last administered on 06/17/18at 11:12; Start 06/14/18 at 08:00 Lactobacillus Rhamnosus (Culturelle) 1 cap BID PO Last administered on at 09:04; Start 06/14/18 at 21:00 Iron Sucrose 200 mg/Sodium Chloride 110 ml @ 55 mls/hr DAILY IV Last administered on 06/17/18at 09:05; Start 06/14/18 at 11:30; Stop 06/17/18 at 13:00 Senna/Docusate Sodium (Senna Plus) 1 tab BID PO Last administered on 06/17/18at 09:05; Start 06/15/18 at 21:00 Docusate Sodium (Colace) 100 mg BID PO Last administered on 06/17/18at 09:05; Start 06/15/18 at 21:00 Magnesium Hydroxide (Milk Of Magnesia) 2,400 mg PRN Q12HR PRN PO CONSTIPATION 2nd Choice; Start 06/15/18 at 16:15 Sodium Chloride (Saline Mist Nasal) 1 kimberly PRN Q1HR PRN NS NASAL CONGESTION; Start 06/16/18 at 11:15 Apixaban (Eliquis) 10 mg BID PO Last administered on 06/17/18at 10:55; Start at 14:30; Stop 06/22/18 at 21:01 Apixaban (Eliquis) 5 mg BID PO ; Start 06/23/18 at 09:00 Oxycodone/ Acetaminophen (Percocet 7.5/ 325) 1 tab [id number] PO Last administered on 06/17/18at 11:47; Start 06/17/18 at 12:00 Active Scripts Active Reported Zanaflex (Tizanidine Hcl) 4 Mg Capsule 1 Cap PO BID Furosemide 20 Mg Tablet 1 Tab PO DAILY Percocet 7.5-325 Mg Tablet (Oxycodone/Acetaminophen) 1 Each Tablet 2 Tab PO [id number] Zofran (Ondansetron Hcl) 4 Mg Tablet 1 Tab PO Q8HRS Carafate (Sucralfate) 1 Gm Tablet 1 Tab PO TIDAC Hydrochlorothiazide Tablet (Hydrochlorothiazide) 12.5 Mg Tablet 1 Tab PO DAILY Lorazepam 0.5 Mg Tablet 0.5 Tab PO PRN QEVNG Lorazepam 0.5 Mg Tablet 1 Tab PO BID Zoloft (Sertraline Hcl) 50 Mg Tablet 1 Tab PO DAILY Zoloft (Sertraline Hcl) 25 Mg Tablet 1 Tab PO DAILY Vision Vitamins (Beta-Carotene(A) W-C & E/Min) 1 Each Tablet 1 Each PO DAILY Calcium + D3 Er Tablet (Calcium Carb & Cit/Vitamin D3) 1 Each Tablet.er 1 Each PO Synthroid (Levothyroxine Sodium) 50 Mcg Tablet 50 Mcg PO DAILYAC Potassium Chloride 10 Meq Capsule.er 10 Meq PO DAILY Omeprazole 40 Mg Capsule.dr 1 Cap PO DAILY Cardizem Cd (Diltiazem Hcl) 180 Mg Cap.er.24h 180 Mg PO DAILY Vitals/I & O Vital Sign - Last 24 Hours 06/16/18 06/16/18 06/16/18 06/16/18 15:00 16:48 18:31 19:30 Temp 98.0 98.1 98.0 98.1 Pulse 62 64 Resp 18 18 20 B/P (MAP) 125/62 (83) 119/66 (83) Pulse Ox 91 92 92 92 O2 Delivery Room Air Nasal Cannula Nasal Cannula O2 Flow Rate 7.0 6.0 6.0 06/16/18 06/16/18 06/16/18 06/17/18 20:11 20:17 22:50 02:40 Temp 97.7 97.7 97.7 97.7 Pulse 57 67 Resp 18 20 B/P (MAP) 100/57 (71) 127/58 (81) Pulse Ox 92 91 94 O2 Delivery Nasal Cannula Nasal Cannula Nasal Cannula Nasal Cannula O2 Flow Rate 7.0 6.0 6.0 6.0 06/17/18 06/17/18 06/17/18 06/17/18 02:57 03:57 07:00 07:33 Temp 97.5 97.5 Pulse 61 Resp 16 B/P (MAP) 135/70 (91) Pulse Ox 91 94 O2 Delivery Nasal Cannula Nasal Cannula Nasal Cannula High Flow Nasal Cannula O2 Flow Rate 6.0 7.0 8/14/18 06/17/18 06/17/18 06/17/18 07:45 09:04 11:00 11:14 Temp 98.1 98.1 Pulse 73 71 Resp 20 B/P (MAP) 135/70 141/72 (95) Pulse Ox 95 94 O2 Delivery Nasal Cannula Nasal Cannula Nasal Cannula O2 Flow Rate 6.0 6.0 5.0 06/17/18 11:47 Resp 22 Pulse Ox 94 O2 Delivery Nasal Cannula O2 Flow Rate 5.0 Intake and Output 06/16/18 06/16/18 06/17/18 15:00 23:00 07:00 Intake Total 400 ml 200 ml Output Total 1250 ml 500 ml Balance -850 ml -300 ml PATY BYRNES III DO Jun 17, 2018 12:29
--- NOTE | 2018-06-17 12:37 | PDOC ---
PULMONARY PROGRESS NOTES Subjective oxygen requirement improved Vitals Vital Signs Date Time Temp Pulse Resp B/P (MAP) Pulse Ox O2 Delivery O2 Flow Rate FiO2 06/17/18 11:47 22 94 Nasal Cannula 5.0 06/17/18 11:00 98.1 71 141/72 (95) 98.1 ROS: No Nausea, No Chest Pain General: Alert, No acute distress HEENT: Other (nc at perrl) Lungs: Clear Cardiovascular: S1, S2 Abdomen: Soft, Non-tender Neuro Exam: Alert Extremities: Other (edema) Skin: Warm Labs Laboratory Tests Test 06/15/18 19:30 06/16/18 04:30 06/16/18 11:50 06/16/18 18:00 White Blood Count 10.4 x10^3/uL (4.0-11.0) 8.7 x10^3/uL (4.0-11.0) Red Blood Count 3.68 x10^6/uL (3.50-5.40) 3.26 x10^6/uL (3.50-5.40) Hemoglobin 8.8 g/dL (12.0-15.5) 8.3 g/dL (12.0-15.5) Hematocrit 27.8 % (36.0-47.0) 25.1 % (36.0-47.0) Mean Corpuscular Volume 75 fL (79-100) 77 fL (79-100) Mean Corpuscular Hemoglobin 24 pg (25-35) 26 pg (25-35) Mean Corpuscular Hemoglobin Concent 32 g/dL (31-37) 33 g/dL (31-37) Red Cell Distribution Width 18.5 % (11.5-14.5) 18.1 % (11.5-14.5) Platelet Count 284 x10^3/uL (140-400) 273 x10^3/uL (140-400) Neutrophils (%) (Auto) 70 % (31-73) Lymphocytes (%) (Auto) 20 % (24-48) Monocytes (%) (Auto) 8 % (0-9) Eosinophils (%) (Auto) 2 % (0-3) Basophils (%) (Auto) 1 % (0-3) Neutrophils # (Auto) 6.1 x10^3uL (1.8-7.7) Lymphocytes # (Auto) 1.7 x10^3/uL (1.0-4.8) Monocytes # (Auto) 0.7 x10^3/uL (0.0-1.1) Eosinophils # (Auto) 0.2 x10^3/uL (0.0-0.7) Basophils # (Auto) 0.1 x10^3/uL (0.0-0.2) Segmented Neutrophils % 76 % (35-66) Band Neutrophils % 1 % (0-9) Lymphocytes % 16 % (24-48) Monocytes % 6 % (0-10) Eosinophils % 1 % (0-5) Platelet Estimate Adequate (ADEQUATE) Anisocytosis Slight Heparin Anti-Xa Act, Unfractionated 0.18 IU/mL (0.30-0.70) 0.66 IU/mL (0.30-0.70) > 1.10 IU/mL (0.30-0.70) Sodium Level 140 mmol/L (136-145) Potassium Level 3.6 mmol/L (3.5-5.1) Chloride Level 106 mmol/L (98-107) Carbon Dioxide Level 29 mmol/L (21-32) Anion Gap 5 (6-14) Blood Urea Nitrogen 19 mg/dL (7-20) Creatinine 1.0 mg/dL (0.6-1.0) Estimated GFR (Cockcroft-Gault) 53.8 Glucose Level 100 mg/dL (70-99) Calcium Level 10.4 mg/dL (8.5-10.1) Test 06/17/18 06:58 White Blood Count 8.2 x10^3/uL (4.0-11.0) Red Blood Count 3.86 x10^6/uL (3.50-5.40) Hemoglobin 10.3 g/dL (12.0-15.5) Hematocrit 30.3 % (36.0-47.0) Mean Corpuscular Volume 79 fL (79-100) Mean Corpuscular Hemoglobin 27 pg (25-35) Mean Corpuscular Hemoglobin Concent 34 g/dL (31-37) Red Cell Distribution Width 18.7 % (11.5-14.5) Platelet Count 339 x10^3/uL (140-400) Neutrophils (%) (Auto) 65 % (31-73) Lymphocytes (%) (Auto) 23 % (24-48) Monocytes (%) (Auto) 7 % (0-9) Eosinophils (%) (Auto) 3 % (0-3) Basophils (%) (Auto) 2 % (0-3) Neutrophils # (Auto) 5.4 x10^3uL (1.8-7.7) Lymphocytes # (Auto) 1.9 x10^3/uL (1.0-4.8) Monocytes # (Auto) 0.6 x10^3/uL (0.0-1.1) Eosinophils # (Auto) 0.3 x10^3/uL (0.0-0.7) Basophils # (Auto) 0.1 x10^3/uL (0.0-0.2) Sodium Level 140 mmol/L (136-145) Potassium Level 3.4 mmol/L (3.5-5.1) Chloride Level 102 mmol/L (98-107) Carbon Dioxide Level 29 mmol/L (21-32) Anion Gap 9 (6-14) Blood Urea Nitrogen 13 mg/dL (7-20) Creatinine 0.9 mg/dL (0.6-1.0) Estimated GFR (Cockcroft-Gault) 60.7 Glucose Level 81 mg/dL (70-99) Calcium Level 10.9 mg/dL (8.5-10.1) Laboratory Tests Test 06/16/18 18:00 06/17/18 06:58 Heparin Anti-Xa Act, Unfractionated > 1.10 IU/mL (0.30-0.70) White Blood Count 8.2 x10^3/uL (4.0-11.0) Red Blood Count 3.86 x10^6/uL (3.50-5.40) Hemoglobin 10.3 g/dL (12.0-15.5) Hematocrit 30.3 % (36.0-47.0) Mean Corpuscular Volume 79 fL (79-100) Mean Corpuscular Hemoglobin 27 pg (25-35) Mean Corpuscular Hemoglobin Concent 34 g/dL (31-37) Red Cell Distribution Width 18.7 % (11.5-14.5) Platelet Count 339 x10^3/uL (140-400) Neutrophils (%) (Auto) 65 % (31-73) Lymphocytes (%) (Auto) 23 % (24-48) Monocytes (%) (Auto) 7 % (0-9) Eosinophils (%) (Auto) 3 % (0-3) Basophils (%) (Auto) 2 % (0-3) Neutrophils # (Auto) 5.4 x10^3uL (1.8-7.7) Lymphocytes # (Auto) 1.9 x10^3/uL (1.0-4.8) Monocytes # (Auto) 0.6 x10^3/uL (0.0-1.1) Eosinophils # (Auto) 0.3 x10^3/uL (0.0-0.7) Basophils # (Auto) 0.1 x10^3/uL (0.0-0.2) Sodium Level 140 mmol/L (136-145) Potassium Level 3.4 mmol/L (3.5-5.1) Chloride Level 102 mmol/L (98-107) Carbon Dioxide Level 29 mmol/L (21-32) Anion Gap 9 (6-14) Blood Urea Nitrogen 13 mg/dL (7-20) Creatinine 0.9 mg/dL (0.6-1.0) Estimated GFR (Cockcroft-Gault) 60.7 Glucose Level 81 mg/dL (70-99) Calcium Level 10.9 mg/dL (8.5-10.1) Medications Active Scripts Medications Dose Route/Sig Max Daily Dose Days Date Category Zanaflex (Tizanidine Hcl) 4 Mg Capsule 1 Cap PO BID 07/31/17 Reported Furosemide 20 Mg Tablet 1 Tab PO DAILY 07/31/17 Reported Percocet 7.5-325 Mg Tablet (Oxycodone/Acetaminophen) 1 Each Tablet 2 Tab PO [id number] 07/31/17 Reported Zofran (Ondansetron Hcl) 4 Mg Tablet 1 Tab PO Q8HRS 07/31/17 Reported Carafate (Sucralfate) 1 Gm Tablet 1 Tab PO TIDAC 07/31/17 Reported Hydrochlorothiazide Tablet (Hydrochlorothiazide) 12.5 Mg Tablet 1 Tab PO DAILY 07/31/17 Reported Lorazepam 0.5 Mg Tablet 0.5 Tab PO PRN QEVNG 07/31/17 Reported Lorazepam 0.5 Mg Tablet 1 Tab PO BID 07/31/17 Reported Zoloft (Sertraline Hcl) 50 Mg Tablet 1 Tab PO DAILY 07/31/17 Reported Zoloft (Sertraline Hcl) 25 Mg Tablet 1 Tab PO DAILY 07/31/17 Reported Vision Vitamins (Beta-Carotene(A) W-C & E/Min) 1 Each Tablet 1 Each PO DAILY 02/15/15 Reported Calcium + D3 Er Tablet (Calcium Carb & Cit/Vitamin D3) 1 Each Tablet.er 1 Each PO 02/15/15 Reported Synthroid (Levothyroxine Sodium) 50 Mcg Tablet 50 Mcg PO DAILYAC 02/15/15 Reported Potassium Chloride 10 Meq Capsule.er 10 Meq PO DAILY 02/15/15 Reported Omeprazole 40 Mg Capsule.dr 1 Cap PO DAILY 02/15/15 Reported Cardizem Cd (Diltiazem Hcl) 180 Mg Cap.er.24h 180 Mg PO DAILY 02/15/15 Reported Impression . IMPRESSION: 1. Acute hypoxic respiratory failure secondary to acute pulmonary embolism/DVT. 2. History of rheumatic heart disease. 3. Lower extremity edema, +deep venous thrombosis. 4. No significant history of tobacco use. 5. Small left pleural effusion, which does not need any intervention. 6. wheezing, acute bronchospasm, resolved Plan . 1. on Eliquis 2. venous Dopplers of lower extremities + dvt, activity as tolerated 3. if anemia becomes an issue while on anticoagulation, then an IVC filter can be considered 4. Oxygen via canula 5. cont bronchodilators qid. 6. protonix for stress ulcer prophylaxis 7. Discussed with RN./ ok with dc to IVAN Verma MD Jun 17, 2018 12:37
[2018-06-17] MEDS ORDERED: APIX5TAB PO (13:41)
[2018-06-17] MEDS ORDERED: OXYC-327 PO (13:42)
[2018-06-17] MEDS: ANTI-COAG MONITOR BY PHARMACY. MC PRN (15:51)
[2018-06-23] MEDS ORDERED: APIXABAN 5 MG TABLET. PO SCH (09:00)
== END 2018-06-17 16:20 | DRG 175 ==
LOC: ER 09:19 → 2 SOUTH 11:01
PROVIDERS: ADMIT Internal Medicine; ATTEND Internal Medicine
PROC: 30233N1 Transfusion of Nonautologous Red Blood Cells into Peripheral Vein, Percutaneous Approach (ICD-10-PCS; principal; 2018-06-15)
PROC: 5A09357 Assistance with Respiratory Ventilation, Less than 24 Consecutive Hours, Continuous Positive Airway Pressure (ICD-10-PCS; 2018-06-15)
DX: I26.99 Other pulmonary embolism without acute cor pulmonale (principal); J96.01 Acute respiratory failure with hypoxia; I82.409 Acute embolism and thrombosis of unspecified deep veins of unspecified lower extremity; I13.0 Hypertensive heart and chronic kidney disease with heart failure and stage 1 through stage 4 chronic kidney disease, or unspecified chronic kidney disease; N39.0 Urinary tract infection, site not specified; Z88.0 Allergy status to penicillin; Z88.8 Allergy status to other drugs, medicaments and biological substances; D50.9 Iron deficiency anemia, unspecified; E03.9 Hypothyroidism, unspecified; E05.00 Thyrotoxicosis with diffuse goiter without thyrotoxic crisis or storm; E83.42 Hypomagnesemia; E83.52 Hypercalcemia; E87.6 Hypokalemia; F32.9 Major depressive disorder, single episode, unspecified; F41.9 Anxiety disorder, unspecified; G89.29 Other chronic pain; I08.0 Rheumatic disorders of both mitral and aortic valves; I25.10 Atherosclerotic heart disease of native coronary artery without angina pectoris; I27.20 Pulmonary hypertension, unspecified; I48.91 Unspecified atrial fibrillation; I50.9 Heart failure, unspecified; J44.9 Chronic obstructive pulmonary disease, unspecified; K21.9 Gastro-esophageal reflux disease without esophagitis; Z96.659 Presence of unspecified artificial knee joint; M24.412 Recurrent dislocation, left shoulder; M81.0 Age-related osteoporosis without current pathological fracture; M19.90 Unspecified osteoarthritis, unspecified site; N18.3 Chronic kidney disease, stage 3 (moderate); I48.0 Paroxysmal atrial fibrillation; R29.6 Repeated falls; R79.1 Abnormal coagulation profile; Z86.718 Personal history of other venous thrombosis and embolism; Z90.710 Acquired absence of both cervix and uterus; Z91.81 History of falling; Z99.3 Dependence on wheelchair; Z90.49 Acquired absence of other specified parts of digestive tract; Z79.01 Long term (current) use of anticoagulants
CPT/HCPCS: 36415; 36600; 71045; 74022; 78580; 80048; 80053; 81001; 82553; 82607; 82728; 82746; 82805; 83540; 83550; 83605; 83735; 83880; 84484; 85007; 85025; 85027; 85379; 85520; 85610; 86850; 86900; 86901; 86922; 87040; 87086; 87186; 93005; 93306; 93970; 94640; 94660; 94760; 96365; 96374; 96375; A9540; J0690; J0696; J1644; J1756; J2930; J3475; J7620; P9016; Q0162; 97530; 99285-25

== ENCOUNTER 2018-06-18 18:34 | Inpatient (IN) | payer BC ==
[~2018-06-18] VITALS: Ht 152.4 cm; Wt 60.3 kg
[~2018-06-18 18:34] MED LIST changes: +APIX5TAB PO
[2018-06-18] MEDS ORDERED: IV NORMAL SALINE 1000ML BAG 1,000 ML IV SCH (19:00)
[2018-06-18 19:10] LABS: BASO # 0.1 x10^3/uL (0.0-0.2); BASO % 1 % (0-3); EOS # 0.1 x10^3/uL (0.0-0.7); EOS % 1 % (0-3); HEMATOCRIT 36.5 % (36.0-47.0); HEMOGLOBIN 11.5 g/dL (12.0-15.5); LYMPH # 2.7 x10^3/uL (1.0-4.8); LYMPH % 23 % (24-48); MEAN CORPUSCULAR HEMOGLOBIN 24 pg (25-35); MEAN CORPUSCULAR HGB CONC 32 g/dL (31-37); MEAN CORPUSCULAR VOLUME 76 fL (79-100); MONO # 1.1 x10^3/uL (0.0-1.1); MONO % 9 % (0-9); NEUT # 7.7 x10^3uL (1.8-7.7); NEUT % 66 % (31-73); PLATELET COUNT 416 x10^3/uL (140-400); RED CELL DISTRIBUTION WIDTH 19.3 % (11.5-14.5); WHITE BLOOD COUNT 11.7 x10^3/uL (4.0-11.0)
[2018-06-18] MEDS ORDERED: IV NORMAL SALINE 1000ML BAG 1,000 ML IV ONE (19:15)
--- NOTE | 2018-06-18 19:27 | EKG ---
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
[2018-06-18 19:28] LABS: CALCIUM 11.9 mg/dL (8.5-10.1); CREATININE 1.3 mg/dL (0.6-1.0); GFR 39.7; POTASSIUM 3.2 mmol/L (3.5-5.1)
[2018-06-18] MEDS ORDERED: ESMOLOL 100 MG/10 ML VIAL. IV ONE (19:30)
--- NOTE | 2018-06-18 19:33 | PHYS DOC ---
Past Medical History Past Medical History: A-Fib, Anxiety, Asthma, CAD, Depression, Gallstones, GERD , Hypertension, Hypothyroid Additional Past Medical Histor: rheumatic heart disease, benign aortic tumor, graves disease, CHRONIC PAIN Past Surgical History: Cholecystectomy, Hysterectomy, Tonsillectomy Additional Past Surgical Histo: rt & lt lumpectomy, rt bunyon, rt knee surgery Alcohol Use: None Drug Use: None Adult General Chief Complaint Chief Complaint: SHORTNESS OF BREATH [facility] HPI Patient is a 77-year-old female presents to the emergency department for evaluation. She was discharged yesterday after being hospitalized with what sounds like a pulmonary embolism, and being started on Eliquis. She also has a history of rheumatic heart disease and a history of atrial fibrillation. She was sent by her nursing facility today for hypoxia and increased shortness of breath. Apparently she was sent home from the hospital without oxygen, but required oxygen to attain an oxygen saturation above 90% this evening. She states her shortness of breath worsened this evening. She denies any definite chest pain. She is noted to have a heart rate in the 150s upon arrival in the emergency room, with a blood pressure of about 100. However, she appears to be in atrial fibrillation, with a heart rate varying between 110 and 150. She denies any chest pain or pleuritic pain. There are no alleviating or exacerbating factors to her symptoms. Review of Systems Review of Systems Constitutional: Denies fever or chills [] Eyes: Denies change in visual acuity, redness, or eye pain [] HENT: Denies nasal congestion or sore throat [] Respiratory: Denies cough or shortness of breath [] Cardiovascular: No additional information not addressed in HPI [] GI: Denies abdominal pain, nausea, vomiting, bloody stools or diarrhea [] : Denies dysuria or hematuria [] Musculoskeletal: Denies back pain or joint pain [] Integument: Denies rash or skin lesions [] Neurologic: Denies headache, focal weakness or sensory changes [] Endocrine: Denies polyuria or polydipsia [] All other systems were reviewed and found to be within normal limits, except as documented in this note. Current Medications Current Medications Current Medications Medications (Trade) Dose Ordered Sig/Luann Start Time Stop Time Status Last Admin Dose Admin Esmolol HCl (Brevibloc) 28 mg ONCE ONCE 06/18/18 19:30 06/18/18 19:31 DC 06/18/18 19:30 28 MG Magnesium Sulfate 50 ml @ 25 mls/hr 1X ONCE 06/18/18 19:45 06/18/18 21:44 DC 06/18/18 23:39 25 MLS/HR Potassium Chloride (Klor-Con) 40 meq 1X ONCE 06/18/18 19:45 06/18/18 19:49 DC 06/18/18 23:38 40 MEQ Sodium Chloride 1,000 ml @ 1,000 mls/hr 1X ONCE 06/18/18 19:15 06/18/18 20:14 DC 06/18/18 19:56 1,000 MLS/HR Allergies Allergies Allergies Coded Allergies Type Severity Reaction Last Updated Verified Penicillins Allergy Intermediate HIVES 08/05/17 Yes tetracycline Allergy Intermediate 08/05/17 Yes Physical Exam Physical Exam PHYSICAL EXAM: CONSTITUTIONAL: Well developed, well nourished HEAD: normocephalic, atraumatic EENT: PERRL, EOMI. Conjunctivae normal color, sclerae non-icteric; moist mucous membranes. NECK: Supple, non-tender; no meningismus. LUNGS: Lungs CTA, breathing is mildly labored. Normal air movement. HEART: Rapid, irregularly irregular, no murmur CHEST: No deformity; non-tender ABDOMEN: The abdomen is soft, and non-tender, no masses or bruits. EXTREM: Normal ROM; no deformity, no calf tenderness. Normal pulses palpable in all extremities. There is no pedal edema. SKIN: No rash; no diaphoresis NEURO: Alert; normal speech and cognition; CN's grossly intact; strength grossly intact without focal deficit. BACK: No CVA TTP. Current Patient Data Vital Signs Vital Signs Date Time Temp Pulse Resp B/P (MAP) Pulse Ox O2 Delivery O2 Flow Rate FiO2 06/18/18 19:44 82 138/72 (94) 97 Nasal Cannula 5.0 06/18/18 18:54 98.2 11 98.2 Lab Values Laboratory Tests Test 06/18/18 18:51 06/18/18 18:57 Lactic Acid Level 1.8 mmol/L (0.4-2.0) White Blood Count 11.7 x10^3/uL (4.0-11.0) H Red Blood Count 4.80 x10^6/uL (3.50-5.40) Hemoglobin 11.5 g/dL (12.0-15.5) L Hematocrit 36.5 % (36.0-47.0) Mean Corpuscular Volume 76 fL (79-100) L Mean Corpuscular Hemoglobin 24 pg (25-35) L Mean Corpuscular Hemoglobin Concent 32 g/dL (31-37) Red Cell Distribution Width 19.3 % (11.5-14.5) H Platelet Count 416 x10^3/uL (140-400) H Neutrophils (%) (Auto) 66 % (31-73) Lymphocytes (%) (Auto) 23 % (24-48) L Monocytes (%) (Auto) 9 % (0-9) Eosinophils (%) (Auto) 1 % (0-3) Basophils (%) (Auto) 1 % (0-3) Neutrophils # (Auto) 7.7 x10^3uL (1.8-7.7) Lymphocytes # (Auto) 2.7 x10^3/uL (1.0-4.8) Monocytes # (Auto) 1.1 x10^3/uL (0.0-1.1) Eosinophils # (Auto) 0.1 x10^3/uL (0.0-0.7) Basophils # (Auto) 0.1 x10^3/uL (0.0-0.2) Segmented Neutrophils % 67 % (35-66) H Band Neutrophils % 2 % (0-9) Lymphocytes % 26 % (24-48) Monocytes % 5 % (0-10) Platelet Estimate Increased (ADEQUATE) Polychromasia Slight Hypochromasia Slight Anisocytosis Slight Prothrombin Time 23.0 SEC (11.7-14.0) H Prothrombin Time INR 2.1 (0.8-1.1) H PTT 45 SEC (24-38) H Sodium Level 141 mmol/L (136-145) Potassium Level 3.2 mmol/L (3.5-5.1) L Chloride Level 102 mmol/L (98-107) Carbon Dioxide Level 26 mmol/L (21-32) Anion Gap 13 (6-14) Blood Urea Nitrogen 22 mg/dL (7-20) H Creatinine 1.3 mg/dL (0.6-1.0) H Estimated GFR (Cockcroft-Gault) 39.7 BUN/Creatinine Ratio 17 (6-20) Glucose Level 93 mg/dL (70-99) Calcium Level 11.9 mg/dL (8.5-10.1) H Magnesium Level 1.3 mg/dL (1.8-2.4) L Total Bilirubin 0.8 mg/dL (0.2-1.0) Aspartate Amino Transferase (AST) 31 U/L (15-37) Alanine Aminotransferase (ALT) 22 U/L (14-59) Alkaline Phosphatase 159 U/L (46-116) H Creatine Kinase 38 U/L (26-192) Creatine Kinase MB (Mass) 3.6 ng/mL (0.0-3.6) Creatine Kinase MB Relative Index % (0-4) Troponin I Quantitative 0.084 ng/mL (0.000-0.055) ZV-Fpb-C-Type Natriuretic Peptide 5238 pg/mL (0-449) H Total Protein 7.0 g/dL (6.4-8.2) Albumin 3.7 g/dL (3.4-5.0) Albumin/Globulin Ratio 1.1 (1.0-1.7) Laboratory Tests 06/18/18 18:57 Laboratory Tests 06/18/18 18:57 EKG EKG [Atrial fibrillation a rate of 116 bpm, left axis deviation, normal intervals, nonspecific ST/T changes.] Radiology/Procedures Radiology/Procedures [ER physician preliminary chest x-ray interpretation: There is no acute disease , cardiomegaly is present.] Course & Med Decision Making Course & Med Decision Making Pertinent Labs and Imaging studies reviewed. (See chart for details) [7:30 PM: Differential diagnosis includes primary atrial fibrillation with RVR, causing respiratory and ] perfusion instability, versus recurrent or larger pulmonary embolism. The patient did have a VQ scan during her last hospitalization apparently. I discussed the case with the patient's [employer] crewmember , Dr. Jose. She'll be started on esmolol, to try and cautiously control her heart rate while maintaining blood pressure stability. CT angiography will be obtained. If she has had recurrent pulmonary embolism, which may be difficult to determine due to the imaging modality differences between her last imaging and CT angiography of obtained today, she might require [facility] filter placement. The patient will be closely monitored and admitted to the hospital after further assessment and treatment. 7:45 PM: Patient's labs have been reviewed. Even though the patient's physician is listed as Dr. Del Castillo, the patient's daughter states that on Saturday when the patient was first admitted, he was contacted and stated that the patient was not his patient. The patient was thus admitted to the hospitalist and will be admitted to the hospitalist again. Her GFR is too low for IV contrast at this time but it appears that she has baseline normal renal function. I will aggressively hydrated the patient and she will hopefully be able to get a CT angiogram tomorrow. Her evening dose of Eliquis will be administered. 8:30 PM: Other than the patient is ready to go to the ICU her blood pressure has significantly improved, no heart rate is back into sinus rhythm. Rate is in the 90s. CRITICAL CARE TIME: 50 Minutes, excluding any procedures and care of other patients. Dragon Disclaimer Dragon Disclaimer This electronic medical record was generated, in whole or in part, using a voice recognition dictation system. Departure Departure Impression: Primary Impression: Rapid atrial fibrillation Additional Impression: Hypoxia Disposition: ADMITTED INPATIENT Admitting Physician: Arabella Ortiz Condition: CRITICAL Referrals: MELODY DEL CASTILLO MD (PCP) Problem Qualifiers MERRY ESCAMILLA MD Jun 18, 2018 19:33
[2018-06-18 19:34] LABS: ALBUMIN 3.7 g/dL (3.4-5.0); ALBUMIN/GLOBULIN RATIO 1.1 (1.0-1.7); MAGNESIUM 1.3 mg/dL (1.8-2.4); TOTAL BILIRUBIN 0.8 mg/dL (0.2-1.0)
[2018-06-18 19:42] LABS: CREATINE KINASE 38 U/L (26-192)
[2018-06-18] MEDS ORDERED: POTASSIUM CHLORIDE 20 MEQ TABLET.ER. PO ONE (19:45)
[2018-06-18] MEDS ORDERED: MAGNESIUM SULFATE 2GM 50 ML IV ONE (19:45)
[2018-06-18 19:50] LABS: % BANDS 2 % (0-9); % LYMPHS 26 % (24-48); % MONOS 5 % (0-10); % SEGS 67 % (35-66); ANISOCYTOSIS SLIGHT; HYPOCHROMIA SLIGHT; PLT ESTIMATE INCREASED (ADEQUATE); POLYCHROMASIA SLIGHT
[2018-06-18] MEDS: ESMOLOL 2500MG/250ML PREMIX 250 ML IV ONE (20:14)
[2018-06-18] MEDS ORDERED: LORazepam 0.5 MG TABLET PO PRN (20:30)
[2018-06-18] MEDS ORDERED: ACETAMINOPHEN 500 MG TABLET PO PRN (20:30)
[2018-06-18] MEDS ORDERED: MORPHINE SULFATE 2 MG/ML VIAL. IV PRN (20:30)
[2018-06-18] MEDS ORDERED: APIXABAN 5 MG TABLET. PO SCH (21:00)
[2018-06-18 21:15] VITALS: BP 140/72
[2018-06-18 21:30] VITALS: BP 120/73
[2018-06-18 21:45] VITALS: BP 134/64
[2018-06-18 22:00] VITALS: BP 126/69
[2018-06-18 22:15] VITALS: BP 141/72
[2018-06-18 23:00] VITALS: BP 140/69
[2018-06-18] MEDS: LORazepam 0.5 MG TABLET PO SCH (23:37)
[2018-06-18] MEDS: oxyCODONE/APAP 7.5/325 1 TAB TABLET PO PRN (23:37)
[2018-06-18] MEDS: tiZANidine 4 MG TABLET. PO SCH (23:38)
[2018-06-18] MEDS: ONDANSETRON PF 4 MG/2 ML VIAL. IV PRN (23:47)
[2018-06-19] VITALS (12 sets, daily range): BP systolic 90–139; BP diastolic 54–81
[2018-06-19] MEDS: ESMOLOL 2500MG/250ML PREMIX 250 ML IV ONE (03:00)
[2018-06-19 06:00] LABS: CALCIUM 10.8 mg/dL (8.5-10.1); CREATININE 1.1 mg/dL (0.6-1.0); GFR 48.2; POTASSIUM 3.2 mmol/L (3.5-5.1)
[2018-06-19 06:01] LABS: BASO # 0.1 x10^3/uL (0.0-0.2); BASO % 1 % (0-3); EOS # 0.1 x10^3/uL (0.0-0.7); EOS % 1 % (0-3); HEMATOCRIT 28.1 % (36.0-47.0); HEMOGLOBIN 9.2 g/dL (12.0-15.5); LYMPH # 2.1 x10^3/uL (1.0-4.8); LYMPH % 24 % (24-48); MEAN CORPUSCULAR HEMOGLOBIN 26 pg (25-35); MEAN CORPUSCULAR HGB CONC 33 g/dL (31-37); MEAN CORPUSCULAR VOLUME 78 fL (79-100); MONO # 0.7 x10^3/uL (0.0-1.1); MONO % 8 % (0-9); NEUT # 5.7 x10^3uL (1.8-7.7); NEUT % 66 % (31-73); PLATELET COUNT 307 x10^3/uL (140-400); RED BLOOD COUNT 3.61 x10^6/uL (3.50-5.40); RED CELL DISTRIBUTION WIDTH 18.6 % (11.5-14.5); WHITE BLOOD COUNT 8.7 x10^3/uL (4.0-11.0)
[2018-06-19] MEDS: ONDANSETRON PF 4 MG/2 ML VIAL. IV PRN (07:00)
--- NOTE | 2018-06-19 08:14 | RAD ---
EXAM: Portable AP view of the chest DATE: 06/18/2018 7:33 PM INDICATION: SOB. HX OF ASTHMA COMPARISON: 06/13/2018, 08/03/2017 FINDINGS: The heart is not enlarged. Mediastinal and hilar contours are stable. Dense left retrocardiac opacities are seen, possibly atelectasis or consolidation. There is likely a small hilar hernia as well. Small left pleural effusion. No pneumothorax. Thoracolumbar scoliosis. Advanced bilateral glenohumeral joint degenerative changes are seen with chronic dislocation left glenohumeral joint and marked superior subluxation right humeral head. IMPRESSION: Retrocardiac left lung base parenchymal opacity likely combination of atelectasis/consolidation and hiatal hernia. Electronically signed by: Eugenio Espana MD (06/19/2018 8:10 AM) [facility] [place]
[2018-06-19] MEDS: SUCRALFATE 1 GM TABLET. PO SCH ×3 (10:31→18:32)
[2018-06-19] MEDS: tiZANidine 4 MG TABLET. PO SCH ×3 (10:31→19:43)
[2018-06-19] MEDS: FUROSEMIDE 20 MG TABLET PO SCH (10:31)
[2018-06-19] MEDS: MULTIVITAMIN I-VITE TABLET. PO SCH (10:31)
[2018-06-19] MEDS: LEVOTHYROXINE 50 MCG TABLET PO SCH (10:31)
[2018-06-19] MEDS: LORazepam 0.5 MG TABLET PO SCH ×2 (10:31→21:39)
[2018-06-19] MEDS: SERTRALINE 50 MG TABLET. PO SCH (10:31)
[2018-06-19] MEDS: PANTOPRAZOLE 40 MG TABLET.DR. PO SCH (10:31)
[2018-06-19] MEDS: POTASSIUM CHLORIDE 10 MEQ TABLET.ER. PO SCH (10:32)
[2018-06-19] MEDS: APIXABAN 5 MG TABLET. PO SCH ×2 (10:32→19:43)
--- NOTE | 2018-06-19 11:48 | HP ---
ADMIT DATE: 06/19/2018 CHIEF COMPLAINT: Shortness of breath. HISTORY OF PRESENT ILLNESS: The patient is a pleasant 77-year-old female who we just discharged from [facility] a day or two ago after being treated for pulmonary embolism. She was doing relatively well, but then developed shortness of breath. When she got to the ER, she was in AFib with RVR. She has now been admitted to the ICU. PAST MEDICAL HISTORY: Pulmonary embolism that was just treated within the past week, previous AFib, anxiety, asthma, CAD, depression, gallstones, GERD, hypertension, hypothyroidism, rheumatic heart disease, aortic valve tumor that was benign, Graves disease, chronic pain, cholecystectomy, hysterectomy, tonsillectomy, right and left breast lumpectomies, right bunion repair and right knee surgery. ALLERGIES: PENICILLINS AND TETRACYCLINE. FAMILY HISTORY: Diabetes. SOCIAL HISTORY: She does not drink, smoke or take drugs. MEDICATIONS: Reviewed. Please refer to the MRAD. REVIEW OF SYSTEMS: GENERAL: No history of weight change, weakness or fevers. SKIN: No bruising, hair changes or rashes. EYES: No blurred, double or loss of vision. NOSE AND THROAT: No history of nosebleeds, hoarseness or sore throat. HEART: No history of palpitations, chest pain or shortness of breath on exertion. LUNGS: Denies cough, hemoptysis or wheezing. She complains of shortness of breath. GASTROINTESTINAL: Denies changes in appetite, nausea, vomiting, diarrhea or constipation. GENITOURINARY: No history of frequency, urgency, hesitancy or nocturia. NEUROLOGIC: Denies history of numbness, tingling, tremor or weakness. PSYCHIATRIC: No history of panic, anxiety or depression. ENDOCRINE: No history of heat or cold intolerance, polyuria or polydipsia. EXTREMITIES: Denies muscle weakness, joint pain, pain on walking or stiffness. PHYSICAL EXAMINATION: VITAL SIGNS: Temperature afebrile, pulse ranging from 158-73, she is currently at 73. Respiratory rate is 18 and blood pressure is 104/58. GENERAL: She is alert. HEART: Normal S1, S2 with a soft S3. It is irregular. LUNGS: Clear. ABDOMEN: Soft. EXTREMITIES: Trace edema. SKIN: No rashes. ENDOCRINE: No thyromegaly. LYMPHATICS: No cervical nodes. HEMATOPOIETIC: No bruising. LABORATORY DATA: White count was 12, it is down to 8.7; hemoglobin was 11, is down to 9.2 and platelets were high at 416,000, they are now down to 307,000. Electrolytes are normal, other than a potassium of 3.2; calcium is a little high at 10.8, but is coming down because it was 11.9. Troponin 0.084. BNP 5230. ASSESSMENT AND PLAN: Atrial fibrillation with rapid ventricular response in an elderly female who has recent pulmonary embolism, hypokalemia, hypercalcemia, elevated troponin, leukocytosis, anemia and thrombocytosis. The patient has been admitted to the ICU. We have consulted Cardiology and we will continue negative chronotropic agents to control her rate and blood thinners. Consult Dr. Montano. Continue other home medicines, PT, OT, frequent labs. PROGNOSIS: Guarded. MIRTHAL Heriberto BYRNES DO DR: JESSICA/geo JOB#: [id number] / [id number]
--- NOTE | 2018-06-19 12:00 | CONS ---
DATE OF CONSULTATION: ATTENDING PHYSICIAN: Dr. Ortiz. REASON FOR CONSULTATION: Pulmonary embolism. HISTORY OF PRESENT ILLNESS: The patient is a 77-year-old female who was seen last week by me and was diagnosed with pulmonary embolism and extensive DVT. She had acute hypoxic respiratory failure. She made clinical improvement, was down to few liters of nasal cannula and subsequently discharged on Eliquis to [facility]. She was brought into the hospital after she was noted to have atrial fibrillation with rapid ventricular response. She was mildly hypoxic as well. She did receive some IV fluids along with increasing supplemental oxygen to keep saturations above 90%. The patient feels better. She converted to sinus rhythm. Her chest x-ray revealed possible tiny atelectasis or effusion in the left base. The patient was on home Eliquis. PAST MEDICAL HISTORY: Significant for atrial fibrillation, anxiety, asthma, CAD, GERD, hypertension, hypothyroidism, recent acute pulmonary embolism and extensive bilateral lower extremity DVT. An echo with severe pulmonary hypertension. PAST SURGICAL HISTORY: Including cholecystectomy, hysterectomy and tonsillectomy and others. ALLERGIES: PENICILLIN AND TETRACYCLINE. MEDICATIONS: All reviewed as listed in the MRAD including oxygen and Eliquis. REVIEW OF SYSTEMS: Limited as she is unable to give much history. SOCIAL HISTORY: No significant history of tobacco use. PHYSICAL EXAMINATION: GENERAL: She is lethargic, but arousable to commands. VITAL SIGNS: Blood pressure is stable, afebrile, pulse ox is 96% on 5 liters. NECK: Supple. LUNGS: Diminished breath sounds at the bases. CARDIOVASCULAR: Regular rate and rhythm. ABDOMEN: Soft. EXTREMITIES: No pitting edema. LABORATORY DATA: Reviewed. White cell count 8.7, hemoglobin 9.2, platelets are 307. BUN is 19, creatinine 1.1. It is improved since yesterday. IMPRESSION: 1. Acute on chronic hypoxic respiratory failure secondary to atrial fibrillation with rapid ventricular response. 2. Recently diagnosed acute pulmonary embolism and extensive deep vein thrombosis. She will remain on Eliquis. 3. Mild reactive leukocytosis. 4. Azotemia secondary to dehydration. 5. Abnormal chest x-ray with tiny left effusion. RECOMMENDATIONS: 1. From a pulmonary standpoint, gradually wean FIO2. 2. Follow up another chest x-ray to make sure there is no fluid overload. 3. Continue Eliquis as long as it is safe and tolerable. 4. Monitor hemoglobin. 5. Follow cardiology recommendations. 6. Echocardiogram done recently had shown severe pulmonary hypertension, which is probably a secondary pulmonary hypertension. She is not the best candidate for any right heart catheterization at present. 7. Discussed with RN and will follow along with you. Critical care time 39 minutes. IVAN HARRY MD DR: JANUSZ/geo JOB#: [id number] / [id number]
--- NOTE | 2018-06-19 12:05 | RAD ---
PORTABLE CHEST 1V Clinical Indication: FLUID OVERLOAD Comparison: AP chest, prior day. Findings: Tortuous and atherosclerotic thoracic aorta. Probable hiatal hernia. Cardiac size stable. Small left pleural effusion is unchanged. Mild left basilar airspace disease. Right lung is clear. No pneumothorax. Advanced degenerative arthropathy of the shoulders is unchanged. IMPRESSION: Unchanged small left pleural effusion and mild left basilar airspace disease. Electronically signed by: Wagner Watson MD (06/19/2018 12:01 PM) [id number]
[2018-06-19] MEDS: oxyCODONE/APAP 7.5/325 1 TAB TABLET PO PRN ×2 (15:12→22:16)
--- NOTE | 2018-06-19 17:04 | PDOC2 ---
CONSULT Date of Consult Date of Consult DATE: 06/19/18 TIME: 16:54 Reason for Consult Reason for Consult: A. fib with RVR Referring Physician Referring Physician: Dr Ortiz Identification/Chief Complaint Chief Complaint Dyspnea and confusion and atrial fibrillation with rapid ventricular response History of Present Illness Reason for Visit: This patient is a 77-year-old lady that has valvular heart disease and recently had DVT and pulmonary embolism she had been in the hospital until 2 days ago and was discharged to [facility] for further care. She became some what lethargic and short of breath with a fast pulse. The patient was found to be in atrial fibrillation with a rapid ventricular response. The patient was transferred to the emergency room where she was seen and examined and was going to be started on an Esmolol drip but she converted to sinus rhythm spontaneously. I came to see the patient at the time that I saw her she was awake alert responsive and oriented. She was in sinus rhythm when I examined her. The patient denies any palpitations but she was very lethargic at the time that she was having the rhythm problems. She has a known history of valvular heart disease with secondary pulmonary hypertension. The patient also has long-standing COPD. This episode of atrial fibrillation is not her first one. She has been on a Elliquis for anticoagulation. Past Medical History Cardiovascular: AFIB, CAD, CHF, HTN, Mitral valve stenosis, Aortic stenosis, Valve insufficiency Pulmonary: COPD, Pulmonary embolus GI: GERD Heme/Onc: Other (DVT) Hepatobiliary: Cholelithiasis Musculoskeletal: Osteoarthritis Endocrine: Hypothyroidism, Osteoporosis Past Surgical History Past Surgical History: Total knee replacement, Hysterectomy Family History Family History: Other Social History ALCOHOL: none Drugs: None Lives: Alone Current Problem List Problem List Problems Medical Problems: (1) Hypoxia Status: Acute (2) Rapid atrial fibrillation Status: Acute Current Medications Current Medications Current Medications Sodium Chloride 1,000 ml @ 1,000 mls/hr Q1H IV Last administered on 06/18/18at 19:55; Start 06/18/18 at 19:00; Stop 06/18/18 at 19:59; Status DC Sodium Chloride 1,000 ml @ 1,000 mls/hr 1X ONCE IV Last administered on at 19:56; Start 06/18/18 at 19:15; Stop 06/18/18 at 20:14; Status DC Esmolol HCl 250 ml @ 0 mls/hr 1X ONCE IV ; Start 06/18/18 at 19:30; Stop at 19:31; Status DC Esmolol HCl (Brevibloc) 28 mg ONCE ONCE IV Last administered on 06/18/18at 19: 30; Start 06/18/18 at 19:30; Stop 06/18/18 at 19:31; Status DC Magnesium Sulfate 50 ml @ 25 mls/hr 1X ONCE IV Last administered on 06/18/18at 23:39; Start 06/18/18 at 19:45; Stop 06/18/18 at 21:44; Status DC Potassium Chloride (Klor-Con) 40 meq 1X ONCE PO Last administered on at 23:38; Start 06/18/18 at 19:45; Stop 06/18/18 at 19:49; Status DC Apixaban (Eliquis) 5 mg BID PO Last administered on 06/18/18at 20:10; Start at 21:00; Stop 06/18/18 at 21:00; Status DC Acetaminophen (Tylenol) 500 mg PRN Q6HRS PRN PO HEADACHE / TEMP; Start at 20:30 Ondansetron HCl (Zofran) 4 mg PRN Q6HRS PRN IV NAUSEA/VOMITING 1ST CHOICE Last administered on 06/19/18at 07:00; Start 06/18/18 at 20:30 Morphine Sulfate (Morphine Sulfate) 2 mg PRN Q2HR PRN IV PAIN MILD; Start 06/18 at 20:30 Temazepam (Restoril) 7.5 mg PRN QHS PRN PO INSOMNIA; Start 06/18/18 at 20:30 Furosemide (Lasix) 20 mg DAILY PO Last administered on 06/19/18at 10:31; Start 06/19/18 at 09:00 Lorazepam (Ativan) 0.25 mg PRN QEVNG PRN PO ANXIETY / AGITATION; Start at 20:30 Lorazepam (Ativan) 0.5 mg BID PO Last administered on 06/19/18at 10:31; Start at 21:00 Oxycodone/ Acetaminophen (Percocet 7.5/ 325) 1 tab PRN Q6HRS PRN PO MILD TO MODERATE Last administered on 06/19/18 15:12; Start 06/19/18 at 00:00 Potassium Chloride (Klor-Con) 10 meq DAILY PO Last administered on 06/19/18at 10 :32; Start 06/19/18 at 09:00 Sertraline HCl (Zoloft) 50 mg DAILY PO Last administered on 06/19/18 10:31; Start 06/19/18 at 09:00 Multivitamins/ Minerals (I-Bowen) 1 tab DAILY PO Last administered on 06/19/18 10:31; Start 06/19/18 at 09:00 Diltiazem HCl (Cardizem 24hr Cd) 180 mg DAILY PO Last administered on 10:31; Start 06/19/18 at 09:00; Stop 06/19/18 at 16:30; Status DC Levothyroxine Sodium (Synthroid) 50 mcg DAILY07 PO Last administered on 10:31; Start 06/19/18 at 07:00 Pantoprazole Sodium (Protonix) 40 mg DAILYAC PO Last administered on 06/19/18 10:31; Start 06/19/18 at 07:30 Ondansetron HCl (Zofran Odt) 4 mg PRN Q8HRS PRN PO NAUSEA/VOMITING 1ST CHOICE; Start 06/18/18 at 21:00 Sucralfate (Carafate) 1 gm TIDAC PO Last administered on 06/19/18 10:31; Start 06/19/18 at 07:30 Tizanidine HCl (Zanaflex) 4 mg Q8HRS PO Last administered on 06/19/18 10:31; Start 06/18/18 at 22:00 Apixaban (Eliquis) 5 mg BID@0800,2000 PO Last administered on 06/19/18 10:32; Start 06/19/18 at 08:00 Info (Anti-Coagulation Monitoring By Pharmacy) 1 each PRN DAILY PRN MC SEE COMMENTS; Start 06/18/18 at 20:45 Diltiazem HCl (Cardizem 24hr Cd) 300 mg DAILY PO ; Start 06/20/18 at 09:00 Active Scripts Active Reported Percocet 7.5-325 Mg Tablet (Oxycodone/Acetaminophen) 1 Each Tablet 1 Tab PO Q6HRS Eliquis (Apixaban) 5 Mg Tablet 5 Mg PO BID start 06/23/2018 Eliquis (Apixaban) 5 Mg Tablet 10 Mg PO BID 5 Days Zanaflex (Tizanidine Hcl) 4 Mg Capsule 1 Cap PO BID Furosemide 20 Mg Tablet 1 Tab PO DAILY Zofran (Ondansetron Hcl) 4 Mg Tablet 1 Tab PO Q8HRS Carafate (Sucralfate) 1 Gm Tablet 1 Tab PO TIDAC Hydrochlorothiazide Tablet (Hydrochlorothiazide) 12.5 Mg Tablet 1 Tab PO DAILY Lorazepam 0.5 Mg Tablet 0.5 Tab PO PRN QEVNG Lorazepam 0.5 Mg Tablet 1 Tab PO BID Zoloft (Sertraline Hcl) 50 Mg Tablet 1 Tab PO DAILY Vision Vitamins (Beta-Carotene(A) W-C & E/Min) 1 Each Tablet 1 Each PO DAILY Calcium + D3 Er Tablet (Calcium Carb & Cit/Vitamin D3) 1 Each Tablet.er 1 Each PO Synthroid (Levothyroxine Sodium) 50 Mcg Tablet 50 Mcg PO DAILYAC Potassium Chloride 10 Meq Capsule.er 10 Meq PO DAILY Omeprazole 40 Mg Capsule.dr 1 Cap PO DAILY Cardizem Cd (Diltiazem Hcl) 180 Mg Cap.er.24h 180 Mg PO DAILY Allergies Allergies: Coded Allergies: Penicillins (Verified Allergy, Intermediate, HIVES, 08/05/17) tetracycline (Verified Allergy, Intermediate, 08/05/17) Physical Exam General: Alert, Oriented X3, Cooperative, No acute distress HEENT: PERRLA Lungs: Other (presence or decreased but no wheezing, no Rales.) Heart: Regular rate, Normal S1, Normal S2, Other (no changes in her murmur) Abdomen: Normal bowel sounds, Soft Extremities: No edema MUSCULOSKELETAL: Osteoarthritic changes both hands Vitals VITALS Vital Signs Date Time Temp Pulse Resp B/P (MAP) Pulse Ox O2 Delivery O2 Flow Rate FiO2 06/19/18 16:26 16 94 Nasal Cannula 2.0 06/19/18 15:15 97.8 71 139/81 (100) 97.8 Labs Labs Laboratory Tests Test 06/18/18 18:51 06/18/18 18:57 06/19/18 05:10 Lactic Acid Level 1.8 mmol/L (0.4-2.0) White Blood Count 11.7 x10^3/uL (4.0-11.0) 8.7 x10^3/uL (4.0-11.0) Red Blood Count 4.80 x10^6/uL (3.50-5.40) 3.61 x10^6/uL (3.50-5.40) Hemoglobin 11.5 g/dL (12.0-15.5) 9.2 g/dL (12.0-15.5) Hematocrit 36.5 % (36.0-47.0) 28.1 % (36.0-47.0) Mean Corpuscular Volume 76 fL (79-100) 78 fL (79-100) Mean Corpuscular Hemoglobin 24 pg (25-35) 26 pg (25-35) Mean Corpuscular Hemoglobin Concent 32 g/dL (31-37) 33 g/dL (31-37) Red Cell Distribution Width 19.3 % (11.5-14.5) 18.6 % (11.5-14.5) Platelet Count 416 x10^3/uL (140-400) 307 x10^3/uL (140-400) Neutrophils (%) (Auto) 66 % (31-73) 66 % (31-73) Lymphocytes (%) (Auto) 23 % (24-48) 24 % (24-48) Monocytes (%) (Auto) 9 % (0-9) 8 % (0-9) Eosinophils (%) (Auto) 1 % (0-3) 1 % (0-3) Basophils (%) (Auto) 1 % (0-3) 1 % (0-3) Neutrophils # (Auto) 7.7 x10^3uL (1.8-7.7) 5.7 x10^3uL (1.8-7.7) Lymphocytes # (Auto) 2.7 x10^3/uL (1.0-4.8) 2.1 x10^3/uL (1.0-4.8) Monocytes # (Auto) 1.1 x10^3/uL (0.0-1.1) 0.7 x10^3/uL (0.0-1.1) Eosinophils # (Auto) 0.1 x10^3/uL (0.0-0.7) 0.1 x10^3/uL (0.0-0.7) Basophils # (Auto) 0.1 x10^3/uL (0.0-0.2) 0.1 x10^3/uL (0.0-0.2) Segmented Neutrophils % 67 % (35-66) Band Neutrophils % 2 % (0-9) Lymphocytes % 26 % (24-48) Monocytes % 5 % (0-10) Platelet Estimate Increased (ADEQUATE) Polychromasia Slight Hypochromasia Slight Anisocytosis Slight Prothrombin Time 23.0 SEC (11.7-14.0) Prothromb Time International Ratio 2.1 (0.8-1.1) Activated Partial Thromboplast Time 45 SEC (24-38) Sodium Level 141 mmol/L (136-145) 142 mmol/L (136-145) Potassium Level 3.2 mmol/L (3.5-5.1) 3.2 mmol/L (3.5-5.1) Chloride Level 102 mmol/L (98-107) 107 mmol/L (98-107) Carbon Dioxide Level 26 mmol/L (21-32) 25 mmol/L (21-32) Anion Gap 13 (6-14) 10 (6-14) Blood Urea Nitrogen 22 mg/dL (7-20) 19 mg/dL (7-20) Creatinine 1.3 mg/dL (0.6-1.0) 1.1 mg/dL (0.6-1.0) Estimated GFR (Cockcroft-Gault) 39.7 48.2 BUN/Creatinine Ratio 17 (6-20) Glucose Level 93 mg/dL (70-99) 91 mg/dL (70-99) Calcium Level 11.9 mg/dL (8.5-10.1) 10.8 mg/dL (8.5-10.1) Magnesium Level 1.3 mg/dL (1.8-2.4) Total Bilirubin 0.8 mg/dL (0.2-1.0) Aspartate Amino Transf (AST/SGOT) 31 U/L (15-37) Alanine Aminotransferase (ALT/SGPT) 22 U/L (14-59) Alkaline Phosphatase 159 U/L (46-116) Creatine Kinase 38 U/L (26-192) Creatine Kinase MB (Mass) 3.6 ng/mL (0.0-3.6) Creatine Kinase MB Relative Index % (0-4) Troponin I Quantitative 0.084 ng/mL (0.000-0.055) LA-Vfp-C-Type Natriuretic Peptide 5238 pg/mL (0-449) Total Protein 7.0 g/dL (6.4-8.2) Albumin 3.7 g/dL (3.4-5.0) Albumin/Globulin Ratio 1.1 (1.0-1.7) Laboratory Tests Test 06/18/18 18:51 06/18/18 18:57 06/19/18 05:10 Lactic Acid Level 1.8 mmol/L (0.4-2.0) White Blood Count 11.7 x10^3/uL (4.0-11.0) 8.7 x10^3/uL (4.0-11.0) Red Blood Count 4.80 x10^6/uL (3.50-5.40) 3.61 x10^6/uL (3.50-5.40) Hemoglobin 11.5 g/dL (12.0-15.5) 9.2 g/dL (12.0-15.5) Hematocrit 36.5 % (36.0-47.0) 28.1 % (36.0-47.0) Mean Corpuscular Volume 76 fL (79-100) 78 fL (79-100) Mean Corpuscular Hemoglobin 24 pg (25-35) 26 pg (25-35) Mean Corpuscular Hemoglobin Concent 32 g/dL (31-37) 33 g/dL (31-37) Red Cell Distribution Width 19.3 % (11.5-14.5) 18.6 % (11.5-14.5) Platelet Count 416 x10^3/uL (140-400) 307 x10^3/uL (140-400) Neutrophils (%) (Auto) 66 % (31-73) 66 % (31-73) Lymphocytes (%) (Auto) 23 % (24-48) 24 % (24-48) Monocytes (%) (Auto) 9 % (0-9) 8 % (0-9) Eosinophils (%) (Auto) 1 % (0-3) 1 % (0-3) Basophils (%) (Auto) 1 % (0-3) 1 % (0-3) Neutrophils # (Auto) 7.7 x10^3uL (1.8-7.7) 5.7 x10^3uL (1.8-7.7) Lymphocytes # (Auto) 2.7 x10^3/uL (1.0-4.8) 2.1 x10^3/uL (1.0-4.8) Monocytes # (Auto) 1.1 x10^3/uL (0.0-1.1) 0.7 x10^3/uL (0.0-1.1) Eosinophils # (Auto) 0.1 x10^3/uL (0.0-0.7) 0.1 x10^3/uL (0.0-0.7) Basophils # (Auto) 0.1 x10^3/uL (0.0-0.2) 0.1 x10^3/uL (0.0-0.2) Segmented Neutrophils % 67 % (35-66) Band Neutrophils % 2 % (0-9) Lymphocytes % 26 % (24-48) Monocytes % 5 % (0-10) Platelet Estimate Increased (ADEQUATE) Polychromasia Slight Hypochromasia Slight Anisocytosis Slight Prothrombin Time 23.0 SEC (11.7-14.0) Prothromb Time International Ratio 2.1 (0.8-1.1) Activated Partial Thromboplast Time 45 SEC (24-38) Sodium Level 141 mmol/L (136-145) 142 mmol/L (136-145) Potassium Level 3.2 mmol/L (3.5-5.1) 3.2 mmol/L (3.5-5.1) Chloride Level 102 mmol/L (98-107) 107 mmol/L (98-107) Carbon Dioxide Level 26 mmol/L (21-32) 25 mmol/L (21-32) Anion Gap 13 (6-14) 10 (6-14) Blood Urea Nitrogen 22 mg/dL (7-20) 19 mg/dL (7-20) Creatinine 1.3 mg/dL (0.6-1.0) 1.1 mg/dL (0.6-1.0) Estimated GFR (Cockcroft-Gault) 39.7 48.2 BUN/Creatinine Ratio 17 (6-20) Glucose Level 93 mg/dL (70-99) 91 mg/dL (70-99) Calcium Level 11.9 mg/dL (8.5-10.1) 10.8 mg/dL (8.5-10.1) Magnesium Level 1.3 mg/dL (1.8-2.4) Total Bilirubin 0.8 mg/dL (0.2-1.0) Aspartate Amino Transf (AST/SGOT) 31 U/L (15-37) Alanine Aminotransferase (ALT/SGPT) 22 U/L (14-59) Alkaline Phosphatase 159 U/L (46-116) Creatine Kinase 38 U/L (26-192) Creatine Kinase MB (Mass) 3.6 ng/mL (0.0-3.6) Creatine Kinase MB Relative Index % (0-4) Troponin I Quantitative 0.084 ng/mL (0.000-0.055) DQ-Zss-T-Type Natriuretic Peptide 5238 pg/mL (0-449) Total Protein 7.0 g/dL (6.4-8.2) Albumin 3.7 g/dL (3.4-5.0) Albumin/Globulin Ratio 1.1 (1.0-1.7) Assessment/Plan Assessment/Plan This patient comes in with atrial fibrillation with a rapid ventricular response she converted spontaneously to sinus rhythm and presently is awake alert oriented and responsive. I agree with the present plan and if the blood pressure tolerates it I would like to increase her Cardizem. Will continue to monitor the patient. Thank you very much for asking me to participate in the care of this patient ALLYSON OROZCO MD Jun 19, 2018 17:04
[2018-06-20 03:00] VITALS: BP 125/82
[2018-06-20] MEDS: ONDANSETRON PF 4 MG/2 ML VIAL. IV PRN (03:10)
[2018-06-20] MEDS: LEVOTHYROXINE 50 MCG TABLET PO SCH (06:34)
[2018-06-20] MEDS: tiZANidine 4 MG TABLET. PO SCH ×3 (06:34→21:08)
[2018-06-20 07:00] VITALS: BP 127/60
[2018-06-20] MEDS: oxyCODONE/APAP 7.5/325 1 TAB TABLET PO PRN ×3 (07:12→21:14)
[2018-06-20] MEDS: FUROSEMIDE 20 MG TABLET PO SCH (09:17)
[2018-06-20] MEDS: APIXABAN 5 MG TABLET. PO SCH ×2 (09:17→21:07)
[2018-06-20] MEDS: PANTOPRAZOLE 40 MG TABLET.DR. PO SCH (09:17)
[2018-06-20] MEDS: SERTRALINE 50 MG TABLET. PO SCH (09:17)
[2018-06-20] MEDS: LORazepam 0.5 MG TABLET PO SCH ×2 (09:17→21:07)
[2018-06-20] MEDS: MULTIVITAMIN I-VITE TABLET. PO SCH (09:18)
[2018-06-20] MEDS: POTASSIUM CHLORIDE 10 MEQ TABLET.ER. PO SCH (09:18)
[2018-06-20] MEDS: SUCRALFATE 1 GM TABLET. PO SCH ×3 (09:18→18:16)
[2018-06-20] MEDS ORDERED: DOCUSATE SODIUM 100 MG CAPSULE. PO PRN (10:45)
--- NOTE | 2018-06-20 10:54 | PDOC ---
PULMONARY PROGRESS NOTES Subjective no soa Vitals Vital Signs Date Time Temp Pulse Resp B/P (MAP) Pulse Ox O2 Delivery O2 Flow Rate FiO2 06/20/18 09:19 64 127/60 06/20/18 08:15 16 96 Nasal Cannula 2.0 06/20/18 07:00 97.8 97.8 General: Alert, No acute distress HEENT: Other Lungs: Other (decrease bs) Cardiovascular: S1, S2 Abdomen: Soft, Non-tender Neuro Exam: Alert Extremities: No Edema Skin: Warm Labs Laboratory Tests Test 06/18/18 18:51 06/18/18 18:57 06/18/18 21:10 06/19/18 05:10 Lactic Acid Level 1.8 mmol/L (0.4-2.0) White Blood Count 11.7 x10^3/uL (4.0-11.0) 8.7 x10^3/uL (4.0-11.0) Red Blood Count 4.80 x10^6/uL (3.50-5.40) 3.61 x10^6/uL (3.50-5.40) Hemoglobin 11.5 g/dL (12.0-15.5) 9.2 g/dL (12.0-15.5) Hematocrit 36.5 % (36.0-47.0) 28.1 % (36.0-47.0) Mean Corpuscular Volume 76 fL (79-100) 78 fL (79-100) Mean Corpuscular Hemoglobin 24 pg (25-35) 26 pg (25-35) Mean Corpuscular Hemoglobin Concent 32 g/dL (31-37) 33 g/dL (31-37) Red Cell Distribution Width 19.3 % (11.5-14.5) 18.6 % (11.5-14.5) Platelet Count 416 x10^3/uL (140-400) 307 x10^3/uL (140-400) Neutrophils (%) (Auto) 66 % (31-73) 66 % (31-73) Lymphocytes (%) (Auto) 23 % (24-48) 24 % (24-48) Monocytes (%) (Auto) 9 % (0-9) 8 % (0-9) Eosinophils (%) (Auto) 1 % (0-3) 1 % (0-3) Basophils (%) (Auto) 1 % (0-3) 1 % (0-3) Neutrophils # (Auto) 7.7 x10^3uL (1.8-7.7) 5.7 x10^3uL (1.8-7.7) Lymphocytes # (Auto) 2.7 x10^3/uL (1.0-4.8) 2.1 x10^3/uL (1.0-4.8) Monocytes # (Auto) 1.1 x10^3/uL (0.0-1.1) 0.7 x10^3/uL (0.0-1.1) Eosinophils # (Auto) 0.1 x10^3/uL (0.0-0.7) 0.1 x10^3/uL (0.0-0.7) Basophils # (Auto) 0.1 x10^3/uL (0.0-0.2) 0.1 x10^3/uL (0.0-0.2) Segmented Neutrophils % 67 % (35-66) Band Neutrophils % 2 % (0-9) Lymphocytes % 26 % (24-48) Monocytes % 5 % (0-10) Platelet Estimate Increased (ADEQUATE) Polychromasia Slight Hypochromasia Slight Anisocytosis Slight Prothrombin Time 23.0 SEC (11.7-14.0) Prothromb Time International Ratio 2.1 (0.8-1.1) Activated Partial Thromboplast Time 45 SEC (24-38) Sodium Level 141 mmol/L (136-145) 142 mmol/L (136-145) Potassium Level 3.2 mmol/L (3.5-5.1) 3.2 mmol/L (3.5-5.1) Chloride Level 102 mmol/L (98-107) 107 mmol/L (98-107) Carbon Dioxide Level 26 mmol/L (21-32) 25 mmol/L (21-32) Anion Gap 13 (6-14) 10 (6-14) Blood Urea Nitrogen 22 mg/dL (7-20) 19 mg/dL (7-20) Creatinine 1.3 mg/dL (0.6-1.0) 1.1 mg/dL (0.6-1.0) Estimated GFR (Cockcroft-Gault) 39.7 48.2 BUN/Creatinine Ratio 17 (6-20) Glucose Level 93 mg/dL (70-99) 91 mg/dL (70-99) Calcium Level 11.9 mg/dL (8.5-10.1) 10.8 mg/dL (8.5-10.1) Magnesium Level 1.3 mg/dL (1.8-2.4) Total Bilirubin 0.8 mg/dL (0.2-1.0) Aspartate Amino Transf (AST/SGOT) 31 U/L (15-37) Alanine Aminotransferase (ALT/SGPT) 22 U/L (14-59) Alkaline Phosphatase 159 U/L (46-116) Creatine Kinase 38 U/L (26-192) Creatine Kinase MB (Mass) 3.6 ng/mL (0.0-3.6) Creatine Kinase MB Relative Index % (0-4) Troponin I Quantitative 0.084 ng/mL (0.000-0.055) GJ-Pae-H-Type Natriuretic Peptide 5238 pg/mL (0-449) Total Protein 7.0 g/dL (6.4-8.2) Albumin 3.7 g/dL (3.4-5.0) Albumin/Globulin Ratio 1.1 (1.0-1.7) Nasal Screen MRSA (PCR) Negative (Negative) Medications Active Scripts Medications Dose Route/Sig Max Daily Dose Days Date Category Dose Instructions Percocet 7.5-325 Mg Tablet (Oxycodone/Acetaminophen) 1 Each Tablet 1 Tab PO Q6HRS 06/17/18 Reported Eliquis (Apixaban) 5 Mg Tablet 5 Mg PO BID 06/17/18 Reported start 06/23/2018 Eliquis (Apixaban) 5 Mg Tablet 10 Mg PO BID 5 06/17/18 Reported Zanaflex (Tizanidine Hcl) 4 Mg Capsule 1 Cap PO BID 07/31/17 Reported Furosemide 20 Mg Tablet 1 Tab PO DAILY 07/31/17 Reported Zofran (Ondansetron Hcl) 4 Mg Tablet 1 Tab PO Q8HRS 07/31/17 Reported Carafate (Sucralfate) 1 Gm Tablet 1 Tab PO TIDAC 07/31/17 Reported Hydrochlorothiazide Tablet (Hydrochlorothiazide) 12.5 Mg Tablet 1 Tab PO DAILY 07/31/17 Reported Lorazepam 0.5 Mg Tablet 0.5 Tab PO PRN QEVNG 07/31/17 Reported Lorazepam 0.5 Mg Tablet 1 Tab PO BID 07/31/17 Reported Zoloft (Sertraline Hcl) 50 Mg Tablet 1 Tab PO DAILY 07/31/17 Reported Vision Vitamins (Beta-Carotene(A) W-C & E/Min) 1 Each Tablet 1 Each PO DAILY 02/15/15 Reported Calcium + D3 Er Tablet (Calcium Carb & Cit/Vitamin D3) 1 Each Tablet.er 1 Each PO 02/15/15 Reported Synthroid (Levothyroxine Sodium) 50 Mcg Tablet 50 Mcg PO DAILYAC 02/15/15 Reported Potassium Chloride 10 Meq Capsule.er 10 Meq PO DAILY 02/15/15 Reported Omeprazole 40 Mg Capsule.dr 1 Cap PO DAILY 02/15/15 Reported Cardizem Cd (Diltiazem Hcl) 180 Mg Cap.er.24h 180 Mg PO DAILY 02/15/15 Reported Impression . 1. Acute on chronic hypoxic respiratory failure secondary to atrial fibrillation with rapid ventricular response. 2. Recently diagnosed acute pulmonary embolism and extensive deep vein thrombosis. She will remain on Eliquis. 3. Mild reactive leukocytosis. 4. Azotemia secondary to dehydration. 5. Abnormal chest x-ray with tiny left effusion. Plan . 1. From a pulmonary standpoint, she is stable 2. Follow up another chest x-ray stable 3. Continue Eliquis as long as it is safe and tolerable. 4. Monitor hemoglobin. 5. Follow cardiology recommendations. 6. Echocardiogram done recently had shown severe pulmonary hypertension, which is probably a secondary pulmonary hypertension. She is not the best candidate for any right heart catheterization at present. 7. Discussed with RN and will follow along with you.consider dc plans IVAN HARRY MD Jun 20, 2018 10:54
[2018-06-20 11:00] VITALS: BP 104/56
--- NOTE | 2018-06-20 12:25 | PDOC2 ---
GI CONSULT Reason For Consult: Nausea, right abd mass HPI: HPI: 78 y/o female admitted w/ A Fib RVR. Recent admission for resp distress, found w/ PE and DVT, started on Eliquis. GI asked to see re: intermittent nausea and RLQ pain. Nausea comes and goes, sometimes associated w/ retching or vomiting bile "or a little spit." In general eats okay, might have lost a little weight w/ recent hospitalizations and stay at [facility]. Takes omeprazole QD + Carafate TID w / good control of GERD unless eats spicy foods. RLQ discomfort has been present for a couple months. Her daughter thinks she might feel a lump in that area. Pain is worse when touched or if she bumps it while walking, fairly constant otherwise. Unchanged with eating or stooling. Not sure when started, but has had some irregular bowel habits - will go 2-3 days without stool, feel constipated and strain, then take a Colace and have one episode of diarrhea ( begins as mushy stool then changes to watery). Miralax was much too strong in the past. No hematemesis, hematochezia, or melena. H/o very large hiatal hernia s/p Jared fundoplication, now w/ recurrence. Last EGD in 08/2017 showed same. At that time UGI was w/o obstruction. She thinks she was seen at to discuss hernia repair - has decided not to pursue surgery. Thinks last colonoscopy was ~10 years ago in [place], [place], recalls being normal. Diverticulosis on past imaging. S/p cholecystectomy ( porcelain GB). No liver or pancreas history. [facility] noted last admission - received 1 unit pRBCs and Venofer. Takes a multivitamin with iron she thinks. B12 and folate were normal this month. Note h/o hypercalcemia - light chains WNL in 2017. PMH: PMH: CAD, CHF, COPD, PE, DVT, A Fib, valvular heart disease, pulmonary hypertension, Grave's disease s/p ablation, GERD, hiatal hernia, diverticulosis, tonsillectomy , right toe surgery, bilateral knee surgeries, benign bilateral lumpectomies, cholecystectomy, partial hysterectomy, Jared fundoplication FH: Family History: Other (mother - UC) Social History: Smoke: No ALCOHOL: none Drugs: None ROS: GEN: Denies fevers, chills, sweats HEENT: Denies blurred vision, sore throat CV: Denies chest pain RESP: +SOA GI: Per HPI : Denies hematuria, dysuria ENDO: ?weight loss NEURO: Denies confusion, dizziness MSK: Denies weakness, joint pain/swelling SKIN: Denies jaundice, pruritus Vitals: Vitals: Vital Signs Date Time Temp Pulse Resp B/P (MAP) Pulse Ox O2 Delivery O2 Flow Rate FiO2 06/20/18 11:00 97.8 71 16 104/56 (72) 94 Nasal Cannula 2.0 97.8 Labs: Labs: Please see EMR. Allergies: Coded Allergies: Penicillins (Verified Allergy, Intermediate, HIVES, 08/05/17) tetracycline (Verified Allergy, Intermediate, 08/05/17) Medications: Current Medications Medications (Trade) Dose Ordered Sig/Luann Route PRN Reason Start Time Stop Time Status Last Admin Dose Admin Diltiazem HCl (Cardizem 24hr Cd) 300 mg DAILY PO 06/20/18 09:00 06/20/18 09:19 Imaging: Imaging: CXR 06/19/18 IMPRESSION: Unchanged small left pleural effusion and mild left basilar airspace disease. PE: GEN: NAD HEENT: Atraumatic, PERRL LUNGS:diminished, NC HEART: RRR ABD: NABS, S/ND/NT EXTREMITY: No edema SKIN: No rashes, no jaundice NEURO/PSYCH: A & O 3 A/P: A/P: A Fib RVR - now in SR PE, DVT - on Eliquis RLQ/pelvic/groin discomfort Intermittent n/v MYKE - received blood and Venofer recently GERD - controlled w/ PPI + Carafate S/p Jared fundoplication, recurrent hiatal hernia - no plans to pursue surgery (would need eval @ [facility] per previous surgical discussion here) CRC screen - thinks normal colonoscopy ~10 years ago Irregular bowel habits (?change in bowel habits) Diverticulosis S/p cholecystectomy Hypercalcemia Chronic pain on oxycodone -- RLQ/pelvic/groin discomfort - unclear etiology, start w/ CT A/P. MYKE without obvious bleeding, recent iron infusion. Continue PPI + Carafate. Monitor n/v - on chronic oxycodone... gastroparesis? Difficult to know how to help her regulate bowel habits - could retry Miralax or try Amitiza for constipation; however, also complains of diarrhea after taking Colace. MINOR LEVIN Jun 20, 2018 12:25
[2018-06-20] MEDS: ONDANSETRON ODT 4 MG TAB.RAPDIS. PO PRN (13:28)
[2018-06-20] MEDS: ANTI-COAG MONITOR BY PHARMACY. MC PRN (13:39)
[2018-06-20] MEDS ORDERED: IOHEXOL 240 MG/ML 50ML VIAL. PO ONE (14:15)
[2018-06-20] MEDS ORDERED: CONTRAST GIVEN. MC PRN (14:15)
--- NOTE | 2018-06-20 14:15 | PDOC ---
PROGRESS NOTES Chief Complaint Chief Complaint Acute on chronic hypoxic respiratory failure secondary to atrial fibrillation with rapid ventricular response. Recently diagnosed acute pulmonary embolism and extensive deep vein thrombosis. On Eliquis. Mild reactive leukocytosis. Azotemia secondary to dehydration. Effusion. History of Present Illness History of Present Illness Pt seen and examined Dw CASTRO VSS Reviewed notes Vitals Vitals Vital Signs Date Time Temp Pulse Resp B/P (MAP) Pulse Ox O2 Delivery O2 Flow Rate FiO2 06/20/18 13:28 16 94 Nasal Cannula 2.0 06/20/18 11:00 97.8 71 104/56 (72) 97.8 Physical Exam General: Alert, Oriented X3, Cooperative, No acute distress Heart: Regular rate, Normal S1, Normal S2, Other (no changes in her murmur) Lungs: Other (decrease bs) Abdomen: Normal bowel sounds, Soft Extremities: No cyanosis, No edema Skin: No rashes, No breakdown Review of Systems Review of Systems co weakness co hunger Assessment and Plan Assessmemt and Plan Problems Medical Problems: (1) Hypoxia Status: Acute (2) Rapid atrial fibrillation Status: Acute Acute on chronic hypoxic respiratory failure secondary to atrial fibrillation with rapid ventricular response. Recently diagnosed acute pulmonary embolism and extensive deep vein thrombosis. On Eliquis. Mild reactive leukocytosis. Azotemia secondary to dehydration. Effusion. Plan Anticoag with Eliquis Labs PTOT Home meds [facility] trasfer soon Comment Review of Relevant I have reviewed the following items thomas (where applicable) has been applied. Labs Laboratory Tests Test 06/18/18 18:51 06/18/18 18:57 06/18/18 21:10 06/19/18 05:10 Lactic Acid Level 1.8 mmol/L (0.4-2.0) White Blood Count 11.7 x10^3/uL (4.0-11.0) 8.7 x10^3/uL (4.0-11.0) Red Blood Count 4.80 x10^6/uL (3.50-5.40) 3.61 x10^6/uL (3.50-5.40) Hemoglobin 11.5 g/dL (12.0-15.5) 9.2 g/dL (12.0-15.5) Hematocrit 36.5 % (36.0-47.0) 28.1 % (36.0-47.0) Mean Corpuscular Volume 76 fL (79-100) 78 fL (79-100) Mean Corpuscular Hemoglobin 24 pg (25-35) 26 pg (25-35) Mean Corpuscular Hemoglobin Concent 32 g/dL (31-37) 33 g/dL (31-37) Red Cell Distribution Width 19.3 % (11.5-14.5) 18.6 % (11.5-14.5) Platelet Count 416 x10^3/uL (140-400) 307 x10^3/uL (140-400) Neutrophils (%) (Auto) 66 % (31-73) 66 % (31-73) Lymphocytes (%) (Auto) 23 % (24-48) 24 % (24-48) Monocytes (%) (Auto) 9 % (0-9) 8 % (0-9) Eosinophils (%) (Auto) 1 % (0-3) 1 % (0-3) Basophils (%) (Auto) 1 % (0-3) 1 % (0-3) Neutrophils # (Auto) 7.7 x10^3uL (1.8-7.7) 5.7 x10^3uL (1.8-7.7) Lymphocytes # (Auto) 2.7 x10^3/uL (1.0-4.8) 2.1 x10^3/uL (1.0-4.8) Monocytes # (Auto) 1.1 x10^3/uL (0.0-1.1) 0.7 x10^3/uL (0.0-1.1) Eosinophils # (Auto) 0.1 x10^3/uL (0.0-0.7) 0.1 x10^3/uL (0.0-0.7) Basophils # (Auto) 0.1 x10^3/uL (0.0-0.2) 0.1 x10^3/uL (0.0-0.2) Segmented Neutrophils % 67 % (35-66) Band Neutrophils % 2 % (0-9) Lymphocytes % 26 % (24-48) Monocytes % 5 % (0-10) Platelet Estimate Increased (ADEQUATE) Polychromasia Slight Hypochromasia Slight Anisocytosis Slight Prothrombin Time 23.0 SEC (11.7-14.0) Prothromb Time International Ratio 2.1 (0.8-1.1) Activated Partial Thromboplast Time 45 SEC (24-38) Sodium Level 141 mmol/L (136-145) 142 mmol/L (136-145) Potassium Level 3.2 mmol/L (3.5-5.1) 3.2 mmol/L (3.5-5.1) Chloride Level 102 mmol/L (98-107) 107 mmol/L (98-107) Carbon Dioxide Level 26 mmol/L (21-32) 25 mmol/L (21-32) Anion Gap 13 (6-14) 10 (6-14) Blood Urea Nitrogen 22 mg/dL (7-20) 19 mg/dL (7-20) Creatinine 1.3 mg/dL (0.6-1.0) 1.1 mg/dL (0.6-1.0) Estimated GFR (Cockcroft-Gault) 39.7 48.2 BUN/Creatinine Ratio 17 (6-20) Glucose Level 93 mg/dL (70-99) 91 mg/dL (70-99) Calcium Level 11.9 mg/dL (8.5-10.1) 10.8 mg/dL (8.5-10.1) Magnesium Level 1.3 mg/dL (1.8-2.4) Total Bilirubin 0.8 mg/dL (0.2-1.0) Aspartate Amino Transf (AST/SGOT) 31 U/L (15-37) Alanine Aminotransferase (ALT/SGPT) 22 U/L (14-59) Alkaline Phosphatase 159 U/L (46-116) Creatine Kinase 38 U/L (26-192) Creatine Kinase MB (Mass) 3.6 ng/mL (0.0-3.6) Creatine Kinase MB Relative Index % (0-4) Troponin I Quantitative 0.084 ng/mL (0.000-0.055) [id number]-Type Natriuretic Peptide 5238 pg/mL (0-449) Total Protein 7.0 g/dL (6.4-8.2) Albumin 3.7 g/dL (3.4-5.0) Albumin/Globulin Ratio 1.1 (1.0-1.7) Nasal Screen MRSA (PCR) Negative (Negative) Medications Current Medications Sodium Chloride 1,000 ml @ 1,000 mls/hr Q1H IV Last administered on 06/18/18at 19:55; Start 06/18/18 at 19:00; Stop 06/18/18 at 19:59; Status DC Sodium Chloride 1,000 ml @ 1,000 mls/hr 1X ONCE IV Last administered on at 19:56; Start 06/18/18 at 19:15; Stop 06/18/18 at 20:14; Status DC Esmolol HCl 250 ml @ 0 mls/hr 1X ONCE IV ; Start 06/18/18 at 19:30; Stop at 19:31; Status DC Esmolol HCl (Brevibloc) 28 mg ONCE ONCE IV Last administered on 06/18/18at 19: 30; Start 06/18/18 at 19:30; Stop 06/18/18 at 19:31; Status DC Magnesium Sulfate 50 ml @ 25 mls/hr 1X ONCE IV Last administered on 06/18/18at 23:39; Start 06/18/18 at 19:45; Stop 06/18/18 at 21:44; Status DC Potassium Chloride (Klor-Con) 40 meq 1X ONCE PO Last administered on at 23:38; Start 06/18/18 at 19:45; Stop 06/18/18 at 19:49; Status DC Apixaban (Eliquis) 5 mg BID PO Last administered on 06/18/18at 20:10; Start at 21:00; Stop 06/18/18 at 21:00; Status DC Acetaminophen (Tylenol) 500 mg PRN Q6HRS PRN PO HEADACHE / TEMP; Start at 20:30 Ondansetron HCl (Zofran) 4 mg PRN Q6HRS PRN IV NAUSEA/VOMITING 1ST CHOICE Last administered on 06/20/18at 03:10; Start 06/18/18 at 20:30 Morphine Sulfate (Morphine Sulfate) 2 mg PRN Q2HR PRN IV PAIN MILD; Start 06/18 at 20:30 Temazepam (Restoril) 7.5 mg PRN QHS PRN PO INSOMNIA; Start 06/18/18 at 20:30 Furosemide (Lasix) 20 mg DAILY PO Last administered on 06/20/18at 09:17; Start 06/19/18 at 09:00 Lorazepam (Ativan) 0.25 mg PRN QEVNG PRN PO ANXIETY / AGITATION; Start at 20:30 Lorazepam (Ativan) 0.5 mg BID PO Last administered on 06/20/18 09:17; Start at 21:00 Oxycodone/ Acetaminophen (Percocet 7.5/ 325) 1 tab PRN Q6HRS PRN PO PAIN Last administered on 06/20/18at 13:28; Start 06/19/18 at 00:00 Potassium Chloride (Klor-Con) 10 meq DAILY PO Last administered on 06/20/18 09 :18; Start 06/19/18 at 09:00 Sertraline HCl (Zoloft) 50 mg DAILY PO Last administered on 06/20/18 09:17; Start 06/19/18 at 09:00 Multivitamins/ Minerals (I-Bowen) 1 tab DAILY PO Last administered on 06/20/18at 09:18; Start 06/19/18 at 09:00 Diltiazem HCl (Cardizem 24hr Cd) 180 mg DAILY PO Last administered on at 10:31; Start 06/19/18 at 09:00; Stop 06/19/18 at 16:30; Status DC Levothyroxine Sodium (Synthroid) 50 mcg DAILY07 PO Last administered on at 06:34; Start 06/19/18 at 07:00 Pantoprazole Sodium (Protonix) 40 mg DAILYAC PO Last administered on 06/20/18at 09:17; Start 06/19/18 at 07:30 Ondansetron HCl (Zofran Odt) 4 mg PRN Q8HRS PRN PO NAUSEA/VOMITING 1ST CHOICE Last administered on 06/20/18at 13:28; Start 06/18/18 at 21:00 Sucralfate (Carafate) 1 gm TIDAC PO Last administered on 06/20/18at 11:30; Start 06/19/18 at 07:30 Tizanidine HCl (Zanaflex) 4 mg Q8HRS PO Last administered on 06/20/18at 13:30; Start 06/18/18 at 22:00 Apixaban (Eliquis) 5 mg BID@0800,2000 PO Last administered on 06/20/18at 09:17; Start 06/19/18 at 08:00 Info (Anti-Coagulation Monitoring By Pharmacy) 1 each PRN DAILY PRN MC SEE COMMENTS Last administered on 06/20/18at 13:39; Start 06/18/18 at 20:45 Diltiazem HCl (Cardizem 24hr Cd) 300 mg DAILY PO Last administered on at 09:19; Start 06/20/18 at 09:00 Docusate Sodium (Colace) 100 mg PRN DAILY PRN PO CONSTIPATION; Start 06/20/18 at 10:45 Iohexol (Omnipaque 240 Mg/ml) 30 ml 1X ONCE PO ; Start 06/20/18 at 14:15; Stop 06/20/18 at 14:16 Info (CONTRAST GIVEN -- Rx MONITORING) 1 each PRN DAILY PRN MC SEE COMMENTS; Start 06/20/18 at 14:15; Stop 06/22/18 at 14:14 Active Scripts Active Reported Percocet 7.5-325 Mg Tablet (Oxycodone/Acetaminophen) 1 Each Tablet 1 Tab PO Q6HRS Eliquis (Apixaban) 5 Mg Tablet 5 Mg PO BID start 06/23/2018 Eliquis (Apixaban) 5 Mg Tablet 10 Mg PO BID 5 Days Zanaflex (Tizanidine Hcl) 4 Mg Capsule 1 Cap PO BID Furosemide 20 Mg Tablet 1 Tab PO DAILY Zofran (Ondansetron Hcl) 4 Mg Tablet 1 Tab PO Q8HRS Carafate (Sucralfate) 1 Gm Tablet 1 Tab PO TIDAC Hydrochlorothiazide Tablet (Hydrochlorothiazide) 12.5 Mg Tablet 1 Tab PO DAILY Lorazepam 0.5 Mg Tablet 0.5 Tab PO PRN QEVNG Lorazepam 0.5 Mg Tablet 1 Tab PO BID Zoloft (Sertraline Hcl) 50 Mg Tablet 1 Tab PO DAILY Vision Vitamins (Beta-Carotene(A) W-C & E/Min) 1 Each Tablet 1 Each PO DAILY Calcium + D3 Er Tablet (Calcium Carb & Cit/Vitamin D3) 1 Each Tablet.er 1 Each PO Synthroid (Levothyroxine Sodium) 50 Mcg Tablet 50 Mcg PO DAILYAC Potassium Chloride 10 Meq Capsule.er 10 Meq PO DAILY Omeprazole 40 Mg Capsule.dr 1 Cap PO DAILY Cardizem Cd (Diltiazem Hcl) 180 Mg Cap.er.24h 180 Mg PO DAILY Vitals/I & O Vital Sign - Last 24 Hours 06/19/18 06/19/18 06/19/18 06/19/18 15:00 15:12 15:15 19:00 Temp 97.3 97.8 98.0 97.3 97.8 98.0 Pulse 72 71 80 Resp 21 16 18 14 B/P (MAP) 116/56 (76) 139/81 (100) 97/54 (68) Pulse Ox 96 96 94 93 O2 Delivery Nasal Cannula Nasal Cannula Nasal Cannula Nasal Cannula O2 Flow Rate 5.0 2.0 2.0 2.0 06/19/18 06/19/18 06/19/18 06/20/18 20:00 22:16 23:05 03:00 Temp 98.1 97.7 98.1 97.7 Pulse 66 67 Resp 22 B/P (MAP) 112/56 (74) 125/82 (96) Pulse Ox 99 94 O2 Delivery Nasal Cannula Nasal Cannula Nasal Cannula Nasal Cannula O2 Flow Rate 3.0 3.0 2.0 2.0 06/20/18 06/20/18 06/20/18 06/20/18 07:00 07:12 07:35 08:15 Temp 97.8 97.8 Pulse 64 Resp 16 16 B/P (MAP) 127/60 (82) Pulse Ox 96 96 O2 Delivery Nasal Cannula Nasal Cannula Nasal Cannula Nasal Cannula O2 Flow Rate 2.0 2.0 3.0 2.0 06/20/18 06/20/18 06/20/18 09:19 11:00 13:28 Temp 97.8 97.8 Pulse 64 71 Resp 16 16 B/P (MAP) 127/60 104/56 (72) Pulse Ox 94 94 O2 Delivery Nasal Cannula Nasal Cannula O2 Flow Rate 2.0 2.0 Intake and Output 06/19/18 06/19/18 06/20/18 15:00 23:00 07:00 Intake Total 500 ml 150 ml Output Total 525 ml 500 ml 500 ml Balance -525 ml 0 ml -350 ml PATY BYRNES III DO Jun 20, 2018 14:14
[2018-06-20 15:30] VITALS: BP 125/75
--- NOTE | 2018-06-20 16:38 | RAD ---
CT abdomen and pelvis without IV contrast CLINICAL HISTORY: Abdominal pain history of DVT COMPARISON: none TECHNIQUE: CT of the abdomen and pelvis without intravenous contrast. Oral contrast was administered. Coronal and sagittal reformatted images were generated. ---PQRS compliance statement - One or more of the following individualized dose reduction techniques were utilized for this study: 1. Automated exposure control 2. Adjustment of the mA and/or kV according to patient size 3. Use of iterative reconstruction technique--- FINDINGS: Medial left lung base parenchymal opacities with associated volume loss, likely atelectasis. Platelike opacities in the bilateral lung bases also atelectasis. Aortic root calcifications are seen. Hiatal hernia is noted. ABDOMEN AND PELVIS: Lack of intravenous contrast limits evaluation of solid organs, vasculature, and lymph nodes. No focal liver lesion. Cholecystectomy clips are seen. Spleen is unremarkable. No intra or extrahepatic biliary ductal dilatation. Pancreas is unremarkable. Left adrenal 3.2 cm hypodense lesion measures -5 Hounsfield units, likely adrenal adenoma or myelolipoma. No definite renal calculus. Right lower pole hypodense renal cystic lesion is seen. No hydronephrosis. No small or large bowel dilatation. The appendix is normal. Moderate colonic stool content is seen. Colonic diverticulosis without evidence of acute diverticulitis. Right inguinal hernia contains a loop of small bowel. No evidence of associated obstruction. Fat-containing left inguinal hernia is seen. Small fat-containing ventral abdominal hernias are seen just above the belly button. Atherosclerotic calcifications of the aorta are seen, normal in caliber. No abdominal or pelvic ascites. Diffuse fatty atrophy of the gluteal muscles bilaterally. Dystrophic calcifications are seen within the gluteal regions bilaterally likely from prior injection granuloma. Soft tissue defect dorsally extends the level of the sacrum likely decubitus ulceration. IMPRESSION: 1. Colonic diverticulosis without evidence of acute diverticulitis. 2. Right inguinal hernia contains a loop of small bowel. No definite associated obstruction. 3. Suspect decubitus ulceration dorsally at the level of the inferior sacrum, just above the gluteal cleft. Electronically signed by: Eugenio Espana MD (06/20/2018 4:34 PM) [facility]
--- NOTE | 2018-06-20 16:57 | PDOC ---
PROGRESS NOTES Subjective Subjective Patient feels better today. She continues to be in sinus rhythm. Objective Objective Vital Signs Date Time Temp Pulse Resp B/P (MAP) Pulse Ox O2 Delivery O2 Flow Rate FiO2 06/20/18 15:30 97.6 71 16 125/75 (92) 96 Nasal Cannula 2.0 97.6 Intake and Output 06/20/18 07:00 Intake Total 650 ml Output Total 1525 ml Balance -875 ml Intake Oral 650 ml Output Urine Total 1525 ml # Bowel Movements 2 Physical Exam Physical Exam Moving air better. No changes in heart sounds. Regular rate and rhythm. Assessment Assessment Patient is doing better today. The rhythm appears to be stable I would continue with the current dose of Cardizem CD 300 mg by mouth every morning Comment Review of Relevant I have reviewed the following items thomas (where applicable) has been applied. Labs Laboratory Tests Test 06/18/18 18:51 06/18/18 18:57 06/18/18 21:10 06/19/18 05:10 Lactic Acid Level 1.8 mmol/L (0.4-2.0) White Blood Count 11.7 x10^3/uL (4.0-11.0) 8.7 x10^3/uL (4.0-11.0) Red Blood Count 4.80 x10^6/uL (3.50-5.40) 3.61 x10^6/uL (3.50-5.40) Hemoglobin 11.5 g/dL (12.0-15.5) 9.2 g/dL (12.0-15.5) Hematocrit 36.5 % (36.0-47.0) 28.1 % (36.0-47.0) Mean Corpuscular Volume 76 fL (79-100) 78 fL (79-100) Mean Corpuscular Hemoglobin 24 pg (25-35) 26 pg (25-35) Mean Corpuscular Hemoglobin Concent 32 g/dL (31-37) 33 g/dL (31-37) Red Cell Distribution Width 19.3 % (11.5-14.5) 18.6 % (11.5-14.5) Platelet Count 416 x10^3/uL (140-400) 307 x10^3/uL (140-400) Neutrophils (%) (Auto) 66 % (31-73) 66 % (31-73) Lymphocytes (%) (Auto) 23 % (24-48) 24 % (24-48) Monocytes (%) (Auto) 9 % (0-9) 8 % (0-9) Eosinophils (%) (Auto) 1 % (0-3) 1 % (0-3) Basophils (%) (Auto) 1 % (0-3) 1 % (0-3) Neutrophils # (Auto) 7.7 x10^3uL (1.8-7.7) 5.7 x10^3uL (1.8-7.7) Lymphocytes # (Auto) 2.7 x10^3/uL (1.0-4.8) 2.1 x10^3/uL (1.0-4.8) Monocytes # (Auto) 1.1 x10^3/uL (0.0-1.1) 0.7 x10^3/uL (0.0-1.1) Eosinophils # (Auto) 0.1 x10^3/uL (0.0-0.7) 0.1 x10^3/uL (0.0-0.7) Basophils # (Auto) 0.1 x10^3/uL (0.0-0.2) 0.1 x10^3/uL (0.0-0.2) Segmented Neutrophils % 67 % (35-66) Band Neutrophils % 2 % (0-9) Lymphocytes % 26 % (24-48) Monocytes % 5 % (0-10) Platelet Estimate Increased (ADEQUATE) Polychromasia Slight Hypochromasia Slight Anisocytosis Slight Prothrombin Time 23.0 SEC (11.7-14.0) Prothromb Time International Ratio 2.1 (0.8-1.1) Activated Partial Thromboplast Time 45 SEC (24-38) Sodium Level 141 mmol/L (136-145) 142 mmol/L (136-145) Potassium Level 3.2 mmol/L (3.5-5.1) 3.2 mmol/L (3.5-5.1) Chloride Level 102 mmol/L (98-107) 107 mmol/L (98-107) Carbon Dioxide Level 26 mmol/L (21-32) 25 mmol/L (21-32) Anion Gap 13 (6-14) 10 (6-14) Blood Urea Nitrogen 22 mg/dL (7-20) 19 mg/dL (7-20) Creatinine 1.3 mg/dL (0.6-1.0) 1.1 mg/dL (0.6-1.0) Estimated GFR (Cockcroft-Gault) 39.7 48.2 BUN/Creatinine Ratio 17 (6-20) Glucose Level 93 mg/dL (70-99) 91 mg/dL (70-99) Calcium Level 11.9 mg/dL (8.5-10.1) 10.8 mg/dL (8.5-10.1) Magnesium Level 1.3 mg/dL (1.8-2.4) Total Bilirubin 0.8 mg/dL (0.2-1.0) Aspartate Amino Transf (AST/SGOT) 31 U/L (15-37) Alanine Aminotransferase (ALT/SGPT) 22 U/L (14-59) Alkaline Phosphatase 159 U/L (46-116) Creatine Kinase 38 U/L (26-192) Creatine Kinase MB (Mass) 3.6 ng/mL (0.0-3.6) Creatine Kinase MB Relative Index % (0-4) Troponin I Quantitative 0.084 ng/mL (0.000-0.055) BE-Put-E-Type Natriuretic Peptide 5238 pg/mL (0-449) Total Protein 7.0 g/dL (6.4-8.2) Albumin 3.7 g/dL (3.4-5.0) Albumin/Globulin Ratio 1.1 (1.0-1.7) Nasal Screen MRSA (PCR) Negative (Negative) Medications Current Medications Sodium Chloride 1,000 ml @ 1,000 mls/hr Q1H IV Last administered on 06/18/18at 19:55; Start 06/18/18 at 19:00; Stop 06/18/18 at 19:59; Status DC Sodium Chloride 1,000 ml @ 1,000 mls/hr 1X ONCE IV Last administered on at 19:56; Start 06/18/18 at 19:15; Stop 06/18/18 at 20:14; Status DC Esmolol HCl 250 ml @ 0 mls/hr 1X ONCE IV ; Start 06/18/18 at 19:30; Stop at 19:31; Status DC Esmolol HCl (Brevibloc) 28 mg ONCE ONCE IV Last administered on 06/18/18at 19: 30; Start 06/18/18 at 19:30; Stop 06/18/18 at 19:31; Status DC Magnesium Sulfate 50 ml @ 25 mls/hr 1X ONCE IV Last administered on 06/18/18at 23:39; Start 06/18/18 at 19:45; Stop 06/18/18 at 21:44; Status DC Potassium Chloride (Klor-Con) 40 meq 1X ONCE PO Last administered on at 23:38; Start 06/18/18 at 19:45; Stop 06/18/18 at 19:49; Status DC Apixaban (Eliquis) 5 mg BID PO Last administered on 06/18/18at 20:10; Start at 21:00; Stop 06/18/18 at 21:00; Status DC Acetaminophen (Tylenol) 500 mg PRN Q6HRS PRN PO HEADACHE / TEMP; Start at 20:30 Ondansetron HCl (Zofran) 4 mg PRN Q6HRS PRN IV NAUSEA/VOMITING 1ST CHOICE Last administered on 06/20/18at 03:10; Start 06/18/18 at 20:30 Morphine Sulfate (Morphine Sulfate) 2 mg PRN Q2HR PRN IV PAIN MILD; Start 06/18 at 20:30 Temazepam (Restoril) 7.5 mg PRN QHS PRN PO INSOMNIA; Start 06/18/18 at 20:30 Furosemide (Lasix) 20 mg DAILY PO Last administered on 06/20/18at 09:17; Start 06/19/18 at 09:00 Lorazepam (Ativan) 0.25 mg PRN QEVNG PRN PO ANXIETY / AGITATION; Start at 20:30 Lorazepam (Ativan) 0.5 mg BID PO Last administered on 06/20/18at 09:17; Start at 21:00 Oxycodone/ Acetaminophen (Percocet 7.5/ 325) 1 tab PRN Q6HRS PRN PO PAIN Last administered on 06/20/18at 13:28; Start 06/19/18 at 00:00 Potassium Chloride (Klor-Con) 10 meq DAILY PO Last administered on 06/20/18 09 :18; Start 06/19/18 at 09:00 Sertraline HCl (Zoloft) 50 mg DAILY PO Last administered on 06/20/18at 09:17; Start 06/19/18 at 09:00 Multivitamins/ Minerals (I-Bowen) 1 tab DAILY PO Last administered on 06/20/18at 09:18; Start 06/19/18 at 09:00 Diltiazem HCl (Cardizem 24hr Cd) 180 mg DAILY PO Last administered on at 10:31; Start 06/19/18 at 09:00; Stop 06/19/18 at 16:30; Status DC Levothyroxine Sodium (Synthroid) 50 mcg DAILY07 PO Last administered on at 06:34; Start 06/19/18 at 07:00 Pantoprazole Sodium (Protonix) 40 mg DAILYAC PO Last administered on 06/20/18 09:17; Start 06/19/18 at 07:30 Ondansetron HCl (Zofran Odt) 4 mg PRN Q8HRS PRN PO NAUSEA/VOMITING 1ST CHOICE Last administered on 06/20/18at 13:28; Start 06/18/18 at 21:00 Sucralfate (Carafate) 1 gm TIDAC PO Last administered on 06/20/18at 11:30; Start 06/19/18 at 07:30 Tizanidine HCl (Zanaflex) 4 mg Q8HRS PO Last administered on 06/20/18at 13:30; Start 06/18/18 at 22:00 Apixaban (Eliquis) 5 mg BID@0800,2000 PO Last administered on 06/20/18at 09:17; Start 06/19/18 at 08:00 Info (Anti-Coagulation Monitoring By Pharmacy) 1 each PRN DAILY PRN MC SEE COMMENTS Last administered on 06/20/18at 13:39; Start 06/18/18 at 20:45 Diltiazem HCl (Cardizem 24hr Cd) 300 mg DAILY PO Last administered on at 09:19; Start 06/20/18 at 09:00 Docusate Sodium (Colace) 100 mg PRN DAILY PRN PO CONSTIPATION; Start 06/20/18 at 10:45 Iohexol (Omnipaque 240 Mg/ml) 30 ml 1X ONCE PO Last administered on 06/20/18at 14:29; Start 06/20/18 at 14:15; Stop 06/20/18 at 14:16; Status DC Info (CONTRAST GIVEN -- Rx MONITORING) 1 each PRN DAILY PRN MC SEE COMMENTS; Start 06/20/18 at 14:15; Stop 06/22/18 at 14:14 Active Scripts Active Reported Percocet 7.5-325 Mg Tablet (Oxycodone/Acetaminophen) 1 Each Tablet 1 Tab PO Q6HRS Eliquis (Apixaban) 5 Mg Tablet 5 Mg PO BID start 06/23/2018 Eliquis (Apixaban) 5 Mg Tablet 10 Mg PO BID 5 Days Zanaflex (Tizanidine Hcl) 4 Mg Capsule 1 Cap PO BID Furosemide 20 Mg Tablet 1 Tab PO DAILY Zofran (Ondansetron Hcl) 4 Mg Tablet 1 Tab PO Q8HRS Carafate (Sucralfate) 1 Gm Tablet 1 Tab PO TIDAC Hydrochlorothiazide Tablet (Hydrochlorothiazide) 12.5 Mg Tablet 1 Tab PO DAILY Lorazepam 0.5 Mg Tablet 0.5 Tab PO PRN QEVNG Lorazepam 0.5 Mg Tablet 1 Tab PO BID Zoloft (Sertraline Hcl) 50 Mg Tablet 1 Tab PO DAILY Vision Vitamins (Beta-Carotene(A) W-C & E/Min) 1 Each Tablet 1 Each PO DAILY Calcium + D3 Er Tablet (Calcium Carb & Cit/Vitamin D3) 1 Each Tablet.er 1 Each PO Synthroid (Levothyroxine Sodium) 50 Mcg Tablet 50 Mcg PO DAILYAC Potassium Chloride 10 Meq Capsule.er 10 Meq PO DAILY Omeprazole 40 Mg Capsule.dr 1 Cap PO DAILY Cardizem Cd (Diltiazem Hcl) 180 Mg Cap.er.24h 180 Mg PO DAILY Vitals/I & O Vital Sign - Last 24 Hours 06/19/18 06/19/18 06/19/18 06/19/18 19:00 20:00 22:16 23:05 Temp 98.0 98.1 98.0 98.1 Pulse 80 66 Resp 14 B/P (MAP) 97/54 (68) 112/56 (74) Pulse Ox 93 99 O2 Delivery Nasal Cannula Nasal Cannula Nasal Cannula Nasal Cannula O2 Flow Rate 2.0 3.0 3.0 2.0 06/20/18 06/20/18 06/20/18 06/20/18 03:00 07:00 07:12 07:35 Temp 97.7 97.8 97.7 97.8 Pulse 67 64 Resp 22 16 B/P (MAP) 125/82 (96) 127/60 (82) Pulse Ox 94 96 O2 Delivery Nasal Cannula Nasal Cannula Nasal Cannula Nasal Cannula O2 Flow Rate 2.0 2.0 2.0 3.0 06/20/18 06/20/18 06/20/18 06/20/18 08:15 09:19 11:00 13:28 Temp 97.8 97.8 Pulse 64 71 Resp 16 16 16 B/P (MAP) 127/60 104/56 (72) Pulse Ox 96 94 94 O2 Delivery Nasal Cannula Nasal Cannula Nasal Cannula O2 Flow Rate 2.0 2.0 2.0 06/20/18 15:30 Temp 97.6 97.6 Pulse 71 Resp 16 B/P (MAP) 125/75 (92) Pulse Ox 96 O2 Delivery Nasal Cannula O2 Flow Rate 2.0 Intake and Output 06/19/18 06/19/18 06/20/18 15:00 23:00 07:00 Intake Total 500 ml 150 ml Output Total 525 ml 500 ml 500 ml Balance -525 ml 0 ml -350 ml ALLYSON OROZCO MD Jun 20, 2018 16:57
[2018-06-20 19:00] VITALS: BP 103/58
[2018-06-20] MEDS: TEMAZEPAM 7.5 MG CAPSULE PO PRN (21:14)
[2018-06-20 23:17] VITALS: BP 105/59
[2018-06-21] MEDS: ONDANSETRON PF 4 MG/2 ML VIAL. IV PRN ×2 (01:30→17:09)
[2018-06-21 03:00] VITALS: BP 123/58
[2018-06-21] MEDS: oxyCODONE/APAP 7.5/325 1 TAB TABLET PO PRN ×3 (03:21→20:27)
[2018-06-21] MEDS: LEVOTHYROXINE 50 MCG TABLET PO SCH (06:32)
[2018-06-21] MEDS: tiZANidine 4 MG TABLET. PO SCH ×3 (06:32→23:19)
[2018-06-21 07:16] VITALS: BP 128/61
--- NOTE | 2018-06-21 07:45 | PDOC ---
PULMONARY PROGRESS NOTES Subjective sob better, no cough, no pain Vitals Vital Signs Date Time Temp Pulse Resp B/P (MAP) Pulse Ox O2 Delivery O2 Flow Rate FiO2 06/21/18 07:16 98.5 18 128/61 (83) 96 Nasal Cannula 98.5 06/21/18 04:21 2.0 06/21/18 03:00 63 ROS: No Nausea General: Alert, No acute distress HEENT: Other (nc at perrl) Lungs: Other (decrease bs) Cardiovascular: S1, S2 Abdomen: Soft, Non-tender Neuro Exam: Alert, Oriented Extremities: No Edema Skin: Warm Medications Active Scripts Medications Dose Route/Sig Max Daily Dose Days Date Category Dose Instructions Percocet 7.5-325 Mg Tablet (Oxycodone/Acetaminophen) 1 Each Tablet 1 Tab PO Q6HRS 06/17/18 Reported Eliquis (Apixaban) 5 Mg Tablet 5 Mg PO BID 06/17/18 Reported start 06/23/2018 Eliquis (Apixaban) 5 Mg Tablet 10 Mg PO BID 5 06/17/18 Reported Zanaflex (Tizanidine Hcl) 4 Mg Capsule 1 Cap PO BID 07/31/17 Reported Furosemide 20 Mg Tablet 1 Tab PO DAILY 07/31/17 Reported Zofran (Ondansetron Hcl) 4 Mg Tablet 1 Tab PO Q8HRS 07/31/17 Reported Carafate (Sucralfate) 1 Gm Tablet 1 Tab PO TIDAC 07/31/17 Reported Hydrochlorothiazide Tablet (Hydrochlorothiazide) 12.5 Mg Tablet 1 Tab PO DAILY 07/31/17 Reported Lorazepam 0.5 Mg Tablet 0.5 Tab PO PRN QEVNG 07/31/17 Reported Lorazepam 0.5 Mg Tablet 1 Tab PO BID 07/31/17 Reported Zoloft (Sertraline Hcl) 50 Mg Tablet 1 Tab PO DAILY 07/31/17 Reported Vision Vitamins (Beta-Carotene(A) W-C & E/Min) 1 Each Tablet 1 Each PO DAILY 02/15/15 Reported Calcium + D3 Er Tablet (Calcium Carb & Cit/Vitamin D3) 1 Each Tablet.er 1 Each PO 02/15/15 Reported Synthroid (Levothyroxine Sodium) 50 Mcg Tablet 50 Mcg PO DAILYAC 02/15/15 Reported Potassium Chloride 10 Meq Capsule.er 10 Meq PO DAILY 02/15/15 Reported Omeprazole 40 Mg Capsule.dr 1 Cap PO DAILY 02/15/15 Reported Cardizem Cd (Diltiazem Hcl) 180 Mg Cap.er.24h 180 Mg PO DAILY 02/15/15 Reported Impression . 1. Acute on chronic hypoxic respiratory failure secondary to atrial fibrillation with rapid ventricular response. no in SR 2. Recently diagnosed acute pulmonary embolism and extensive deep vein thrombosis. on Eliquis. 3. Mild reactive leukocytosis, resolved 4. Azotemia secondary to dehydration, improving. 5. Abnormal chest x-ray with tiny left effusion. Plan . 1. 02 titration 2. Follow up another chest x-ray stable 3. Continue Eliquis as long as it is safe and tolerable. 4. Monitor hemoglobin. 5. Follow cardiology recommendations. 6. Echocardiogram done recently had shown severe pulmonary hypertension, which is probably a secondary PE. She is not a good candidate for any right heart catheterization at present. 7. Discussed with RN and pt .consider dc plans BREANNA NICOLE MD Jun 21, 2018 07:45
[2018-06-21] MEDS: ANTI-COAG MONITOR BY PHARMACY. MC PRN (08:24)
[2018-06-21] MEDS: POTASSIUM CHLORIDE 10 MEQ TABLET.ER. PO SCH (08:44)
[2018-06-21] MEDS: FUROSEMIDE 20 MG TABLET PO SCH (08:45)
[2018-06-21] MEDS: LORazepam 0.5 MG TABLET PO SCH ×2 (08:45→20:26)
[2018-06-21] MEDS: PANTOPRAZOLE 40 MG TABLET.DR. PO SCH (08:45)
[2018-06-21] MEDS: SERTRALINE 50 MG TABLET. PO SCH (08:45)
[2018-06-21] MEDS: MULTIVITAMIN I-VITE TABLET. PO SCH (08:45)
[2018-06-21] MEDS: SUCRALFATE 1 GM TABLET. PO SCH ×3 (08:45→17:09)
[2018-06-21] MEDS: APIXABAN 5 MG TABLET. PO SCH ×2 (08:45→20:27)
[2018-06-21 11:03] VITALS: BP 103/57
--- NOTE | 2018-06-21 11:49 | PDOC ---
PROGRESS NOTES Chief Complaint Chief Complaint Medical Problems: -Acute on chronic hypoxic respiratory failure -Atrial fibrillation w/ rapid ventricular response -Acute pulmonary embolism -Mild reactive leukocytosis -Azotemia secondary to dehydration -Effusion History of Present Illness History of Present Illness -Pt seen and examined -NAIF -Gilberto RN -VSS Vitals Vitals Vital Signs Date Time Temp Pulse Resp B/P (MAP) Pulse Ox O2 Delivery O2 Flow Rate FiO2 06/21/18 11:03 59 16 103/57 (72) 98 Nasal Cannula 1.0 06/21/18 07:16 98.5 98.5 Physical Exam General: Alert, Oriented X3, Cooperative, No acute distress Heart: Regular rate, Normal S1, Normal S2, Other (no changes in her murmur) Lungs: Clear, Other (decrease bs) Abdomen: Normal bowel sounds, Soft Extremities: No cyanosis, No edema Skin: No rashes, No breakdown Review of Systems Review of Systems -No WHITE -No N/V -No CP -No AMS Assessment and Plan Assessmemt and Plan Medical Problems: -Acute on chronic hypoxic respiratory failure -Atrial fibrillation w/ rapid ventricular response -Acute pulmonary embolism -Mild reactive leukocytosis -Azotemia secondary to dehydration -Effusion Plan: -Labs -PT/OT -Appreciate cardiology input -Cardiac monitoring -SNU Evaluation Comment Review of Relevant I have reviewed the following items thomas (where applicable) has been applied. Medications Current Medications Sodium Chloride 1,000 ml @ 1,000 mls/hr Q1H IV Last administered on 06/18/18at 19:55; Start 06/18/18 at 19:00; Stop 06/18/18 at 19:59; Status DC Sodium Chloride 1,000 ml @ 1,000 mls/hr 1X ONCE IV Last administered on at 19:56; Start 06/18/18 at 19:15; Stop 06/18/18 at 20:14; Status DC Esmolol HCl 250 ml @ 0 mls/hr 1X ONCE IV ; Start 06/18/18 at 19:30; Stop at 19:31; Status DC Esmolol HCl (Brevibloc) 28 mg ONCE ONCE IV Last administered on 06/18/18at 19: 30; Start 06/18/18 at 19:30; Stop 06/18/18 at 19:31; Status DC Magnesium Sulfate 50 ml @ 25 mls/hr 1X ONCE IV Last administered on 06/18/18 23:39; Start 06/18/18 at 19:45; Stop 06/18/18 at 21:44; Status DC Potassium Chloride (Klor-Con) 40 meq 1X ONCE PO Last administered on 23:38; Start 06/18/18 at 19:45; Stop 06/18/18 at 19:49; Status DC Apixaban (Eliquis) 5 mg BID PO Last administered on 06/18/18 20:10; Start at 21:00; Stop 06/18/18 at 21:00; Status DC Acetaminophen (Tylenol) 500 mg PRN Q6HRS PRN PO HEADACHE / TEMP Last administered on 06/21/18 01:30; Start 06/18/18 at 20:30 Ondansetron HCl (Zofran) 4 mg PRN Q6HRS PRN IV NAUSEA/VOMITING 1ST CHOICE Last administered on 06/21/18 01:30; Start 06/18/18 at 20:30 Morphine Sulfate (Morphine Sulfate) 2 mg PRN Q2HR PRN IV PAIN MILD; Start 06/18 at 20:30 Temazepam (Restoril) 7.5 mg PRN QHS PRN PO INSOMNIA Last administered on at 21:14; Start 06/18/18 at 20:30 Furosemide (Lasix) 20 mg DAILY PO Last administered on 06/21/18at 08:45; Start 06/19/18 at 09:00 Lorazepam (Ativan) 0.25 mg PRN QEVNG PRN PO ANXIETY / AGITATION; Start at 20:30 Lorazepam (Ativan) 0.5 mg BID PO Last administered on 06/21/18 08:45; Start at 21:00 Oxycodone/ Acetaminophen (Percocet 7.5/ 325) 1 tab PRN Q6HRS PRN PO PAIN Last administered on 06/21/18 03:21; Start 06/19/18 at 00:00 Potassium Chloride (Klor-Con) 10 meq DAILY PO Last administered on 06/21/18 08 :44; Start 06/19/18 at 09:00 Sertraline HCl (Zoloft) 50 mg DAILY PO Last administered on 06/21/18 08:45; Start 06/19/18 at 09:00 Multivitamins/ Minerals (I-Bowen) 1 tab DAILY PO Last administered on 06/21/18 08:45; Start 06/19/18 at 09:00 Diltiazem HCl (Cardizem 24hr Cd) 180 mg DAILY PO Last administered on at 10:31; Start 06/19/18 at 09:00; Stop 06/19/18 at 16:30; Status DC Levothyroxine Sodium (Synthroid) 50 mcg DAILY07 PO Last administered on 06:32; Start 06/19/18 at 07:00 Pantoprazole Sodium (Protonix) 40 mg DAILYAC PO Last administered on 06/21/18 08:45; Start 06/19/18 at 07:30 Ondansetron HCl (Zofran Odt) 4 mg PRN Q8HRS PRN PO NAUSEA/VOMITING 1ST CHOICE Last administered on 06/20/18at 13:28; Start 06/18/18 at 21:00 Sucralfate (Carafate) 1 gm TIDAC PO Last administered on 06/21/18 08:45; Start 06/19/18 at 07:30 Tizanidine HCl (Zanaflex) 4 mg Q8HRS PO Last administered on 06/21/18 06:32; Start 06/18/18 at 22:00 Apixaban (Eliquis) 5 mg BID@0800,2000 PO Last administered on 06/21/18 08:45; Start 06/19/18 at 08:00 Info (Anti-Coagulation Monitoring By Pharmacy) 1 each PRN DAILY PRN MC SEE COMMENTS Last administered on 06/21/18 08:24; Start 06/18/18 at 20:45 Diltiazem HCl (Cardizem 24hr Cd) 300 mg DAILY PO Last administered on 08:45; Start 06/20/18 at 09:00 Docusate Sodium (Colace) 100 mg PRN DAILY PRN PO CONSTIPATION; Start 06/20/18 at 10:45 Iohexol (Omnipaque 240 Mg/ml) 30 ml 1X ONCE PO Last administered on 06/20/18at 14:29; Start 06/20/18 at 14:15; Stop 06/20/18 at 14:16; Status DC Info (CONTRAST GIVEN -- Rx MONITORING) 1 each PRN DAILY PRN MC SEE COMMENTS; Start 06/20/18 at 14:15; Stop 06/22/18 at 14:14 Active Scripts Active Reported Percocet 7.5-325 Mg Tablet (Oxycodone/Acetaminophen) 1 Each Tablet 1 Tab PO Q6HRS Eliquis (Apixaban) 5 Mg Tablet 5 Mg PO BID start 06/23/2018 Eliquis (Apixaban) 5 Mg Tablet 10 Mg PO BID 5 Days Zanaflex (Tizanidine Hcl) 4 Mg Capsule 1 Cap PO BID Furosemide 20 Mg Tablet 1 Tab PO DAILY Zofran (Ondansetron Hcl) 4 Mg Tablet 1 Tab PO Q8HRS Carafate (Sucralfate) 1 Gm Tablet 1 Tab PO TIDAC Hydrochlorothiazide Tablet (Hydrochlorothiazide) 12.5 Mg Tablet 1 Tab PO DAILY Lorazepam 0.5 Mg Tablet 0.5 Tab PO PRN QEVNG Lorazepam 0.5 Mg Tablet 1 Tab PO BID Zoloft (Sertraline Hcl) 50 Mg Tablet 1 Tab PO DAILY Vision Vitamins (Beta-Carotene(A) W-C & E/Min) 1 Each Tablet 1 Each PO DAILY Calcium + D3 Er Tablet (Calcium Carb & Cit/Vitamin D3) 1 Each Tablet.er 1 Each PO Synthroid (Levothyroxine Sodium) 50 Mcg Tablet 50 Mcg PO DAILYAC Potassium Chloride 10 Meq Capsule.er 10 Meq PO DAILY Omeprazole 40 Mg Capsule.dr 1 Cap PO DAILY Cardizem Cd (Diltiazem Hcl) 180 Mg Cap.er.24h 180 Mg PO DAILY Vitals/I & O Vital Sign - Last 24 Hours 06/20/18 06/20/18 06/20/18 06/20/18 13:28 15:30 19:00 19:25 Temp 97.6 97.9 97.6 97.9 Pulse 71 67 Resp 16 16 20 B/P (MAP) 125/75 (92) 103/58 (73) Pulse Ox 94 96 94 O2 Delivery Nasal Cannula Nasal Cannula Room Air Nasal Cannula O2 Flow Rate 2.0 2.0 2.0 2.0 8/17/18 8/17/18 8/18/18 8/18/18 21:14 23:17 03:00 03:21 Temp 97.5 98.0 97.5 98.0 Pulse 68 63 Resp 20 20 20 20 B/P (MAP) 105/59 (74) 123/58 (79) Pulse Ox 92 95 O2 Delivery Room Air Nasal Cannula Nasal Cannula Nasal Cannula O2 Flow Rate 2.0 2.0 2.0 06/21/18 06/21/18 06/21/18 06/21/18 04:21 07:16 08:00 08:45 Temp 98.5 98.5 Pulse 63 Resp 20 18 B/P (MAP) 128/61 (83) 128/61 Pulse Ox 95 96 O2 Delivery Nasal Cannula Nasal Cannula Nasal Cannula O2 Flow Rate 2.0 1.0 06/21/18 11:03 Pulse 59 Resp 16 B/P (MAP) 103/57 (72) Pulse Ox 98 O2 Delivery Nasal Cannula O2 Flow Rate 1.0 Intake and Output 06/20/18 06/20/18 06/21/18 15:00 23:00 07:00 Intake Total 500 ml 700 ml 200 ml Output Total 700 ml 150 ml Balance 500 ml 0 ml 50 ml PATY BYRNES III DO Jun 21, 2018 11:49
--- NOTE | 2018-06-21 14:09 | PDOC ---
G I PROGRESS NOTE Reason for Follow-up RLQ abd pain Subjective Pain persists Physical Exam Lungs decreased BS CV S1 S2 ABD +BS, soft, + RLQ tenderness Review of Relevant I have reviewed the following items thomas (where applicable) has been applied. Medications Current Medications Sodium Chloride 1,000 ml @ 1,000 mls/hr Q1H IV Last administered on 06/18/18 19:55; Start 06/18/18 at 19:00; Stop 06/18/18 at 19:59; Status DC Sodium Chloride 1,000 ml @ 1,000 mls/hr 1X ONCE IV Last administered on at 19:56; Start 06/18/18 at 19:15; Stop 06/18/18 at 20:14; Status DC Esmolol HCl 250 ml @ 0 mls/hr 1X ONCE IV ; Start 06/18/18 at 19:30; Stop at 19:31; Status DC Esmolol HCl (Brevibloc) 28 mg ONCE ONCE IV Last administered on 06/18/18at 19: 30; Start 06/18/18 at 19:30; Stop 06/18/18 at 19:31; Status DC Magnesium Sulfate 50 ml @ 25 mls/hr 1X ONCE IV Last administered on 06/18/18at 23:39; Start 06/18/18 at 19:45; Stop 06/18/18 at 21:44; Status DC Potassium Chloride (Klor-Con) 40 meq 1X ONCE PO Last administered on at 23:38; Start 06/18/18 at 19:45; Stop 06/18/18 at 19:49; Status DC Apixaban (Eliquis) 5 mg BID PO Last administered on 06/18/18at 20:10; Start at 21:00; Stop 06/18/18 at 21:00; Status DC Acetaminophen (Tylenol) 500 mg PRN Q6HRS PRN PO HEADACHE / TEMP Last administered on 06/21/18at 01:30; Start 06/18/18 at 20:30 Ondansetron HCl (Zofran) 4 mg PRN Q6HRS PRN IV NAUSEA/VOMITING 1ST CHOICE Last administered on 06/21/18at 01:30; Start 06/18/18 at 20:30 Morphine Sulfate (Morphine Sulfate) 2 mg PRN Q2HR PRN IV PAIN MILD; Start 06/18 at 20:30 Temazepam (Restoril) 7.5 mg PRN QHS PRN PO INSOMNIA Last administered on 21:14; Start 06/18/18 at 20:30 Furosemide (Lasix) 20 mg DAILY PO Last administered on 06/21/18 08:45; Start 06/19/18 at 09:00 Lorazepam (Ativan) 0.25 mg PRN QEVNG PRN PO ANXIETY / AGITATION; Start at 20:30 Lorazepam (Ativan) 0.5 mg BID PO Last administered on 06/21/18 08:45; Start at 21:00 Oxycodone/ Acetaminophen (Percocet 7.5/ 325) 1 tab PRN Q6HRS PRN PO PAIN Last administered on 06/21/18 12:54; Start 06/19/18 at 00:00 Potassium Chloride (Klor-Con) 10 meq DAILY PO Last administered on 06/21/18 08 :44; Start 06/19/18 at 09:00 Sertraline HCl (Zoloft) 50 mg DAILY PO Last administered on 06/21/18 08:45; Start 06/19/18 at 09:00 Multivitamins/ Minerals (I-Bowen) 1 tab DAILY PO Last administered on 06/21/18 08:45; Start 06/19/18 at 09:00 Diltiazem HCl (Cardizem 24hr Cd) 180 mg DAILY PO Last administered on at 10:31; Start 06/19/18 at 09:00; Stop 06/19/18 at 16:30; Status DC Levothyroxine Sodium (Synthroid) 50 mcg DAILY07 PO Last administered on 06:32; Start 06/19/18 at 07:00 Pantoprazole Sodium (Protonix) 40 mg DAILYAC PO Last administered on 06/21/18 08:45; Start 06/19/18 at 07:30 Ondansetron HCl (Zofran Odt) 4 mg PRN Q8HRS PRN PO NAUSEA/VOMITING 1ST CHOICE Last administered on 06/20/18at 13:28; Start 06/18/18 at 21:00 Sucralfate (Carafate) 1 gm TIDAC PO Last administered on 06/21/18at 12:54; Start 06/19/18 at 07:30 Tizanidine HCl (Zanaflex) 4 mg Q8HRS PO Last administered on 06/21/18at 12:54; Start 06/18/18 at 22:00 Apixaban (Eliquis) 5 mg BID@0800,2000 PO Last administered on 06/21/18at 08:45; Start 06/19/18 at 08:00 Info (Anti-Coagulation Monitoring By Pharmacy) 1 each PRN DAILY PRN MC SEE COMMENTS Last administered on 06/21/18at 08:24; Start 06/18/18 at 20:45 Diltiazem HCl (Cardizem 24hr ) 300 mg DAILY PO Last administered on at 08:45; Start 06/20/18 at 09:00 Docusate Sodium (Colace) 100 mg PRN DAILY PRN PO CONSTIPATION; Start 06/20/18 at 10:45 Iohexol (Omnipaque 240 Mg/ml) 30 ml 1X ONCE PO Last administered on 06/20/18at 14:29; Start 06/20/18 at 14:15; Stop 06/20/18 at 14:16; Status DC Info (CONTRAST GIVEN -- Rx MONITORING) 1 each PRN DAILY PRN MC SEE COMMENTS; Start 06/20/18 at 14:15; Stop 06/22/18 at 14:14 Active Scripts Active Reported Percocet 7.5-325 Mg Tablet (Oxycodone/Acetaminophen) 1 Each Tablet 1 Tab PO Q6HRS Eliquis (Apixaban) 5 Mg Tablet 5 Mg PO BID start 06/23/2018 Eliquis (Apixaban) 5 Mg Tablet 10 Mg PO BID 5 Days Zanaflex (Tizanidine Hcl) 4 Mg Capsule 1 Cap PO BID Furosemide 20 Mg Tablet 1 Tab PO DAILY Zofran (Ondansetron Hcl) 4 Mg Tablet 1 Tab PO Q8HRS Carafate (Sucralfate) 1 Gm Tablet 1 Tab PO TIDAC Hydrochlorothiazide Tablet (Hydrochlorothiazide) 12.5 Mg Tablet 1 Tab PO DAILY Lorazepam 0.5 Mg Tablet 0.5 Tab PO PRN QEVNG Lorazepam 0.5 Mg Tablet 1 Tab PO BID Zoloft (Sertraline Hcl) 50 Mg Tablet 1 Tab PO DAILY Vision Vitamins (Beta-Carotene(A) W-C & E/Min) 1 Each Tablet 1 Each PO DAILY Calcium + D3 Er Tablet (Calcium Carb & Cit/Vitamin D3) 1 Each Tablet.er 1 Each PO Synthroid (Levothyroxine Sodium) 50 Mcg Tablet 50 Mcg PO DAILYAC Potassium Chloride 10 Meq Capsule.er 10 Meq PO DAILY Omeprazole 40 Mg Capsule.dr 1 Cap PO DAILY Cardizem Cd (Diltiazem Hcl) 180 Mg Cap.er.24h 180 Mg PO DAILY Vitals/I & O Vital Sign - Last 24 Hours 06/20/18 06/20/18 06/20/18 06/20/18 15:30 19:00 19:25 21:14 Temp 97.6 97.9 97.6 97.9 Pulse 71 67 Resp 16 20 20 B/P (MAP) 125/75 (92) 103/58 (73) Pulse Ox 96 94 O2 Delivery Nasal Cannula Room Air Nasal Cannula Room Air O2 Flow Rate 2.0 2.0 2.0 06/20/18 06/21/18 06/21/18 06/21/18 23:17 03:00 03:21 04:21 Temp 97.5 98.0 97.5 98.0 Pulse 68 63 Resp 20 20 20 20 B/P (MAP) 105/59 (74) 123/58 (79) Pulse Ox 92 95 95 O2 Delivery Nasal Cannula Nasal Cannula Nasal Cannula Nasal Cannula O2 Flow Rate 2.0 2.0 2.0 2.0 06/21/18 06/21/18 06/21/18 06/21/18 07:16 08:00 08:45 11:03 Temp 98.5 98.5 Pulse 63 59 Resp 18 16 B/P (MAP) 128/61 (83) 128/61 103/57 (72) Pulse Ox 96 98 O2 Delivery Nasal Cannula Nasal Cannula Nasal Cannula O2 Flow Rate 1.0 1.0 06/21/18 12:54 Pulse Ox 98 O2 Delivery Nasal Cannula O2 Flow Rate 1.0 Intake and Output 06/20/18 06/20/18 06/21/18 15:00 23:00 07:00 Intake Total 500 ml 700 ml 200 ml Output Total 700 ml 150 ml Balance 500 ml 0 ml 50 ml Problem List Problems Medical Problems: (1) Hypoxia Status: Acute (2) Rapid atrial fibrillation Status: Acute Assessment RLQ abd pain- most likely secondary to right inguinal hernia-RIH, surgical risks are increased, patient to consider possible repair with her daughter NASH TEMPLE MD Jun 21, 2018 14:09
[2018-06-21 14:39] VITALS: BP 110/59
--- NOTE | 2018-06-21 14:44 | PDOC ---
PROGRESS NOTES Subjective Subjective Very weak but feels better, breathing easier. Objective Objective Vital Signs Date Time Temp Pulse Resp B/P (MAP) Pulse Ox O2 Delivery O2 Flow Rate FiO2 06/21/18 14:39 97.8 74 18 110/59 (76) 91 Nasal Cannula 1.0 97.8 Intake and Output 06/21/18 07:00 Intake Total 1400 ml Output Total 850 ml Balance 550 ml Intake Oral 1400 ml Output Urine Total 850 ml # Voids 4 Physical Exam Physical Exam Moving air better. No wheezing today. No Rales. No changes in heart sounds. No edema. Assessment Assessment Slowly in improving. She will probably [place] going to [place] next [place] Comment Review of Relevant I have reviewed the following items thomas (where applicable) has been applied. Medications Current Medications Sodium Chloride 1,000 ml @ 1,000 mls/hr Q1H IV Last administered on 06/18/18at 19:55; Start 06/18/18 at 19:00; Stop 06/18/18 at 19:59; Status DC Sodium Chloride 1,000 ml @ 1,000 mls/hr 1X ONCE IV Last administered on at 19:56; Start 06/18/18 at 19:15; Stop 06/18/18 at 20:14; Status DC Esmolol HCl 250 ml @ 0 mls/hr 1X ONCE IV ; Start 06/18/18 at 19:30; Stop at 19:31; Status DC Esmolol HCl (Brevibloc) 28 mg ONCE ONCE IV Last administered on 06/18/18at 19: 30; Start 06/18/18 at 19:30; Stop 06/18/18 at 19:31; Status DC Magnesium Sulfate 50 ml @ 25 mls/hr 1X ONCE IV Last administered on 06/18/18at 23:39; Start 06/18/18 at 19:45; Stop 06/18/18 at 21:44; Status DC Potassium Chloride (Klor-Con) 40 meq 1X ONCE PO Last administered on at 23:38; Start 06/18/18 at 19:45; Stop 06/18/18 at 19:49; Status DC Apixaban (Eliquis) 5 mg BID PO Last administered on 06/18/18at 20:10; Start at 21:00; Stop 06/18/18 at 21:00; Status DC Acetaminophen (Tylenol) 500 mg PRN Q6HRS PRN PO HEADACHE / TEMP Last administered on 06/21/18 01:30; Start 06/18/18 at 20:30 Ondansetron HCl (Zofran) 4 mg PRN Q6HRS PRN IV NAUSEA/VOMITING 1ST CHOICE Last administered on 06/21/18 01:30; Start 06/18/18 at 20:30 Morphine Sulfate (Morphine Sulfate) 2 mg PRN Q2HR PRN IV PAIN MILD; Start 06/18 at 20:30 Temazepam (Restoril) 7.5 mg PRN QHS PRN PO INSOMNIA Last administered on 21:14; Start 06/18/18 at 20:30 Furosemide (Lasix) 20 mg DAILY PO Last administered on 06/21/18 08:45; Start 06/19/18 at 09:00 Lorazepam (Ativan) 0.25 mg PRN QEVNG PRN PO ANXIETY / AGITATION; Start at 20:30 Lorazepam (Ativan) 0.5 mg BID PO Last administered on 06/21/18 08:45; Start at 21:00 Oxycodone/ Acetaminophen (Percocet 7.5/ 325) 1 tab PRN Q6HRS PRN PO PAIN Last administered on 06/21/18 12:54; Start 06/19/18 at 00:00 Potassium Chloride (Klor-Con) 10 meq DAILY PO Last administered on 06/21/18 08 :44; Start 06/19/18 at 09:00 Sertraline HCl (Zoloft) 50 mg DAILY PO Last administered on 06/21/18 08:45; Start 06/19/18 at 09:00 Multivitamins/ Minerals (I-Bowen) 1 tab DAILY PO Last administered on 06/21/18 08:45; Start 06/19/18 at 09:00 Diltiazem HCl (Cardizem 24hr Cd) 180 mg DAILY PO Last administered on 10:31; Start 06/19/18 at 09:00; Stop 06/19/18 at 16:30; Status DC Levothyroxine Sodium (Synthroid) 50 mcg DAILY07 PO Last administered on 06:32; Start 06/19/18 at 07:00 Pantoprazole Sodium (Protonix) 40 mg DAILYAC PO Last administered on 06/21/18 08:45; Start 06/19/18 at 07:30 Ondansetron HCl (Zofran Odt) 4 mg PRN Q8HRS PRN PO NAUSEA/VOMITING 1ST CHOICE Last administered on 06/20/18 13:28; Start 06/18/18 at 21:00 Sucralfate (Carafate) 1 gm TIDAC PO Last administered on 06/21/18 12:54; Start 06/19/18 at 07:30 Tizanidine HCl (Zanaflex) 4 mg Q8HRS PO Last administered on 06/21/18 12:54; Start 06/18/18 at 22:00 Apixaban (Eliquis) 5 mg BID@0800,2000 PO Last administered on 06/21/18 08:45; Start 06/19/18 at 08:00 Info (Anti-Coagulation Monitoring By Pharmacy) 1 each PRN DAILY PRN MC SEE COMMENTS Last administered on 06/21/18 08:24; Start 06/18/18 at 20:45 Diltiazem HCl (Cardizem 24hr Cd) 300 mg DAILY PO Last administered on 08:45; Start 06/20/18 at 09:00 Docusate Sodium (Colace) 100 mg PRN DAILY PRN PO CONSTIPATION; Start 06/20/18 at 10:45 Iohexol (Omnipaque 240 Mg/ml) 30 ml 1X ONCE PO Last administered on 06/20/18at 14:29; Start 06/20/18 at 14:15; Stop 06/20/18 at 14:16; Status DC Info (CONTRAST GIVEN -- Rx MONITORING) 1 each PRN DAILY PRN MC SEE COMMENTS; Start 06/20/18 at 14:15; Stop 06/22/18 at 14:14 Active Scripts Active Reported Percocet 7.5-325 Mg Tablet (Oxycodone/Acetaminophen) 1 Each Tablet 1 Tab PO Q6HRS Eliquis (Apixaban) 5 Mg Tablet 5 Mg PO BID start 06/23/2018 Eliquis (Apixaban) 5 Mg Tablet 10 Mg PO BID 5 Days Zanaflex (Tizanidine Hcl) 4 Mg Capsule 1 Cap PO BID Furosemide 20 Mg Tablet 1 Tab PO DAILY Zofran (Ondansetron Hcl) 4 Mg Tablet 1 Tab PO Q8HRS Carafate (Sucralfate) 1 Gm Tablet 1 Tab PO TIDAC Hydrochlorothiazide Tablet (Hydrochlorothiazide) 12.5 Mg Tablet 1 Tab PO DAILY Lorazepam 0.5 Mg Tablet 0.5 Tab PO PRN QEVNG Lorazepam 0.5 Mg Tablet 1 Tab PO BID Zoloft (Sertraline Hcl) 50 Mg Tablet 1 Tab PO DAILY Vision Vitamins (Beta-Carotene(A) W-C & E/Min) 1 Each Tablet 1 Each PO DAILY Calcium + D3 Er Tablet (Calcium Carb & Cit/Vitamin D3) 1 Each Tablet.er 1 Each PO Synthroid (Levothyroxine Sodium) 50 Mcg Tablet 50 Mcg PO DAILYAC Potassium Chloride 10 Meq Capsule.er 10 Meq PO DAILY Omeprazole 40 Mg Capsule.dr 1 Cap PO DAILY Cardizem Cd (Diltiazem Hcl) 180 Mg Cap.er.24h 180 Mg PO DAILY Vitals/I & O Vital Sign - Last 24 Hours 06/20/18 06/20/18 06/20/18 06/20/18 15:30 19:00 19:25 21:14 Temp 97.6 97.9 97.6 97.9 Pulse 71 67 Resp 16 20 20 B/P (MAP) 125/75 (92) 103/58 (73) Pulse Ox 96 94 O2 Delivery Nasal Cannula Room Air Nasal Cannula Room Air O2 Flow Rate 2.0 2.0 2.0 06/20/18 06/21/18 06/21/18 06/21/18 23:17 03:00 03:21 04:21 Temp 97.5 98.0 97.5 98.0 Pulse 68 63 Resp 20 20 20 20 B/P (MAP) 105/59 (74) 123/58 (79) Pulse Ox 92 95 O2 Delivery Nasal Cannula Nasal Cannula Nasal Cannula O2 Flow Rate 2.0 2.0 2.0 06/21/18 06/21/18 06/21/18 06/21/18 07:16 08:00 08:45 11:03 Temp 98.5 98.5 Pulse 63 59 Resp 18 16 B/P (MAP) 128/61 (83) 128/61 103/57 (72) Pulse Ox 96 98 O2 Delivery Nasal Cannula Nasal Cannula Nasal Cannula O2 Flow Rate 1.0 1.0 06/21/18 06/21/18 06/21/18 12:54 14:23 14:39 Temp 97.8 97.8 Pulse 74 Resp 18 B/P (MAP) 110/59 (76) Pulse Ox 98 98 91 O2 Delivery Nasal Cannula Nasal Cannula Nasal Cannula O2 Flow Rate 1.0 1.0 1.0 Intake and Output 06/20/18 06/20/18 06/21/18 15:00 23:00 07:00 Intake Total 500 ml 700 ml 200 ml Output Total 700 ml 150 ml Balance 500 ml 0 ml 50 ml ALLYSON OROZCO MD Jun 21, 2018 14:44
[2018-06-21 19:50] VITALS: BP 102/59
[2018-06-21] MEDS: TEMAZEPAM 7.5 MG CAPSULE PO PRN (20:27)
[2018-06-21 23:40] VITALS: BP 115/56
[2018-06-22 03:40] VITALS: BP 122/59
[2018-06-22] MEDS: ONDANSETRON ODT 4 MG TAB.RAPDIS. PO PRN (04:14)
[2018-06-22] MEDS: oxyCODONE/APAP 7.5/325 1 TAB TABLET PO PRN ×3 (04:15→19:57)
[2018-06-22 04:35] LABS: CREATININE 1.1 mg/dL (0.6-1.0)
[2018-06-22] MEDS: tiZANidine 4 MG TABLET. PO SCH ×3 (06:42→19:56)
[2018-06-22] MEDS: LEVOTHYROXINE 50 MCG TABLET PO SCH (06:42)
[2018-06-22 07:00] VITALS: BP 99/57
--- NOTE | 2018-06-22 08:17 | PDOC ---
PULMONARY PROGRESS NOTES Subjective on 02, feeling better, sob better, no cough, no pain Vitals Vital Signs Date Time Temp Pulse Resp B/P (MAP) Pulse Ox O2 Delivery O2 Flow Rate FiO2 06/22/18 05:15 18 95 Nasal Cannula 2.0 06/22/18 03:40 97.7 72 122/59 (80) 97.7 ROS: No Nausea, No Chest Pain General: Alert, No acute distress HEENT: Other (nc at perrl) Lungs: Clear, Other (decrease bs) Cardiovascular: S1, S2 Abdomen: Soft, Non-tender Neuro Exam: Alert, Oriented Extremities: No Edema Skin: Warm Labs Laboratory Tests Test 06/22/18 03:45 Creatinine 1.1 mg/dL (0.6-1.0) Estimated GFR (Cockcroft-Gault) 48.0 Laboratory Tests Test 06/22/18 03:45 Creatinine 1.1 mg/dL (0.6-1.0) Estimated GFR (Cockcroft-Gault) 48.0 Medications Active Scripts Medications Dose Route/Sig Max Daily Dose Days Date Category Dose Instructions Percocet 7.5-325 Mg Tablet (Oxycodone/Acetaminophen) 1 Each Tablet 1 Tab PO Q6HRS 06/17/18 Reported Eliquis (Apixaban) 5 Mg Tablet 5 Mg PO BID 06/17/18 Reported start 06/23/2018 Eliquis (Apixaban) 5 Mg Tablet 10 Mg PO BID 5 06/17/18 Reported Zanaflex (Tizanidine Hcl) 4 Mg Capsule 1 Cap PO BID 07/31/17 Reported Furosemide 20 Mg Tablet 1 Tab PO DAILY 07/31/17 Reported Zofran (Ondansetron Hcl) 4 Mg Tablet 1 Tab PO Q8HRS 07/31/17 Reported Carafate (Sucralfate) 1 Gm Tablet 1 Tab PO TIDAC 07/31/17 Reported Hydrochlorothiazide Tablet (Hydrochlorothiazide) 12.5 Mg Tablet 1 Tab PO DAILY 07/31/17 Reported Lorazepam 0.5 Mg Tablet 0.5 Tab PO PRN QEVNG 07/31/17 Reported Lorazepam 0.5 Mg Tablet 1 Tab PO BID 07/31/17 Reported Zoloft (Sertraline Hcl) 50 Mg Tablet 1 Tab PO DAILY 07/31/17 Reported Vision Vitamins (Beta-Carotene(A) W-C & E/Min) 1 Each Tablet 1 Each PO DAILY 02/15/15 Reported Calcium + D3 Er Tablet (Calcium Carb & Cit/Vitamin D3) 1 Each Tablet.er 1 Each PO 02/15/15 Reported Synthroid (Levothyroxine Sodium) 50 Mcg Tablet 50 Mcg PO DAILYAC 02/15/15 Reported Potassium Chloride 10 Meq Capsule.er 10 Meq PO DAILY 02/15/15 Reported Omeprazole 40 Mg Capsule.dr 1 Cap PO DAILY 02/15/15 Reported Cardizem Cd (Diltiazem Hcl) 180 Mg Cap.er.24h 180 Mg PO DAILY 02/15/15 Reported Impression . 1. Acute on chronic hypoxic respiratory failure secondary to atrial fibrillation with rapid ventricular response. now in SR 2. Recently diagnosed acute pulmonary embolism and extensive deep vein thrombosis. on Eliquis. 3. Mild reactive leukocytosis, resolved 4. Azotemia secondary to dehydration, improving. 5. Abnormal chest x-ray with tiny left effusion. Plan . 1. 02 titration 2. Follow up chest x-ray stable 3. Continue Eliquis as long as it is safe and tolerable. 4. Monitor hemoglobin, gi on case. 5. Follow cardiology recommendations. 6. Echocardiogram done recently had shown severe pulmonary hypertension, which is probably a secondary PE. She is not a good candidate for any right heart catheterization at present. 7. increase activity Discussed with RN and pt . BREANNA NICOLE MD Jun 22, 2018 08:17
[2018-06-22] MEDS: FUROSEMIDE 20 MG TABLET PO SCH (08:47)
[2018-06-22] MEDS: POTASSIUM CHLORIDE 10 MEQ TABLET.ER. PO SCH (08:47)
[2018-06-22] MEDS: SERTRALINE 50 MG TABLET. PO SCH (08:48)
[2018-06-22] MEDS: APIXABAN 5 MG TABLET. PO SCH ×2 (08:48→19:56)
[2018-06-22] MEDS: LORazepam 0.5 MG TABLET PO SCH ×2 (08:48→19:57)
[2018-06-22] MEDS: MULTIVITAMIN I-VITE TABLET. PO SCH (08:49)
[2018-06-22] MEDS: PANTOPRAZOLE 40 MG TABLET.DR. PO SCH (08:49)
[2018-06-22] MEDS: SUCRALFATE 1 GM TABLET. PO SCH ×3 (08:49→16:38)
[2018-06-22] MEDS: ANTI-COAG MONITOR BY PHARMACY. MC PRN (10:35)
[2018-06-22 11:26] VITALS: BP 94/57
--- NOTE | 2018-06-22 12:15 | PDOC ---
PROGRESS NOTES Subjective Subjective The patient had some shortness of breath and low O2 sats during the night requiring O2. She is feeling better now. Objective Objective Vital Signs Date Time Temp Pulse Resp B/P (MAP) Pulse Ox O2 Delivery O2 Flow Rate FiO2 06/22/18 12:10 14 Room Air 06/22/18 11:26 94.7 65 94/57 (69) 2.0 94.7 06/22/18 07:00 95 Intake and Output 06/22/18 07:01 Intake Total 900 ml Output Total 750 ml Balance 150 ml Intake Oral 900 ml Output Urine Total 750 ml Physical Exam Physical Exam She is moving air well and no wheezing at this time. No changes in heart sounds. No edema. Assessment Assessment Patient continues to be in sinus rhythm. Seems to be compensated at this point. I agree with present plan. Comment Review of Relevant I have reviewed the following items thomas (where applicable) has been applied. Labs Laboratory Tests Test 06/22/18 03:45 Creatinine 1.1 mg/dL (0.6-1.0) Estimated GFR (Cockcroft-Gault) 48.0 Laboratory Tests Test 06/22/18 03:45 Creatinine 1.1 mg/dL (0.6-1.0) Estimated GFR (Cockcroft-Gault) 48.0 Medications Current Medications Sodium Chloride 1,000 ml @ 1,000 mls/hr Q1H IV Last administered on 06/18/18at 19:55; Start 06/18/18 at 19:00; Stop 06/18/18 at 19:59; Status DC Sodium Chloride 1,000 ml @ 1,000 mls/hr 1X ONCE IV Last administered on at 19:56; Start 06/18/18 at 19:15; Stop 06/18/18 at 20:14; Status DC Esmolol HCl 250 ml @ 0 mls/hr 1X ONCE IV ; Start 06/18/18 at 19:30; Stop at 19:31; Status DC Esmolol HCl (Brevibloc) 28 mg ONCE ONCE IV Last administered on 06/18/18at 19: 30; Start 06/18/18 at 19:30; Stop 06/18/18 at 19:31; Status DC Magnesium Sulfate 50 ml @ 25 mls/hr 1X ONCE IV Last administered on 06/18/18at 23:39; Start 06/18/18 at 19:45; Stop 06/18/18 at 21:44; Status DC Potassium Chloride (Klor-Con) 40 meq 1X ONCE PO Last administered on at 23:38; Start 06/18/18 at 19:45; Stop 06/18/18 at 19:49; Status DC Apixaban (Eliquis) 5 mg BID PO Last administered on 06/18/18 20:10; Start at 21:00; Stop 06/18/18 at 21:00; Status DC Acetaminophen (Tylenol) 500 mg PRN Q6HRS PRN PO HEADACHE / TEMP Last administered on 06/21/18 01:30; Start 06/18/18 at 20:30 Ondansetron HCl (Zofran) 4 mg PRN Q6HRS PRN IV NAUSEA/VOMITING 1ST CHOICE Last administered on 06/21/18 17:09; Start 06/18/18 at 20:30 Morphine Sulfate (Morphine Sulfate) 2 mg PRN Q2HR PRN IV PAIN MILD; Start 06/18 at 20:30 Temazepam (Restoril) 7.5 mg PRN QHS PRN PO INSOMNIA Last administered on 20:27; Start 06/18/18 at 20:30 Furosemide (Lasix) 20 mg DAILY PO Last administered on 06/22/18 08:47; Start 06/19/18 at 09:00 Lorazepam (Ativan) 0.25 mg PRN QEVNG PRN PO ANXIETY / AGITATION; Start at 20:30 Lorazepam (Ativan) 0.5 mg BID PO Last administered on 06/22/18 08:48; Start at 21:00 Oxycodone/ Acetaminophen (Percocet 7.5/ 325) 1 tab PRN Q6HRS PRN PO PAIN Last administered on 06/22/18 12:10; Start 06/19/18 at 00:00 Potassium Chloride (Klor-Con) 10 meq DAILY PO Last administered on 06/22/18 08 :47; Start 06/19/18 at 09:00 Sertraline HCl (Zoloft) 50 mg DAILY PO Last administered on 06/22/18at 08:48; Start 06/19/18 at 09:00 Multivitamins/ Minerals (I-Bowen) 1 tab DAILY PO Last administered on 06/22/18 08:49; Start 06/19/18 at 09:00 Diltiazem HCl (Cardizem 24hr Cd) 180 mg DAILY PO Last administered on at 10:31; Start 06/19/18 at 09:00; Stop 06/19/18 at 16:30; Status DC Levothyroxine Sodium (Synthroid) 50 mcg DAILY07 PO Last administered on 06:42; Start 06/19/18 at 07:00 Pantoprazole Sodium (Protonix) 40 mg DAILYAC PO Last administered on 06/22/18 08:49; Start 06/19/18 at 07:30 Ondansetron HCl (Zofran Odt) 4 mg PRN Q8HRS PRN PO NAUSEA/VOMITING 1ST CHOICE Last administered on 06/22/18 04:14; Start 06/18/18 at 21:00 Sucralfate (Carafate) 1 gm TIDAC PO Last administered on 06/22/18 11:59; Start 06/19/18 at 07:30 Tizanidine HCl (Zanaflex) 4 mg Q8HRS PO Last administered on 06/22/18 06:42; Start 06/18/18 at 22:00 Apixaban (Eliquis) 5 mg BID@0800,2000 PO Last administered on 06/22/18 08:48; Start 06/19/18 at 08:00 Info (Anti-Coagulation Monitoring By Pharmacy) 1 each PRN DAILY PRN MC SEE COMMENTS Last administered on 06/22/18at 10:35; Start 06/18/18 at 20:45 Diltiazem HCl (Cardizem 24hr Cd) 300 mg DAILY PO Last administered on 08:47; Start 06/20/18 at 09:00 Docusate Sodium (Colace) 100 mg PRN DAILY PRN PO CONSTIPATION; Start 06/20/18 at 10:45 Iohexol (Omnipaque 240 Mg/ml) 30 ml 1X ONCE PO Last administered on 06/20/18at 14:29; Start 06/20/18 at 14:15; Stop 06/20/18 at 14:16; Status DC Info (CONTRAST GIVEN -- Rx MONITORING) 1 each PRN DAILY PRN MC SEE COMMENTS; Start 06/20/18 at 14:15; Stop 06/22/18 at 14:14 Active Scripts Active Reported Percocet 7.5-325 Mg Tablet (Oxycodone/Acetaminophen) 1 Each Tablet 1 Tab PO Q6HRS Eliquis (Apixaban) 5 Mg Tablet 5 Mg PO BID start 06/23/2018 Eliquis (Apixaban) 5 Mg Tablet 10 Mg PO BID 5 Days Zanaflex (Tizanidine Hcl) 4 Mg Capsule 1 Cap PO BID Furosemide 20 Mg Tablet 1 Tab PO DAILY Zofran (Ondansetron Hcl) 4 Mg Tablet 1 Tab PO Q8HRS Carafate (Sucralfate) 1 Gm Tablet 1 Tab PO TIDAC Hydrochlorothiazide Tablet (Hydrochlorothiazide) 12.5 Mg Tablet 1 Tab PO DAILY Lorazepam 0.5 Mg Tablet 0.5 Tab PO PRN QEVNG Lorazepam 0.5 Mg Tablet 1 Tab PO BID Zoloft (Sertraline Hcl) 50 Mg Tablet 1 Tab PO DAILY Vision Vitamins (Beta-Carotene(A) W-C & E/Min) 1 Each Tablet 1 Each PO DAILY Calcium + D3 Er Tablet (Calcium Carb & Cit/Vitamin D3) 1 Each Tablet.er 1 Each PO Synthroid (Levothyroxine Sodium) 50 Mcg Tablet 50 Mcg PO DAILYAC Potassium Chloride 10 Meq Capsule.er 10 Meq PO DAILY Omeprazole 40 Mg Capsule. 1 Cap PO DAILY Cardizem Cd (Diltiazem Hcl) 180 Mg Cap.er.24h 180 Mg PO DAILY Vitals/I & O Vital Sign - Last 24 Hours 06/21/18 06/21/18 06/21/18 06/21/18 12:54 14:39 19:50 20:00 Temp 97.8 97.5 97.8 97.5 Pulse 74 67 Resp 18 16 B/P (MAP) 110/59 (76) 102/59 (73) Pulse Ox 98 91 91 O2 Delivery Nasal Cannula Nasal Cannula Nasal Cannula Room Air O2 Flow Rate 1.0 1.0 2.0 06/21/18 06/21/18 06/22/18 06/22/18 20:27 23:40 03:40 04:15 Temp 97.2 97.7 97.2 97.7 Pulse 61 72 Resp 16 16 18 18 B/P (MAP) 115/56 (75) 122/59 (80) Pulse Ox 91 95 94 95 O2 Delivery Nasal Cannula Nasal Cannula Nasal Cannula Nasal Cannula O2 Flow Rate 2.0 2.0 2.0 2.0 06/22/18 06/22/18 06/22/18 06/22/18 05:15 07:00 08:00 08:47 Temp 97.7 97.7 Pulse 63 67 Resp 18 B/P (MAP) 99/57 (71) 131/61 Pulse Ox 95 95 O2 Delivery Nasal Cannula Nasal Cannula Nasal Cannula O2 Flow Rate 2.0 2.0 2.0 06/22/18 06/22/18 11:26 12:10 Temp 94.7 94.7 Pulse 65 Resp 12 14 B/P (MAP) 94/57 (69) O2 Delivery Nasal Cannula Room Air O2 Flow Rate 2.0 Intake and Output 06/21/18 06/21/18 06/22/18 15:01 23:01 07:01 Intake Total 200 ml 400 ml 300 ml Output Total 400 ml 350 ml Balance 200 ml 0 ml -50 ml ALLYSON OROZCO MD Jun 22, 2018 12:15
--- NOTE | 2018-06-22 13:47 | PDOC ---
G I PROGRESS NOTE Reason for Follow-up RLQ abd pain Subjective Pain improved Physical Exam Lungs decreased BS CV irregular S! S2 ABD +BS, soft Review of Relevant I have reviewed the following items thomas (where applicable) has been applied. Labs Laboratory Tests Test 06/22/18 03:45 Creatinine 1.1 mg/dL (0.6-1.0) Estimated GFR (Cockcroft-Gault) 48.0 Laboratory Tests Test 06/22/18 03:45 Creatinine 1.1 mg/dL (0.6-1.0) Estimated GFR (Cockcroft-Gault) 48.0 Medications Current Medications Sodium Chloride 1,000 ml @ 1,000 mls/hr Q1H IV Last administered on 06/18/18at 19:55; Start 06/18/18 at 19:00; Stop 06/18/18 at 19:59; Status DC Sodium Chloride 1,000 ml @ 1,000 mls/hr 1X ONCE IV Last administered on at 19:56; Start 06/18/18 at 19:15; Stop 06/18/18 at 20:14; Status DC Esmolol HCl 250 ml @ 0 mls/hr 1X ONCE IV ; Start 06/18/18 at 19:30; Stop at 19:31; Status DC Esmolol HCl (Brevibloc) 28 mg ONCE ONCE IV Last administered on 06/18/18at 19: 30; Start 06/18/18 at 19:30; Stop 06/18/18 at 19:31; Status DC Magnesium Sulfate 50 ml @ 25 mls/hr 1X ONCE IV Last administered on 06/18/18at 23:39; Start 06/18/18 at 19:45; Stop 06/18/18 at 21:44; Status DC Potassium Chloride (Klor-Con) 40 meq 1X ONCE PO Last administered on at 23:38; Start 06/18/18 at 19:45; Stop 06/18/18 at 19:49; Status DC Apixaban (Eliquis) 5 mg BID PO Last administered on 06/18/18at 20:10; Start at 21:00; Stop 06/18/18 at 21:00; Status DC Acetaminophen (Tylenol) 500 mg PRN Q6HRS PRN PO HEADACHE / TEMP Last administered on 06/21/18 01:30; Start 06/18/18 at 20:30 Ondansetron HCl (Zofran) 4 mg PRN Q6HRS PRN IV NAUSEA/VOMITING 1ST CHOICE Last administered on 06/21/18 17:09; Start 06/18/18 at 20:30 Morphine Sulfate (Morphine Sulfate) 2 mg PRN Q2HR PRN IV PAIN MILD; Start 06/18 at 20:30 Temazepam (Restoril) 7.5 mg PRN QHS PRN PO INSOMNIA Last administered on 20:27; Start 06/18/18 at 20:30 Furosemide (Lasix) 20 mg DAILY PO Last administered on 06/22/18 08:47; Start 06/19/18 at 09:00 Lorazepam (Ativan) 0.25 mg PRN QEVNG PRN PO ANXIETY / AGITATION; Start at 20:30 Lorazepam (Ativan) 0.5 mg BID PO Last administered on 06/22/18 08:48; Start at 21:00 Oxycodone/ Acetaminophen (Percocet 7.5/ 325) 1 tab PRN Q6HRS PRN PO PAIN Last administered on 06/22/18 12:10; Start 06/19/18 at 00:00 Potassium Chloride (Klor-Con) 10 meq DAILY PO Last administered on 06/22/18 08 :47; Start 06/19/18 at 09:00 Sertraline HCl (Zoloft) 50 mg DAILY PO Last administered on 06/22/18 08:48; Start 06/19/18 at 09:00 Multivitamins/ Minerals (I-Bowen) 1 tab DAILY PO Last administered on 06/22/18 08:49; Start 06/19/18 at 09:00 Diltiazem HCl (Cardizem 24hr Cd) 180 mg DAILY PO Last administered on 10:31; Start 06/19/18 at 09:00; Stop 06/19/18 at 16:30; Status DC Levothyroxine Sodium (Synthroid) 50 mcg DAILY07 PO Last administered on 06:42; Start 06/19/18 at 07:00 Pantoprazole Sodium (Protonix) 40 mg DAILYAC PO Last administered on 06/22/18at 08:49; Start 06/19/18 at 07:30 Ondansetron HCl (Zofran Odt) 4 mg PRN Q8HRS PRN PO NAUSEA/VOMITING 1ST CHOICE Last administered on 06/22/18at 04:14; Start 06/18/18 at 21:00 Sucralfate (Carafate) 1 gm TIDAC PO Last administered on 06/22/18at 11:59; Start 06/19/18 at 07:30 Tizanidine HCl (Zanaflex) 4 mg Q8HRS PO Last administered on 06/22/18at 06:42; Start 06/18/18 at 22:00 Apixaban (Eliquis) 5 mg BID@0800,2000 PO Last administered on 06/22/18at 08:48; Start 06/19/18 at 08:00 Info (Anti-Coagulation Monitoring By Pharmacy) 1 each PRN DAILY PRN MC SEE COMMENTS Last administered on 06/22/18at 10:35; Start 06/18/18 at 20:45 Diltiazem HCl (Cardizem 24hr Cd) 300 mg DAILY PO Last administered on at 08:47; Start 06/20/18 at 09:00 Docusate Sodium (Colace) 100 mg PRN DAILY PRN PO CONSTIPATION; Start 06/20/18 at 10:45 Iohexol (Omnipaque 240 Mg/ml) 30 ml 1X ONCE PO Last administered on 06/20/18at 14:29; Start 06/20/18 at 14:15; Stop 06/20/18 at 14:16; Status DC Info (CONTRAST GIVEN -- Rx MONITORING) 1 each PRN DAILY PRN MC SEE COMMENTS; Start 06/20/18 at 14:15; Stop 06/22/18 at 14:14 Active Scripts Active Reported Percocet 7.5-325 Mg Tablet (Oxycodone/Acetaminophen) 1 Each Tablet 1 Tab PO Q6HRS Eliquis (Apixaban) 5 Mg Tablet 5 Mg PO BID start 06/23/2018 Eliquis (Apixaban) 5 Mg Tablet 10 Mg PO BID 5 Days Zanaflex (Tizanidine Hcl) 4 Mg Capsule 1 Cap PO BID Furosemide 20 Mg Tablet 1 Tab PO DAILY Zofran (Ondansetron Hcl) 4 Mg Tablet 1 Tab PO Q8HRS Carafate (Sucralfate) 1 Gm Tablet 1 Tab PO TIDAC Hydrochlorothiazide Tablet (Hydrochlorothiazide) 12.5 Mg Tablet 1 Tab PO DAILY Lorazepam 0.5 Mg Tablet 0.5 Tab PO PRN QEVNG Lorazepam 0.5 Mg Tablet 1 Tab PO BID Zoloft (Sertraline Hcl) 50 Mg Tablet 1 Tab PO DAILY Vision Vitamins (Beta-Carotene(A) W-C & E/Min) 1 Each Tablet 1 Each PO DAILY Calcium + D3 Er Tablet (Calcium Carb & Cit/Vitamin D3) 1 Each Tablet.er 1 Each PO Synthroid (Levothyroxine Sodium) 50 Mcg Tablet 50 Mcg PO DAILYAC Potassium Chloride 10 Meq Capsule.er 10 Meq PO DAILY Omeprazole 40 Mg Capsule.dr 1 Cap PO DAILY Cardizem Cd (Diltiazem Hcl) 180 Mg Cap.er.24h 180 Mg PO DAILY Vitals/I & O Vital Sign - Last 24 Hours 06/21/18 06/21/18 06/21/18 06/21/18 14:39 19:50 20:00 20:27 Temp 97.8 97.5 97.8 97.5 Pulse 74 67 Resp 18 16 16 B/P (MAP) 110/59 (76) 102/59 (73) Pulse Ox 91 91 91 O2 Delivery Nasal Cannula Nasal Cannula Room Air Nasal Cannula O2 Flow Rate 1.0 2.0 2.0 06/21/18 06/22/18 06/22/18 06/22/18 23:40 03:40 04:15 05:15 Temp 97.2 97.7 97.2 97.7 Pulse 61 72 Resp 16 18 18 B/P (MAP) 115/56 (75) 122/59 (80) Pulse Ox 95 94 95 95 O2 Delivery Nasal Cannula Nasal Cannula Nasal Cannula O2 Flow Rate 2.0 2.0 2.0 2.0 06/22/18 06/22/18 06/22/18 06/22/18 07:00 08:00 08:47 11:26 Temp 97.7 94.7 97.7 94.7 Pulse 63 67 65 Resp 12 B/P (MAP) 99/57 (71) 131/61 94/57 (69) Pulse Ox 95 O2 Delivery Nasal Cannula Nasal Cannula Nasal Cannula O2 Flow Rate 2.0 2.0 2.0 06/22/18 06/22/18 12:10 13:15 Resp 14 14 O2 Delivery Room Air Room Air Intake and Output 06/21/18 06/21/18 06/22/18 15:00 23:00 07:00 Intake Total 200 ml 400 ml 300 ml Output Total 400 ml 350 ml Balance 200 ml 0 ml -50 ml Problem List Problems Medical Problems: (1) Hypoxia Status: Acute (2) Rapid atrial fibrillation Status: Acute Assessment RLQ abd pain- with RI, medical therapy for now with cardiac co-morbidities, cpm NASH TEMPLE MD Jun 22, 2018 13:47
--- NOTE | 2018-06-22 14:02 | PDOC ---
PROGRESS NOTES Chief Complaint Chief Complaint Medical Problems: -Acute on chronic hypoxic respiratory failure -Atrial fibrillation w/ rapid ventricular response -Acute pulmonary embolism -Mild reactive leukocytosis -Azotemia secondary to dehydration -Effusion History of Present Illness History of Present Illness -Pt seen and examined -NAIF -EM RN -VSS Vitals Vitals Vital Signs Date Time Temp Pulse Resp B/P (MAP) Pulse Ox O2 Delivery O2 Flow Rate FiO2 06/22/18 13:15 14 Room Air 06/22/18 11:26 94.7 65 94/57 (69) 2.0 94.7 06/22/18 07:00 95 Physical Exam General: Alert, Oriented X3, Cooperative, No acute distress Heart: Regular rate, Normal S1, Normal S2, Other (no changes in her murmur) Lungs: Clear, Other (decrease bs) Abdomen: Normal bowel sounds, Soft Extremities: No cyanosis, No edema Skin: No rashes, No breakdown Labs LABS Laboratory Tests Test 06/22/18 03:45 Creatinine 1.1 mg/dL (0.6-1.0) Estimated GFR (Cockcroft-Gault) 48.0 Review of Systems Review of Systems -No WHITE -No N/V Assessment and Plan Assessmemt and Plan Medical Problems: -Acute on chronic hypoxic respiratory failure -Atrial fibrillation w/ rapid ventricular response -Acute pulmonary embolism -Mild reactive leukocytosis -Azotemia secondary to dehydration -Effusion Plan: -Anti-Coagulation w/ Eliquis -Labs -PT/OT -Home Meds -Appreciate Sub-Specialist Input -O2 PRN for desaturation Comment Review of Relevant I have reviewed the following items thomas (where applicable) has been applied. Labs Laboratory Tests Test 06/22/18 03:45 Creatinine 1.1 mg/dL (0.6-1.0) Estimated GFR (Cockcroft-Gault) 48.0 Laboratory Tests Test 06/22/18 03:45 Creatinine 1.1 mg/dL (0.6-1.0) Estimated GFR (Cockcroft-Gault) 48.0 Medications Current Medications Sodium Chloride 1,000 ml @ 1,000 mls/hr Q1H IV Last administered on 06/18/18at 19:55; Start 06/18/18 at 19:00; Stop 06/18/18 at 19:59; Status DC Sodium Chloride 1,000 ml @ 1,000 mls/hr 1X ONCE IV Last administered on at 19:56; Start 06/18/18 at 19:15; Stop 06/18/18 at 20:14; Status DC Esmolol HCl 250 ml @ 0 mls/hr 1X ONCE IV ; Start 06/18/18 at 19:30; Stop at 19:31; Status DC Esmolol HCl (Brevibloc) 28 mg ONCE ONCE IV Last administered on 06/18/18at 19: 30; Start 06/18/18 at 19:30; Stop 06/18/18 at 19:31; Status DC Magnesium Sulfate 50 ml @ 25 mls/hr 1X ONCE IV Last administered on 06/18/18at 23:39; Start 06/18/18 at 19:45; Stop 06/18/18 at 21:44; Status DC Potassium Chloride (Klor-Con) 40 meq 1X ONCE PO Last administered on at 23:38; Start 06/18/18 at 19:45; Stop 06/18/18 at 19:49; Status DC Apixaban (Eliquis) 5 mg BID PO Last administered on 06/18/18at 20:10; Start at 21:00; Stop 06/18/18 at 21:00; Status DC Acetaminophen (Tylenol) 500 mg PRN Q6HRS PRN PO HEADACHE / TEMP Last administered on 06/21/18at 01:30; Start 06/18/18 at 20:30 Ondansetron HCl (Zofran) 4 mg PRN Q6HRS PRN IV NAUSEA/VOMITING 1ST CHOICE Last administered on 06/21/18at 17:09; Start 06/18/18 at 20:30 Morphine Sulfate (Morphine Sulfate) 2 mg PRN Q2HR PRN IV PAIN MILD; Start 06/18 at 20:30 Temazepam (Restoril) 7.5 mg PRN QHS PRN PO INSOMNIA Last administered on at 20:27; Start 06/18/18 at 20:30 Furosemide (Lasix) 20 mg DAILY PO Last administered on 06/22/18at 08:47; Start 06/19/18 at 09:00 Lorazepam (Ativan) 0.25 mg PRN QEVNG PRN PO ANXIETY / AGITATION; Start at 20:30 Lorazepam (Ativan) 0.5 mg BID PO Last administered on 06/22/18 08:48; Start at 21:00 Oxycodone/ Acetaminophen (Percocet 7.5/ 325) 1 tab PRN Q6HRS PRN PO PAIN Last administered on 06/22/18 12:10; Start 06/19/18 at 00:00 Potassium Chloride (Klor-Con) 10 meq DAILY PO Last administered on 06/22/18 08 :47; Start 06/19/18 at 09:00 Sertraline HCl (Zoloft) 50 mg DAILY PO Last administered on 06/22/18 08:48; Start 06/19/18 at 09:00 Multivitamins/ Minerals (I-Bowen) 1 tab DAILY PO Last administered on 06/22/18 08:49; Start 06/19/18 at 09:00 Diltiazem HCl (Cardizem 24hr Cd) 180 mg DAILY PO Last administered on 10:31; Start 06/19/18 at 09:00; Stop 06/19/18 at 16:30; Status DC Levothyroxine Sodium (Synthroid) 50 mcg DAILY07 PO Last administered on 06:42; Start 06/19/18 at 07:00 Pantoprazole Sodium (Protonix) 40 mg DAILYAC PO Last administered on 06/22/18 08:49; Start 06/19/18 at 07:30 Ondansetron HCl (Zofran Odt) 4 mg PRN Q8HRS PRN PO NAUSEA/VOMITING 1ST CHOICE Last administered on 06/22/18 04:14; Start 06/18/18 at 21:00 Sucralfate (Carafate) 1 gm TIDAC PO Last administered on 06/22/18 11:59; Start 06/19/18 at 07:30 Tizanidine HCl (Zanaflex) 4 mg Q8HRS PO Last administered on 06/22/18 06:42; Start 06/18/18 at 22:00 Apixaban (Eliquis) 5 mg BID@0800,2000 PO Last administered on 06/22/18 08:48; Start 06/19/18 at 08:00 Info (Anti-Coagulation Monitoring By Pharmacy) 1 each PRN DAILY PRN MC SEE COMMENTS Last administered on 06/22/18at 10:35; Start 06/18/18 at 20:45 Diltiazem HCl (Cardizem 24hr Cd) 300 mg DAILY PO Last administered on at 08:47; Start 06/20/18 at 09:00 Docusate Sodium (Colace) 100 mg PRN DAILY PRN PO CONSTIPATION; Start 06/20/18 at 10:45 Iohexol (Omnipaque 240 Mg/ml) 30 ml 1X ONCE PO Last administered on 06/20/18at 14:29; Start 06/20/18 at 14:15; Stop 06/20/18 at 14:16; Status DC Info (CONTRAST GIVEN -- Rx MONITORING) 1 each PRN DAILY PRN MC SEE COMMENTS; Start 06/20/18 at 14:15; Stop 06/22/18 at 14:14 Active Scripts Active Reported Percocet 7.5-325 Mg Tablet (Oxycodone/Acetaminophen) 1 Each Tablet 1 Tab PO Q6HRS Eliquis (Apixaban) 5 Mg Tablet 5 Mg PO BID start 06/23/2018 Eliquis (Apixaban) 5 Mg Tablet 10 Mg PO BID 5 Days Zanaflex (Tizanidine Hcl) 4 Mg Capsule 1 Cap PO BID Furosemide 20 Mg Tablet 1 Tab PO DAILY Zofran (Ondansetron Hcl) 4 Mg Tablet 1 Tab PO Q8HRS Carafate (Sucralfate) 1 Gm Tablet 1 Tab PO TIDAC Hydrochlorothiazide Tablet (Hydrochlorothiazide) 12.5 Mg Tablet 1 Tab PO DAILY Lorazepam 0.5 Mg Tablet 0.5 Tab PO PRN QEVNG Lorazepam 0.5 Mg Tablet 1 Tab PO BID Zoloft (Sertraline Hcl) 50 Mg Tablet 1 Tab PO DAILY Vision Vitamins (Beta-Carotene(A) W-C & E/Min) 1 Each Tablet 1 Each PO DAILY Calcium + D3 Er Tablet (Calcium Carb & Cit/Vitamin D3) 1 Each Tablet.er 1 Each PO Synthroid (Levothyroxine Sodium) 50 Mcg Tablet 50 Mcg PO DAILYAC Potassium Chloride 10 Meq Capsule.er 10 Meq PO DAILY Omeprazole 40 Mg Capsule.dr 1 Cap PO DAILY Cardizem Cd (Diltiazem Hcl) 180 Mg Cap.er.24h 180 Mg PO DAILY Vitals/I & O Vital Sign - Last 24 Hours 06/21/18 06/21/18 06/21/18 06/21/18 14:39 19:50 20:00 20:27 Temp 97.8 97.5 97.8 97.5 Pulse 74 67 Resp 18 16 16 B/P (MAP) 110/59 (76) 102/59 (73) Pulse Ox 91 91 91 O2 Delivery Nasal Cannula Nasal Cannula Room Air Nasal Cannula O2 Flow Rate 1.0 2.0 2.0 06/21/18 06/22/18 06/22/18 06/22/18 23:40 03:40 04:15 05:15 Temp 97.2 97.7 97.2 97.7 Pulse 61 72 Resp 18 18 B/P (MAP) 115/56 (75) 122/59 (80) Pulse Ox 95 94 95 95 O2 Delivery Nasal Cannula Nasal Cannula Nasal Cannula O2 Flow Rate 2.0 2.0 2.0 2.0 06/22/18 06/22/18 06/22/18 06/22/18 07:00 08:00 08:47 11:26 Temp 97.7 94.7 97.7 94.7 Pulse 63 67 65 Resp 12 B/P (MAP) 99/57 (71) 131/61 94/57 (69) Pulse Ox 95 O2 Delivery Nasal Cannula Nasal Cannula Nasal Cannula O2 Flow Rate 2.0 2.0 2.0 06/22/18 06/22/18 12:10 13:15 Resp 14 14 O2 Delivery Room Air Room Air Intake and Output 06/21/18 06/21/18 06/22/18 15:00 23:00 07:00 Intake Total 200 ml 400 ml 300 ml Output Total 400 ml 350 ml Balance 200 ml 0 ml -50 ml CASTLE,NIAL K III DO Jun 22, 2018 14:02
[2018-06-22 15:10] VITALS: BP 90/51
[2018-06-22 19:35] VITALS: BP 91/55
[2018-06-22] MEDS: TEMAZEPAM 7.5 MG CAPSULE PO PRN (19:57)
[2018-06-22 22:30] VITALS: BP 114/56
[2018-06-23 03:10] VITALS: BP 120/58
[2018-06-23] MEDS: tiZANidine 4 MG TABLET. PO SCH ×3 (05:06→20:42)
[2018-06-23] MEDS: oxyCODONE/APAP 7.5/325 1 TAB TABLET PO PRN ×2 (05:06→18:03)
[2018-06-23] MEDS: LEVOTHYROXINE 50 MCG TABLET PO SCH (05:06)
[2018-06-23 07:00] VITALS: BP 119/65
[2018-06-23] MEDS: SUCRALFATE 1 GM TABLET. PO SCH ×3 (08:21→16:39)
[2018-06-23] MEDS: PANTOPRAZOLE 40 MG TABLET.DR. PO SCH (08:21)
[2018-06-23] MEDS: SERTRALINE 50 MG TABLET. PO SCH (08:21)
[2018-06-23] MEDS: APIXABAN 5 MG TABLET. PO SCH ×2 (08:21→20:41)
[2018-06-23] MEDS: LORazepam 0.5 MG TABLET PO SCH ×2 (08:22→20:41)
[2018-06-23] MEDS: MULTIVITAMIN I-VITE TABLET. PO SCH (08:22)
[2018-06-23] MEDS: POTASSIUM CHLORIDE 10 MEQ TABLET.ER. PO SCH (08:22)
[2018-06-23] MEDS: FUROSEMIDE 20 MG TABLET PO SCH (08:22)
[2018-06-23 11:00] VITALS: BP 90/56
--- NOTE | 2018-06-23 11:32 | PDOC ---
Subjective: Subjective: Some RLQ discomfort but tolerable. Not eating - food not appetizing. Hasn't stooled in a couple days, not unusual for her. Objective: Vital Signs: Vital Signs Date Time Temp Pulse Resp B/P (MAP) Pulse Ox O2 Delivery O2 Flow Rate FiO2 06/23/18 08:22 65 119/65 06/23/18 08:06 95 Nasal Cannula 2.0 06/23/18 07:00 97.8 16 97.8 PE: GEN: NAD, on commode, therapy and RN present LUNGS: NC HEART: RR NEURO/PSYCH: A & O 3 A/P: RIH containing SB loop S/p Jared fundoplication w/ recurrent HH Irregular bowel habits, GERD - stable MYKE - last Hgb 9.2 on 06/19 -- She does not wish to pursue further treatments for hernias at this time. Continue PPI and Carafafe, add Miralax PRN (to Colace PRN) if she wants. MINOR LEVIN Jun 23, 2018 11:32
[2018-06-23] MEDS ORDERED: DILT300C52 PO (11:42)
[2018-06-23] MEDS ORDERED: POLYETHYLENE GLYCOL 3350 17 GM PACKET. PO PRN (11:45)
--- NOTE | 2018-06-23 12:00 | PDOC ---
PULMONARY PROGRESS NOTES Subjective on 02, feeling better, sob better, no cough, no pain Vitals Vital Signs Date Time Temp Pulse Resp B/P (MAP) Pulse Ox O2 Delivery O2 Flow Rate FiO2 06/23/18 11:00 97.5 80 18 90/56 (67) 97 Nasal Cannula 2.0 97.5 ROS: No Nausea, No Chest Pain General: Alert, No acute distress HEENT: Other (nc at perrl) Lungs: Clear Cardiovascular: S1, S2 Abdomen: Soft, Non-tender Neuro Exam: Alert, Oriented Extremities: No Edema Skin: Warm Labs Laboratory Tests Test 06/22/18 03:45 Creatinine 1.1 mg/dL (0.6-1.0) Estimated GFR (Cockcroft-Gault) 48.0 Medications Active Scripts Medications Dose Route/Sig Max Daily Dose Days Date Category Dose Instructions Percocet 7.5-325 Mg Tablet (Oxycodone/Acetaminophen) 1 Each Tablet 1 Tab PO Q6HRS 06/17/18 Reported Eliquis (Apixaban) 5 Mg Tablet 5 Mg PO BID 06/17/18 Reported start 06/23/2018 Eliquis (Apixaban) 5 Mg Tablet 10 Mg PO BID 5 06/17/18 Reported Zanaflex (Tizanidine Hcl) 4 Mg Capsule 1 Cap PO BID 07/31/17 Reported Furosemide 20 Mg Tablet 1 Tab PO DAILY 07/31/17 Reported Zofran (Ondansetron Hcl) 4 Mg Tablet 1 Tab PO Q8HRS 07/31/17 Reported Carafate (Sucralfate) 1 Gm Tablet 1 Tab PO TIDAC 07/31/17 Reported Hydrochlorothiazide Tablet (Hydrochlorothiazide) 12.5 Mg Tablet 1 Tab PO DAILY 07/31/17 Reported Lorazepam 0.5 Mg Tablet 0.5 Tab PO PRN QEVNG 07/31/17 Reported Lorazepam 0.5 Mg Tablet 1 Tab PO BID 07/31/17 Reported Zoloft (Sertraline Hcl) 50 Mg Tablet 1 Tab PO DAILY 07/31/17 Reported Vision Vitamins (Beta-Carotene(A) W-C & E/Min) 1 Each Tablet 1 Each PO DAILY 02/15/15 Reported Calcium + D3 Er Tablet (Calcium Carb & Cit/Vitamin D3) 1 Each Tablet.er 1 Each PO 02/15/15 Reported Synthroid (Levothyroxine Sodium) 50 Mcg Tablet 50 Mcg PO DAILYAC 02/15/15 Reported Potassium Chloride 10 Meq Capsule.er 10 Meq PO DAILY 02/15/15 Reported Omeprazole 40 Mg Capsule.dr 1 Cap PO DAILY 02/15/15 Reported Cardizem Cd (Diltiazem Hcl) 180 Mg Cap.er.24h 180 Mg PO DAILY 02/15/15 Reported Impression . 1. Acute on chronic hypoxic respiratory failure secondary to atrial fibrillation with rapid ventricular response. now in SR 2. Recently diagnosed acute pulmonary embolism and extensive deep vein thrombosis. on Eliquis. 3. Mild reactive leukocytosis, resolved 4. Azotemia secondary to dehydration, improving. 5. Abnormal chest x-ray with tiny left effusion. Plan . 1. 02 titration 2. Follow up chest x-ray stable 3. Continue Eliquis as long as it is safe and tolerable. 4. Monitor hemoglobin, gi on case. 5. Follow cardiology recommendations. 6. Echocardiogram done recently had shown severe pulmonary hypertension, which is probably secondary to PE. She is not a good candidate for any right heart catheterization at present. 7. increase activity Discussed with RN and pt .ok with dc to IVAN STAFFORD MD Jun 23, 2018 12:00
[2018-06-23 15:00] VITALS: BP 103/50
--- NOTE | 2018-06-23 15:30 | PDOC3 ---
Discharge Summary [facility] Date of Admission: Jun 18, 2018 Discharge Date: Jun 23, 2018 Admitting Diagnosis -Acute on chronic hypoxic respiratory failure -Atrial fibrillation w/ rapid ventricular response recent pulmonary embolism and DVT -Mild reactive leukocytosis -Azotemia secondary to dehydration -Effusion generalized weakness h/o CAD Final Diagnosis CONSULTS pulm card gi Brief Hospital Course Ms. Ashford is a 78 old was transferred from for sob, was found rapid afib. Pt was recently diagnosed with dvt and PE and on eliquis. HR controlled better with increased dose of cardizem, cont eliquis, sinus now. dc back to if ok with card. cont NC to keeP SAT >92% dc time 35min. General: Alert, Oriented X3, Cooperative, No acute distress Heart: Regular rate, Normal S1, Normal S2, Other (no changes in her murmur) Lungs: Clear, Other (decrease bs) Abdomen: Normal bowel sounds, Soft Extremities: No cyanosis, No edema Skin: No rashes, No breakdown Patient History: Family history: Angina (situation) 33 FATHER Family history: Breast disease (situation) 32 MOTHER G8 SISTER Family history: Cardiovascular disease (situation) 33 FATHER Family history: Hypertension (situation) 33 FATHER Disposition snf CONDITION AT DISCHARGE: Improved Scheduled Apixaban (Eliquis), 5 MG PO BID, (Reported) Beta-Carotene(A) W-C & E/Min (Vision Vitamins), 1 EACH PO DAILY, (Reported) Diltiazem HCl (Diltiazem 24Hr Cd), 300 MG PO DAILY Furosemide (Furosemide), 1 TAB PO DAILY, (Reported) Levothyroxine Sodium (Synthroid), 50 MCG PO DAILYAC, (Reported) Lorazepam (Lorazepam), 1 TAB PO BID, (Reported) Lorazepam (Lorazepam), 0.5 TAB PO PRN QEVNG, (Reported) Omeprazole (Omeprazole), 1 CAP PO DAILY, (Reported) Ondansetron Hcl (Zofran), 1 TAB PO Q8HRS, (Reported) Oxycodone/Apap 7.5-325 (Percocet 7.5-325 Mg Tablet), 1 TAB PO Q6HRS, (Reported) Potassium Chloride (Potassium Chloride), 10 MEQ PO DAILY, (Reported) Sertraline Hcl (Zoloft), 1 TAB PO DAILY, (Reported) Sucralfate (Carafate), 1 TAB PO TIDAC, (Reported) Tizanidine Hcl (Zanaflex), 1 CAP PO BID, (Reported) Miscellaneous Medications Calcium Carb & Cit/Vitamin D3 (Calcium + D3 Er Tablet), 1 EACH PO, (Reported) Discontinued Medications Apixaban (Eliquis), 10 MG PO BID, (Reported) Diltiazem Hcl (Cardizem Cd), 180 MG PO DAILY, (Reported) Hydrochlorothiazide (Hydrochlorothiazide Tablet), 1 TAB PO DAILY, (Reported) Oxycodone/Apap 7.5-325 (Percocet 7.5-325 Mg Tablet), 2 TAB PO [id number], ( Reported) Sertraline Hcl (Zoloft), 1 TAB PO DAILY, (Reported) RAHAT OLIVEIRA MD Jun 23, 2018 15:30
--- NOTE | 2018-06-23 18:50 | PDOC ---
PROGRESS NOTES Subjective Subjective Patient very teary-eyed and anxious. She had a panic attack during the night and another one this morning. She is anxious now and complaining of shortness of breath Objective Objective Vital Signs Date Time Temp Pulse Resp B/P (MAP) Pulse Ox O2 Delivery O2 Flow Rate FiO2 06/23/18 18:03 97 Nasal Cannula 2.0 06/23/18 15:00 98.1 66 16 103/50 (67) 98.1 Intake and Output 06/23/18 07:01 Intake Total 980 ml Output Total 450 ml Balance 530 ml Intake Oral 980 ml Output Urine Total 350 ml Stool Total 100 ml Physical Exam Physical Exam No wheezing today. No changes in heart sounds. No edema. Assessment Assessment Patient is in sinus rhythm. She is quite anxious and had some panic attacks. From a cardiac standpoint I believe that she may be able to be transferred to [facility] tomorrow morning. Comment Review of Relevant I have reviewed the following items thomas (where applicable) has been applied. Labs Laboratory Tests Test 06/22/18 03:45 Creatinine 1.1 mg/dL (0.6-1.0) Estimated GFR (Cockcroft-Gault) 48.0 Medications Current Medications Sodium Chloride 1,000 ml @ 1,000 mls/hr Q1H IV Last administered on 06/18/18at 19:55; Start 06/18/18 at 19:00; Stop 06/18/18 at 19:59; Status DC Sodium Chloride 1,000 ml @ 1,000 mls/hr 1X ONCE IV Last administered on at 19:56; Start 06/18/18 at 19:15; Stop 06/18/18 at 20:14; Status DC Esmolol HCl 250 ml @ 0 mls/hr 1X ONCE IV ; Start 06/18/18 at 19:30; Stop at 19:31; Status DC Esmolol HCl (Brevibloc) 28 mg ONCE ONCE IV Last administered on 06/18/18at 19: 30; Start 06/18/18 at 19:30; Stop 06/18/18 at 19:31; Status DC Magnesium Sulfate 50 ml @ 25 mls/hr 1X ONCE IV Last administered on 06/18/18at 23:39; Start 06/18/18 at 19:45; Stop 06/18/18 at 21:44; Status DC Potassium Chloride (Klor-Con) 40 meq 1X ONCE PO Last administered on 23:38; Start 06/18/18 at 19:45; Stop 06/18/18 at 19:49; Status DC Apixaban (Eliquis) 5 mg BID PO Last administered on 06/18/18 20:10; Start at 21:00; Stop 06/18/18 at 21:00; Status DC Acetaminophen (Tylenol) 500 mg PRN Q6HRS PRN PO HEADACHE / TEMP Last administered on 06/21/18 01:30; Start 06/18/18 at 20:30 Ondansetron HCl (Zofran) 4 mg PRN Q6HRS PRN IV NAUSEA/VOMITING 1ST CHOICE Last administered on 06/21/18 17:09; Start 06/18/18 at 20:30 Morphine Sulfate (Morphine Sulfate) 2 mg PRN Q2HR PRN IV PAIN MILD; Start 06/18 at 20:30 Temazepam (Restoril) 7.5 mg PRN QHS PRN PO INSOMNIA Last administered on 19:57; Start 06/18/18 at 20:30 Furosemide (Lasix) 20 mg DAILY PO Last administered on 06/23/18 08:22; Start 06/19/18 at 09:00 Lorazepam (Ativan) 0.25 mg PRN QEVNG PRN PO ANXIETY / AGITATION Last administered on 06/22/18at 14:40; Start 06/18/18 at 20:30 Lorazepam (Ativan) 0.5 mg BID PO Last administered on 06/23/18 08:22; Start at 21:00 Oxycodone/ Acetaminophen (Percocet 7.5/ 325) 1 tab PRN Q6HRS PRN PO PAIN Last administered on 06/23/18 18:03; Start 06/19/18 at 00:00 Potassium Chloride (Klor-Con) 10 meq DAILY PO Last administered on 06/23/18 08 :22; Start 06/19/18 at 09:00 Sertraline HCl (Zoloft) 50 mg DAILY PO Last administered on 06/23/18 08:21; Start 06/19/18 at 09:00 Multivitamins/ Minerals (I-Bowen) 1 tab DAILY PO Last administered on 06/23/18 08:22; Start 06/19/18 at 09:00 Diltiazem HCl (Cardizem 24hr Cd) 180 mg DAILY PO Last administered on 10:31; Start 06/19/18 at 09:00; Stop 06/19/18 at 16:30; Status DC Levothyroxine Sodium (Synthroid) 50 mcg DAILY07 PO Last administered on 05:06; Start 06/19/18 at 07:00 Pantoprazole Sodium (Protonix) 40 mg DAILYAC PO Last administered on 06/23/18 08:21; Start 06/19/18 at 07:30 Ondansetron HCl (Zofran Odt) 4 mg PRN Q8HRS PRN PO NAUSEA/VOMITING 1ST CHOICE Last administered on 06/22/18 04:14; Start 06/18/18 at 21:00 Sucralfate (Carafate) 1 gm TIDAC PO Last administered on 06/23/18 16:39; Start 06/19/18 at 07:30 Tizanidine HCl (Zanaflex) 4 mg Q8HRS PO Last administered on 06/23/18 14:25; Start 06/18/18 at 22:00 Apixaban (Eliquis) 5 mg BID@0800,2000 PO Last administered on 06/23/18 08:21; Start 06/19/18 at 08:00 Info (Anti-Coagulation Monitoring By Pharmacy) 1 each PRN DAILY PRN MC SEE COMMENTS Last administered on 06/22/18at 10:35; Start 06/18/18 at 20:45 Diltiazem HCl (Cardizem 24hr Cd) 300 mg DAILY PO Last administered on 08:22; Start 06/20/18 at 09:00 Docusate Sodium (Colace) 100 mg PRN DAILY PRN PO CONSTIPATION; Start 06/20/18 at 10:45 Iohexol (Omnipaque 240 Mg/ml) 30 ml 1X ONCE PO Last administered on 06/20/18 14:29; Start 06/20/18 at 14:15; Stop 06/20/18 at 14:16; Status DC Info (CONTRAST GIVEN -- Rx MONITORING) 1 each PRN DAILY PRN MC SEE COMMENTS; Start 06/20/18 at 14:15; Stop 06/22/18 at 14:14; Status DC Polyethylene Glycol (miraLAX PACKET) 17 gm PRN DAILY PRN PO CONSTIPATION; Start 06/23/18 at 11:45 Active Scripts Active Diltiazem 24Hr Cd (Diltiazem HCl) 300 Mg Cap.er.24h 300 Mg PO DAILY 30 Days Reported Percocet 7.5-325 Mg Tablet (Oxycodone/Acetaminophen) 1 Each Tablet 1 Tab PO Q6HRS Eliquis (Apixaban) 5 Mg Tablet 5 Mg PO BID start 06/23/2018 Zanaflex (Tizanidine Hcl) 4 Mg Capsule 1 Cap PO BID Furosemide 20 Mg Tablet 1 Tab PO DAILY Zofran (Ondansetron Hcl) 4 Mg Tablet 1 Tab PO Q8HRS Carafate (Sucralfate) 1 Gm Tablet 1 Tab PO TIDAC Lorazepam 0.5 Mg Tablet 0.5 Tab PO PRN QEVNG Lorazepam 0.5 Mg Tablet 1 Tab PO BID Zoloft (Sertraline Hcl) 50 Mg Tablet 1 Tab PO DAILY Vision Vitamins (Beta-Carotene(A) W-C & E/Min) 1 Each Tablet 1 Each PO DAILY Calcium + D3 Er Tablet (Calcium Carb & Cit/Vitamin D3) 1 Each Tablet.er 1 Each PO Synthroid (Levothyroxine Sodium) 50 Mcg Tablet 50 Mcg PO DAILYAC Potassium Chloride 10 Meq Capsule.er 10 Meq PO DAILY Omeprazole 40 Mg Capsule. 1 Cap PO DAILY Vitals/I & O Vital Sign - Last 24 Hours 06/22/18 06/22/18 06/22/18 06/22/18 19:32 19:35 19:57 20:57 Temp 97.8 97.8 Pulse 65 Resp 20 20 20 B/P (MAP) 91/55 (67) Pulse Ox 98 97 O2 Delivery Nasal Cannula Nasal Cannula Nasal Cannula O2 Flow Rate 2.0 2.0 2.0 06/22/18 06/23/18 06/23/18 06/23/18 22:30 03:10 05:06 07:00 Temp 97.7 97.8 97.8 97.7 97.8 97.8 Pulse 67 69 65 Resp 20 20 20 16 B/P (MAP) 114/56 (75) 120/58 (78) 119/65 (83) Pulse Ox 96 95 95 O2 Delivery Nasal Cannula Nasal Cannula Nasal Cannula Nasal Cannula O2 Flow Rate 2.0 2.0 2.0 2.0 06/23/18 06/23/18 06/23/18 06/23/18 08:00 08:06 08:22 11:00 Temp 97.5 97.5 Pulse 65 80 Resp 18 B/P (MAP) 119/65 90/56 (67) Pulse Ox 95 97 O2 Delivery Nasal Cannula Nasal Cannula Nasal Cannula O2 Flow Rate 2.0 2.0 2.0 06/23/18 06/23/18 15:00 18:03 Temp 98.1 98.1 Pulse 66 Resp 16 B/P (MAP) 103/50 (67) Pulse Ox 97 97 O2 Delivery Room Air Nasal Cannula O2 Flow Rate 2.0 Intake and Output 06/22/18 06/22/18 06/23/18 15:01 23:01 07:01 Intake Total 240 ml 440 ml 300 ml Output Total 100 ml 350 ml Balance 240 ml 340 ml -50 ml ALLYSON OROZCO MD Jun 23, 2018 18:50
[2018-06-23 18:51] VITALS: BP 95/53
[2018-06-23] MEDS: ONDANSETRON ODT 4 MG TAB.RAPDIS. PO PRN (20:46)
[2018-06-23 23:00] VITALS: BP 92/53
[2018-06-24 03:39] VITALS: BP 123/58
[2018-06-24] MEDS: LEVOTHYROXINE 50 MCG TABLET PO SCH (06:36)
[2018-06-24] MEDS: tiZANidine 4 MG TABLET. PO SCH ×2 (06:36→13:51)
[2018-06-24] MEDS: ONDANSETRON ODT 4 MG TAB.RAPDIS. PO PRN ×2 (06:39→11:43)
[2018-06-24] MEDS: oxyCODONE/APAP 7.5/325 1 TAB TABLET PO PRN ×2 (06:44→13:51)
[2018-06-24 07:00] VITALS: BP 115/58
[2018-06-24] MEDS: PANTOPRAZOLE 40 MG TABLET.DR. PO SCH (08:28)
[2018-06-24] MEDS: SUCRALFATE 1 GM TABLET. PO SCH ×2 (08:29→11:42)
[2018-06-24] MEDS: FUROSEMIDE 20 MG TABLET PO SCH (08:43)
[2018-06-24] MEDS: SERTRALINE 50 MG TABLET. PO SCH (08:43)
[2018-06-24] MEDS: APIXABAN 5 MG TABLET. PO SCH (08:44)
[2018-06-24] MEDS: LORazepam 0.5 MG TABLET PO SCH (08:44)
[2018-06-24] MEDS: POTASSIUM CHLORIDE 10 MEQ TABLET.ER. PO SCH (08:46)
[2018-06-24] MEDS: MULTIVITAMIN I-VITE TABLET. PO SCH (08:46)
[2018-06-24 11:00] VITALS: BP 122/63
--- NOTE | 2018-06-24 12:16 | PDOC ---
Subjective: Subjective: Seen earlier when unable to use [employer]. RLQ discomfort not bothersome. Stooled twice yesterday. Ate some eggs this morning. Objective: Vital Signs: Vital Signs Date Time Temp Pulse Resp B/P (MAP) Pulse Ox O2 Delivery O2 Flow Rate FiO2 06/24/18 11:00 98.1 82 20 122/63 (82) 96 Nasal Cannula 2.0 98.1 PE: GEN: NAD LUNGS: NC HEART: RRR ABD: NABS, S/ND/NT NEURO/PSYCH: A & O 3 A/P: RIH containing SB loop S/p Jared fundoplication w/ recurrent HH -- Chronic GI issues are managed/stable. DC per primary. MINOR LEVIN Jun 24, 2018 12:16
--- NOTE | 2018-06-24 13:26 | PDOC ---
PULMONARY PROGRESS NOTES Subjective on 02, feeling better, sob better, no cough, no pain Vitals Vital Signs Date Time Temp Pulse Resp B/P (MAP) Pulse Ox O2 Delivery O2 Flow Rate FiO2 06/24/18 11:00 98.1 82 20 122/63 (82) 96 Nasal Cannula 2.0 98.1 ROS: No Nausea, No Chest Pain General: Alert, No acute distress HEENT: Other (nc at perrl) Lungs: Clear Cardiovascular: S1, S2 Abdomen: Soft, Non-tender Neuro Exam: Alert, Oriented Extremities: No Edema Skin: Warm Medications Active Scripts Medications Dose Route/Sig Max Daily Dose Days Date Category Dose Instructions Percocet 7.5-325 Mg Tablet (Oxycodone/Acetaminophen) 1 Each Tablet 1 Tab PO Q6HRS 06/17/18 Reported Eliquis (Apixaban) 5 Mg Tablet 5 Mg PO BID 06/17/18 Reported start 06/23/2018 Eliquis (Apixaban) 5 Mg Tablet 10 Mg PO BID 5 06/17/18 Reported Zanaflex (Tizanidine Hcl) 4 Mg Capsule 1 Cap PO BID 07/31/17 Reported Furosemide 20 Mg Tablet 1 Tab PO DAILY 07/31/17 Reported Zofran (Ondansetron Hcl) 4 Mg Tablet 1 Tab PO Q8HRS 07/31/17 Reported Carafate (Sucralfate) 1 Gm Tablet 1 Tab PO TIDAC 07/31/17 Reported Hydrochlorothiazide Tablet (Hydrochlorothiazide) 12.5 Mg Tablet 1 Tab PO DAILY 07/31/17 Reported Lorazepam 0.5 Mg Tablet 0.5 Tab PO PRN QEVNG 07/31/17 Reported Lorazepam 0.5 Mg Tablet 1 Tab PO BID 07/31/17 Reported Zoloft (Sertraline Hcl) 50 Mg Tablet 1 Tab PO DAILY 07/31/17 Reported Vision Vitamins (Beta-Carotene(A) W-C & E/Min) 1 Each Tablet 1 Each PO DAILY 02/15/15 Reported Calcium + D3 Er Tablet (Calcium Carb & Cit/Vitamin D3) 1 Each Tablet.er 1 Each PO 02/15/15 Reported Synthroid (Levothyroxine Sodium) 50 Mcg Tablet 50 Mcg PO DAILYAC 02/15/15 Reported Potassium Chloride 10 Meq Capsule.er 10 Meq PO DAILY 02/15/15 Reported Omeprazole 40 Mg Capsule.dr 1 Cap PO DAILY 02/15/15 Reported Cardizem Cd (Diltiazem Hcl) 180 Mg Cap.er.24h 180 Mg PO DAILY 02/15/15 Reported Impression . 1. Acute on chronic hypoxic respiratory failure secondary to atrial fibrillation with rapid ventricular response. now in SR 2. Recently diagnosed acute pulmonary embolism and extensive deep vein thrombosis. on Eliquis. 3. Mild reactive leukocytosis, resolved 4. Azotemia secondary to dehydration, improving. 5. Abnormal chest x-ray with tiny left effusion. Plan . 1. 02 titration 2. Follow up chest x-ray stable 3. Continue Eliquis as long as it is safe and tolerable. 4. Monitor hemoglobin, gi on case. 5. Follow cardiology recommendations. 6. Echocardiogram done recently had shown severe pulmonary hypertension, which is probably secondary to PE. She is not a good candidate for any right heart catheterization at present. 7. increase activity Discussed with RN and pt .ok with dc to IVAN STAFFORD MD Jun 24, 2018 13:26
--- NOTE | 2018-06-24 13:53 | PDOC3 ---
Discharge Summary [facility] Date of Admission: Jun 18, 2018 Discharge Date: Jun 24, 2018 Admitting Diagnosis -Acute on chronic hypoxic respiratory failure -Atrial fibrillation w/ rapid ventricular response recent pulmonary embolism and DVT -Mild reactive leukocytosis -Azotemia secondary to dehydration -Effusion generalized weakness h/o CAD Final Diagnosis CONSULTS CONSULTS pulm card gi Brief Hospital Course Brief Hospital Course Ms. Ashford is a 78 old was transferred from for sob, was found rapid afib. Pt was recently diagnosed with dvt and PE and on eliquis. HR controlled better with increased dose of cardizem, cont eliquis, sinus now. dc back to . cont NC to keeP SAT >92% dc time 35min. General: Alert, Oriented X3, Cooperative, No acute distress Heart: Regular rate, Normal S1, Normal S2, Other (no changes in her murmur) Lungs: Clear, Other (decrease bs) Abdomen: Normal bowel sounds, Soft Extremities: No cyanosis, No edema Skin: No rashes, No breakdown Patient History: Family history: Angina (situation) 33 FATHER Family history: Breast disease (situation) 32 MOTHER G8 SISTER Family history: Cardiovascular disease (situation) 33 FATHER Family history: Hypertension (situation) 33 FATHER Disposition SNF CONDITION AT DISCHARGE: Improved Scheduled Apixaban (Eliquis), 5 MG PO BID, (Reported) Beta-Carotene(A) W-C & E/Min (Vision Vitamins), 1 EACH PO DAILY, (Reported) Diltiazem HCl (Diltiazem 24Hr Cd), 300 MG PO DAILY Furosemide (Furosemide), 1 TAB PO DAILY, (Reported) Levothyroxine Sodium (Synthroid), 50 MCG PO DAILYAC, (Reported) Lorazepam (Lorazepam), 1 TAB PO BID, (Reported) Lorazepam (Lorazepam), 0.5 TAB PO PRN QEVNG, (Reported) Omeprazole (Omeprazole), 1 CAP PO DAILY, (Reported) Ondansetron Hcl (Zofran), 1 TAB PO Q8HRS, (Reported) Oxycodone/Apap 7.5-325 (Percocet 7.5-325 Mg Tablet), 1 TAB PO Q6HRS, (Reported) Potassium Chloride (Potassium Chloride), 10 MEQ PO DAILY, (Reported) Sertraline Hcl (Zoloft), 1 TAB PO DAILY, (Reported) Sucralfate (Carafate), 1 TAB PO TIDAC, (Reported) Tizanidine Hcl (Zanaflex), 1 CAP PO BID, (Reported) Miscellaneous Medications Calcium Carb & Cit/Vitamin D3 (Calcium + D3 Er Tablet), 1 EACH PO, (Reported) Discontinued Medications Apixaban (Eliquis), 10 MG PO BID, (Reported) Diltiazem Hcl (Cardizem Cd), 180 MG PO DAILY, (Reported) Hydrochlorothiazide (Hydrochlorothiazide Tablet), 1 TAB PO DAILY, (Reported) Oxycodone/Apap 7.5-325 (Percocet 7.5-325 Mg Tablet), 2 TAB PO [id number], ( Reported) Sertraline Hcl (Zoloft), 1 TAB PO DAILY, (Reported) RAHAT OLIVEIRA MD Jun 24, 2018 13:53
== END 2018-06-24 14:00 | DRG 189 ==
LOC: ER 18:34 → 1 WEST ICU 19:50 → 2 SOUTH 06-19 15:15
PROVIDERS: ADMIT Internal Medicine; ATTEND Internal Medicine
DX: J96.21 Acute and chronic respiratory failure with hypoxia (principal); I48.91 Unspecified atrial fibrillation; I11.0 Hypertensive heart disease with heart failure; K21.9 Gastro-esophageal reflux disease without esophagitis; J44.9 Chronic obstructive pulmonary disease, unspecified; I25.10 Atherosclerotic heart disease of native coronary artery without angina pectoris; I50.9 Heart failure, unspecified; E03.9 Hypothyroidism, unspecified; K80.20 Calculus of gallbladder without cholecystitis without obstruction; F41.9 Anxiety disorder, unspecified; F32.9 Major depressive disorder, single episode, unspecified; E05.00 Thyrotoxicosis with diffuse goiter without thyrotoxic crisis or storm; G89.29 Other chronic pain; E87.6 Hypokalemia; E83.52 Hypercalcemia; D72.829 Elevated white blood cell count, unspecified; D64.9 Anemia, unspecified; D72.828 Other elevated white blood cell count; E86.0 Dehydration; M81.0 Age-related osteoporosis without current pathological fracture; M19.90 Unspecified osteoarthritis, unspecified site; K44.9 Diaphragmatic hernia without obstruction or gangrene; I08.0 Rheumatic disorders of both mitral and aortic valves; Z96.659 Presence of unspecified artificial knee joint; K57.90 Diverticulosis of intestine, part unspecified, without perforation or abscess without bleeding; I27.29 Other secondary pulmonary hypertension; F41.0 Panic disorder [episodic paroxysmal anxiety]; K40.90 Unilateral inguinal hernia, without obstruction or gangrene, not specified as recurrent; Z90.710 Acquired absence of both cervix and uterus; Z88.1 Allergy status to other antibiotic agents; Z86.718 Personal history of other venous thrombosis and embolism; Z90.49 Acquired absence of other specified parts of digestive tract; Z88.0 Allergy status to penicillin; Z86.711 Personal history of pulmonary embolism; Z83.3 Family history of diabetes mellitus; Z79.01 Long term (current) use of anticoagulants; Z82.49 Family history of ischemic heart disease and other diseases of the circulatory system
CPT/HCPCS: 36415; 71045; 74176; 80048; 80053; 82553; 82565; 83605; 83735; 83880; 84484; 85007; 85025; 85610; 85730; 87641; 93005; 96361; 96374; J2405; J3475; J3490; J7030; Q0162; Q9966; 97110; 97530; 97535; 99291-25

== ENCOUNTER → 2018-06-30 | Outpatient (CLI) | payer BC ==
[2018-06-24 11:00] VITALS: BP 122/63
[~2018-06-30] MED LIST changes: +DILT300C52 PO
[2018-06-30 06:12] LABS: BASO # 0.1 x10^3/uL (0.0-0.2); BASO % 2 % (0-3); EOS # 0.3 x10^3/uL (0.0-0.7); EOS % 4 % (0-3); HEMATOCRIT 31.6 % (36.0-47.0); HEMOGLOBIN 10.1 g/dL (12.0-15.5); LYMPH # 2.1 x10^3/uL (1.0-4.8); LYMPH % 30 % (24-48); MEAN CORPUSCULAR HEMOGLOBIN 27 pg (25-35); MEAN CORPUSCULAR HGB CONC 32 g/dL (31-37); MEAN CORPUSCULAR VOLUME 83 fL (79-100); MONO # 0.5 x10^3/uL (0.0-1.1); MONO % 8 % (0-9); NEUT % 57 % (31-73); PLATELET COUNT 294 x10^3/uL (140-400)
[2018-06-30 06:21] LABS: ALBUMIN 3.1 g/dL (3.4-5.0); ALBUMIN/GLOBULIN RATIO 1.2 (1.0-1.7); CALCIUM 10.2 mg/dL (8.5-10.1); GFR 53.6; MAGNESIUM 1.3 mg/dL (1.8-2.4); POTASSIUM 3.6 mmol/L (3.5-5.1); TOTAL BILIRUBIN 0.3 mg/dL (0.2-1.0); TOTAL PROTEIN 5.6 g/dL (6.4-8.2)
[2018-06-30 15:26] LABS: CALCIUM PTH 10.7 mg/dL (8.7-10.3); CREATININE PTH 0.89 mg/dL (0.57-1.00); PHOSPHORUS PTH 1.9 mg/dL (2.5-4.5); PTH INTACT 164 pg/mL (15-65)
== END | disposition home or self-care (01) ==
LOC: SPEC 02:31
PROVIDERS: ATTEND Family Medicine
DX: E83.51 Hypocalcemia (principal); E83.42 Hypomagnesemia; I48.91 Unspecified atrial fibrillation; I13.0 Hypertensive heart and chronic kidney disease with heart failure and stage 1 through stage 4 chronic kidney disease, or unspecified chronic kidney disease; I50.9 Heart failure, unspecified; N18.3 Chronic kidney disease, stage 3 (moderate); E03.9 Hypothyroidism, unspecified; K21.9 Gastro-esophageal reflux disease without esophagitis; E87.6 Hypokalemia; I48.0 Paroxysmal atrial fibrillation; Z90.49 Acquired absence of other specified parts of digestive tract; Z90.710 Acquired absence of both cervix and uterus; Z87.442 Personal history of urinary calculi; Z87.11 Personal history of peptic ulcer disease; Z86.718 Personal history of other venous thrombosis and embolism; Z86.711 Personal history of pulmonary embolism; Z88.0 Allergy status to penicillin; Z88.1 Allergy status to other antibiotic agents; Z88.8 Allergy status to other drugs, medicaments and biological substances; Z83.3 Family history of diabetes mellitus; Z82.49 Family history of ischemic heart disease and other diseases of the circulatory system
CPT/HCPCS: 36415; 80053; 83735; 83970; 85025

== ENCOUNTER → 2018-07-07 | Outpatient (CLI) | payer BC ==
[2018-06-24 11:00] VITALS: BP 122/63
[~2018-07-07] MED LIST changes: -DILT300C52 PO; +DILT300C65 PO
[2018-07-07 05:37] LABS: BASO # 0.1 x10^3/uL (0.0-0.2); BASO % 1 % (0-3); EOS # 0.2 x10^3/uL (0.0-0.7); EOS % 4 % (0-3); HEMATOCRIT 32.5 % (36.0-47.0); HEMOGLOBIN 10.5 g/dL (12.0-15.5); LYMPH # 2.2 x10^3/uL (1.0-4.8); LYMPH % 33 % (24-48); MEAN CORPUSCULAR HEMOGLOBIN 27 pg (25-35); MEAN CORPUSCULAR HGB CONC 32 g/dL (31-37); MEAN CORPUSCULAR VOLUME 84 fL (79-100); MONO # 0.5 x10^3/uL (0.0-1.1); MONO % 8 % (0-9); NEUT # 3.6 x10^3uL (1.8-7.7); NEUT % 54 % (31-73); PLATELET COUNT 237 x10^3/uL (140-400); RED BLOOD COUNT 3.88 x10^6/uL (3.50-5.40); RED CELL DISTRIBUTION WIDTH 27.4 % (11.5-14.5); WHITE BLOOD COUNT 6.7 x10^3/uL (4.0-11.0)
[2018-07-07 06:24] LABS: ALBUMIN/GLOBULIN RATIO 1.1 (1.0-1.7); CALCIUM 10.5 mg/dL (8.5-10.1); GFR 53.6; MAGNESIUM 1.4 mg/dL (1.8-2.4); POTASSIUM 3.7 mmol/L (3.5-5.1); TOTAL BILIRUBIN 0.3 mg/dL (0.2-1.0); TOTAL PROTEIN 5.7 g/dL (6.4-8.2)
== END | disposition home or self-care (01) ==
LOC: SPEC 03:04
PROVIDERS: ATTEND Family Medicine
DX: E83.42 Hypomagnesemia (principal); I48.91 Unspecified atrial fibrillation; I13.0 Hypertensive heart and chronic kidney disease with heart failure and stage 1 through stage 4 chronic kidney disease, or unspecified chronic kidney disease; I50.9 Heart failure, unspecified; N18.3 Chronic kidney disease, stage 3 (moderate); E03.9 Hypothyroidism, unspecified; I25.10 Atherosclerotic heart disease of native coronary artery without angina pectoris; Z88.0 Allergy status to penicillin; Z88.1 Allergy status to other antibiotic agents; Z86.2 Personal history of diseases of the blood and blood-forming organs and certain disorders involving the immune mechanism; Z86.711 Personal history of pulmonary embolism; Z86.718 Personal history of other venous thrombosis and embolism; Z87.442 Personal history of urinary calculi; Z90.710 Acquired absence of both cervix and uterus; Z90.49 Acquired absence of other specified parts of digestive tract; Z82.49 Family history of ischemic heart disease and other diseases of the circulatory system; Z83.3 Family history of diabetes mellitus
CPT/HCPCS: 36415; 80053; 83735; 85025

== ENCOUNTER → 2018-07-14 | Outpatient (CLI) | payer BC, MEDICAID ==
[2018-06-24 11:00] VITALS: BP 122/63
[2018-07-14 05:44] LABS: BASO # 0.1 x10^3/uL (0.0-0.2); BASO % 1 % (0-3); EOS # 0.4 x10^3/uL (0.0-0.7); EOS % 6 % (0-3); HEMATOCRIT 33.9 % (36.0-47.0); HEMOGLOBIN 11.2 g/dL (12.0-15.5); LYMPH # 2.2 x10^3/uL (1.0-4.8); LYMPH % 30 % (24-48); MEAN CORPUSCULAR HEMOGLOBIN 29 pg (25-35); MEAN CORPUSCULAR HGB CONC 33 g/dL (31-37); MEAN CORPUSCULAR VOLUME 86 fL (79-100); MONO # 0.6 x10^3/uL (0.0-1.1); MONO % 8 % (0-9); NEUT # 4.1 x10^3uL (1.8-7.7); NEUT % 55 % (31-73); PLATELET COUNT 245 x10^3/uL (140-400); RED BLOOD COUNT 3.93 x10^6/uL (3.50-5.40); RED CELL DISTRIBUTION WIDTH 26.8 % (11.5-14.5); WHITE BLOOD COUNT 7.4 x10^3/uL (4.0-11.0)
[2018-07-14 06:16] LABS: CALCIUM 11.2 mg/dL (8.5-10.1); GFR 53.6; MAGNESIUM 1.8 mg/dL (1.8-2.4); POTASSIUM 4.2 mmol/L (3.5-5.1); TOTAL BILIRUBIN 0.2 mg/dL (0.2-1.0)
== END | disposition home or self-care (01) ==
LOC: SPEC 01:22
PROVIDERS: ATTEND Family Medicine
DX: E83.42 Hypomagnesemia (principal); I48.91 Unspecified atrial fibrillation; I13.0 Hypertensive heart and chronic kidney disease with heart failure and stage 1 through stage 4 chronic kidney disease, or unspecified chronic kidney disease; N18.3 Chronic kidney disease, stage 3 (moderate); I50.9 Heart failure, unspecified; M81.0 Age-related osteoporosis without current pathological fracture; E78.5 Hyperlipidemia, unspecified; J45.909 Unspecified asthma, uncomplicated; F41.0 Panic disorder [episodic paroxysmal anxiety]; F32.9 Major depressive disorder, single episode, unspecified; E03.9 Hypothyroidism, unspecified; J44.9 Chronic obstructive pulmonary disease, unspecified; K21.9 Gastro-esophageal reflux disease without esophagitis; Z82.49 Family history of ischemic heart disease and other diseases of the circulatory system; Z83.3 Family history of diabetes mellitus; Z86.2 Personal history of diseases of the blood and blood-forming organs and certain disorders involving the immune mechanism; Z86.711 Personal history of pulmonary embolism; Z88.0 Allergy status to penicillin; Z88.1 Allergy status to other antibiotic agents; Z88.8 Allergy status to other drugs, medicaments and biological substances; Z79.891 Long term (current) use of opiate analgesic; Z79.01 Long term (current) use of anticoagulants
CPT/HCPCS: 36415; 80053; 83735; 85025

== ENCOUNTER → 2018-07-21 | Outpatient (CLI) | payer BC, MEDICAID ==
[2018-06-24 11:00] VITALS: BP 122/63
[~2018-07-21] MED LIST changes: -HYDR-2762 PO; +HYDR-2765 PO; -OXYC-327 PO; +OXYC1TAB19 PO
[2018-07-21 11:28] LABS: BASO # 0.1 x10^3/uL (0.0-0.2); BASO % 1 % (0-3); EOS # 0.2 x10^3/uL (0.0-0.7); EOS % 3 % (0-3); HEMOGLOBIN 11.8 g/dL (12.0-15.5); LYMPH # 1.9 x10^3/uL (1.0-4.8); LYMPH % 25 % (24-48); MEAN CORPUSCULAR HEMOGLOBIN 29 pg (25-35); MEAN CORPUSCULAR HGB CONC 33 g/dL (31-37); MEAN CORPUSCULAR VOLUME 88 fL (79-100); MONO # 0.7 x10^3/uL (0.0-1.1); MONO % 9 % (0-9); NEUT # 4.9 x10^3uL (1.8-7.7); NEUT % 63 % (31-73); PLATELET COUNT 334 x10^3/uL (140-400); RED BLOOD COUNT 4.11 x10^6/uL (3.50-5.40); RED CELL DISTRIBUTION WIDTH 26.8 % (11.5-14.5); WHITE BLOOD COUNT 7.8 x10^3/uL (4.0-11.0)
[2018-07-21 11:57] LABS: ALBUMIN 3.2 g/dL (3.4-5.0); ALBUMIN/GLOBULIN RATIO 1.1 (1.0-1.7); CALCIUM 10.5 mg/dL (8.5-10.1); CREATININE 1.1 mg/dL (0.6-1.0); MAGNESIUM 1.7 mg/dL (1.8-2.4); POTASSIUM 3.5 mmol/L (3.5-5.1); TOTAL BILIRUBIN 0.3 mg/dL (0.2-1.0); TOTAL PROTEIN 6.1 g/dL (6.4-8.2)
== END | disposition home or self-care (01) ==
LOC: SPEC 10:58
PROVIDERS: ATTEND Family Medicine
DX: N39.0 Urinary tract infection, site not specified (principal); I13.0 Hypertensive heart and chronic kidney disease with heart failure and stage 1 through stage 4 chronic kidney disease, or unspecified chronic kidney disease; I50.9 Heart failure, unspecified; N18.3 Chronic kidney disease, stage 3 (moderate)
CPT/HCPCS: 36415; 80053; 83735; 85025

== ENCOUNTER → 2018-08-15 | Outpatient (CLI) | payer BC, MEDICAID ==
[~2018-08-15] MED LIST changes: +HYDR-2762 PO; -HYDR-2765 PO; +OXYC-327 PO; -OXYC1TAB19 PO
--- NOTE | 2018-08-16 14:52 | RAD ---
FOOT RIGHT 3V Clinical Indication: RIGHT FOOT PAIN, EDEMA, SWELLING Comparison: None. Findings: Prior first metatarsal osteotomy and fusion. Hammertoe deformities of the second through fifth toes. Arterial calcifications. There is old fracture of the midshaft of the fifth metatarsal. Mild dorsal soft tissue swelling of the foot. Arterial calcifications are noted. Mild midfoot dorsal osteophytes. No acute fracture. No bony erosion is identified. Mild DJD of the first MTP. Probable old fracture of the distal fibula. IMPRESSION: No acute bone abnormality. Electronically signed by: Wagner Watson MD (08/16/2018 2:48 PM) [facility]
== END | disposition home or self-care (01) ==
LOC: RAD 18:18 → EDSTATUS 09-11 17:54
PROVIDERS: ATTEND Family Medicine
DX: S92.351D Displaced fracture of fifth metatarsal bone, right foot, subsequent encounter for fracture with routine healing (principal); M19.071 Primary osteoarthritis, right ankle and foot; M25.774 Osteophyte, right foot; R22.41 Localized swelling, mass and lump, right lower limb; M81.0 Age-related osteoporosis without current pathological fracture; I25.10 Atherosclerotic heart disease of native coronary artery without angina pectoris; K44.9 Diaphragmatic hernia without obstruction or gangrene; E03.9 Hypothyroidism, unspecified; K59.09 Other constipation; G89.4 Chronic pain syndrome; I11.0 Hypertensive heart disease with heart failure; I50.9 Heart failure, unspecified; R29.6 Repeated falls; Z96.651 Presence of right artificial knee joint; X58.XXXD Exposure to other specified factors, subsequent encounter
CPT/HCPCS: 73630

== ENCOUNTER → 2018-09-11 | Outpatient (CLI) | payer BC, MEDICAID ==
[2018-09-11 05:57] LABS: HEMATOCRIT 33.1 % (36.0-47.0); HEMOGLOBIN 10.9 g/dL (12.0-15.5); RED BLOOD COUNT 3.71 x10^6/uL (3.50-5.40); RED CELL DISTRIBUTION WIDTH 17.1 % (11.5-14.5); WHITE BLOOD COUNT 5.9 x10^3/uL (4.0-11.0)
== END | disposition home or self-care (01) ==
LOC: SPEC 00:07
PROVIDERS: ATTEND Family Medicine
DX: D64.89 Other specified anemias (principal)
CPT/HCPCS: 36415; 85027

== ENCOUNTER 2018-10-20 09:44 | Emergency (ER) | payer BC, MEDICAID ==
[~2018-10-20] VITALS: Ht 152.4 cm; Wt 68.7 kg
[~2018-10-20 09:44] MED LIST changes: -HYDR-2762 PO; +HYDR-2765 PO; -OXYC-327 PO; +OXYC1TAB19 PO
--- NOTE | 2018-10-20 10:13 | EKG ---
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
[2018-10-20] MEDS ORDERED: IV NORMAL SALINE 1000ML BAG 1,000 ML IV ONE (10:15)
[2018-10-20 10:22] LABS: BASO # 0.1 x10^3/uL (0.0-0.2); BASO % 2 % (0-3); EOS # 0.2 x10^3/uL (0.0-0.7); EOS % 6 % (0-3); HEMATOCRIT 31.9 % (36.0-47.0); HEMOGLOBIN 10.5 g/dL (12.0-15.5); LYMPH # 1.3 x10^3/uL (1.0-4.8); LYMPH % 30 % (24-48); MEAN CORPUSCULAR HEMOGLOBIN 31 pg (25-35); MEAN CORPUSCULAR HGB CONC 33 g/dL (31-37); MEAN CORPUSCULAR VOLUME 93 fL (79-100); MONO # 0.3 x10^3/uL (0.0-1.1); MONO % 7 % (0-9); NEUT # 2.4 x10^3uL (1.8-7.7); NEUT % 55 % (31-73); PLATELET COUNT 287 x10^3/uL (140-400); RED BLOOD COUNT 3.44 x10^6/uL (3.50-5.40); RED CELL DISTRIBUTION WIDTH 14.5 % (11.5-14.5); WHITE BLOOD COUNT 4.3 x10^3/uL (4.0-11.0)
--- NOTE | 2018-10-20 10:31 | RAD ---
CHEST AP ONLY History: Shortness of air, hypotension today Comparison: June 19, 2018 Findings: Single view of the chest is submitted. There is again moderate to large hiatal hernia. Pericardial cardiac silhouette is enlarged although stable. There is mild left base airspace opacity and probable small left pleural effusion. There is no pneumothorax. There is atherosclerotic calcification near the aortic arch. There is again severe deformity of the left humeral head which is subluxed anteriorly relative to the glenoid fossa as seen previously. There is also superior subluxation of the right humeral head and widening of the right acromioclavicular joint. Impression: 1. There is small left pleural effusion with adjacent mild atelectasis or infiltrate. There is again enlargement of the pericardial cardiac silhouette. 2. There is hiatal hernia. 3. There is chronic deformity of the bilateral shoulders. Electronically signed by: Adrian Dominique MD (10/20/2018 10:28 AM) [id number]
[2018-10-20 10:33] LABS: CALCIUM 11.6 mg/dL (8.5-10.1); CREATININE 1.2 mg/dL (0.6-1.0); GFR 43.4; POTASSIUM 4.5 mmol/L (3.5-5.1)
[2018-10-20 10:38] LABS: ALBUMIN 3.2 g/dL (3.4-5.0); ALBUMIN/GLOBULIN RATIO 1.1 (1.0-1.7); TOTAL BILIRUBIN 0.4 mg/dL (0.2-1.0)
[2018-10-20 10:53] LABS: BILIRUBIN,URINE NEGATIVE (NEG); CLARITY,URINE CLEAR; COLOR,URINE YELLOW; NITRITE,URINE NEGATIVE (NEG); PH,URINE 6.5; PROTEIN,URINE NEGATIVE (NEG-TRACE); UROBILINOGEN,URINE 0.2 mg/dL (0.2 mg/dL)
[2018-10-20 10:58] LABS: BACTERIA,URINE FEW /HPF (0-FEW); HYALINE CASTS, URINE OCCASIONAL /HPF; RBC,URINE 0 /HPF (0-2)
--- NOTE | 2018-10-20 12:07 | PHYS DOC ---
Past Medical History Past Medical History: A-Fib, Anxiety, Asthma, CAD, Depression, Gallstones, GERD , Hypertension, Hypothyroid Additional Past Medical Histor: rheumatic heart disease, benign aortic tumor, graves disease, CHRONIC PAIN Past Surgical History: Cholecystectomy, Hysterectomy, Tonsillectomy Additional Past Surgical Histo: rt & lt lumpectomy, rt bunyon, rt knee surgery Alcohol Use: None Drug Use: None Adult General Chief Complaint Chief Complaint: HYPOTENSION HPI HPI Patient is a 78 year old hypertension, and anxiety who presents with dizziness and lightheadedness. [facility] resides [facility] and had her blood pressure checked this morning which reportedly was in the low 60s. Patient also reports increased fatigue and decreased oral intake. No fever chills, nausea vomiting or sweats. No chest pain palpitations, shortness of breath. No urinary frequency urgency or dysuria. No other acute symptoms or complaints. [] Review of Systems Review of Systems Review symptoms as per history of present illness. All other review symptoms are negative. All other systems were reviewed and found to be within normal limits, except as documented in this note. Current Medications Current Medications Current Medications Medications (Trade) Dose Ordered Sig/Luann Start Time Stop Time Status Last Admin Dose Admin Sodium Chloride 1,000 ml @ 1,000 mls/hr 1X ONCE 10/20/18 10:15 10/20/18 11:14 DC 10/20/18 10:00 1,000 MLS/HR Allergies Allergies Allergies Coded Allergies Type Severity Reaction Last Updated Verified Penicillins Allergy Intermediate HIVES 08/05/17 Yes tetracycline Allergy Intermediate 08/05/17 Yes Physical Exam Physical Exam Constitutional: Well developed, well nourished, no acute distress, non-toxic appearance. [] HENT: Normocephalic, atraumatic, bilateral external ears normal, oropharynx moist, nose normal. [] Eyes: PERRLA, EOMI, conjunctiva normal, no discharge. [] Neck: Normal range of motion, no tenderness. [] Cardiovascular:Heart rate regular rhythm, no murmur [] Lungs & Thorax: Bilateral breath sounds clear to auscultation [] Abdomen: Bowel sounds normal, soft, no tenderness. [] Skin: Warm, dry. [] Back: No tenderness. [] Extremities: No tenderness. [] Neurologic: Alert and oriented X 3, normal motor function, normal sensory function, no focal deficits noted. [] Psychologic: Affect normal, judgement normal, mood normal. [] Current Patient Data Vital Signs Vital Signs Date Time Temp Pulse Resp B/P (MAP) Pulse Ox O2 Delivery O2 Flow Rate FiO2 10/20/18 10:30 46 9 114/55 (74) 98 Nasal Cannula 2.0 10/20/18 09:44 97.5 97.5 Lab Values Laboratory Tests Test 10/20/18 09:52 10/20/18 09:55 10/20/18 10:18 White Blood Count 4.3 x10^3/uL (4.0-11.0) Red Blood Count 3.44 x10^6/uL (3.50-5.40) L Hemoglobin 10.5 g/dL (12.0-15.5) L Hematocrit 31.9 % (36.0-47.0) L Mean Corpuscular Volume 93 fL (79-100) Mean Corpuscular Hemoglobin 31 pg (25-35) Mean Corpuscular Hemoglobin Concent 33 g/dL (31-37) Red Cell Distribution Width 14.5 % (11.5-14.5) Platelet Count 287 x10^3/uL (140-400) Neutrophils (%) (Auto) 55 % (31-73) Lymphocytes (%) (Auto) 30 % (24-48) Monocytes (%) (Auto) 7 % (0-9) Eosinophils (%) (Auto) 6 % (0-3) H Basophils (%) (Auto) 2 % (0-3) Neutrophils # (Auto) 2.4 x10^3uL (1.8-7.7) Lymphocytes # (Auto) 1.3 x10^3/uL (1.0-4.8) Monocytes # (Auto) 0.3 x10^3/uL (0.0-1.1) Eosinophils # (Auto) 0.2 x10^3/uL (0.0-0.7) Basophils # (Auto) 0.1 x10^3/uL (0.0-0.2) Sodium Level 141 mmol/L (136-145) Potassium Level 4.5 mmol/L (3.5-5.1) Chloride Level 105 mmol/L (98-107) Carbon Dioxide Level 28 mmol/L (21-32) Anion Gap 8 (6-14) Blood Urea Nitrogen 23 mg/dL (7-20) H Creatinine 1.2 mg/dL (0.6-1.0) H Estimated GFR (Cockcroft-Gault) 43.4 BUN/Creatinine Ratio 19 (6-20) Glucose Level 114 mg/dL (70-99) H Lactic Acid Level 1.8 mmol/L (0.4-2.0) Calcium Level 11.6 mg/dL (8.5-10.1) H Total Bilirubin 0.4 mg/dL (0.2-1.0) Aspartate Amino Transferase (AST) 20 U/L (15-37) Alanine Aminotransferase (ALT) 14 U/L (14-59) Alkaline Phosphatase 139 U/L (46-116) H Troponin I Quantitative < 0.017 ng/mL (0.000-0.055) Total Protein 6.0 g/dL (6.4-8.2) L Albumin 3.2 g/dL (3.4-5.0) L Albumin/Globulin Ratio 1.1 (1.0-1.7) Glucose (Fingerstick) 104 mg/dL (70-99) H Urine Color Yellow Urine Clarity Clear Urine pH 6.5 Urine Specific [place] >=1.030 Urine Protein Negative mg/dL (NEG-TRACE) Urine Glucose (UA) Negative mg/dL (NEG) Urine Ketones (Stick) Negative mg/dL (NEG) Urine Blood Negative (NEG) Urine Nitrite Negative (NEG) Urine Bilirubin Negative (NEG) Urine Urobilinogen Dipstick 0.2 mg/dL (0.2 mg/dL) Urine Leukocyte Esterase Small (NEG) Urine RBC 0 /HPF (0-2) Urine WBC 5-10 /HPF (0-4) Urine Transitional Epithelial Cells Occ /LPF Urine Bacteria Few /HPF (0-FEW) Urine Hyaline Casts Occasional /HPF Urine Mucus Slight /LPF Laboratory Tests 10/20/18 09:52 Laboratory Tests 10/20/18 09:52 EKG EKG [EKG: Reviewed] Radiology/Procedures Radiology/Procedures [Chest x-ray: No acute cardiopulmonary disease.] Course & Med Decision Making Course & Med Decision Making Pertinent Labs and Imaging studies reviewed. (See chart for details) [Patient has not acute distress. Labs, imaging, EKG reviewed. IV fluids given. Blood pressure improved from systolic of 70s to systolic 120s. Patient appears somewhat more alert and is comfortable. Steady gait with walker. Patient is comfortable with return back to [facility] facility. Will hold blood pressure medication with instructions to follow-up with PCP later this week. Return precautions reviewed.] Dragon Disclaimer Dragon Disclaimer This electronic medical record was generated, in whole or in part, using a voice recognition dictation system. Departure Departure Impression: Primary Impression: Orthostatic hypotension Additional Impression: Dehydration Disposition: 01 HOME, SELF-CARE Condition: GOOD Referrals: MERRY MOSS MD (PCP) Patient Instructions: Dehydration, Adult, [id number], Orthostatic Hypotension Additional Instructions: You were evaluated in the emergency department for dizziness, fatigue and a low blood pressure. EKG, chest x-ray and labwork were obtained and are consistent with mild dehydration. IV fluids were given with improved blood pressure. Please hold blood pressure medication for the next 2 days and follow-up with your PCP for reevaluation. He develop new or worsening symptoms, return to the ED. Problem Qualifiers JAY ROBERTS DO Oct 20, 2018 12:07
[2018-10-20 12:45] VITALS: BP 138/77
== END 2018-10-20 13:56 | disposition home or self-care (01) ==
LOC: ER 09:44
DX: I95.1 Orthostatic hypotension (principal); E86.0 Dehydration; F41.9 Anxiety disorder, unspecified; I48.91 Unspecified atrial fibrillation; J45.909 Unspecified asthma, uncomplicated; I25.10 Atherosclerotic heart disease of native coronary artery without angina pectoris; F32.9 Major depressive disorder, single episode, unspecified; K21.9 Gastro-esophageal reflux disease without esophagitis; E03.9 Hypothyroidism, unspecified; I11.9 Hypertensive heart disease without heart failure; G89.29 Other chronic pain; Z88.0 Allergy status to penicillin; Z88.1 Allergy status to other antibiotic agents
CPT/HCPCS: 36415; 71045; 80053; 81001; 82962; 83605; 83735; 84443; 84484; 85025; 87086; 93005; 96360; 99284; J7030; P9612

== ENCOUNTER → 2018-11-05 | Outpatient (CLI) | payer BC, MEDICAID ==
[2018-10-20 12:45] VITALS: BP 138/77
== END | disposition home or self-care (01) ==
LOC: SPEC 07:19
PROVIDERS: ATTEND Family Medicine
DX: D64.89 Other specified anemias (principal)
CPT/HCPCS: 36415; 85651

== ENCOUNTER → 2018-11-06 | Outpatient (CLI) | payer BC, OTHER ==
[2018-10-20 12:45] VITALS: BP 138/77
--- NOTE | 2018-11-06 11:00 | RAD ---
EXAM: Head CT without contrast. HISTORY: Migraine. TECHNIQUE: Computed tomographic images of the head were obtained without contrast. *One or more of the following individualized dose reduction techniques were utilized for this examination: 1. Automated exposure control. 2. Adjustment of the mA and/or kV according to patient size. 3. Use of iterative reconstruction technique. COMPARISON: 06/18/2017. FINDINGS: There is no acute or subacute extra-axial or intraparenchymal hemorrhage. There is no mass effect or midline shift. There is no hydrocephalus. There are areas of decreased attenuation within the cerebral white matter, nonspecific and likely related to chronic small vessel disease. There is mild age-appropriate cerebral volume loss. There is stable hypodensity within the lateral right frontal lobe likely due to encephalomalacia. There is heavily calcified atherosclerotic plaque within the distal vertebral and internal carotid arteries. The orbits are unremarkable. There is minimal sphenoid sinus mucosal thickening. The mastoid air cells are clear. IMPRESSION: 1. No acute intracranial finding. 2. Decreased attenuation within the cerebral white matter, likely due to chronic small vessel disease. 3. 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 Electronically signed by: Kathryn Reyna MD (11/06/2018 10:55 AM) [id number]
== END | disposition home or self-care (01) ==
LOC: CT 10:18 → EDSTATUS 11:00
PROVIDERS: ATTEND Family Medicine
DX: G93.89 Other specified disorders of brain (principal); I65.23 Occlusion and stenosis of bilateral carotid arteries
CPT/HCPCS: 70450